=== PATIENT | female | born 2000 | race Caucasian/White ===

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

== ENCOUNTER 2021-01-09 16:33 | Emergency (ER) | payer MEDICAID, SELFPAY ==
[2021-01-09 16:34] VITALS: BP 115/67; PULSE 86; RESP 18; TEMP 37.1; O2SAT 98; BMI 26.2
[2021-01-09 17:09] LABS: Microscopic, Urine URINE MICROSCOPIC (MICROSCOPIC)
[2021-01-09 17:13] LABS: Appearance,Urine CLOUDY (Clear); Blood, Urine Negative (Negative); Color,Urine DK YELLOW (Yellow); Glucose,Urine (UA) Negative (Negative); Ketones,Urine 3+ (Negative); Leukocyte Esterase,Urine 1+ (Negative); Nitrate,Urine Negative (Negative); Protein,Urine TRACE (Negative); Specific Gravity, Urine >= 1.030 (1.005-1.030); Urobilinogen,Urine 0.2 EU/dl (0.2)
[2021-01-09 17:15] LABS: Bilirubin,Urine 1+ (Negative)
[2021-01-09 17:16] LABS: Chloride 106 mmol/L (98-107)
[2021-01-09 17:17] LABS: Sodium 138 mmol/L (136-145)
[2021-01-09 17:19] LABS: Alanine Aminotransferase 17 U/L (12-78); Alkaline Phosphatase 106 U/L (38-126); Aspartate Amino Transferase 27 U/L (14-36); Bilirubin,Total 0.6 mg/dl (0.2-1.3); Creatinine Clearance Estimated 232 mL/min (50-200); Estimated Glomerular Filt Rate 206 ml/min (>60); GFR (African American) 249 ML/MIN (>60)
[2021-01-09 17:20] LABS: Albumin Level 3.8 g/dl (3.5-5.0); Albumin/Globulin Ratio 1.2 (1.1-1.8); Calcium 8.5 mg/dl (8.4-10.2); Carbon Dioxide 18 mmol/L (22.0-30.0); Globulin 3.2 g/dL (1.3-3.2); Glucose 74 mg/dl (74-100); Lipase 168 U/L (23-300)
[2021-01-09 17:21] LABS: HCG Qualitative, Serum Positive (Negative)
[2021-01-09 17:26] LABS: Bacteria,Urine 1+ /lpf
[2021-01-09 17:28] LABS: Basophils # 0.1 K/mm3 (0-0.2); Basophils % 0.6 % (0.1-2.0); Eosinophils # 0.1 K/mm3 (0.0-0.4); Eosinophils % 0.7 % (0.1-12.0); Hematocrit 38.1 % (37.0-47.0); Hemoglobin 12.6 g/dL (12.2-16.2); Lymphocytes # 1.8 K/mm3 (0.7-4.5); Lymphocytes % 19.7 % (10-50); Mean Corpuscular HGB Conc 33.1 g/dL (31.8-35.4); Mean Corpuscular Volume 78.5 fl (81-99); Mean Platelet Volume 8.1 fl (7.4-10.4); Monocytes # 0.4 K/mm3 (0.1-1.0); Monocytes % 4.7 % (1.7-9.3); Neutrophils % 74.3 % (37.0-80.0); Platelet Count 296 K/mm3 (142-424); Red Blood Count 4.85 M/mm3 (4.20-5.40); Red Cell Distribution Width 17.7 % (11.5-17.5); White Blood Count 9.4 K/mm3 (4.5-13.0)
[2021-01-09 17:31] LABS: Blood Urea Nitrogen < 2 mg/dl (7-17)
--- NOTE | 2021-01-09 17:46 | HMH.EDNVD ---
ED Disposition Clinical Impression: Hyperemesis arising during Disposition: Home, Self-Care Condition on Discharge: Good Instructions: DI for Hyperemesis Gravidarum Referrals: Boyd Morrow [Primary Care Provider] - Jeremy Cespedes MD [Staff Physician] - - Critical Care Critical Care Time: No Attestation: On 01/09/21, the high probability of a clinically significant, sudden or life threatening deterioration of the following system(s) required my full and direct attention, intervention and personal management. The time I documented below is in addition to time spent performing reported procedures but includes the following listed in this critical care notation. Medical Decision Making - Medical Records Medical records reviewed: Yes: I reviewed the patient's medical records. - Hany Inquiry Pt receiving controlled substance: No Vital Signs: 01/09/21 16:34 Temperature 98.8 F Temperature Source Oral Pulse Rate [Left Radial] 86 Respiratory Rate 18 Blood Pressure [Right Arm] 115/67 Blood Pressure Mean [Right Arm] 83 Blood Pressure Source [Right Arm] Automatic Cuff Blood Pressure Position [Right Arm] Sitting 02 Sat by Pulse Oximetry 98 Oxygen Delivery Method Room Air - Lab Data Lab Results 01/09/21 16:56: WBC 9.4, RBC 4.85, Hgb 12.6, Hct 38.1, MCV 78.5 L, MCH 26.0 L, MCHC 33.1, RDW 17.7 H, Plt Count 296, MPV 8.1, Neut % (Auto) 74.3, Lymph % (Auto) 19.7, [place] % (Auto) 4.7, Eos % (Auto) 0.7, Baso % (Auto) 0.6, Neut # (Auto) 7.0, Lymph # (Auto) 1.8, [place] # (Auto) 0.4, Eos # (Auto) 0.1, Baso # (Auto) 0.1 01/09/21 16:56: Sodium 138, Potassium 3.0 L, Chloride 106, Carbon Dioxide 18 L, Anion Gap 17.0 H, BUN < 2 L, Creatinine 0.40 L, Estimated Creat Clear 232, Estimated GFR 206, Est GFR ( Amer) 249, Glucose 74, Calcium 8.5, Total Bilirubin 0.6, AST 27, ALT 17, Alkaline Phosphatase 106, Total Protein 7.0, Albumin 3.8, Globulin 3.2, Albumin/Globulin Ratio 1.2, Lipase 168 01/09/21 16:56: Serum HCG, Qual Positive 01/09/21 17:03: Urine Color Dk yellow, Urine Appearance Cloudy, Urine pH 6.0, Ur Specific [place] >= 1.030, Urine Protein Trace, Urine Glucose (UA) Negative, Urine Ketones 3+, Urine Blood Negative, Urine Nitrate Negative, Urine Bilirubin 1+ A, Urine Urobilinogen 0.2, Ur Leukocyte Esterase 1+ A, Urine RBC None, Urine WBC 3-5, Ur Squamous Epith Cells 5-10, Urine Bacteria 1+ Result diagrams: 01/09/21 16:56 01/09/21 16:56 Orders (Tests/Meds): ED MEDICATIONS Generic Name Dose Route Start Last Admin Trade Name Freq PRN Reason Stop Dose Admin Sodium Chloride 1,000 mls @ 999 mls/hr 01/09/21 17:00 01/09/21 17:10 Sod Chlor 0.9% 1000ml Bag IV 01/09/21 18:00 999 mls/hr .Q1H1M NAUN Administration Sodium Chloride 1,000 mls @ 999 mls/hr 01/09/21 18:30 Sod Chlor 0.9% 1000ml Bag IV 01/09/21 19:30 .Q1H1M NAUN Discontinued Medications Generic Name Dose Route Start Last Admin Trade Name Freq PRN Reason Stop Dose Admin Diphenhydramine HCl 25 mg 01/09/21 16:57 01/09/21 17:09 Diphenhydramine 50mg/Ml Vial IV 01/09/21 16:58 25 mg ONCE ONE Administration Ondansetron HCl 4 mg 01/09/21 16:57 01/09/21 17:10 Ondansetron 4mg/2ml Vial IV 01/09/21 16:58 4 mg ONCE ONE Administration ORDERS Category Date Time Status Urine Culture Stat Micro 01/09/21 17:03 Received - Reevaluation(s) Time: 19:02 Reevaluation #1: On reevaluation, the patient is feeling much better. Again she has no abdominal discomfort. States that her nausea is significantly improved. She is currently tolerating oral intake at this time without any difficulty. Repeat abdominal exam is benign. Patient does have evidence of some ketones in her urine as well as some mild prerenal dysfunction. Likely secondary to poor oral intake. I did discuss admission with the patient, however she is feeling better she would like to go home and try outpatient treatment. Patient does have some bacter
[2021-01-09 19:17] VITALS: BP 99/50; PULSE 65; RESP 15; TEMP 36.7; O2SAT 100
== END 2021-01-09 19:38 | disposition home or self-care (01) ==
PROVIDERS: Emergency Provider Emergency Medicine; PCP Urology Pediatric Urology
DX: O21.0 Mild hyperemesis gravidarum (principal); Z3A.16 16 weeks gestation of pregnancy
CPT/HCPCS: 80053; 81001; 83690; 84703; 85025; 87086; 96365; 96366; 96375; 99283; J2405

== ENCOUNTER 2021-01-12 09:22 | Inpatient (IN) | payer MEDICAID, SELFPAY ==
[2021-01-12 09:44] VITALS: BMI 25.9
[2021-01-12 10:19] LABS: Coronavirus 19, PCR Not Detected (NotDetected); Influenza A, PCR Not Detected (NotDetected); Influenza B, PCR Not Detected (NotDetected)
[2021-01-12 10:21] LABS: Microscopic, Urine URINE MICROSCOPIC (MICROSCOPIC)
[2021-01-12 10:22] LABS: Appearance,Urine CLEAR (Clear); Blood, Urine Negative (Negative); Color,Urine YELLOW (Yellow); Glucose,Urine (UA) Negative (Negative); Ketones,Urine 3+ (Negative); Leukocyte Esterase,Urine 1+ (Negative); Nitrate,Urine Negative (Negative); Protein,Urine 1+ (Negative); Specific Gravity, Urine >= 1.030 (1.005-1.030)
[2021-01-12 10:25] LABS: Basophils # 0.1 K/mm3 (0-0.2); Basophils % 0.5 % (0.1-2.0); Chloride 107 mmol/L (98-107); Eosinophils % 0.4 % (0.1-12.0); Hematocrit 42.3 % (37.0-47.0); Hemoglobin 13.4 g/dL (12.2-16.2); Lymphocytes # 1.5 K/mm3 (0.7-4.5); Lymphocytes % 15.5 % (10-50); Mean Corpuscular HGB Conc 31.7 g/dL (31.8-35.4); Mean Corpuscular Hemoglobin 25.5 pg (27.0-31.2); Mean Corpuscular Volume 80.4 fl (81-99); Mean Platelet Volume 7.1 fl (7.4-10.4); Monocytes # 0.5 K/mm3 (0.1-1.0); Monocytes % 4.9 % (1.7-9.3); Neutrophils # 7.8 K/mm3 (1.8-7.8); Neutrophils % 78.6 % (37.0-80.0); Platelet Count 341 K/mm3 (142-424); Red Blood Count 5.26 M/mm3 (4.20-5.40); Red Cell Distribution Width 17.6 % (11.5-17.5); White Blood Count 9.9 K/mm3 (4.5-13.0)
[2021-01-12 10:26] LABS: Potassium 3.2 mmoL/L (3.5-5.1); Sodium 138 mmol/L (136-145)
[2021-01-12 10:28] LABS: Creatinine Clearance Estimated 183 mL/min (50-200); Estimated Glomerular Filt Rate 159 ml/min (>60); GFR (African American) 192 ML/MIN (>60)
[2021-01-12 10:29] LABS: Anion Gap 21.2 mEq/L (5-15); Blood Urea Nitrogen < 2 mg/dl (7-17); Carbon Dioxide 13 mmol/L (22.0-30.0); Glucose 93 mg/dl (74-100)
[2021-01-12 10:35] LABS: Amphetamine/Metha Screen,Urine Negative ng/ml (<1000); Barbiturates Screen,Urine Negative ng/ml (<200)
[2021-01-12 10:36] LABS: Benzodiazepines Screen,Urine Negative ng/ml (<200); Bilirubin,Urine Negative (Negative)
[2021-01-12 10:37] LABS: Cannabinoid Screen,Urine Negative ng/ml (<50); Cocaine Screen,Urine Negative ng/ml (<300)
[2021-01-12 10:38] LABS: Methadone Screen,Urine Negative ng/ml (<300); Phencyclidine Screen,Urine Negative ng/ml (<25)
[2021-01-12 10:39] LABS: Opiate Screen,Urine Negative ng/ml (<300)
[2021-01-12 12:33] VITALS: BP 107/68; PULSE 105; RESP 16; TEMP 36.6; O2SAT 100; BMI 25.9
[2021-01-12 16:30] VITALS: BP 91/53; PULSE 85; RESP 18; TEMP 36.9; O2SAT 100
--- NOTE | 2021-01-12 16:50 | HMH.HP ---
*Admission Date: 01/12/21 *Chief complaint: nausea/vomiting *History of present illness: 20 yo G1 @ 16 5/7 sent from office for direct admission for hyperemesis gravidarum. Severe nausea/vomiting with 37 lb weight loss since started 6 pound weight loss since last appointment in [facility] office 12/30/20 3+ urine ketones Failed outpatient management with po zofran and po/pr phenergan unable to tolerate po reglan [facility] History I have reviewed the patient's past medical history: Yes *Have you ever received a pneumonia vaccine?: No *Have you received a flu vaccine this season?: Yes Laterality Cases: Bilateral: Tonsillectomy Other Surgeries: No: Amputation: No Fractures: No - *Social History Smoking Status: Never smoker Alcohol Intake: never Substance Use Type: denies use *Occupational Status:: unemployed *Travel in the last 8 weeks: None Family Hx:: Hypertension Para: 0 Review of Systems - Review of Systems Review of systems:: pertinent systems reviewed and negative unless documented below - Constitutional Denies fever(s) - *Respiratory Denies cough - *Gastrointestinal Reports nausea, Reports vomiting - *Genitourinary Denies abnormal vaginal bleeding Meds Home Medications Medication Instructions Recorded Confirmed Type Nju400/Iron/FA/O3/Dha/Epa/Fish 1 cap PO DAILY 01/12/21 01/12/21 History [ Multi-Dha Softgel] Allergies Allergy/AdvReac Type Severity Reaction Status Date / Time No Known Allergies Allergy Verified 01/12/21 08:33 Exam Vital signs and Labs for Last 24 Hours: Temp Pulse Resp BP Pulse Ox 97.8 F 105 H 16 107/68 L 100 01/12/21 12:33 01/12/21 12:33 01/12/21 12:33 01/12/21 12:33 01/12/21 12:33 Laboratory Results - last 24 hr 01/12/21 09:51: Urine Color Yellow, Urine Appearance Clear, Urine pH 6.0, Ur Specific [place] >= 1.030, Urine Protein 1+, Urine Glucose (UA) Negative, Urine Ketones 3+, Urine Blood Negative, Urine Nitrate Negative, Urine Bilirubin Negative, Urine Urobilinogen 1.0, Ur Leukocyte Esterase 1+ A, Urine RBC None, Urine WBC 3-5, Ur Squamous Epith Cells 5-10, Urine Bacteria None, Hyaline Casts 3-5 01/12/21 09:51: Urine Opiates Screen Negative, Urine Methadone Screen Negative, Ur Barbituates Screen Negative, Ur Phencyclidine Scrn Negative, Ur Amphetamines Screen Negative, U Benzodiazepines Scrn Negative, Urine Cocaine Screen Negative, U Marijuana (THC) Screen Negative 01/12/21 10:06: WBC 9.9, RBC 5.26, Hgb 13.4, Hct 42.3, MCV 80.4 L, MCH 25.5 L, MCHC 31.7 L, RDW 17.6 H, Plt Count 341, MPV 7.1 L, Neut % (Auto) 78.6, Lymph % (Auto) 15.5, [place] % (Auto) 4.9, Eos % (Auto) 0.4, Baso % (Auto) 0.5, Neut # (Auto) 7.8, Lymph # (Auto) 1.5, [place] # (Auto) 0.5, Eos # (Auto) 0.0, Baso # (Auto) 0.1 01/12/21 10:06: Sodium 138, Potassium 3.2 L, Chloride 107, Carbon Dioxide 13 L, Anion Gap 21.2 H, BUN < 2 L, Creatinine 0.50 L D, Estimated Creat Clear 183, Estimated GFR 159, Est GFR ( Amer) 192 D, Glucose 93, Calcium 9.0 01/12/21 10:10: SARS-CoV-2 (PCR) Not detected, Influenza A Untype (PCR) Not detected, Influenza Type B (PCR) Not detected I & O for Last 24 hours: Intake & Output 01/10/21 01/11/21 01/12/21 01/13/21 11:59 11:59 11:59 11:59 Weight 141 lb 8.588 oz 141 lb 8.588 oz - Constitutional no acute distress - *Routine HEENT Exam Head: Present: normocephalic Eye: Present: EOMI, PERRL ENT: Present: mucous membranes dry - *Routine Neck Exam Present: supple. Absent: lymphadenopathy - *Routine Respiratory Exam Present: CTA bilaterally - *Routine Cardiovascular Exam Present: RRR - *Routine Abdominal Exam Present: soft, normoactive bowel sounds. Absent: tenderness - *Routine Rectal Exam Rectal:: deferred - *Routine Genitalia Exam Genitalia:: deferred - *Routine Extremities Exam Absent: cyanosis, clubbing, edema - *Routine Skin Exam Present: warm. Absent: rash - *Routine Neurological Exam Present: alert, orien
[2021-01-12 20:39] VITALS: BP 104/50; PULSE 78; RESP 18; TEMP 36.8; O2SAT 100
[2021-01-13 04:03] VITALS: BP 94/53; PULSE 80; RESP 16; TEMP 36.8; O2SAT 99
--- NOTE | 2021-01-13 07:11 | HMH.PHAVTE ---
[facility] Pharmacy VTE Monitoring - Patient Demographics Admission date: 01/12/21 Report Date: 01/13/21 Time: 07:11 Allergies/Adverse Reactions: Patient Allergies No Known Allergies Allergy (Verified 01/12/21 08:33) Height: 1.57 m Weight: 64.2 kg Patient Problems: Current Active Problems 16 weeks gestation of (Acute) Hyperemesis gravidarum (Acute) Hypokalemia (Acute) - VTE Risk Labs: VTE Related Lab Results Hgb 13.4 g/dL (12.2-16.2) 01/12/21 10:06 Hct 42.3 % (37.0-47.0) 01/12/21 10:06 Plt Count 341 K/mm3 (142-424) 01/12/21 10:06 BUN < 2 mg/dl (7-17) L 01/12/21 10:06 Creatinine 0.50 mg/dl (0.52-1.04) L D 01/12/21 10:06 Estimated Creat Clear 183 mL/min (50-200) 01/12/21 10:06 - Prophylaxis VTE Prophylaxis Ordered?: Yes Types of VTE Prophylaxis: TEDS Knee High Location of Applied Device: Bilateral Lower Extremeties
--- NOTE | 2021-01-13 08:40 | PC.NURSE ---
EMESIS EPISODE AT THIS TIME. ZOFRAN GIVEN.
[2021-01-13 11:59] LABS: Microscopic, Urine URINE MICROSCOPIC (MICROSCOPIC)
[2021-01-13 12:01] LABS: Appearance,Urine CLEAR (Clear); Bilirubin,Urine Negative (Negative); Blood, Urine Negative (Negative); Color,Urine YELLOW (Yellow); Glucose,Urine (UA) Negative (Negative); Ketones,Urine Negative (Negative); Leukocyte Esterase,Urine 2+ (Negative); Nitrate,Urine Negative (Negative); Protein,Urine Negative (Negative); Specific Gravity, Urine 1.015 (1.005-1.030); Urobilinogen,Urine 0.2 EU/dl (0.2)
[2021-01-13 12:12] LABS: Mucus,Urine 1+ /lpf
--- NOTE | 2021-01-13 14:34 | PC.NURSE ---
Patient's father called requesting to speak with Dr. Napier. Explained that he was calling the OB department and not her office. He stated he though she was on the unit rounding. He voiced his concerns that we are not providing appropriate care by not putting in a PIC line. I assured him she was receiving appropriate care. I spoke with the patient to assess her concerns regarding her POC. Patient stated she could not continue to keep coming to the hospital every couple of days and endure multiple IV sticks and wants a PIC line. I will discuss this with her nurse so she can notify Dr. Napier, who is in surgery ate the moment, of the patient's request and the need for further discussion with the patient.
[2021-01-13 14:35] LABS: Chloride 107 mmol/L (98-107); Sodium 137 mmol/L (136-145)
[2021-01-13 14:38] LABS: Alanine Aminotransferase 17 U/L (12-78); Albumin Level 2.9 g/dl (3.5-5.0); Albumin/Globulin Ratio 1.1 (1.1-1.8); Alkaline Phosphatase 84 U/L (38-126); Anion Gap 7.7 mEq/L (5-15); Aspartate Amino Transferase 29 U/L (14-36); Bilirubin,Total 0.4 mg/dl (0.2-1.3); Calcium 8.3 mg/dl (8.4-10.2); Carbon Dioxide 25 mmol/L (22.0-30.0); Creatinine Clearance Estimated 229 mL/min (50-200); Estimated Glomerular Filt Rate 206 ml/min (>60); GFR (African American) 249 ML/MIN (>60); Globulin 2.7 g/dL (1.3-3.2); Glucose 109 mg/dl (74-100); Total Protein,Serum 5.6 g/dl (6.3-8.2)
[2021-01-13 14:42] LABS: Blood Urea Nitrogen < 2 mg/dl (7-17)
[2021-01-13 14:43] LABS: Potassium 2.7 mmoL/L (3.5-5.1)
[2021-01-13 15:30] VITALS: BP 103/56; PULSE 79; RESP 20; TEMP 36.7; O2SAT 100
--- NOTE | 2021-01-13 16:01 | P.PN_ITS ---
Internal Medicine - PN: Subj *Date: 01/13/21 *Time: 16:01 Interval history: 16 6/7 weeks with hyperemesis HD #2 Did well yesterday with no anti-emetics needed following admission throughout the day and the night She had some vomiting this morning and repeat labs showed decrease in potassium from 32. to 2.7 She has been unwilling to take any food or drink po since admission, even when she is not vomiting Exam Vital signs and Labs for Last 24 Hours: Temp Pulse Resp BP Pulse Ox 98.2 F 80 16 94/53 L 99 01/13/21 04:03 01/13/21 04:03 01/13/21 04:03 01/13/21 04:03 01/13/21 04:03 Laboratory Results - last 24 hr 01/13/21 11:50: Urine Color Yellow, Urine Appearance Clear, Urine pH 6.0, Ur Specific [place] 1.015, Urine Protein Negative, Urine Glucose (UA) Negative, Urine Ketones Negative, Urine Blood Negative, Urine Nitrate Negative, Urine Bilirubin Negative, Urine Urobilinogen 0.2, Ur Leukocyte Esterase 2+ A, Urine RBC 3-5, Urine WBC 5-10, Urine Mucus 1+ 01/13/21 14:17: Sodium 137, Potassium 2.7 L*, Chloride 107, Carbon Dioxide 25, Anion Gap 7.7, BUN < 2 L, Creatinine 0.40 L, Estimated Creat Clear 229, Estimated GFR 206, Est GFR ( Amer) 249 D, Glucose 109 H, Calcium 8.3 L, Total Bilirubin 0.4, AST 29, ALT 17, Alkaline Phosphatase 84, Total Protein 5.6 L, Albumin 2.9 L, Globulin 2.7, Albumin/Globulin Ratio 1.1 I & O for Last 24 hours: Intake & Output 01/11/21 01/12/21 01/13/21 01/14/21 11:59 11:59 11:59 11:59 Output Total 1250 / 1250 Balance -1250 / -1250 Weight 141 lb 8.588 oz 141 lb 8.588 oz Microbiology Reports for the Last 24 Hours: Microbiology 01/12/21 09:51 Urine,Clean Catch Urine Culture - Preliminary Narrative: CONSTITUTIONAL: no acute distress, resting comfortably HEENT: mucous membranes dry PULMONARY: breathing unlabored without audible wheezes CV: no visible JVD; normal LE peripheral pulses ABD: soft, NT/ND, no guarding SKIN: no visible rash or lesions EXT: no edema LEs NEURO: alert/oriented, no altered mental status Assessment and Plan (1) 16 weeks gestation of Status: Acute Category: Medical Code(s): Z3A.16 - 16 weeks gestation of (2) Hyperemesis gravidarum Status: Acute Category: Medical Code(s): O21.0 - Mild hyperemesis gravidarum (3) Hypokalemia Status: Acute Category: Medical Code(s): E87.6 - Hypokalemia - Assessment and plan all Dx Assessment and Plan for all problems:: Continue IVF 150cc/hr Encourage po intake IV potassium replacement Reasses in am
--- NOTE | 2021-01-13 18:15 | PC.NURSE ---
300ml emesis noted in bag upon entering room. patient eating lunchable drinking water when nurse walked in.
[2021-01-13 19:42] VITALS: BP 98/51; PULSE 80; RESP 17; TEMP 36.9; O2SAT 98
[2021-01-13 22:05] LABS: Calcium 8.1 mg/dl (8.4-10.2); Carbon Dioxide 25 mmol/L (22.0-30.0); Chloride 105 mmol/L (98-107); Creatinine Clearance Estimated 306 mL/min (50-200); Estimated Glomerular Filt Rate 287 ml/min (>60); GFR (African American) 347 ML/MIN (>60); Glucose 88 mg/dl (74-100); Sodium 136 mmol/L (136-145)
[2021-01-13 22:10] LABS: Blood Urea Nitrogen < 2 mg/dl (7-17)
--- NOTE | 2021-01-13 22:10 | PC.NURSE ---
LATE ENTRY. CRITICAL POTASSIUM RESULT (3.0) RECEIVED AT 22:10 BY CHASITY IN LAB.
[2021-01-14 00:03] VITALS: BP 100/52; PULSE 82; RESP 18; TEMP 36.6; O2SAT 98
[2021-01-14 04:59] VITALS: BP 94/52; PULSE 80; RESP 18; TEMP 36.6; O2SAT 98
[2021-01-14 09:57] VITALS: BMI 27.3
--- NOTE | 2021-01-14 10:03 | US_ITS ---
PROCEDURE: US OB >= 14 WEEKS FETUS CLINICAL INDICATION: Hyperemsis, increased weight loss, 16wks. COMPARISON: No exams were available for comparison FINDINGS: There is a single live fetus present which is in cephalic presentation. heart and body motion noted. Cervix is closed measuring 3 cm. The placenta is posterior and grade 1. The Measurements: Average ultrasound age 17 weeks 1 day. Gestational Age 17 weeks 0 days Estimated due date by ultrasound age 106/23/2021. Estimated weight 176 g BPD = 17 weeks 1 day OFD = 17 weeks 4 days HC = 17 weeks 0 days AC = 17 weeks 0 days FL = 17 weeks 1 day Growth Percentile= 41% Heart Rate = 146 Cerebellum = 17 weeks 6 days Humerus = HC/AC is 1.21 CI is 76 percent FL/BPD is 64 percent FL/AC is 21 percent No obvious anomalies demonstrated IMPRESSION: There is a single live intrauterine gestation in cephalic presentation with an average ultrasound age of 17 weeks 1 day. All parameters correlate. Please see above for detail. This exam does not constitute for a 20 week anatomy exam.. Recommend complete OB ultrasound/anatomy exam at 20 weeks. Dictated by: Jorge Oconnor MD 01/16/2021 05:23 Jorge Oconnor MD in OV 01/16/2021 05:23
--- NOTE | 2021-01-14 10:26 | HMH.ACPN2 ---
Internal Medicine - PN: Subj *Date: 01/14/21 *Time: 10:26 (This is hospital day #3 for this 20-year-old primigravid white female with hyperemesis gravidarum. She continues to have trouble with nausea and vomiting and is unable to keep any solid food down. She states that she has lost over 40 pounds since the beginning of the . She is currently on Zofran which works intermittently. Phenergan does not seem to help, nor does the Diclegis which she is on. Her potassium has been low but her most recent one was 3.0 (still low, but increasing). An ultrasound was attempted on admission, but she was unable to lie flat without experiencing nausea and vomiting, so was incomplete. The plan today is to repeat her potassium and check her thyroid, and to try to obtain a complete OB ultrasound.) Exam Vital signs and Labs for Last 24 Hours: Temp Pulse Resp BP Pulse Ox 97.8 F 80 18 94/52 L 98 01/14/21 04:59 01/14/21 04:59 01/14/21 04:59 01/14/21 04:59 01/14/21 04:59 Laboratory Results - last 24 hr 01/13/21 11:50: Urine Color Yellow, Urine Appearance Clear, Urine pH 6.0, Ur Specific [place] 1.015, Urine Protein Negative, Urine Glucose (UA) Negative, Urine Ketones Negative, Urine Blood Negative, Urine Nitrate Negative, Urine Bilirubin Negative, Urine Urobilinogen 0.2, Ur Leukocyte Esterase 2+ A, Urine RBC 3-5, Urine WBC 5-10, Urine Mucus 1+ 01/13/21 14:17: Sodium 137, Potassium 2.7 L*, Chloride 107, Carbon Dioxide 25, Anion Gap 7.7, BUN < 2 L, Creatinine 0.40 L, Estimated Creat Clear 229, Estimated GFR 206, Est GFR ( Amer) 249 D, Glucose 109 H, Calcium 8.3 L, Total Bilirubin 0.4, AST 29, ALT 17, Alkaline Phosphatase 84, Total Protein 5.6 L, Albumin 2.9 L, Globulin 2.7, Albumin/Globulin Ratio 1.1 01/13/21 21:43: Sodium 136, Potassium 3.0 L, Chloride 105, Carbon Dioxide 25, Anion Gap 9.0, BUN < 2 L, Creatinine 0.30 L D, Estimated Creat Clear 306 H, Estimated GFR 287, Est GFR ( Amer) 347 D, Glucose 88, Calcium 8.1 L I & O for Last 24 hours: Intake & Output 01/11/21 01/12/21 01/13/21 01/14/21 11:59 11:59 11:59 11:59 Output Total 1250 / 1250 1300 / 1300 Balance -1250 / -1250 -1300 / -1300 Weight 141 lb 8.588 oz 141 lb 8.588 oz 148 lb 8 oz Microbiology Reports for the Last 24 Hours: Microbiology 01/12/21 09:51 Urine,Clean Catch Urine Culture - Preliminary 01/13/21 11:50 Urine,Clean Catch Urine Culture - Preliminary Assessment and Plan (1) 16 weeks gestation of Status: Acute Category: Medical Code(s): Z3A.16 - 16 weeks gestation of (2) Hyperemesis gravidarum Status: Acute Category: Medical Code(s): O21.0 - Mild hyperemesis gravidarum (3) Hypokalemia Status: Acute Category: Medical Code(s): E87.6 - Hypokalemia
[2021-01-14 10:31] LABS: Potassium 3.1 mmoL/L (3.5-5.1)
[2021-01-14 11:06] LABS: Thyroid Stimulating Hormone 0.78 uIU/mL (0.465-4.68)
--- NOTE | 2021-01-15 10:22 | P.PN_ITS ---
Internal Medicine - PN: Subj *Date: 01/15/21 *Time: 10:22 (The ultrasound done yesterday revealed a normal 16-week . Her TSH was normal. Her potassium remains low at 3.1 and her calcium is low at 8.1. Going to repeat a BMP today and get an EKG. Through the night she has continued to have severe nausea and vomiting. I am ordering a rally pack of vitamins in the hopes that that will lessen her nausea/vomiting. Dr[facility] Exam Vital signs and Labs for Last 24 Hours: Temp Pulse Resp BP Pulse Ox 97.8 F 80 18 94/52 L 98 01/14/21 04:59 01/14/21 04:59 01/14/21 04:59 01/14/21 04:59 01/14/21 04:59 Laboratory Results - last 24 hr 01/14/21 10:07: Potassium 3.1 L, TSH 0.78 I & O for Last 24 hours: Intake & Output 01/12/21 01/13/21 01/14/21 01/15/21 11:59 11:59 11:59 11:59 Intake Total 3110 / 3110 Output Total 1250 / 1250 1400 / 1400 1210 / 1210 Balance -1250 / -1250 -1400 / -1400 1900 / 1900 Weight 141 lb 8.588 oz 141 lb 8.588 oz 148 lb 8 oz Microbiology Reports for the Last 24 Hours: Microbiology 01/12/21 09:51 Urine,Clean Catch Urine Culture - Preliminary 01/13/21 11:50 Urine,Clean Catch Urine Culture - Final Multiple organisms, suggests contamination. Assessment and Plan (1) 16 weeks gestation of Status: Acute Category: Medical Code(s): Z3A.16 - 16 weeks gestation of (2) Hyperemesis gravidarum Status: Acute Category: Medical Code(s): O21.0 - Mild hyperemesis gravidarum (3) Hypokalemia Status: Acute Category: Medical Code(s): E87.6 - Hypokalemia
--- NOTE | 2021-01-15 10:41 | ECG_ITS ---
APPROVED REPORT Exam: Resting ECG HR:82 bpm ECG Measurements Heart Rate 82 AXES QRSd 78 QRS 26 QT 358 T -18 QTc 418 Conclusion Accelerated Junctional rhythm ST & T wave abnormality, consider anterior ischemia Abnormal ECG Electronically signed by : Augustin Choudhury MD 01/16/2021 18:03:11
[2021-01-15 11:10] LABS: Basophils % 0.5 % (0.1-2.0); Eosinophils % 0.6 % (0.1-12.0); Hematocrit 31.6 % (37.0-47.0); Hemoglobin 10.7 g/dL (12.2-16.2); Lymphocytes # 1.3 K/mm3 (0.7-4.5); Lymphocytes % 20.1 % (10-50); Mean Corpuscular HGB Conc 33.9 g/dL (31.8-35.4); Mean Corpuscular Hemoglobin 27.3 pg (27.0-31.2); Mean Corpuscular Volume 80.6 fl (81-99); Mean Platelet Volume 7.8 fl (7.4-10.4); Monocytes # 0.3 K/mm3 (0.1-1.0); Neutrophils % 73.9 % (37.0-80.0); Platelet Count 267 K/mm3 (142-424); Red Blood Count 3.91 M/mm3 (4.20-5.40); Red Cell Distribution Width 17.8 % (11.5-17.5); White Blood Count 6.7 K/mm3 (4.5-13.0)
[2021-01-15 11:15] LABS: Alanine Aminotransferase 17 U/L (12-78); Albumin Level 2.6 g/dl (3.5-5.0); Alkaline Phosphatase 65 U/L (38-126); Aspartate Amino Transferase 23 U/L (14-36); Bilirubin,Total 0.3 mg/dl (0.2-1.3); Blood Urea Nitrogen 2 mg/dl (7-17); Calcium 8.1 mg/dl (8.4-10.2); Carbon Dioxide 33 mmol/L (22.0-30.0); Chloride 103 mmol/L (98-107); Creatinine Clearance Estimated 241 mL/min (50-200); Estimated Glomerular Filt Rate 206 ml/min (>60); GFR (African American) 249 ML/MIN (>60); Globulin 2.5 g/dL (1.3-3.2); Glucose 123 mg/dl (74-100); Sodium 137 mmol/L (136-145); Total Protein,Serum 5.1 g/dl (6.3-8.2)
--- NOTE | 2021-01-15 12:59 | HMH.CONS ---
*Admission Date: 01/12/21 *Reason for consult:: Family Medicine consult for hyperemesis gravidarum *History of present illness: Consultation has been requested for this 20-year-old white female 1 para 0 with hyperemesis gravidarum. Here is the OB narrative: 20 yo G1 @ 16 / sent from office for direct admission for hyperemesis gravidarum. Severe nausea/vomiting with 37 lb weight loss since started 6 pound weight loss since last appointment in [facility] office 12/30/20 3+ urine ketones Failed outpatient management with po zofran and po/pr phenergan unable to tolerate po reglan. The patient states she has been hospitalized for 4 days for IV fluids and persistent vomiting. She last vomited at 10 AM this morning. She is receiving D5 lactated Ringer's at 125 cc an hour. She is also presently receiving a rally pack. She has been treated outpatient with Phenergan and with Zofran. Apparently she had difficulty tolerating Reglan though I am not sure how long she received p.o. Reglan and I am not sure at what dose. Logic symptoms with the Reglan. She states that her vomiting started at 6 weeks gestation and has been persistent. She tells me she is lost from 196 pounds down to 140 pounds. She reports a past history of constipation and nausea has a child. Her mother suffered from gallbladder disease him from reflux but otherwise family history is nonrevealing. Patient does not smoke nor does she drink alcohol. [facility] History I have reviewed the patient's past medical history: Yes (She is very healthy.) *Have you ever received a pneumonia vaccine?: No *Have you received a flu vaccine this season?: Yes Laterality Cases: Left: Arthroscopy Knee (Torn meniscus), Bilateral: Tonsillectomy Other Surgeries: No: Amputation: No Fractures: No - *Social History Last grade of school completed: High school graduate Smoking Status: Never smoker Alcohol Intake: never Substance Use Type: denies use *Occupational Status:: unemployed *Travel in the last 8 weeks: None Family Hx:: Hypertension, Other (Disease and GERD in her mother) 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 ( 1 para 0) Para: 0 Review of Systems - Constitutional Denies body ache(s), Denies chills - Eyes Denies change in vision - ENT Denies bleeding gums, Denies hoarseness, Denies mouth lesions (Dry lips) - *Cardiovascular Denies chest pain - *Respiratory Denies chest congestion, Denies cough - *Gastrointestinal Reports nausea, Reports vomiting, Denies abdominal pain, Denies heartburn - *Genitourinary Reports absent period - *Musculoskeletal Denies back pain - Integumentary/Breasts Reports change in skin color (Pale), Reports dry skin - *Neurologic Denies seizure-like activity, Denies dizziness, Denies tremor(s) - Psychiatric Reports change in appetite Meds Home Medications Medication Instructions Recorded Confirmed Type [id number]/Iron/FA/O3/Dha/Epa/Fish 1 cap PO DAILY 01/12/21 01/12/21 History [ Multi-Dha Softgel] doxylamine 10 mg-pyridoxine (vit 1 tab PO BID #60 tab 01/13/21 Rx B6) 10 mg tablet,delayed release Allergies Allergy/AdvReac Type Severity Reaction Status Date / Time No Known Allergies Allergy Verified 01/12/21 08:33 Exam Vital signs and Labs for Last 24 Hours: Temp Pulse Resp BP Pulse Ox 97.8 F 80 18 94/52 L 98 01/14/21 04:59 01/14/21 04:59 01/14/21 04:59 01/14/21 04:59 01/14/21 04:59 Laboratory Results - last 24 hr 01/15/21 10:48: WBC 6.7, RBC 3.91 L, Hgb 10.7 L, Hct 31.6 L, MCV 80.6 L, MCH 27.3, MCHC 33.9, RDW 17.8 H, Plt Count 267, MPV 7.8, Neut % (Auto) 73.9, Lymph % (Auto) 20.1, [place] % (Auto) 5.0, Eos % (Auto) 0.6, Baso % (Auto) 0.5, Neut # (Auto) 5.0, Lymph # (Auto) 1.3, [place] # (Auto) 0.3, Eos # (Auto) 0.0, Baso # (Auto) 0.0 01/15/21 10:48: Sodium 137, Potassium 3.0 L, Chloride 103, Carbon Dioxide 33 H, Anion Gap 4.0 L, BUN 2 L, Creatinine 0.40 L D, Estimated Crea
[2021-01-15 16:04] VITALS: BP 113/69; PULSE 81; RESP 18; TEMP 36.7; O2SAT 100
[2021-01-15 20:00] VITALS: PULSE 80
[2021-01-15 20:07] VITALS: BP 121/70; PULSE 76; RESP 17; TEMP 36.7; O2SAT 100
[2021-01-16] VITALS (8 sets, daily range): BP systolic 92–108; BP diastolic 54–64; PULSE 74–100; RESP 17–20; TEMP 36.6–36.9; O2SAT 98–100
[2021-01-16 07:12] LABS: Basophils % 0.6 % (0.1-2.0); Eosinophils # 0.1 K/mm3 (0.0-0.4); Eosinophils % 2.1 % (0.1-12.0); Hemoglobin 9.9 g/dL (12.2-16.2); Lymphocytes # 2.9 K/mm3 (0.7-4.5); Lymphocytes % 42.6 % (10-50); Mean Corpuscular HGB Conc 32.9 g/dL (31.8-35.4); Mean Corpuscular Hemoglobin 26.9 pg (27.0-31.2); Mean Platelet Volume 8.1 fl (7.4-10.4); Monocytes # 0.3 K/mm3 (0.1-1.0); Neutrophils # 3.4 K/mm3 (1.8-7.8); Neutrophils % 49.7 % (37.0-80.0); Platelet Count 255 K/mm3 (142-424); Red Blood Count 3.66 M/mm3 (4.20-5.40); Red Cell Distribution Width 17.9 % (11.5-17.5); White Blood Count 6.8 K/mm3 (4.5-13.0)
[2021-01-16 07:16] LABS: Chloride 104 mmol/L (98-107); Sodium 138 mmol/L (136-145)
[2021-01-16 07:19] LABS: Alanine Aminotransferase 15 U/L (12-78); Albumin Level 2.2 g/dl (3.5-5.0); Alkaline Phosphatase 67 U/L (38-126); Anion Gap 3.7 mEq/L (5-15); Aspartate Amino Transferase 26 U/L (14-36); Bilirubin,Total 0.5 mg/dl (0.2-1.3); Calcium 7.2 mg/dl (8.4-10.2); Carbon Dioxide 33 mmol/L (22.0-30.0); Creatinine Clearance Estimated 321 mL/min (50-200); Estimated Glomerular Filt Rate 287 ml/min (>60); GFR (African American) 347 ML/MIN (>60); Globulin 2.3 g/dL (1.3-3.2); Glucose 95 mg/dl (74-100); Total Protein,Serum 4.5 g/dl (6.3-8.2)
--- NOTE | 2021-01-16 08:05 | PC.NURSE ---
Assessment completed at this time. Pt reports to nurse I feel great today. Patient refuses reglan- reports makes her sick. Patient educated on continuing medication and that it takes a few times to make patient feel better- patient refused again. Lungs cta and bowel sounds active x4. Full liquids tray at bedside. No needs voiced to nurse.
[2021-01-16 08:16] LABS: Blood Urea Nitrogen < 2 mg/dl (7-17); Potassium 2.7 mmoL/L (3.5-5.1)
--- NOTE | 2021-01-16 08:30 | PC.NURSE ---
bland diet given to patient- eggs and toast. patient reports she feels hungry and would like to tray food this am.
--- NOTE | 2021-01-16 09:15 | HMH.ACPN2 ---
Internal Medicine - PN: Subj *Date: 01/16/21 *Time: 09:15 Interval history: FAMILY MEDICINE CONSULT The patient took 1 dose of metoclopramide and then refused further dosing stating that it made her sick. She refused to take potassium because the pills were too large. Consequently her potassium was 2.7 today. Fortunately she has not been vomiting since I saw her. She is tolerating some p.o. Exam Vital signs and Labs for Last 24 Hours: Temp Pulse Resp BP Pulse Ox 98.1 F 81 20 106/64 L 100 01/16/21 08:00 01/16/21 08:00 01/16/21 08:00 01/16/21 08:00 01/16/21 08:00 Laboratory Results - last 24 hr 01/15/21 10:48: WBC 6.7, RBC 3.91 L, Hgb 10.7 L, Hct 31.6 L, MCV 80.6 L, MCH 27.3, MCHC 33.9, RDW 17.8 H, Plt Count 267, MPV 7.8, Neut % (Auto) 73.9, Lymph % (Auto) 20.1, [place] % (Auto) 5.0, Eos % (Auto) 0.6, Baso % (Auto) 0.5, Neut # (Auto) 5.0, Lymph # (Auto) 1.3, [place] # (Auto) 0.3, Eos # (Auto) 0.0, Baso # (Auto) 0.0 01/15/21 10:48: Sodium 137, Potassium 3.0 L, Chloride 103, Carbon Dioxide 33 H, Anion Gap 4.0 L, BUN 2 L, Creatinine 0.40 L D, Estimated Creat Clear 241, Estimated GFR 206, Est GFR ( Amer) 249 D, Glucose 123 H, Calcium 8.1 L, Total Bilirubin 0.3, AST 23, ALT 17, Alkaline Phosphatase 65, Total Protein 5.1 L, Albumin 2.6 L, Globulin 2.5, Albumin/Globulin Ratio 1.0 L 01/16/21 06:50: Sodium 138, Potassium 2.7 L*, Chloride 104, Carbon Dioxide 33 H, Anion Gap 3.7 L, BUN < 2 L, Creatinine 0.30 L D, Estimated Creat Clear 321 H, Estimated GFR 287, Est GFR ( Amer) 347 D, Glucose 95 D, Calcium 7.2 L, Total Bilirubin 0.5, AST 26, ALT 15, Alkaline Phosphatase 67, Total Protein 4.5 L, Albumin 2.2 L D, Globulin 2.3, Albumin/Globulin Ratio 1.0 L 01/16/21 06:50: WBC 6.8, RBC 3.66 L, Hgb 9.9 L, Hct 30.0 L, MCV 82.0, MCH 26.9 L, MCHC 32.9, RDW 17.9 H, Plt Count 255, MPV 8.1, Neut % (Auto) 49.7, Lymph % (Auto) 42.6, [place] % (Auto) 5.0, Eos % (Auto) 2.1, Baso % (Auto) 0.6, Neut # (Auto) 3.4, Lymph # (Auto) 2.9, [place] # (Auto) 0.3, Eos # (Auto) 0.1, Baso # (Auto) 0.0 I & O for Last 24 hours: Intake & Output 01/13/21 01/14/21 01/15/21 01/16/21 11:59 11:59 11:59 11:59 Intake Total 3110 / 3110 Output Total 1250 / 1250 1400 / 1400 1210 / 1210 Balance -1250 / -1250 -1400 / -1400 1900 / 1900 Weight 141 lb 8.588 oz 148 lb 8 oz Microbiology Reports for the Last 24 Hours: Microbiology 01/12/21 09:51 Urine,Clean Catch Urine Culture - Final Multiple organisms, suggests contamination. 01/13/21 11:50 Urine,Clean Catch Urine Culture - Final Multiple organisms, suggests contamination. - Constitutional no acute distress (He is well hydrated this point.) - *Routine HEENT Exam Head: Present: normocephalic Eye: Present: PERRL ENT: Present: mucous membranes moist - Routine Chest/Breast/Axilla Exam Chest wall: Absent: tenderness - *Routine Respiratory Exam Present: CTA bilaterally - *Routine Cardiovascular Exam Present: RRR - *Routine Abdominal Exam Present: soft. Absent: tenderness - *Routine Extremities Exam Absent: edema - *Routine Skin Exam Present: intact, warm, normal turgor. Absent: rash - *Routine Neurological Exam Present: alert, oriented X3 Assessment and Plan (1) 16 weeks gestation of Status: Acute Category: Medical Code(s): Z3A.16 - 16 weeks gestation of (2) Hyperemesis gravidarum Status: Acute Category: Medical Code(s): O21.0 - Mild hyperemesis gravidarum (3) Hypokalemia Status: Acute Category: Medical Code(s): E87.6 - Hypokalemia - Assessment and plan all Dx Assessment and Plan for all problems:: I will give her intravenous run of potassium. I have switched her p.o. potassium to liquid. We will repeat her potassium later on today and in the morning.
--- NOTE | 2021-01-16 10:08 | PC.NURSE ---
Tolerated bland diet this morning. Ate 100% and drank a full glass of water without sickness. Will continue to monitor. Potassium run currently infusing
--- NOTE | 2021-01-16 13:24 | PC.NURSE ---
tolerated fries well and is requesting a cheeseburger now.
--- NOTE | 2021-01-16 13:42 | P.PN_ITS ---
Internal Medicine - PN: Subj *Date: 01/16/21 *Time: 13:42 Interval history: HD #5 Hyperemesis 17 2/ minimal po intake since admission, with intermittent nausea/vomiting weight has increased from 141 lbs on 01/12 to 148 labs on 01/14, although this all appears to be secondary to fluid replacement Potassium level has been difficult to correct, and was back down to 2.7 today she is getting 40mEQ IV potassium Subjectively, she is feeling considerably better this morning, following the rally pack This morning she ate some eggs and toast she is asymptomatic with hypokalemia Exam Vital signs and Labs for Last 24 Hours: Temp Pulse Resp BP Pulse Ox 98.1 F 81 20 106/64 L 100 01/16/21 08:00 01/16/21 08:00 01/16/21 08:00 01/16/21 08:00 01/16/21 08:00 Laboratory Results - last 24 hr 01/16/21 06:50: Sodium 138, Potassium 2.7 L*, Chloride 104, Carbon Dioxide 33 H, Anion Gap 3.7 L, BUN < 2 L, Creatinine 0.30 L D, Estimated Creat Clear 321 H, Estimated GFR 287, Est GFR ( Amer) 347 D, Glucose 95 D, Calcium 7.2 L, Total Bilirubin 0.5, AST 26, ALT 15, Alkaline Phosphatase 67, Total Protein 4.5 L, Albumin 2.2 L D, Globulin 2.3, Albumin/Globulin Ratio 1.0 L 01/16/21 06:50: WBC 6.8, RBC 3.66 L, Hgb 9.9 L, Hct 30.0 L, MCV 82.0, MCH 26.9 L , MCHC 32.9, RDW 17.9 H, Plt Count 255, MPV 8.1, Neut % (Auto) 49.7, Lymph % (Auto) 42.6, [place]w % (Auto) 5.0, Eos % (Auto) 2.1, Baso % (Auto) 0.6, Neut # (Auto) 3.4, Lymph # (Auto) 2.9, [place]tholomew # (Auto) 0.3, Eos # (Auto) 0.1, Baso # (Auto) 0.0 I & O for Last 24 hours: Intake & Output 01/14/21 01/15/21 01/16/21 08/24/21 11:59 11:59 11:59 11:59 Intake Total 3110 / 3110 120 / 120 120 / 120 Output Total 1400 / 1400 1210 / 1210 Balance -1400 / -1400 1900 / 1900 120 / 120 120 / 120 Weight 148 lb 8 oz Microbiology Reports for the Last 24 Hours: Microbiology 01/12/21 09:51 Urine,Clean Catch Urine Culture - Final Multiple organisms, suggests contamination. - Constitutional no acute distress - *Routine HEENT Exam ENT: Present: mucous membranes dry - *Routine Neck Exam Present: supple. Absent: lymphadenopathy - *Routine Respiratory Exam Present: CTA bilaterally - *Routine Cardiovascular Exam Present: RRR - *Routine Abdominal Exam Present: soft. Absent: tenderness, distended - *Routine Extremities Exam Absent: cyanosis, clubbing, edema - *Routine Skin Exam Present: warm. Absent: rash - *Routine Neurological Exam Present: alert, oriented X3 Assessment and Plan (1) 16 weeks gestation of Status: Acute Category: Medical Code(s): Z3A.16 - 16 weeks gestation of (2) Hyperemesis gravidarum Status: Acute Category: Medical Code(s): O21.0 - Mild hyperemesis gravidarum (3) Hypokalemia Status: Acute Category: Medical Code(s): E87.6 - Hypokalemia (4) Anemia during Status: Acute Category: Medical Code(s): O99.019 - Anemia complicating , unspecified trimester - Assessment and plan all Dx Assessment and Plan for all problems:: Continue IV fluids @ 150/hr with additional 20 KCL per liter Continue rally pack Potassium replacement 40 mEq this am; f/u BMP later today Continue advance diet
[2021-01-16 15:03] LABS: Anion Gap 5.6 mEq/L (5-15); Calcium 7.8 mg/dl (8.4-10.2); Carbon Dioxide 31 mmol/L (22.0-30.0); Chloride 103 mmol/L (98-107); Creatinine Clearance Estimated 321 mL/min (50-200); Estimated Glomerular Filt Rate 287 ml/min (>60); GFR (African American) 347 ML/MIN (>60); Glucose 82 mg/dl (74-100); Potassium 3.6 mmoL/L (3.5-5.1); Sodium 136 mmol/L (136-145)
[2021-01-16 15:06] LABS: Blood Urea Nitrogen < 2 mg/dl (7-17)
--- NOTE | 2021-01-16 19:14 | PC.NURSE ---
NO VOMITING NOTED ON MY SHIFT.
[2021-01-17] VITALS: PULSE 80
[2021-01-17 01:02] VITALS: BP 87/43; PULSE 78; RESP 16; TEMP 36.9; O2SAT 97
--- NOTE | 2021-01-17 02:09 | PC.NURSE ---
PATIENT HAS SLEPT WELL THROUGHOUT THIS SHIFT. AT 20:00 ASSESSMENT ON 01/16, PATIENT HAD REPORTED FEELING VERY WELL THE ENTIRE DAY. SHE HAS BEEN TOLERATING HER REGULAR DIET AND EATING WELL. AT THIS PRESENT TIME, SHE HAS HAD NO VOMITING THIS SHIFT, NO NEED FOR PRN MEDICATIONS AND HAS BEEN COMFORTABLY ASLEEP. BP AT THE 0100 HOUR WAS LOW, 87/43, WHICH IS CONSISTENT WITH PREVIOUS OVERNIGHT BP READINGS. HEART MONITOR REMAINS IN PLACE. NO PAIN REPORTED.
[2021-01-17 04:00] VITALS: PULSE 80
--- NOTE | 2021-01-17 04:20 | PC.NURSE ---
PATIENT CONTINUES TO DO VERY WELL THIS SHIFT. SHE HAS RESTED COMFORTABLY AND HAS HAD NO NAUSEA OR VOMITING. SHE REPORTS 0/10 FOR PAIN. SHE REMAINS HYPOTENSIVE DURING SLEEP. SHE IS AFEBRILE. HER IV IS INFUSING WELL IN THE RIGHT AC. AFTER THE RALLY PACK WAS COMPLETE, I RESUMED HER 0.45% NS/D5 WITH 20MEQ K+ AT 150ML/HR PER ORDERS. SHE HAS HAD WATER TO DRINK OVERNIGHT, BUT WAS EATING AT THE START OF THE SHIFT. DIET WELL TOLERATED. SHE IS A&O AND STATES I FEEL SO MUCH BETTER . CALL LIGHT IN REACH, BED IN LOW POSITION. WILL CONTINUE TO MONITOR.
[2021-01-17 04:33] VITALS: BP 89/53; PULSE 84; RESP 17; TEMP 36.9; O2SAT 97
[2021-01-17 07:22] LABS: Chloride 107 mmol/L (98-107); Potassium 3.6 mmoL/L (3.5-5.1); Sodium 138 mmol/L (136-145)
[2021-01-17 07:25] LABS: Anion Gap 5.6 mEq/L (5-15); Calcium 7.3 mg/dl (8.4-10.2); Carbon Dioxide 29 mmol/L (22.0-30.0); Creatinine Clearance Estimated 241 mL/min (50-200); Estimated Glomerular Filt Rate 206 ml/min (>60); GFR (African American) 249 ML/MIN (>60); Glucose 97 mg/dl (74-100)
[2021-01-17 07:28] LABS: Blood Urea Nitrogen < 2 mg/dl (7-17)
[2021-01-17 08:00] VITALS: PULSE 85
--- NOTE | 2021-01-17 08:45 | PC.NURSE ---
Assessment completed. Pt. tolerated breakfast well, reports constipation and requests miralax, will speak with MD. Pt. denies nausea and vomiting. 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 Pt. denies needs, will continue to monitor.
--- NOTE | 2021-01-17 10:16 | HMH.ACPN2 ---
Internal Medicine - PN: Subj *Date: 01/17/21 *Time: 10:16 Interval history: FAMILY MEDICINE CONSULT The patient is much improved. She is not vomiting. She is tolerating p.o. Her electrolytes have corrected. Exam Vital signs and Labs for Last 24 Hours: Temp Pulse Resp BP Pulse Ox 98.4 F 84 17 89/53 L 97 01/17/21 04:33 01/17/21 04:33 01/17/21 04:33 01/17/21 04:33 01/17/21 04:33 Laboratory Results - last 24 hr 01/16/21 14:40: Sodium 136, Potassium 3.6 D, Chloride 103, Carbon Dioxide 31 H, Anion Gap 5.6, BUN < 2 L, Creatinine 0.30 L, Estimated Creat Clear 321 H, Estimated GFR 287, Est GFR ( Amer) 347, Glucose 82, Calcium 7.8 L 01/17/21 06:50: Sodium 138, Potassium 3.6, Chloride 107, Carbon Dioxide 29, Anion Gap 5.6, BUN < 2 L, Creatinine 0.40 L D, Estimated Creat Clear 241, Estimated GFR 206, Est GFR ( Amer) 249 D, Glucose 97, Calcium 7.3 L I & O for Last 24 hours: Intake & Output 01/14/21 01/15/21 01/16/21 01/17/21 11:59 11:59 11:59 11:59 Intake Total 3110 / 3110 120 / 120 260 / 260 Output Total 1400 / 1400 1210 / 1210 Balance -1400 / -1400 1900 / 1900 120 / 120 260 / 260 Weight 148 lb 8 oz Microbiology Reports for the Last 24 Hours: Microbiology 01/12/21 09:51 Urine,Clean Catch Urine Culture - Final Multiple organisms, suggests contamination. - Constitutional no acute distress - *Routine HEENT Exam Head: Present: normocephalic Eye: Present: PERRL ENT: Present: mucous membranes moist - *Routine Neck Exam Present: supple. Absent: JVD - *Routine Respiratory Exam Present: CTA bilaterally - *Routine Cardiovascular Exam Present: RRR - *Routine Abdominal Exam Present: soft. Absent: normoactive bowel sounds (Quiet bowel sounds), tenderness - *Routine Extremities Exam Absent: edema - *Routine Skin Exam Present: intact, warm. Absent: rash - *Routine Neurological Exam Present: alert, oriented X3 Assessment and Plan (1) 16 weeks gestation of Status: Acute Category: Medical Code(s): Z3A.16 - 16 weeks gestation of (2) Hyperemesis gravidarum Status: Acute Category: Medical Code(s): O21.0 - Mild hyperemesis gravidarum (3) Hypokalemia Status: Acute Category: Medical Code(s): E87.6 - Hypokalemia (4) Anemia during Status: Acute Category: Medical Code(s): O99.019 - Anemia complicating , unspecified trimester - Assessment and plan all Dx Assessment and Plan for all problems:: The patient is stable and ready for discharge. Discharge plans according to Dr. Napier and follow-up with Dr. Napier. Thank you for this consultation.
[2021-01-17 12:00] VITALS: PULSE 98
--- NOTE | 2021-01-17 13:48 | HMH.DCSUM ---
General - General Admission date:: 01/12/21 Discharge date: 01/17/21 HPI HPI: 20 yo G1 @ 16 5/7 sent from office for direct admission for hyperemesis gravidarum. Severe nausea/vomiting with 37 lb weight loss since started 6 pound weight loss since last appointment in [facility] office 12/30/20; 31 lb weight loss since start of reported by patient 3+ urine ketones Failed outpatient management with po zofran and po/pr phenergan unable to tolerate po reglan due to side effects Hospital Course Hospital Course: The patient required several IV fluid boluses She received IV fluids, electolye and vitamin replacement with IV potassium and rally packs She is discharged home on HD #6 in stable condition with normal vitals and normal labs Symptoms are greatly improved and she has gained 6lb Objective Vital signs: Temp Pulse Resp BP Pulse Ox 98.4 F 85 17 89/53 L 97 01/17/21 04:33 01/17/21 08:00 01/17/21 04:33 01/17/21 04:33 01/17/21 04:33 Narrative: CONSTITUTIONAL: no acute distress; visibly improved general appearance HEENT: mucous membranes moist PULMONARY: breathing unlabored without audible wheezes CV: no tachycardia or visible JVD; normal LE peripheral pulses ABD: soft, NT/ND, no guarding : fundus firm at/below umbilicus SKIN: no visible rash or lesions EXT: no edema LEs NEURO: alert/oriented, no altered mental status PSYCH: appropriate mood and demeanor Results Labs on day of discharge: Labs from last 24 hours 01/17/21 01/16/21 06:50 14:40 Sodium 138 136 Potassium 3.6 3.6 D Chloride 107 103 Carbon Dioxide 29 31 H Anion Gap 5.6 5.6 BUN < 2 L < 2 L Creatinine 0.40 L D 0.30 L Estimated Creat Clear 241 321 H Estimated GFR 206 287 Est GFR ( Amer) 249 D 347 Glucose 97 82 Calcium 7.3 L 7.8 L DS: Diagnosis - Discharge Diagnosis (1) 16 weeks gestation of Status: Acute (2) Hyperemesis gravidarum Status: Acute (3) Hypokalemia Status: Acute (4) Anemia during Status: Acute Discharge Plan - Patient Discharge Instructions ACTIVITY: Continue current activity DIET: regular diet Patient Instructions: DI for Hyperemesis Gravidarum, Preventing the Spread of Coronavirus Discharge Instructions, Antepartum Care - Follow up Plan Follow up with: Sylvie Napier MD [Staff Physician] - Disposition: Home, Self-Care Condition at discharge:: Stable Home Medications: Home Medications Medication Instructions Recorded Confirmed Type [id number]/Iron/FA/O3/Dha/Epa/Fish 1 cap PO DAILY 01/12/21 01/12/21 History [ Multi-Dha Softgel] doxylamine 10 mg-pyridoxine (vit 1 tab PO BID #60 tab 01/13/21 Rx B6) 10 mg tablet,delayed release Prescriptions/Medication Reconciliation: New Ondansetron HCl/Pf [Zofran 4mg/2mL vial] 4 mg IV Q4HP PRN vial PRN Reason: Nausea And Vomiting Promethazine HCl [Phenergan 25mg/mL 1mL vial] 12.5 mg IV Q6HP PRN vial PRN Reason: Nausea And Vomiting Continued doxylamine 10 mg-pyridoxine (vit B6) 10 mg tablet,delayed release 1 tab PO BID #60 tab [id number]/Iron/FA/O3/Dha/Epa/Fish [ Multi-Dha Softgel] 1 cap PO DAILY - Problem Reconciliation Problems Reviewed?: Yes
== END 2021-01-17 16:05 | disposition home or self-care (01) | DRG 833 ==
PROVIDERS: Family Medicine; Obstetrics & Gynecology; Admitting Provider Obstetrics & Gynecology; Visit Provider Obstetrics & Gynecology
DX: O21.1 Hyperemesis gravidarum with metabolic disturbance (principal); E87.6 Hypokalemia; Z3A.16 16 weeks gestation of pregnancy; O99.281 Endocrine, nutritional and metabolic diseases complicating pregnancy, first trimester; Z20.822 Contact with and (suspected) exposure to COVID-19
CPT/HCPCS: 36415; 76805; 80048; 80053; 80305; 81001; 83690; 84132; 84443; 84703; 85025; 87086; 93005; 96365; 96366; 96375; 99283; J2405; U0003

== ENCOUNTER → 2021-02-14 13:32 | Outpatient (CLI) | payer MEDICAID, SELFPAY ==
--- NOTE | 2021-02-14 13:33 | US_ITS ---
PROCEDURE: US OB >= 14 WEEKS FETUS CLINICAL INDICATION: OB complete COMPARISON: US US OB >= 14 WEEKS FETUS from 01/14/2021 FINDINGS: There is a single live fetus in cephalic presentation. The cervix is closed measuring 3 cm. The placenta is posterior and grade 1. Complete survey performed and was unremarkable on the submitted images as in PACS. No discrete anomalies identified on survey imaging by technologist. Active fetus. Three-vessel cord with satisfactory umbilical cord insertion. 4- chamber heart noted. Survey of brain & ventricles Unremarkable. Face and neck survey unremarkable. Diaphragm and chest views unremarkable. Abdomen: Both kidneys noted and unremarkable. Stomach noted and satisfactory. Spine: Survey of the spine satisfactory with no anomalies identified nor imaged. Both arms and legs noted. Amniotic Fluid: Adequate. Maternal adnexa: No significant findings. Measurements: Average ultrasound age 21weeks 1day. Gestational Age 21weeks 1day Estimated due date by ultrasound age 0106/26/2021. Estimated weight 395g BPD = 21weeks 1day OFD = 21weeks 4days HC = 20weeks 5days AC = 21weeks 2days FL = 21weeks 1day Growth Percentile= 26% Heart Rate = 156bpm Cerebellum = 22weeks Humerus = 21weeks 3days HC/AC is 1.14 CI is 0.77 FL/BPD is 0.7 FL/AC is 0.22 IMPRESSION: Live IUP in cephalic presentation with an average ultrasound age of 21 weeks 1 day. No obvious anomalies. Please see above for detail Dictated by: Jorge Oconnor MD 02/14/2021 17:45 Jorge Oconnor MD in [facility] 02/14/2021 17:45
== END ==
PROVIDERS: Visit Provider Obstetrics & Gynecology
DX: Z34.90 Encounter for supervision of normal pregnancy, unspecified, unspecified trimester (principal)
CPT/HCPCS: 76805

== ENCOUNTER → 2021-03-31 16:45 | Outpatient (CLI) | payer MEDICAID, SELFPAY | PROVIDERS: Visit Provider Nurse Practitioner | DX: Z20.822 Contact with and (suspected) exposure to COVID-19 (principal) | CPT/HCPCS: C9803; U0003; U0005 ==

== ENCOUNTER 2021-04-01 14:53 | Outpatient (CLI) | payer MEDICAID, SELFPAY ==
[2021-04-01 15:02] VITALS: BMI 29.4
[2021-04-01 15:27] LABS: Microscopic, Urine URINE MICROSCOPIC (MICROSCOPIC)
[2021-04-01 15:36] LABS: Appearance,Urine SL CLOUDY (Clear); Bilirubin,Urine Negative (Negative); Blood, Urine Negative (Negative); Color,Urine YELLOW (Yellow); Glucose,Urine (UA) Negative (Negative); Ketones,Urine TRACE (Negative); Leukocyte Esterase,Urine Negative (Negative); Nitrate,Urine Negative (Negative); PH,Urine 7.5 (5.0-8.5); Protein,Urine Negative (Negative); Urobilinogen,Urine 0.2 EU/dl (0.2)
[2021-04-01 15:46] LABS: Amphetamine/Metha Screen,Urine Negative ng/ml (<1000); Benzodiazepines Screen,Urine Negative ng/ml (<200)
[2021-04-01 15:47] LABS: Bacteria,Urine 2+ /lpf; Barbiturates Screen,Urine Negative ng/ml (<200); Cannabinoid Screen,Urine Negative ng/ml (<50); Mucus,Urine 1+ /lpf
[2021-04-01 15:48] LABS: Cocaine Screen,Urine Negative ng/ml (<300)
[2021-04-01 15:49] LABS: Methadone Screen,Urine Negative ng/ml (<300); Opiate Screen,Urine Negative ng/ml (<300)
[2021-04-01 15:50] LABS: Phencyclidine Screen,Urine Negative ng/ml (<25)
[2021-04-01 16:43] LABS: Basophils # 0.1 K/mm3 (0-0.2); Basophils % 0.5 % (0.1-2.0); Eosinophils # 0.1 K/mm3 (0.0-0.4); Hematocrit 31.2 % (37.0-47.0); Hemoglobin 9.9 g/dL (12.2-16.2); Lymphocytes # 2.4 K/mm3 (0.7-4.5); Lymphocytes % 18.5 % (10-50); Mean Corpuscular HGB Conc 31.8 g/dL (31.8-35.4); Mean Corpuscular Hemoglobin 26.6 pg (27.0-31.2); Mean Corpuscular Volume 83.9 fl (81-99); Mean Platelet Volume 8.3 fl (7.4-10.4); Monocytes # 0.6 K/mm3 (0.1-1.0); Neutrophils # 9.6 K/mm3 (1.8-7.8); Neutrophils % 75.1 % (37.0-80.0); Platelet Count 392 K/mm3 (142-424); Red Blood Count 3.72 M/mm3 (4.20-5.40); Red Cell Distribution Width 14.2 % (11.5-17.5); White Blood Count 12.8 K/mm3 (4.5-13.0)
[2021-04-01 17:04] VITALS: BP 113/79; PULSE 104; RESP 18; TEMP 36.8; O2SAT 96; BMI 31.6
[2021-04-03 08:10] LABS: Rubella Antibodies, IgG 1.37 index (Immune >0.99)
[2021-04-03 11:11] LABS: HIV Screen 4th Generation wRfx Non Reactive (Non Reactive)
[2021-04-04 06:11] LABS: Hepatitis B Surface Antigen Negative (Negative)
[2021-04-04 12:11] LABS: Rapid Plasma Reagin Ab Titer Non Reactive (NonRea<1:1)
== END 2021-04-01 16:33 | disposition home or self-care (01) ==
LOC: OBOUT 14:54 → OB 14:54
PROVIDERS: Obstetrics & Gynecology; Visit Provider Obstetrics & Gynecology
DX: O26.893 Other specified pregnancy related conditions, third trimester (principal); Z3A.28 28 weeks gestation of pregnancy; V89.2XXA Person injured in unspecified motor-vehicle accident, traffic, initial encounter
CPT/HCPCS: 36415; 59025; 80305; 81001; 85025; 86592; 86762; 86850; 87086; 87340; G0463

== ENCOUNTER 2021-05-04 12:26 | Outpatient (CLI) | payer MEDICAID, SELFPAY ==
[2021-05-04 12:54] VITALS: BMI 32.1
[2021-05-04 13:04] LABS: Fetal Membrane Rupture (Rapid) Negative (Negative)
[2021-05-04 13:11] VITALS: BP 125/84; PULSE 125; RESP 20; TEMP 36.8; O2SAT 98; BMI 32.1
[2021-05-04 13:25] LABS: Microscopic, Urine URINE MICROSCOPIC (MICROSCOPIC)
[2021-05-04 13:27] LABS: Appearance,Urine CLEAR (Clear); Blood, Urine Negative (Negative); Color,Urine YELLOW (Yellow); Glucose,Urine (UA) Negative (Negative); Ketones,Urine 1+ (Negative); Leukocyte Esterase,Urine Negative (Negative); Nitrate,Urine Negative (Negative); PH,Urine 6.5 (5.0-8.5); Protein,Urine Negative (Negative); Specific Gravity, Urine 1.025 (1.005-1.030)
[2021-05-04 13:38] LABS: Bilirubin,Urine 1+ (Negative)
[2021-05-04 13:41] LABS: Bacteria,Urine Trace /lpf; Squamous Epithelial Cell,Urine Occasional #/hpf (0-5)
[2021-05-04 13:45] LABS: Amphetamine/Metha Screen,Urine Negative ng/ml (<1000); Barbiturates Screen,Urine Negative ng/ml (<200); Benzodiazepines Screen,Urine Negative ng/ml (<200); Cannabinoid Screen,Urine Negative ng/ml (<50); Cocaine Screen,Urine Negative ng/ml (<300); Methadone Screen,Urine Negative ng/ml (<300); Opiate Screen,Urine Negative ng/ml (<300); Phencyclidine Screen,Urine Negative ng/ml (<25)
== END 2021-05-04 13:44 | disposition home or self-care (01) ==
LOC: OBOUT 12:28 → OB 12:30
PROVIDERS: Visit Provider Obstetrics & Gynecology
DX: O26.893 Other specified pregnancy related conditions, third trimester (principal); Z3A.32 32 weeks gestation of pregnancy
CPT/HCPCS: 59025; 80305; 81001; 84112; G0463

== ENCOUNTER → 2021-05-09 13:41 | Outpatient (CLI) | payer MEDICAID, SELFPAY ==
--- NOTE | 2021-05-09 13:42 | US_ITS ---
PROCEDURE: US OB FOLLOW UP CLINICAL INDICATION: growth and PENELOPE FINDINGS: The following parameters are obtained: Single live fetus is present in cephalic presentation. Cervix is closed measuring approximately 3 cm. The placenta is fundal and posterior in implantation and grade 1-2 Average ultrasound age is Average 33weeks 2days Estimated due date by ultrasound is 06/25/2021. Estimated weight is 2,028g. This is 21st percentile. BPD: 34weeks 1day OFD: 34 weeks 4 days HC: 34weeks AC: 32weeks 4days FL: 32weeks 2days heart rate: 147bpm bpm. HC/AC: 1.07 Cephalic index: 0.78 FL/BPD: 0.74 FL/AC: 0.22 Amniotic fluid index: 8.99cm The femur length is 32weeks 2days IMPRESSION: Live IUP in cephalic presentation with an average ultrasound age of 33 weeks 2 days and an estimated weight of 2028 g which is 21st percentile. PENELOPE normal at 9 cm. Dictated by: Jorge Oconnor MD 05/09/2021 17:28 Jorge Oconnor MD in [facility] 05/09/2021 17:28
== END ==
PROVIDERS: Visit Provider Obstetrics & Gynecology
DX: O36.5990 Maternal care for other known or suspected poor fetal growth, unspecified trimester, not applicable or unspecified (principal)
CPT/HCPCS: 76816

== ENCOUNTER → 2021-05-25 16:27 | Outpatient (CLI) | payer MEDICAID, SELFPAY | PROVIDERS: Visit Provider Obstetrics & Gynecology | DX: Z34.90 Encounter for supervision of normal pregnancy, unspecified, unspecified trimester (principal) | CPT/HCPCS: 86403 ==

== ENCOUNTER → 2021-06-09 11:35 | Outpatient (CLI) | payer MEDICAID, SELFPAY ==
[2021-06-09 11:53] LABS: Hematocrit 32.1 % (37.0-47.0)
== END ==
PROVIDERS: Visit Provider Obstetrics & Gynecology
DX: Z34.90 Encounter for supervision of normal pregnancy, unspecified, unspecified trimester (principal)
CPT/HCPCS: 36415; 85014; 85018

== ENCOUNTER 2021-06-17 16:51 | Outpatient (CLI) | payer MEDICAID, SELFPAY ==
[2021-06-17 17:05] VITALS: BMI 34.1
[2021-06-17 17:15] LABS: Microscopic, Urine URINE MICROSCOPIC (MICROSCOPIC)
[2021-06-17 17:28] VITALS: BP 131/97; PULSE 101; RESP 20; TEMP 36.9; O2SAT 99; BMI 34.1
[2021-06-17 17:32] LABS: Appearance,Urine CLEAR (Clear); Bilirubin,Urine Negative (Negative); Blood, Urine Negative (Negative); Color,Urine YELLOW (Yellow); Glucose,Urine (UA) Negative (Negative); Ketones,Urine Negative (Negative); Leukocyte Esterase,Urine 2+ (Negative); Nitrate,Urine Negative (Negative); Protein,Urine Negative (Negative); Specific Gravity, Urine >= 1.030 (1.005-1.030)
[2021-06-17 17:38] LABS: Fetal Membrane Rupture (Rapid) Negative (Negative)
[2021-06-17 17:42] LABS: Amphetamine/Metha Screen,Urine Negative ng/ml (<1000)
[2021-06-17 17:43] LABS: Barbiturates Screen,Urine Negative ng/ml (<200)
[2021-06-17 17:44] LABS: Benzodiazepines Screen,Urine Negative ng/ml (<200); Cannabinoid Screen,Urine Negative ng/ml (<50)
[2021-06-17 17:45] LABS: Cocaine Screen,Urine Negative ng/ml (<300); Methadone Screen,Urine Negative ng/ml (<300)
[2021-06-17 17:47] LABS: Opiate Screen,Urine Negative ng/ml (<300); Phencyclidine Screen,Urine Negative ng/ml (<25)
[2021-06-17 18:03] LABS: Bacteria,Urine 2+ /lpf
== END 2021-06-17 18:04 | disposition home or self-care (01) ==
LOC: OBOUT 16:54 → OB 16:55
PROVIDERS: PCP Obstetrics & Gynecology; Visit Provider Obstetrics & Gynecology
DX: O60.03 Preterm labor without delivery, third trimester (principal); Z3A.39 39 weeks gestation of pregnancy
CPT/HCPCS: 59025; 80305; 81001; 84112; 87086; G0463

== ENCOUNTER 2021-06-21 09:39 | Outpatient (CLI) | payer MEDICAID, SELFPAY ==
[2021-06-21 09:52] VITALS: BMI 35.6
[2021-06-21 10:00] VITALS: BP 120/74; PULSE 103; RESP 20; TEMP 37.2; O2SAT 98; BMI 35.6
[2021-06-21 10:17] LABS: Microscopic, Urine URINE MICROSCOPIC (MICROSCOPIC)
[2021-06-21 10:22] LABS: Appearance,Urine CLOUDY (Clear); Bilirubin,Urine Negative (Negative); Blood, Urine TRACE-L (Negative); Color,Urine YELLOW (Yellow); Glucose,Urine (UA) Negative (Negative); Ketones,Urine Negative (Negative); Leukocyte Esterase,Urine 1+ (Negative); Nitrate,Urine Negative (Negative); Protein,Urine TRACE (Negative); Specific Gravity, Urine >= 1.030 (1.005-1.030); Urobilinogen,Urine 0.2 EU/dl (0.2)
[2021-06-21 10:32] LABS: Bacteria,Urine 2+ /lpf; RBC,Urine Occasional #/hpf (0-3)
[2021-06-21 10:35] LABS: Amphetamine/Metha Screen,Urine Negative ng/ml (<1000); Benzodiazepines Screen,Urine Negative ng/ml (<200)
[2021-06-21 10:36] LABS: Barbiturates Screen,Urine Negative ng/ml (<200); Cannabinoid Screen,Urine Negative ng/ml (<50)
[2021-06-21 10:37] LABS: Cocaine Screen,Urine Negative ng/ml (<300)
[2021-06-21 10:38] LABS: Methadone Screen,Urine Negative ng/ml (<300)
[2021-06-21 10:39] LABS: Opiate Screen,Urine Negative ng/ml (<300); Phencyclidine Screen,Urine Negative ng/ml (<25)
== END 2021-06-21 13:30 | disposition home or self-care (01) ==
LOC: OBOUT 09:40 → OB 09:41
PROVIDERS: Visit Provider Nurse Practitioner Obstetrics & Gynecology
DX: Z34.90 Encounter for supervision of normal pregnancy, unspecified, unspecified trimester (principal)
CPT/HCPCS: 59025; 80305; 81001; 87086; 96365; 96366; 96367; G0463; J0595

== ENCOUNTER 2021-06-21 21:25 | Inpatient (IN) | payer MEDICAID, SELFPAY ==
[2021-06-21 20:37] VITALS: BMI 34.9
[2021-06-21 20:56] LABS: Coronavirus 19, PCR Not Detected (NotDetected); Influenza A, PCR Not Detected (NotDetected); Influenza B, PCR Not Detected (NotDetected)
[2021-06-21 21:00] LABS: Basophils # 0.1 K/mm3 (0-0.2); Basophils % 0.6 % (0.1-2.0); Eosinophils # 0.1 K/mm3 (0.0-0.4); Eosinophils % 0.4 % (0.1-12.0); Hematocrit 29.5 % (37.0-47.0); Hemoglobin 9.3 g/dL (12.2-16.2); Lymphocytes # 2.6 K/mm3 (0.7-4.5); Lymphocytes % 19.8 % (10-50); Mean Corpuscular HGB Conc 31.4 g/dL (31.8-35.4); Mean Corpuscular Hemoglobin 22.6 pg (27.0-31.2); Mean Platelet Volume 9.4 fl (7.4-10.4); Monocytes # 0.7 K/mm3 (0.1-1.0); Monocytes % 5.5 % (1.7-9.3); Neutrophils # 9.7 K/mm3 (1.8-7.8); Neutrophils % 73.6 % (37.0-80.0); Platelet Count 320 K/mm3 (142-424); Red Cell Distribution Width 18.8 % (11.5-17.5); White Blood Count 13.2 K/mm3 (4.5-13.0)
[2021-06-21 22:11] VITALS: BP 137/78; PULSE 94; RESP 18; TEMP 36.8; O2SAT 96; BMI 34.9
--- NOTE | 2021-06-22 00:13 | P.PN_ITS ---
[facility] Anesthesia Checklist - Patient Identification Patient Identification: Arm Band - Structural Data Admitted From: Inpatient Planned Operative Procedure/s: labor epidural Consent for Planned Operative Procedure(s) Verified: Yes Verified Documents: Surgical Consent, History and Physical - NPO Status Verified Time NPO: 00:00 - Additional verifications Anesthesia Reactions: No - Airway Assessment C-Spine Mobility Assessed: Yes TMJ Mobility Assessed: Yes Dentition: Good Dentition - Neurological Assessment Level of Consciousness: Awake, Alert - Anesthesia Plan Anesthesia Risk discussed: Yes Anesthesia Plan: Verified ASA Class: II Anesthesia Type: Epidural [facility] History I have reviewed the patient's past medical history: Yes *Have you ever received a pneumonia vaccine?: No *Have you received a flu vaccine this season?: No Anesthesia experience/problems:: nac Laterality Cases: Left: Arthroscopy Knee, Bilateral: Tonsillectomy Other Surgeries: No: Amputation: No Fractures: No - *Social History Smoking Status: Never smoker Alcohol Intake: never Substance Use Type: denies use *Occupational Status:: unemployed *Travel in the last 8 weeks: None Family Hx:: Hypertension, Other PHARMACY BUYER history: 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
[2021-06-22 04:48] VITALS: BP 123/73; PULSE 65; RESP 18; TEMP 36.7; O2SAT 99
[2021-06-22 08:00] VITALS: BP 138/87; PULSE 86; RESP 18; TEMP 36.8; O2SAT 99
--- NOTE | 2021-06-22 12:52 | HMH.HP ---
*Admission Date: 06/22/21 *Chief complaint: contractions *History of present illness: 21 yo G1 @ 39 5/7 Admitted with regular contractions and diagnosis of active labor at term + contractions but no leakage of fluid or vaginal bleeding; normal movement care at [facility], Dr. Napier complicated by severe hyperemesis in the first half of , with excessive weight loss and numerous hospital admissions [facility] History I have reviewed the patient's past medical history: Yes *Have you ever received a pneumonia vaccine?: No *Have you received a flu vaccine this season?: No Anesthesia experience/problems:: nac Laterality Cases: Left: Arthroscopy Knee, Bilateral: Tonsillectomy Other Surgeries: No: Amputation: No Fractures: No - *Social History Smoking Status: Never smoker Alcohol Intake: never Substance Use Type: denies use *Occupational Status:: unemployed *Travel in the last 8 weeks: None Family Hx:: Hypertension, 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 Para: 0 Review of Systems - Review of Systems Review of systems:: pertinent systems reviewed and negative unless documented below - *Genitourinary Reports other (+ contractions), Denies abnormal vaginal bleeding Meds Home Medications Medication Instructions Recorded Confirmed Type [id number]/Iron/FA/O3/Dha/Epa/Fish 1 cap PO DAILY 01/12/21 06/21/21 History [ Multi-Dha Softgel] Ferrous Sulfate [Slow Fe] 142 mg PO DAILY 06/21/21 06/21/21 History Allergies Allergy/AdvReac Type Severity Reaction Status Date / Time No Known Allergies Allergy Verified 06/16/21 08:52 Exam Vital signs and Labs for Last 24 Hours: Temp Pulse Resp BP Pulse Ox 98.2 F 86 18 138/87 99 06/22/21 08:00 06/22/21 08:00 06/22/21 08:00 06/22/21 08:00 06/22/21 08:00 Laboratory Results - last 24 hr 06/21/21 20:40: SARS-CoV-2 (PCR) Not detected, Influenza A Untype (PCR) Not detected, Influenza Type B (PCR) Not detected 06/21/21 20:45: WBC 13.2 H, RBC 4.10 L, Hgb 9.3 L, Hct 29.5 L, MCV 72.0 L, MCH 22.6 L, MCHC 31.4 L, RDW 18.8 H, Plt Count 320, MPV 9.4, Neut % (Auto) 73.6, Lymph % (Auto) 19.8, [place] % (Auto) 5.5, Eos % (Auto) 0.4, Baso % (Auto) 0.6, Neut # (Auto) 9.7 H, Lymph # (Auto) 2.6, [place] # (Auto) 0.7, Eos # (Auto) 0.1, Baso # (Auto) 0.1 06/21/21 20:45: Blood Type A Positive, Antibody Screen Negative I & O for Last 24 hours: Intake & Output 06/20/21 06/21/21 06/22/21 06/23/21 11:59 11:59 11:59 11:59 Output Total 500 / 500 Balance -500 / -500 Weight 185 lb - Constitutional no acute distress - *Routine HEENT Exam Head: Present: normocephalic Eye: Present: EOMI ENT: Present: mucous membranes moist - *Routine Neck Exam Present: supple. Absent: lymphadenopathy - *Routine Respiratory Exam Present: CTA bilaterally - *Routine Cardiovascular Exam Present: RRR - *Routine Abdominal Exam Present: soft, normoactive bowel sounds. Absent: tenderness - *Routine Rectal Exam Rectal:: deferred - *Routine Genitalia Exam Genitalia:: normal female Comment:: cervix 8/100/0 AROM with clear fluid - *Routine Extremities Exam Absent: cyanosis, clubbing, edema - *Routine Skin Exam Present: warm. Absent: rash - *Routine Neurological Exam Present: alert, oriented X3 Assessment and Plan (1) 39 weeks gestation of Status: Acute Category: Medical Code(s): Z3A.39 - 39 weeks gestation of (2) Active labor at term Status: Acute Category: Medical - Assessment and plan all Dx Assessment and Plan for all problems:: Admitted in active labor at 39 weeks Pitocin augmentation begun patient comfortable with epidural tracing reassuring Anticipate
--- NOTE | 2021-06-22 13:17 | HMH.DN ---
- Delivery Note Delivery Date:: 06/22/21 Delivery Time:: 11:24 Anesthesia Type: Epidural Was labor medically induced?: No Infant delivered prior to 39 weeks?: No Infant Gender: Female at 1 minute: 8 at 5 minutes: 9 LAC or MLE?: LAC Delivery Procedure:: Spontaneous vaginal delivery of liveborn female over intact perineum. Delivery uncomplicated No nuchal cord No shoulder dystocia with delivery placed in LEONIDES immediately after delivery, with standard nursing assessment performed Apgars: 8 & 9 Placenta spontaneously expressed and examined; noted to be complete/intact. Vulva, vagina, and cervix inspected; partial 4th degree laceration present Vaginal repair in layers, with 4-0 monocryl used for rectal mucosa, 2-0 vicryl used for the muscle and 2-0 vicryl used for the vaginal mucosa Rectal integrity confirmed with digital rectal exam following completion of repair EBL: 400 cc All sponge/needle/instrument counts correct at conclusion of procedure Laceration:: vaginal Placental Delivery Description: Spontaneous
[2021-06-22 20:10] VITALS: BP 115/69; PULSE 74; RESP 18; TEMP 36.7; O2SAT 99
[2021-06-23 04:03] VITALS: BP 119/76; PULSE 71; RESP 18; TEMP 36.6; O2SAT 97
[2021-06-23 06:34] LABS: Hematocrit 25.6 % (37.0-47.0); Hemoglobin 7.8 g/dL (12.2-16.2)
--- NOTE | 2021-06-23 11:50 | HMH.ACPN2 ---
Internal Medicine - PN: Subj *Date: 06/23/21 *Time: 11:50 Interval history: PPD #1 Delivery complicated by 4th degree laceration involving only the distal end of rectal mucosa Genital edema has decreased considerably since the delivery and pain control has been sufficient She is ambulating and voiding without difficulty Tolerating regular diet Lochia appropriate Exam Vital signs and Labs for Last 24 Hours: Temp Pulse Resp BP Pulse Ox 97.9 F 71 18 119/76 97 06/23/21 04:03 06/23/21 04:03 06/23/21 04:03 06/23/21 04:03 06/23/21 04:03 Laboratory Results - last 24 hr 06/23/21 06:00: Hgb 7.8 L, Hct 25.6 L I & O for Last 24 hours: Intake & Output 06/21/21 06/22/21 06/23/21 06/24/21 11:59 11:59 11:59 11:59 Output Total 500 / 500 Balance -500 / -500 Weight 185 lb Narrative: CONSTITUTIONAL: no acute distress HEENT: mucous membranes moist PULMONARY: breathing unlabored without audible wheezes CV: no tachycardia or visible JVD; normal LE peripheral pulses ABD: soft, NT/ND, no guarding : fundus firm below umbilicus SKIN: no visible rash or lesions EXT: 1+ edema LEs NEURO: alert/oriented, no altered mental status PSYCH: appropriate mood and demeanor Assessment and Plan (1) 39 weeks gestation of Status: Acute Category: Medical Code(s): Z3A.39 - 39 weeks gestation of (2) Active labor at term Status: Acute Category: Medical (3) Vaginal delivery Status: Acute Category: Medical Code(s): O80 - Encounter for full-term uncomplicated delivery (4) Fourth degree perineal laceration Status: Acute Category: Medical Code(s): O70.3 - Fourth degree perineal laceration during delivery - Assessment and plan all Dx Assessment and Plan for all problems:: Routine care Anticipate discharge home tomorrow Will need to continue stool softener after discharge
--- NOTE | 2021-06-24 10:08 | HMH.OBDCSM ---
General - General Admission date:: 06/21/21 Discharge date: 06/24/21 HPI - History of Present Illness History of present illness: She is a 21-year-old 1 now para 0 at 39 and 5 weeks gestational age. She came in in active labor. Hospital Course Hospital Course: She progressed under labor epidural to full dilation and delivered spontaneously a liveborn female child at 11:24 AM on the morning of June 22, 2021. The baby weighed 7 pounds 3 ounces and was occiput posterior. She had a small fourth degree perineal laceration. It was repaired in the usual fashion. She delivered a liveborn female child weighing 7 pounds 3 ounces and she was 20 inches long. She has done well and has remained afebrile throughout her hospitalization. She is eating and drinking and ambulating. She is breast-feeding. She has a positive blood, she is rubella immune and was group B streptococcus negative. Her grinding room inspector is Dr. Sal. She is discharged home to follow-up with Dr. Napier in approximately 2 weeks time. She will continue with her vitamins. I have encouraged her to take iron twice daily since her hemoglobin is low at 7.9. She was 9.3 on admission. She has iron deficiency anemia with a low MCV. She was given a prescription for Percocet 5/325 as well as a stool softener. She was given the usual instructions with respect to limiting her activity, driving and sexual activity. She was given instructions with respect to keeping the perineum clean. Her condition on discharge is stable and improved. Rhogam Administration: Not Indicated Objective Vital signs: Temp Pulse Resp BP Pulse Ox 97.9 F 71 18 119/76 97 06/23/21 04:03 06/23/21 04:03 06/23/21 04:03 06/23/21 04:03 06/23/21 04:03 no acute distress Comments: She looks pale. - *Routine HEENT Exam Head: Present: normocephalic Eye: Present: EOMI, PERRL ENT: Present: mucous membranes moist - *Routine Neck Exam Present: supple DS: Diagnosis - Discharge Diagnosis (1) 39 weeks gestation of Status: Acute (2) Active labor at term Status: Acute (3) Vaginal delivery Status: Acute (4) Fourth degree perineal laceration Status: Acute Discharge Plan - Patient Discharge Instructions ACTIVITY: No heavy lifting DIET: continue same diet Additional Instructions: DRINK PLENTY OF FLUIDS NO HEAVY LIFTING NO TUB BATHS NOTHING IN THE VAGINA FOR 6 WEEKS Patient Instructions: Depression, Hemorrhage, DI for Labor and Delivery, Vaginal , DI for Pre-eclampsia, [facility] Post Discharge Instructions, Preventing the Spread of Coronavirus Discharge Instructions - Follow up Plan Follow up with: Sylvie Napier MD [Staff Physician] - Disposition: Home, Self-Care Condition at discharge:: Stable Home Medications: Home Medications Medication Instructions Recorded Confirmed Type [id number]/Iron/FA/O3/Dha/Epa/Fish 1 cap PO DAILY 01/12/21 06/21/21 History [ Multi-Dha Softgel] Ferrous Sulfate [Slow Fe] 142 mg PO DAILY 06/21/21 06/21/21 History Oxycodone HCl/Acetaminophen 1 each PO Q6 PRN #24 tab 06/23/21 Rx [Oxycodone-Acetaminophen 5-325] oxycodone 5 mg tablet 5 mg PO Q6H PRN #24 tab 06/23/21 Rx Prescriptions/Medication Reconciliation: New Oxycodone HCl/Acetaminophen [Oxycodone-Acetaminophen 5-325] 1 each PO Q6 PRN #24 tab PRN Reason: Moderate To Severe Pain Continued oxycodone 5 mg tablet 5 mg PO Q6H PRN #24 tab PRN Reason: pain [id number]/Iron/FA/O3/Dha/Epa/Fish [ Multi-Dha Softgel] 1 cap PO DAILY Ferrous Sulfate [Slow Fe] 142 mg PO DAILY - Problem Reconciliation Problems Reviewed?: Yes
== END 2021-06-24 10:30 | disposition home or self-care (01) | DRG 768 ==
LOC: OBOUT 21:26 → OB 21:26
PROVIDERS: Obstetrics & Gynecology; Admitting Provider Nurse Practitioner Obstetrics & Gynecology; Visit Provider Nurse Practitioner Obstetrics & Gynecology
DX: O70.3 Fourth degree perineal laceration during delivery (principal); Z37.0 Single live birth; Z3A.39 39 weeks gestation of pregnancy
CPT/HCPCS: 59409; 36415; 59025; 80305; 81001; 85014; 85018; 85025; 86850; 87086; 94761; 96365; 96366; 96367; C9803; G0283; G0463; J0595; J2405; U0003; U0005

== ENCOUNTER → 2022-03-02 13:51 | Outpatient (CLI) | payer MEDICAID, SELFPAY ==
[2022-03-02 15:32] LABS: HCG,Quantitative 91 mIU/ml (0-5.42)
== END ==
PROVIDERS: Visit Provider Obstetrics & Gynecology
DX: Z34.90 Encounter for supervision of normal pregnancy, unspecified, unspecified trimester (principal)
CPT/HCPCS: 36415; 84702

== ENCOUNTER → 2022-03-06 14:56 | Outpatient (CLI) | payer MEDICAID, SELFPAY ==
[2022-03-06 16:00] LABS: HCG,Quantitative 458 mIU/ml (0-5.42)
== END ==
PROVIDERS: Visit Provider Obstetrics & Gynecology
DX: N92.6 Irregular menstruation, unspecified (principal)
CPT/HCPCS: 36415; 84702

== ENCOUNTER → 2022-03-09 15:59 | Outpatient (CLI) | payer MEDICAID, SELFPAY ==
[2022-03-09 17:07] LABS: HCG,Quantitative 1142 mIU/ml (0-5.42)
== END ==
PROVIDERS: Visit Provider Obstetrics & Gynecology
DX: Z34.90 Encounter for supervision of normal pregnancy, unspecified, unspecified trimester (principal)
CPT/HCPCS: 36415; 84702

== ENCOUNTER 2022-03-26 15:50 | Emergency (ER) | payer MEDICAID, SELFPAY ==
[2022-03-26 15:51] VITALS: BP 134/77; PULSE 120; RESP 18; TEMP 36.7; O2SAT 98; BMI 36.6
--- NOTE | 2022-03-26 16:07 | US_ITS ---
PROCEDURE INFORMATION: Exam: US , Transvaginal Exam date and time: 03/26/2022 4:20 PM Age: 22 years old Clinical indication: Lmp or gestational age (in weeks): Lmp 01/31/22; Antepartum complications; Bleeding; ; Additional info: Vaginal bleeding TECHNIQUE: Imaging protocol: Real-time transvaginal obstetrical ultrasound of the maternal pelvis with image documentation. Transvaginal imaging was used for better evaluation of the fetus, adnexa, and/or cervix. COMPARISON: US OB FOLLOW UP 05/09/2021 2:16 PM FINDINGS: Gestation: Single Intrauterine gestation 5 weeks 6 days +/-1 week. Active bleeding during the time of the examination, can not confirm viability at this time. BIOMETRY: Gestational age (AUA): Follow-up exam in 10 days to 2 weeks recommended. IMPRESSION: 1. Intrauterine gestational sac 5 weeks 6 days +/-1 week with yolk sac and pole. 2. Active bleeding in the endometrium at the time of the examination. 3. cardiac activity could not be confirmed at this time. Follow-up exam in 10 days to 2 weeks suggested.
--- NOTE | 2022-03-26 16:10 | PC.NURSE ---
RADIOLOGY NOTIFIED OF TRANSVAGINAL US
--- NOTE | 2022-03-26 16:15 | PC.NURSE ---
PT TO US AT THIS TIME
--- NOTE | 2022-03-26 16:38 | HMH.EDUROGF ---
Discharge Plan Disposition Patient Disposition: Home, Self-Care Condition: Good Referrals Follow up/Referrals: Provider,Referral, MD [Primary Care Provider] - See instructions Activity Restrictions/Add. Instructions Additional Instructions/Restrictions: Recommend contacting your CARDIAC SPECIALIST in follow-up before Saturday if bleeding continues. Return to the ER for any new or worsening symptoms. If you have severe pain you should return to the ER or your CARDIAC SPECIALIST as soon as possible. Clinical Impressions Clinical Impression: Threatened Instructions Patient Instructions: DI for Vaginal Bleeding Discharge ED Provider: Luciano Palmer Female Urogenital HPI General Chief complaint: Vaginal Bleeding Stated complaint: about 8 weeks , bleeding Time Seen by Provider: 03/26/22 16:20 Mode of Arrival: Ambulatory Limitations: No Limitations Description of Symptoms (Recalled from ER Triage Doc. by RN): PT REPORTS VAGINAL BLEEDING WITH CLOTS THAT BEGAN ABOUT [phone] TODAY. ESTIMATES ABOUT 8 WEEKS , HAS NOT HAD OB VIST. SCHEDULED FOR THIS SATURDAY. History of Present Illness HPI Narrative: 22-year-old female who thinks she is approximately 7 to 8 weeks states that she started bleeding today with clots passing intermittently. She is feeling less than 1 pad per hour with no bright red bleeding. She has not had a formal OB visit to this point but has had quantitative hCGs that have been trending appropriately. She denies fevers chills or body aches denies dysuria denies significant abdominal pain at this time. Mild cramping just before having clot passage. No leakage of fluid. Related Data Allergies Allergy/AdvReac Type Severity Reaction Status Date / Time No Known Allergies Allergy Verified 08/15/21 14:16 PFSH PFS Social History Smoking Status: Never smoker alcohol intake: never substance use type: denies use current occupational status: unemployed Travel in the last 8 weeks: None ROS Obtained: Yes Systems reviewed as appropriate & no additional complaints except as documented Physical Exam General General appearance: alert and in no apparent distress Head Head exam: atraumatic and normocephalic ENT ENT exam: Present mucous membranes moist Neck Neck exam: Present trachea midline Chest Chest inspection: Present symmetric chest wall rise Respiratory Respiratory exam: Present normal lung sounds bilaterally; Absent respiratory distress Cardiovascular Cardiovascular exam: Present regular rate Abdominal Exam Abdominal exam: Present soft; Absent distention, tenderness, guarding or rigidity Neurological Exam Neurological exam: Present alert and oriented X3 Skin Skin exam: Present warm, dry and intact Medical Decision Making Medical Records Medical records reviewed: Yes I reviewed the patient's medical records. Hany Inquiry Pt receiving controlled substance: No Vital Signs: 03/26/22 15:51 03/26/22 18:52 Temperature 98.0 F 98 F Temperature Source Oral Oral Pulse Rate 110 H Pulse Rate [Radial] 120 H Respiratory Rate 18 18 Blood Pressure 130/66 Blood Pressure [Right Arm] 134/77 Blood Pressure Mean [Right Arm] 96 Blood Pressure Source Automatic Cuff Blood Pressure Source [Right Arm] Automatic Cuff Blood Pressure Position Sitting Blood Pressure Position [Right Arm] Sitting 02 Sat by Pulse Oximetry 98 Oxygen Delivery Method Room Air Room Air Lab Data Lab Results 03/26/22 17:48: HCG, Quant 2454 H 03/26/22 17:48: WBC 12.6 H, RBC 5.20, Hgb 10.5 L, Hct 34.6 L, MCV 66.6 L, MCH 20.3 L, MCHC 30.5 L, RDW 16.9, Plt Count 449 H, MPV 7.0 L, Neut % (Auto) 73.6, Lymph % (Auto) 16.6, [place] % (Auto) 4.9, Eos % (Auto) 4.1, Baso % (Auto) 0.7, Neut # (Auto) 9.2 H, Lymph # (Auto) 2.1, [place] # (Auto) 0.6, Eos # (Auto) 0.5 H, Baso # (Auto) 0.1 Result diagrams: 03/26/22 17:48 Orders (Tests/Meds): ED MEDICATIONS Discontinued Medications Generic Name Dose Ro
--- NOTE | 2022-03-26 16:40 | PC.NURSE ---
PT RETURNED FROM US
--- NOTE | 2022-03-26 16:55 | PC.NURSE ---
ED MD AT BEDSIDE TO REEVALUATE PT
[2022-03-26 18:01] LABS: Basophils # 0.1 K/mm3 (0-0.2); Basophils % 0.7 % (0.1-2.0); Eosinophils # 0.5 K/mm3 (0.0-0.4); Eosinophils % 4.1 % (0.1-12.0); Hematocrit 34.6 % (37.0-47.0); Hemoglobin 10.5 g/dL (12.2-16.2); Lymphocytes # 2.1 K/mm3 (0.7-4.5); Lymphocytes % 16.6 % (10-50); Mean Corpuscular HGB Conc 30.5 g/dL (31.8-35.4); Mean Corpuscular Hemoglobin 20.3 pg (27.0-31.2); Mean Corpuscular Volume 66.6 fl (81-99); Monocytes # 0.6 K/mm3 (0.1-1.0); Monocytes % 4.9 % (1.7-9.3); Neutrophils # 9.2 K/mm3 (1.8-7.8); Neutrophils % 73.6 % (37.0-80.0); Platelet Count 449 K/mm3 (142-424); Red Cell Distribution Width 16.9 % (11.5-17.5); White Blood Count 12.6 K/mm3 (4.8-10.8)
[2022-03-26 18:31] LABS: HCG,Quantitative 2454 mIU/ml (0-5.42)
[2022-03-26 18:52] VITALS: BP 130/66; PULSE 110; RESP 18; TEMP 36.6; O2SAT 99
--- NOTE | 2022-03-26 18:52 | PC.NURSE ---
ED MD AT BEDSIDE TO DISCUSS POC AND DISCHARGE WITH PT
== END 2022-03-26 18:55 | disposition home or self-care (01) ==
PROVIDERS: Emergency Provider Student in an Organized Health Care Education/Training Program
DX: O20.0 Threatened abortion (principal); Z3A.01 Less than 8 weeks gestation of pregnancy; Z79.3 Long term (current) use of hormonal contraceptives
CPT/HCPCS: 76817; 84702; 85025; 99284

== ENCOUNTER → 2022-03-30 11:13 | Outpatient (CLI) | payer MEDICAID, SELFPAY ==
[2022-03-30 12:16] LABS: HCG,Quantitative 77 mIU/ml (0-5.42)
== END ==
PROVIDERS: Visit Provider Obstetrics & Gynecology
DX: O20.0 Threatened abortion (principal)
CPT/HCPCS: 84702

== ENCOUNTER 2022-09-13 15:52 | Emergency (ER) | payer MEDICAID, SELFPAY ==
[2022-09-13 16:00] VITALS: BP 132/84; PULSE 126; RESP 22; TEMP 37.3; O2SAT 97; BMI 34.5
--- NOTE | 2022-09-13 16:14 | EXP.UTC ---
Discharge Plan Disposition Patient Disposition: Home, Self-Care Condition: Good Prescriptions Prescriptions: New methylprednisolone [Medrol (Rhys)] 4 mg tablets,dose pack See Rx Instructions .Route .COMPLEX 6 Days Qty: 21 0RF Rx Instructions: taper pack; ondansetron 4 mg tablet,disintegrating 4 mg PO Q8H PRN (Reason: nausea and vomiting) Qty: 10 0RF cefdinir 300 mg capsule 300 mg PO BID Qty: 20 0RF benzonatate 100 mg capsule 100 mg PO TID PRN (Reason: cough) Qty: 30 0RF No Action norgestimate-ethinyl estradiol [Sprintec (28)] 0.25-35 mg-mcg tablet 1 tab PO ONCE 30 Days Qty: 30 4RF Referrals Follow up/Referrals: Provider,Referral, MD [Primary Care Provider] - See instructions Activity Restrictions/Add. Instructions Additional Instructions/Restrictions: *Monitor Temp, Over the counter Motrin or Tylenol as directed/as needed Tylenol every 4 hours and Motrin every 6 hours (as long as your family doctor has told you that you can take it) for fever or pain. and straight to ER if unable to lower temp less than 101.0 after medication given *Warm salt water gargles may help to soothe the throat *Throat Lozenges? *Warm fluids like tea with honey may help to soothe the throat? *Sleep elevated? *Humidifier/Vaporizer *Take medication as prescribed Follow up IMMEDIATELY for new or worsening symptoms or no Noticeable improvement over the next 48-72 hours. 911 for difficulty breathing or swallowing Clinical Impressions Clinical Impression: URI (upper respiratory infection) Instructions Patient Instructions: Cough, Acute Bronchitis, DI for Sinusitis Discharge ED Provider: Lauren Davila [facility] [place] HPI General Stated complaint: fever,cough,congestion Mode of Arrival: Ambulatory Source of Information: Patient Limitations: No Limitations Time Seen by Provider: 09/13/22 16:14 Description of Symptoms (Recalled from Triage Doc. by RN): PATIENT C/O FEVER, NAUSEA AND COUGH X 4-5 DAYS HEENT Symptoms (Recalled from RN notes): No Resp Symptoms (Recalled from RN notes): Yes Skin Symptoms (Recalled from RN notes): No MS Symptoms (Recalled from RN notes): No Functional Status (Recalled from RN notes): WNL History of Present Illness Provider Complaint: Patient states that she has been having cough, nasal congestion and nausea for about 3-4 days States today she has had fever and feeling achy States that she thought it was her allergies but she has had fever today so she came in to get checked Related Data Previous Rx's Medication Instructions Recorded norgestimate 0.25 mg-ethinyl 1 tab PO ONCE 30 days #30 tabs 03/30/22 estradiol 35 mcg tablet (Sprintec (28)) benzonatate 100 mg capsule 100 mg PO TID PRN cough #30 caps 09/13/22 cefdinir 300 mg capsule 300 mg PO BID #20 caps 09/13/22 methylprednisolone 4 mg tablets in See Rx Instructions .Route 09/13/22 a dose pack (Medrol (Rhys)) .COMPLEX 6 days #21 tabs ondansetron 4 mg disintegrating 4 mg PO Q8H PRN nausea and 09/13/22 tablet vomiting #10 tabs Allergies Allergy/AdvReac Type Severity Reaction Status Date / Time No Known Allergies Allergy Verified 03/30/22 10:31 Worker's Comp Is this a Worker's Comp case?: No [facility] Disclaimer: The information contained in this section may have been updated after the patient was seen, as this information can be updated by other users. Social History Smoking Status: Never smoker alcohol intake: never substance use type: denies use current occupational status: unemployed Travel in the last 8 weeks: None ROS Obtained: Yes All systems reviewed & no additional complaints except as documented and Yes Systems reviewed as appropriate & no additional complaints except as documented Constitutional Constitutional: Reports system reviewed and no additional complaints, except as documented, Reports
[2022-09-13 16:16] VITALS: BP 132/84; PULSE 126; RESP 22; TEMP 37.3; O2SAT 97
[2022-09-13 16:25] LABS: UTC Influenza A Antigen Negative (Negative); UTC Influenza B Antigen Negative (Negative)
== END 2022-09-13 16:45 | disposition home or self-care (01) ==
PROVIDERS: Emergency Provider Nurse Practitioner
DX: J06.9 Acute upper respiratory infection, unspecified (principal); R50.9 Fever, unspecified
CPT/HCPCS: 87804; 99212; 99214; G0463

== ENCOUNTER 2024-01-21 20:24 | Emergency (ER) | payer MEDICAID, SELFPAY ==
[2024-01-21 20:41] VITALS: BP 140/98; PULSE 106; RESP 16; TEMP 36.8; O2SAT 99; BMI 35.7
[2024-01-21 20:57] LABS: Microscopic, Urine URINE MICROSCOPIC (MICROSCOPIC)
[2024-01-21 20:59] LABS: Basophils # 0.1 K/mm3 (0-0.2); Basophils % 1.2 % (0.1-2.0); Eosinophils # 0.5 K/mm3 (0.0-0.4); Eosinophils % 4.8 % (0.1-12.0); Hematocrit 40.5 % (37.0-47.0); Hemoglobin 12.7 g/dL (12.2-16.2); Lymphocytes % 19.8 % (10-50); Mean Corpuscular HGB Conc 31.3 g/dL (31.8-35.4); Mean Corpuscular Hemoglobin 23.2 pg (27.0-31.2); Mean Corpuscular Volume 74.3 fl (81-99); Mean Platelet Volume 7.3 fl (7.4-10.4); Monocytes # 0.8 K/mm3 (0.1-1.0); Monocytes % 7.8 % (1.7-9.3); Neutrophils # 6.8 K/mm3 (1.8-7.8); Neutrophils % 66.3 % (37.0-80.0); Platelet Count 365 K/mm3 (142-424); Red Blood Count 5.45 M/mm3 (4.20-5.40); Red Cell Distribution Width 17.3 % (11.5-17.5); White Blood Count 10.3 K/mm3 (4.8-10.8)
[2024-01-21 21:01] VITALS: BP 143/90; PULSE 84; O2SAT 99
[2024-01-21 21:02] LABS: Appearance,Urine CLEAR (Clear); Blood, Urine Negative (Negative); Color,Urine YELLOW (Yellow); Glucose,Urine (UA) Negative (Negative); Ketones,Urine 1+ (Negative); Leukocyte Esterase,Urine 1+ (Negative); Nitrate,Urine Negative (Negative); PH,Urine 5.5 (5.0-8.5); Protein,Urine Negative (Negative); Specific Gravity, Urine >= 1.030 (1.005-1.030); Urobilinogen,Urine 0.2 EU/dl (0.2)
[2024-01-21 21:09] LABS: Urine Pregnancy, HCG Qual. Negative (Negative)
--- NOTE | 2024-01-21 21:12 | HMH.EDGENADL ---
Discharge Plan Disposition Patient Disposition: Home, Self-Care Prescriptions Prescriptions: New cefdinir 300 mg capsule 300 mg PO BID 7 Days Qty: 14 0RF No Action escitalopram oxalate [Lexapro] 10 mg tablet 10 mg PO DAILY Referrals Follow up/Referrals: Provider,Referral, MD [Primary Care Provider] - See instructions Activity Restrictions/Add. Instructions Additional Instructions/Restrictions: Call your family doctor to establish care for this visit to the emergency department and schedule follow-up within 48 hours to ensure improvement. If you have any worsening of your condition or any other concerning signs or symptoms, return to the emergency department or your primary care doctor for further evaluation. Clinical Impressions Clinical Impression: Vomiting, UTI (urinary tract infection) Instructions Patient Instructions: DI for Diarrhea and Traveler's Diarrhea -- Adult, DI for Diarrhea and Traveler's Diarrhea -- Child, DI for Nausea -- Adult, DI for Nausea -- Child Print Language Print Language: Chinese Discharge ED Provider: Yung Singer General Adult HPI General Chief complaint: Nausea/Vomiting/Diarrhea Stated complaint: back pain, diarrhea Time Seen by Provider: 01/21/24 20:41 Mode of Arrival: Family Vehicle Source of Information: Patient Limitations: No Limitations Description of Symptoms (Recalled from ER Triage Doc. by RN): 23 yo female presents with cc of abd discomfort,nausea, vomiting x 2 episodes, diarrhea since saturday. daughter apparently had the same thing last week, and currently History of Present Illness HPI narrative: Please note that above description of symptoms, in this electronic medical record under categorization of recalled from ER triage doctor by RN are reflective of an initial nursing assessment, however, is not reflective of my full history and physical exam that was personally taken and clarified. Consequentially, this preceding description of symptoms, which may include the patient's categorized chief complaint in the EMR, do not reflect my personal clinical impression, and the ultimate description of history of present illness and patient stated complaints should be deferred to this section of the note. Unless stated otherwise or congruent with this section of the note, additional signs, symptoms, or incongruence should be interpreted as inaccurate with my clinical impression. Related Data Home Medications ?Medication ?Instructions ?Recorded ?Confirmed escitalopram oxalate 10 mg tablet 10 mg PO DAILY 11/06/23 11/06/23 (Lexapro) Previous Rx's ?Medication ?Instructions ?Recorded cefdinir 300 mg capsule 300 mg PO BID 7 days #14 caps 01/21/24 Allergies Allergy/AdvReac Type Severity Reaction Status Date / Time No Known Allergies Allergy Verified 11/06/23 13:05 [facility] Disclaimer: The information contained in this section may have been updated after the patient was seen, as this information can be updated by other users. Medical History (Updated 01/21/24 @ 22:48 by Yung Singer MD) Unspecified skin changes Vaginal odor Anxiety Spontaneous Surgical History (Updated 11/06/23 @ 13:09 by ANA Trevino) No significant past surgical history Family History Other No significant family history Social History Smoking Status: Unknown if ever smoked alcohol intake: never substance use type: denies use current occupational status: unemployed Travel in the last 8 weeks: None ROS Obtained: Yes All systems reviewed & no additional complaints except as documented Physical Exam General General appearance: alert Head Head exam: atraumatic and normocephalic Eye Eye exam: Present normal appearance, PERRL and EOMI Neck Neck exam: Present normal inspection, full ROM and trachea midline Respiratory Respirato
[2024-01-21 21:14] LABS: Bilirubin,Urine 1+ (Negative)
[2024-01-21 21:30] VITALS: BP 129/76; PULSE 78; O2SAT 99
[2024-01-21 21:43] LABS: Bacteria,Urine 4+ /lpf; Squamous Epithelial Cell,Urine 50-100 #/hpf (0-5); WBC,Urine 20-50 #/hpf (0-3)
[2024-01-21 22:00] VITALS: BP 143/89; PULSE 86; O2SAT 99
[2024-01-21 22:01] LABS: Chloride 106 mmol/L (98-107); Potassium 3.7 mmoL/L (3.5-5.1); Sodium 138 mmol/L (136-145)
[2024-01-21 22:02] LABS: Alanine Aminotransferase 19 U/L (12-78); Albumin Level 4.3 g/dl (3.5-5.0); Albumin/Globulin Ratio 1.3 (1.1-1.8); Alkaline Phosphatase 99 U/L (38-126); Anion Gap 11.7 mEq/L (5-15); Aspartate Amino Transferase 31 U/L (14-36); Bilirubin,Total 0.5 mg/dl (0.2-1.3); Blood Urea Nitrogen 11 mg/dl (7-17); Calcium 8.5 mg/dl (8.4-10.2); Carbon Dioxide 24 mmol/L (22.0-30.0); Creatinine Clearance Estimated 182 mL/min (50-200); Estimated Glomerular Filt Rate 105 ml/min (>60); GFR (African American) 127 ML/MIN (>60); Globulin 3.4 g/dL (1.3-3.2); Glucose 102 mg/dl (74-100); Total Protein,Serum 7.7 g/dl (6.3-8.2)
[2024-01-21 22:03] LABS: Lipase 47 U/L (23-300)
[2024-01-21 22:53] VITALS: BP 133/84; PULSE 87; RESP 18; TEMP 36.5; O2SAT 100
== END 2024-01-21 22:58 | disposition home or self-care (01) ==
PROVIDERS: Emergency Provider Emergency Medicine
DX: N39.0 Urinary tract infection, site not specified (principal); B96.89 Other specified bacterial agents as the cause of diseases classified elsewhere; R11.2 Nausea with vomiting, unspecified; M54.59 Other low back pain
CPT/HCPCS: 80053; 81001; 81025; 83690; 85025; 87086; 96361; 96374; 99284; J2405; J7120

== ENCOUNTER 2024-01-23 20:30 | Emergency (ER) | payer MEDICAID, SELFPAY ==
[2024-01-23 20:40] VITALS: BP 132/96; PULSE 92; RESP 20; TEMP 36.8; O2SAT 99; BMI 35.4
--- NOTE | 2024-01-23 20:41 | ED_ITS ---
Discharge Plan Disposition Patient Disposition: Home, Self-Care Condition: Good Prescriptions Prescriptions: New ondansetron 4 mg tablet,disintegrating 4 mg PO Q6H PRN (Reason: nausea and vomiting) Qty: 10 0RF No Action escitalopram oxalate [Lexapro] 10 mg tablet 10 mg PO DAILY cefdinir 300 mg capsule 300 mg PO BID 7 Days Qty: 14 0RF Referrals Follow up/Referrals: Provider,Referral, MD [Primary Care Provider] - See instructions Activity Restrictions/Add. Instructions Additional Instructions/Restrictions: Continue with good p.o. intake with solids and liquids as tolerated, take all medications as prescribed, follow-up with your family doctor. Clinical Impressions Clinical Impression: Gastroenteritis Instructions Patient Instructions: DI for Acute Abdominal Pain Print Language Print Language: [place] Discharge ED Provider: Yung Singer General Adult HPI <JIM Buitrago - Last Filed: 01/23/24 22:32> General Chief complaint: Abdominal Pain Stated complaint: body aches, SOA, nausea Time Seen by Provider: 01/23/24 20:35 Mode of Arrival: Ambulatory Source of Information: Patient and Medical Record Limitations: No Limitations History of Present Illness HPI narrative: 23-year-old female presents the emergency department with chief complaint of nausea vomiting abdominal pain, diarrhea, for 6 days, patient states that her tested positive for E. coli and Campylobacter, after eating a [place] restaurant 6 days ago. She was actually seen and treated in the emergency department on 01/21/2020 for for vomiting, diarrhea general malaise, she was hemodynamically stable, there is nonactionable CBC or chemistry, with normal kidney function, she is able to tolerate p.o. intake. Diagnosis with viral gastroenteritis as well as UTI started on p.o. antibiotics for this. Patient states that she developed some shortness of air as well as some intermittent chest pain today, and she felt faint , thus prompted her visit back to the emergency room. She has no real relevant past medical history, with the exception of anxiety/depression. Patient admits to tobacco use (vapes), denies alcohol or drug use. Distress vitals grossly unremarkable. Onset (ago): day(s) Consistency: intermittent Related Data Home Medications ?Medication ?Instructions ?Recorded ?Confirmed escitalopram oxalate 10 mg tablet 10 mg PO DAILY 11/06/23 11/06/23 (Lexapro) Previous Rx's ?Medication ?Instructions ?Recorded cefdinir 300 mg capsule 300 mg PO BID 7 days #14 caps 01/21/24 ondansetron 4 mg disintegrating 4 mg PO Q6H PRN nausea and 01/23/24 tablet vomiting #10 tabs Allergies Allergy/AdvReac Type Severity Reaction Status Date / Time No Known Allergies Allergy Verified 11/06/23 13:05 PFSH <JIM Buitrago - Last Filed: 01/23/24 22:32> [facility] Disclaimer: The information contained in this section may have been updated after the patient was seen, as this information can be updated by other users. Medical History (Updated 01/23/24 @ 21:40 by JIM Buitrago) Unspecified skin changes Vaginal odor Anxiety Spontaneous Surgical History (Updated 11/06/23 @ 13:09 by ANA Trevino) No significant past surgical history Family History Other No significant family history Social History Smoking Status: Current every day smoker alcohol intake: never substance use type: denies use current occupational status: unemployed Travel in the last 8 weeks: None <JIM Buitrago - Last Filed: 01/23/24 22:32> ROS Obtained: Yes All systems reviewed & no additional complaints except as documented Physical Exam <JIM Buitrago - Last Filed: 01/23/24 22:32> General General appearance: alert and in no apparent distress Comment: Nontoxic-appearing female Head Head exam: atraumatic and normocephalic Eye Eye exam: Present PERRL and EOMI ENT ENT exam: Present mucous membranes moist Neck Neck exam: Present normal inspection Chest Chest inspection: Present normal inspection and symmetric chest wall rise Respiratory Respiratory exam: Present normal lung sounds bilaterally; Absent respiratory distress Cardiovascular Cardiovascular exam: Present regular rate and normal rhythm Abdominal Exam Abdominal exam: Present soft; Absent tenderness, guarding, rebound or rigidity Extremities Exam Extremities exam: Present normal inspection Neurological Exam Neurological exam: Present alert and oriented X3 Psychiatric Psychiatric exam: Present normal affect Skin Skin exam: Present warm and dry Medical Decision Making <JIM Buitrago - Last Filed: 01/23/24 22:32> Hany Inquiry Pt receiving controlled substance: No Hany was queried for this patient: No Vital Signs: 01/23/24 20:40 01/23/24 20:46 01/23/24 22:36 Temperature 98.3 F 98.3 F 98.2 F Temperature Source Oral Oral Pulse Rate 92 H 72 Pulse Rate [Right] 92 H Respiratory Rate 20 18 18 Blood Pressure 132/96 H 122/74 Blood Pressure [Right Arm] 132/96 H Blood Pressure Mean [Right Arm] 108 02 Sat by Pulse Oximetry 99 99 Oxygen Delivery Method Room Air Room Air Lab Data Lab Results 01/23/24 20:49: WBC 9.4, RBC 5.03, Hgb 11.8 L, Hct 37.6, MCV 74.8 L, MCH 23.5 L, MCHC 31.5 L, RDW 17.2, Plt Count 367, MPV 7.6, Neut % (Auto) 54.7, Lymph % (Auto) 29.1, [place] % (Auto) 10.4 H, Eos % (Auto) 4.8, Baso % (Auto) 0.9, Neut # (Auto) 5.2, Lymph # (Auto) 2.8, [place] # (Auto) 1.0, Eos # (Auto) 0.5 H, Baso # (Auto) 0.1, Sodium 139, Potassium 4.3, Chloride 108 H, Carbon Dioxide 27, Anion Gap 8.3, BUN 8 D, Creatinine 0.70, Estimated Creat Clear 181, Estimated GFR 105, Est GFR ( Amer) 127, Glucose 91, Lactate 1.0, Calcium 8.5, Magnesium 2.0, Total Bilirubin 0.4, AST 29, ALT 18, Alkaline Phosphatase 83, Total Protein 7.3, Albumin 4.1, Globulin 3.2, Albumin/Globulin Ratio 1.3, Lipase 63, Urine Color Yellow, Urine Appearance Clear, Urine pH 6.0, Ur Specific [place] >= 1.030, Urine Protein Negative, Urine Glucose (UA) Negative, Urine Ketones Trace, Urine Blood Negative, Urine Nitrate Negative, Urine Bilirubin Negative, Urine Urobilinogen 0.2, Ur Leukocyte Esterase Negative, Urine RBC Occasional, Urine WBC Occasional, Ur Squamous Epith Cells 10-20, Urine Bacteria 1+, Urine Mucus Trace 01/23/24 20:49 01/23/24 20:49 Orders (Tests/Meds): ED MEDICATIONS Discontinued Medications Generic Name Dose Route Start Last Admin Trade Name Ita PRN Reason Stop Dose Admin Lactated Ringer's 1,000 mls @ 999 mls/hr 01/23/24 20:44 01/23/24 20:49 Lactated Ringer's 1000 Ml Bag IV 01/23/24 21:44 999 mls/hr .Q1H1M ONE Administration Ondansetron HCl 4 mg 01/23/24 20:44 01/23/24 20:49 Ondansetron 4mg/2ml Vial IV 01/23/24 20:45 4 mg ONCE ONE Administration ORDERS Category Date Time Status Complete Blood Count Auto Diff Stat Lab 01/23/24 20:49 Completed Comprehensive Metabolic Panel Stat Lab 01/23/24 20:49 Completed Lactic Acid Stat Lab 01/23/24 20:49 Completed Lipase Stat Lab 01/23/24 20:49 Completed Magnesium Stat Lab 01/23/24 20:49 Completed Urinalysis and Microscopic Stat Lab 01/23/24 20:49 Completed Stool Culture Stat Micro 01/23/24 22:26 Received Medical Decision Narrative: 23-year-old female presents emergency department with nausea and vomiting, abdominal pain, sick contacts, differential diagnosis include but not limited to, gastroenteritis, acute UTI, cardiac arrhythmia, electrolyte disturbance, gastritis. I discussed patient case with Dr. Singer the attending physician Obtain CBC CMP, lactic acid, lipase, EKG, urinalysis, stool sample, will give 1 L LR IV, give 4 mg IV Zofran for nausea CBC is notable for decreased MCV at 74.8 otherwise unremarkable Urinalysis is grossly unremarkable. I reviewed the patient's EKG, 68 bpm, NSR, NV interval and QT interval within normal limits there is no STEMI CMP grossly unremarkable, Reexamination of the patient at 10:30 PM, patient states she is feeling somewhat better after Zofran and fluid administration, stool sample was obtained, will send off for results, recommend supportive care with good p.o. intake of fluids, will prescribe 4 mg p.o. Zofran for nausea. Patient can continue with self- limiting care with gastroenteritis. Strict ED return precaution given. Follow- up PCP as directed. Patient voiced understand agree with current treatment plan/discharge plan. <Yung Singer MD - Last Filed: 01/24/24 23:51> Vital Signs: 01/23/24 20:40 01/23/24 20:46 01/23/24 22:36 Temperature 98.3 F 98.3 F 98.2 F Temperature Source Oral Oral Pulse Rate 92 H 72 Pulse Rate [Right] 92 H Respiratory Rate 20 18 18 Blood Pressure 132/96 H 122/74 Blood Pressure [Right Arm] 132/96 H Blood Pressure Mean [Right Arm] 108 02 Sat by Pulse Oximetry 99 99 Oxygen Delivery Method Room Air Room Air Lab Data Lab Results 01/23/24 20:49: WBC 9.4, RBC 5.03, Hgb 11.8 L, Hct 37.6, MCV 74.8 L, MCH 23.5 L, MCHC 31.5 L, RDW 17.2, Plt Count 367, MPV 7.6, Neut % (Auto) 54.7, Lymph % (Auto) 29.1, [place] % (Auto) 10.4 H, Eos % (Auto) 4.8, Baso % (Auto) 0.9, Neut # (Auto) 5.2, Lymph # (Auto) 2.8, [place] # (Auto) 1.0, Eos # (Auto) 0.5 H, Baso # (Auto) 0.1, Sodium 139, Potassium 4.3, Chloride 108 H, Carbon Dioxide 27, Anion Gap 8.3, BUN 8 D, Creatinine 0.70, Estimated Creat Clear 181, Estimated GFR 105, Est GFR ( Amer) 127, Glucose 91, Lactate 1.0, Calcium 8.5, Magnesium 2.0, Total Bilirubin 0.4, AST 29, ALT 18, Alkaline Phosphatase 83, Total Protein 7.3, Albumin 4.1, Globulin 3.2, Albumin/Globulin Ratio 1.3, Lipase 63, Urine Color Yellow, Urine Appearance Clear, Urine pH 6.0, Ur Specific [place] >= 1.030, Urine Protein Negative, Urine Glucose (UA) Negative, Urine Ketones Trace, Urine Blood Negative, Urine Nitrate Negative, Urine Bilirubin Negative, Urine Urobilinogen 0.2, Ur Leukocyte Esterase Negative, Urine RBC Occasional, Urine WBC Occasional, Ur Squamous Epith Cells 10-20, Urine Bacteria 1+, Urine Mucus Trace Orders (Tests/Meds): ED MEDICATIONS Discontinued Medications Generic Name Dose Route Start Last Admin Trade Name Freq PRN Reason Stop Dose Admin Lactated Ringer's 1,000 mls @ 999 mls/hr 01/23/24 20:44 01/23/24 20:49 Lactated Ringer's 1000 Ml Bag IV 01/23/24 21:44 999 mls/hr .Q1H1M ONE Administration Ondansetron HCl 4 mg 01/23/24 20:44 01/23/24 20:49 Ondansetron 4mg/2ml Vial IV 01/23/24 20:45 4 mg ONCE ONE Administration ORDERS Category Date Time Status Complete Blood Count Auto Diff Stat Lab 01/23/24 20:49 Completed Comprehensive Metabolic Panel Stat Lab 01/23/24 20:49 Completed Lactic Acid Stat Lab 01/23/24 20:49 Completed Lipase Stat Lab 01/23/24 20:49 Completed Magnesium Stat Lab 01/23/24 20:49 Completed Urinalysis and Microscopic Stat Lab 01/23/24 20:49 Completed Stool Culture Stat Micro 01/23/24 22:26 Received Medical Decision Narrative: 23-year-old female presents emergency department with nausea and vomiting, abdominal pain, sick contacts, differential diagnosis include but not limited to, gastroenteritis, acute UTI, cardiac arrhythmia, electrolyte disturbance, gastritis. I discussed patient case with Dr. Singer the attending physician Obtain CBC CMP, lactic acid, lipase, EKG, urinalysis, stool sample, will give 1 L LR IV, give 4 mg IV Zofran for nausea CBC is notable for decreased MCV at 74.8 otherwise unremarkable Urinalysis is grossly unremarkable. I reviewed the patient's EKG, 68 bpm, NSR, NV interval and QT interval within normal limits there is no STEMI CMP grossly unremarkable, Reexamination of the patient at 10:30 PM, patient states she is feeling somewhat better after Zofran and fluid administration, stool sample was obtained, will send off for results, recommend supportive care with good p.o. intake of fluids, will prescribe 4 mg p.o. Zofran for nausea. Patient can continue with self- limiting care with gastroenteritis. Strict ED return precaution given. Follow- up PCP as directed. Patient voiced understand agree with current treatment plan/discharge plan. I was consulted by the WILLEM, and we discussed the complexity of the problems being addressed. I approved the treatment and management plan for this patient's care in the Emergency Department, thus performing a substantive portion of the medical decision making. Yung Singer MD Critical Care <JIM Buitrago - Last Filed: 01/23/24 22:32> Critical Care Time Critical Care Time: No
[2024-01-23 20:46] VITALS: BP 132/96; PULSE 92; RESP 18; TEMP 36.8; O2SAT 99
[2024-01-23] MEDS: ONDANSETRON 4MG/2ML VIAL 4 MG IV (20:49)
[2024-01-23] MEDS: LACTATED RINGERS 1000ML 1,000 ML 999 ML IV (20:49)
--- NOTE | 2024-01-23 21:00 | ECG_ITS ---
APPROVED REPORT Exam: Resting ECG HR:68 bpm ECG Measurements Heart Rate 68 AXES [place] 149 P 5 QRSd 88 QRS 20 QT 355 T 3 QTc 373 Conclusion Sinus rhythm Electronically signed by : LAKISHA BALDWIN, 01/24/2024 16:02:40
[2024-01-23 21:01] LABS: Microscopic, Urine URINE MICROSCOPIC (MICROSCOPIC)
[2024-01-23 21:04] LABS: Appearance,Urine CLEAR (Clear); Basophils # 0.1 K/mm3 (0-0.2); Basophils % 0.9 % (0.1-2.0); Bilirubin,Urine Negative (Negative); Blood, Urine Negative (Negative); Color,Urine YELLOW (Yellow); Eosinophils # 0.5 K/mm3 (0.0-0.4); Eosinophils % 4.8 % (0.1-12.0); Glucose,Urine (UA) Negative (Negative); Hematocrit 37.6 % (37.0-47.0); Hemoglobin 11.8 g/dL (12.2-16.2); Ketones,Urine TRACE (Negative); Leukocyte Esterase,Urine Negative (Negative); Lymphocytes # 2.8 K/mm3 (0.7-4.5); Lymphocytes % 29.1 % (10-50); Mean Corpuscular HGB Conc 31.5 g/dL (31.8-35.4); Mean Corpuscular Hemoglobin 23.5 pg (27.0-31.2); Mean Corpuscular Volume 74.8 fl (81-99); Mean Platelet Volume 7.6 fl (7.4-10.4); Monocytes % 10.4 % (1.7-9.3); Neutrophils # 5.2 K/mm3 (1.8-7.8); Neutrophils % 54.7 % (37.0-80.0); Nitrate,Urine Negative (Negative); Platelet Count 367 K/mm3 (142-424); Protein,Urine Negative (Negative); Red Blood Count 5.03 M/mm3 (4.20-5.40); Red Cell Distribution Width 17.2 % (11.5-17.5); Specific Gravity, Urine >= 1.030 (1.005-1.030); Urobilinogen,Urine 0.2 EU/dl (0.2); White Blood Count 9.4 K/mm3 (4.8-10.8)
[2024-01-23 21:14] LABS: Bacteria,Urine 1+ /lpf; Mucus,Urine Trace /lpf; RBC,Urine Occasional #/hpf (0-3); WBC,Urine Occasional #/hpf (0-3)
[2024-01-23 21:27] LABS: Albumin Level 4.1 g/dl (3.5-5.0); Chloride 108 mmol/L (98-107); Potassium 4.3 mmoL/L (3.5-5.1); Sodium 139 mmol/L (136-145)
[2024-01-23 21:30] LABS: Alanine Aminotransferase 18 U/L (12-78); Albumin/Globulin Ratio 1.3 (1.1-1.8); Alkaline Phosphatase 83 U/L (38-126); Anion Gap 8.3 mEq/L (5-15); Aspartate Amino Transferase 29 U/L (14-36); Bilirubin,Total 0.4 mg/dl (0.2-1.3); Blood Urea Nitrogen 8 mg/dl (7-17); Calcium 8.5 mg/dl (8.4-10.2); Carbon Dioxide 27 mmol/L (22.0-30.0); Creatinine Clearance Estimated 181 mL/min (50-200); Estimated Glomerular Filt Rate 105 ml/min (>60); GFR (African American) 127 ML/MIN (>60); Globulin 3.2 g/dL (1.3-3.2); Glucose 91 mg/dl (74-100); Lipase 63 U/L (23-300); Total Protein,Serum 7.3 g/dl (6.3-8.2)
--- NOTE | 2024-01-23 22:02 | PC.NURSE ---
obtained stool sample and sent to lab at this time .
[2024-01-23 22:36] VITALS: BP 122/74; PULSE 72; RESP 18; TEMP 36.8; O2SAT 99
--- NOTE | 2024-01-30 11:32 | PC.NURSE ---
updated pt on stool sample per pt request
== END 2024-01-23 22:46 | disposition home or self-care (01) ==
PROVIDERS: Physician Assistant; Emergency Provider Emergency Medicine
DX: R10.9 Unspecified abdominal pain (principal); R11.2 Nausea with vomiting, unspecified; R06.02 Shortness of breath; R19.7 Diarrhea, unspecified; R53.81 Other malaise; F17.200 Nicotine dependence, unspecified, uncomplicated
CPT/HCPCS: 80053; 81001; 83605; 83690; 83735; 85025; 87045; 93005; 96361; 96374; 99285; J2405; J7120

== ENCOUNTER 2024-05-14 16:20 | Outpatient (CLI) | payer MEDICAID, SELFPAY ==
[2024-05-14 17:48] LABS: HCG,Quantitative 147 mIU/ml (0-5.42)
[2024-05-15 11:10] LABS: Progesterone 13.1 ng/mL (.)
== END 2024-05-14 23:59 | disposition home or self-care (01) ==
LOC: LAB 16:21
PROVIDERS: Visit Provider Obstetrics & Gynecology
DX: Z34.90 Encounter for supervision of normal pregnancy, unspecified, unspecified trimester (principal)
CPT/HCPCS: 36415; 84144; 84702

== ENCOUNTER 2024-05-16 14:31 | Emergency (ER) | payer MEDICAID, SELFPAY ==
--- NOTE | 2024-05-16 14:45 | US_ITS ---
PROCEDURE INFORMATION: Exam: US , Transvaginal Exam date and time: 05/16/2024 3:13 PM Age: 24 years old Clinical indication: Lmp or gestational age (in weeks): 4w2d; Other: Cramping; ; Additional info: Preg location, lmp 04/17 LABS AND CLINICAL REPORTS: Last menstrual period start date: 04/16/2024 Gestational age (Established): 4 w 2 d Estimated due date (Established): 01/21/2025 TECHNIQUE: Imaging protocol: Real-time transvaginal obstetrical ultrasound of the maternal pelvis with image documentation. Transvaginal imaging was used for better evaluation of the fetus, adnexa, and/or cervix. COMPARISON: US OB TRANSVAGINAL 03/26/2022 4:20 PM FINDINGS: Gestation: No intrauterine gestation. MATERNAL: Uterus: Retroverted uterus. Thickened endometrium measuring 2.7 cm. Sliver of fluid in the endometrium at the fundus. Right ovary/adnexa: Normal vascular flow. Right ovary measures 3.5 x 2.9 x 2.1 cm. Right ovarian volume is 11.5 mL. 1.6 x 1.3 cm cyst with hypoechoic material in the right ovary is probably a hemorrhagic cyst. Left ovary/adnexa: Normal. Normal vascular flow. Left ovary measures 3.6 x 3.1 x 2.0 cm. Left ovarian volume is 11.7 mL. Intraperitoneal space: Mild pelvic free fluid. IMPRESSION: 1. No intrauterine . No evidence of an ectopic . Findings are consistent with a of unknown location and could be due to very early or recent loss 2. Small amount of intracavitary fluid is present in the endometrium. 3. 1.6 x 1.3 cm complex cyst in the right ovary is probably a hemorrhagic cyst.
[2024-05-16 14:47] VITALS: BP 128/71; PULSE 86; RESP 14; TEMP 36.6; O2SAT 98; BMI 37.5
--- NOTE | 2024-05-16 14:47 | ED_ITS ---
Discharge Plan Disposition Patient Disposition: Home, Self-Care Prescriptions Prescriptions: No Action escitalopram oxalate [Lexapro] 10 mg tablet 10 mg PO DAILY cefdinir 300 mg capsule 300 mg PO BID 7 Days Qty: 14 0RF ondansetron 4 mg tablet,disintegrating 4 mg PO Q6H PRN (Reason: nausea and vomiting) Qty: 10 0RF Referrals Follow up/Referrals: Provider,Referral, MD [Primary Care Provider] - See instructions Activity Restrictions/Add. Instructions Additional Instructions/Restrictions: Your quantitative beta-hCG level has doubled and there is what appears to be a gestational sac measuring about 4 weeks within your uterus. However there is no definitive yolk sac or pole to say that this is definitively an intrauterine . I cannot rule out an ectopic . Please follow- up closely with your INSTRUCTIONAL FACILITATOR doctor and return with any significant bleeding or abdominal pain. Clinical Impressions Clinical Impression: Pelvic cramping, of unknown anatomic location Print Language Print Language: Maltese Discharge ED Provider: Leena Napier General Adult HPI <Clive Lepe MD - Last Filed: 05/16/24 14:51> General Chief complaint: OB/Uterine Contractions Stated complaint: cramping-newly Time Seen by Provider: 05/16/24 14:35 History of Present Illness HPI narrative: Patient is a 24-year-old female G3, P1 last menstrual period 11?22 who presents emergency department for evaluation of crampy lower abdominal pain. She had a positive chemical test and follows with Dr. Montague, has not had definitive imaging for location. Quant hCG on 05-14-2024 was 147. She has had crampy pelvic pain with radiating through to her back that is paroxysmal, mild to moderate. No right lower quadrant abdominal pain no vomiting no chest pain. Due to persistent symptoms and her concern for early miscarriage she presents here for continued evaluation. No vaginal bleeding or discharge Related Data Home Medications ?Medication ?Instructions ?Recorded ?Confirmed escitalopram oxalate 10 mg tablet 10 mg PO DAILY 11/06/23 11/06/23 (Lexapro) Previous Rx's ?Medication ?Instructions ?Recorded cefdinir 300 mg capsule 300 mg PO BID 7 days #14 caps 01/21/24 ondansetron 4 mg disintegrating 4 mg PO Q6H PRN nausea and 01/23/24 tablet vomiting #10 tabs Allergies Allergy/AdvReac Type Severity Reaction Status Date / Time No Known Allergies Allergy Verified 05/16/24 15:12 PFSH <Clive Lepe MD - Last Filed: 05/16/24 14:51> COUNTS INCLUDE 234 BEDS AT THE [facility] Disclaimer: The information contained in this section may have been updated after the patient was seen, as this information can be updated by other users. Medical History (Updated 05/16/24 @ 16:45 by Leena Napier MD) Unspecified skin changes Vaginal odor Anxiety Spontaneous Surgical History (Updated 11/06/23 @ 13:09 by ANA Trevino) No significant past surgical history Family History Other No significant family history Social History Smoking Status: Former smoker alcohol intake: never substance use type: denies use current occupational status: unemployed Travel in the last 8 weeks: None Have you lived/traveled outside US in past 30 days?: No Contact w/someone who lives/traveled outside US past 30 days?: No Exposure to someone with infectious disease in past 14 days?: No Do you have a fever (greater than 100.4 F or 38 C)?: No Have you tested positive for COVID-19: No Exposed to someone with COVID-19 in past 14 days?: No Do you have a sore throat?: No Do you have a cough?: No Do you have any weakness?: No Do you have any diarrhea?: No Are you experiencing any unusual bleeding?: No Do you have any muscle aches/pain?: No Do you have any abdominal pain?: No Are you experiencing loss of taste or smell?: No Other Medical History Have you received the Flu Vaccine for this season: No Have you received the Pneumonia Vaccine: No <Clive Lepe MD - Last Filed: 05/16/24 14:51> ROS Obtained: Yes Systems reviewed as appropriate & no additional complaints except as documented Physical Exam <Clive Lepe MD - Last Filed: 05/16/24 14:51> General General appearance: alert and in no apparent distress Head Head exam: atraumatic and normocephalic Eye Eye exam: Present PERRL ENT ENT exam: Present mucous membranes moist Neck Neck exam: Present normal inspection Chest Chest inspection: Present normal inspection and symmetric chest wall rise Respiratory Respiratory exam: Absent respiratory distress Cardiovascular Cardiovascular exam: Present regular rate and normal rhythm Abdominal Exam Abdominal exam: Present soft; Absent tenderness, guarding or rebound Extremities Exam Extremities exam: Present normal inspection Neurological Exam Neurological exam: Present alert Psychiatric Psychiatric exam: Present normal affect Skin Skin exam: Present warm and dry Medical Decision Making <Clive Lepe MD - Last Filed: 05/16/24 14:51> Medical Records Screening: Per USPSTF and CDC recommendations, given the prevalence of disease in our region, it is our hospital?s policy to screen for HIV and viral Hepatitis for all patients aged 18 and over and those with ongoing risk factors. Hany Inquiry Pt receiving controlled substance: No Vital Signs: 05/16/24 14:47 Temperature 98 F Temperature Source Oral Pulse Rate [Left] 86 Respiratory Rate 14 Blood Pressure [Right Arm] 128/71 Blood Pressure Mean [Right Arm] 90 Blood Pressure Source [Right Arm] Automatic Cuff Blood Pressure Position [Right Arm] Sitting 02 Sat by Pulse Oximetry 98 Oxygen Delivery Method Room Air Lab Data Lab Results 05/16/24 15:03: WBC 15.8 H, RBC 5.38, Hgb 12.7, Hct 41.1, MCV 76.4 L, MCH 23.6 L , MCHC 30.9 L, RDW 15.1, Plt Count 434 H, MPV 9.3, Neut % (Auto) 73.9, Lymph % (Auto) 18.7, [place] % (Auto) 5.1, Eos % (Auto) 1.5, Baso % (Auto) 0.5, Neut # (Auto) 11.6 H, Lymph # (Auto) 3.0, [place] # (Auto) 0.8, Eos # (Auto) 0.2, Baso # (Auto) 0.1, Sodium 134 L, Potassium 3.9, Chloride 107, Carbon Dioxide 24, BUN 14, Creatinine 0.60, Glucose 95, Calcium 8.7, Total Bilirubin 0.3, AST 29, ALT 17, Alkaline Phosphatase 98, Total Protein 7.5, Albumin 4.2, Lipase 73, HCG, Quant 323 H 05/16/24 15:03 05/16/24 15:03 Orders (Tests/Meds): ED MEDICATIONS Discontinued Medications Generic Name Dose Route Start Last Admin Trade Name Freq PRN Reason Stop Dose Admin Acetaminophen 1,000 mg 05/16/24 14:51 05/16/24 15:00 Acetaminophen 500mg Tab PO 05/16/24 14:52 1,000 mg ONCE ONE Administration ORDERS Category Date Time Status CBC w/Auto Diff [Complete Blood Count Auto Diff] Stat Lab 05/16/24 15:03 Results CMP [Comprehensive Metabolic Panel] Stat Lab 05/16/24 15:03 Results HCG,Quantitative Stat Lab 05/16/24 15:03 Results HIV Combo Stat Lab 05/16/24 15:03 Received Hep C Ab with Reflex to RNA Stat Lab 05/16/24 15:03 Received Lipase Stat Lab 05/16/24 15:03 Results UA [Urinalysis and Microscopic] Stat Lab 05/16/24 14:45 Ordered US OB transvaginal Stat Ultrasound 05/16/24 14:45 Taken Medical Decision Narrative: In summary patient is 24-year-old female past medical history described above who presents emergency department for evaluation of crampy lower abdominal pain in the setting of chemical . Patient is hemodynamically stable nontoxic-appearing upon arrival, afebrile, no current pain on my exam and is nontender. Differential diagnosis includes early miscarriage, uterine cramping, urinary tract infection, among others. Workup will be conducted with hematologic labs, urinalysis, quant hCG, transvaginal ultrasound. Initial inventions include Tylenol. Workup and repeat evaluation pending at time of transfer of care to the oncoming physician, Dr. Napier <Leena Napier MD - Last Filed: 05/16/24 16:48> Vital Signs: 05/16/24 14:47 Temperature 98 F Temperature Source Oral Pulse Rate [Left] 86 Respiratory Rate 14 Blood Pressure [Right Arm] 128/71 Blood Pressure Mean [Right Arm] 90 Blood Pressure Source [Right Arm] Automatic Cuff Blood Pressure Position [Right Arm] Sitting 02 Sat by Pulse Oximetry 98 Oxygen Delivery Method Room Air Lab Data Lab results reviewed: Yes I reviewed the patient's lab results. Lab Results 05/16/24 15:03: WBC 15.8 H, RBC 5.38, Hgb 12.7, Hct 41.1, MCV 76.4 L, MCH 23.6 L , MCHC 30.9 L, RDW 15.1, Plt Count 434 H, MPV 9.3, Neut % (Auto) 73.9, Lymph % (Auto) 18.7, [place] % (Auto) 5.1, Eos % (Auto) 1.5, Baso % (Auto) 0.5, Neut # (Auto) 11.6 H, Lymph # (Auto) 3.0, [place] # (Auto) 0.8, Eos # (Auto) 0.2, Baso # (Auto) 0.1, Sodium 134 L, Potassium 3.9, Chloride 107, Carbon Dioxide 24, BUN 14, Creatinine 0.60, Glucose 95, Calcium 8.7, Total Bilirubin 0.3, AST 29, ALT 17, Alkaline Phosphatase 98, Total Protein 7.5, Albumin 4.2, Lipase 73, HCG, Quant 323 H Orders (Tests/Meds): ED MEDICATIONS Discontinued Medications Generic Name Dose Route Start Last Admin Trade Name Freq PRN Reason Stop Dose Admin Acetaminophen 1,000 mg 05/16/24 14:51 05/16/24 15:00 Acetaminophen 500mg Tab PO 05/16/24 14:52 1,000 mg ONCE ONE Administration ORDERS Category Date Time Status CBC w/Auto Diff [Complete Blood Count Auto Diff] Stat Lab 05/16/24 15:03 Results CMP [Comprehensive Metabolic Panel] Stat Lab 05/16/24 15:03 Results HCG,Quantitative Stat Lab 05/16/24 15:03 Results HIV Combo Stat Lab 05/16/24 15:03 Received Hep C Ab with Reflex to RNA Stat Lab 05/16/24 15:03 Received Lipase Stat Lab 05/16/24 15:03 Results UA [Urinalysis and Microscopic] Stat Lab 05/16/24 14:45 Ordered US OB transvaginal Stat Ultrasound 05/16/24 14:45 Taken Medical Decision Narrative: In summary patient is 24-year-old female past medical history described above who presents emergency department for evaluation of crampy lower abdominal pain in the setting of chemical . Patient is hemodynamically stable nontoxic-appearing upon arrival, afebrile, no current pain on my exam and is nontender. Differential diagnosis includes early miscarriage, uterine cramping, urinary tract infection, among others. Workup will be conducted with hematologic labs, urinalysis, quant hCG, transvaginal ultrasound. Initial inventions include Tylenol. Workup and repeat evaluation pending at time of transfer of care to the oncoming physician, Dr. Napier Reassessment 446 I reevaluated patient clinically she has benign abdominal exam. I personally interpreted the ultrasound images as well as having a discussion with the sales and service technician that was communicated to the nurses. There is a gestational sac measuring about 4 weeks but no pole or yolk sac noted no free fluid endometrial lining is thickened. This is most likely an intrauterine that is too early but cannot definitively say that it is an IUP. Possibly could be a pseudo gestational sac and cannot rule out ectopic . Patient has been made aware of this she will follow-up closely with INSTRUCTIONAL FACILITATOR doctor she will return with any significant abdominal pain or bleeding. She was unable to provide a urine but she has no signs or symptoms of urinary tract infection at this point. She has follow-up with Dr. Osullivan and was discharged in stable condition. Critical Care <Clive Lepe MD - Last Filed: 05/16/24 14:51> Critical Care Time Critical Care Time: No
[2024-05-16] MEDS: ACETAMINOPHEN 500MG TAB 1000 MG PO (15:00)
[2024-05-16 15:51] LABS: Albumin Level 4.2 g/dl (3.5-5.0); Chloride 107 mmol/L (98-107); Potassium 3.9 mmoL/L (3.5-5.1); Sodium 134 mmol/L (136-145)
[2024-05-16 15:53] LABS: Hematocrit 41.1 % (37.0-47.0); Hemoglobin 12.7 g/dL (12.2-16.2); Mean Corpuscular Hemoglobin 23.6 pg (27.0-31.2); Mean Corpuscular Volume 76.4 fl (81-99); Red Blood Count 5.38 M/mm3 (4.20-5.40); White Blood Count 15.8 K/mm3 (4.8-10.8)
[2024-05-16 15:54] LABS: Alanine Aminotransferase 17 U/L (12-78); Albumin/Globulin Ratio 1.3 (1.1-1.8); Alkaline Phosphatase 98 U/L (38-126); Anion Gap 6.9 mEq/L (5-15); Aspartate Amino Transferase 29 U/L (14-36); Bilirubin,Total 0.3 mg/dl (0.2-1.3); Blood Urea Nitrogen 14 mg/dl (7-17); Calcium 8.7 mg/dl (8.4-10.2); Carbon Dioxide 24 mmol/L (22.0-30.0); Creatinine Clearance Estimated 214 mL/min (50-200); Estimated Glomerular Filt Rate 124 ml/min (>60); GFR (African American) 150 ML/MIN (>60); Globulin 3.3 g/dL (1.3-3.2); Glucose 95 mg/dl (74-100); Lipase 73 U/L (23-300); Mean Corpuscular HGB Conc 30.9 g/dL (31.8-35.4); Platelet Count 434 K/mm3 (142-424); Red Cell Distribution Width 15.1 % (11.5-17.5); Total Protein,Serum 7.5 g/dl (6.3-8.2)
[2024-05-16 15:55] LABS: Lymphocytes % 18.7 % (10-50); Mean Platelet Volume 9.3 fl (7.4-10.4); Monocytes % 5.1 % (1.7-9.3); Neutrophils % 73.9 % (37.0-80.0)
[2024-05-16 15:56] LABS: Basophils # 0.1 K/mm3 (0-0.2); Basophils % 0.5 % (0.1-2.0); Eosinophils # 0.2 K/mm3 (0.0-0.4); Eosinophils % 1.5 % (0.1-12.0); Monocytes # 0.8 K/mm3 (0.1-1.0); Neutrophils # 11.6 K/mm3 (1.8-7.8)
[2024-05-16 15:57] LABS: MANUAL DIFFERENTIAL MANUAL DIFFERENTIAL (MANUAL DIFF)
[2024-05-16 16:10] LABS: HCG,Quantitative 323 mIU/ml (0-5.42)
[2024-05-16 16:49] VITALS: BP 128/71; PULSE 81; RESP 18; TEMP 36.6; O2SAT 98
[2024-05-16 18:37] LABS: HIV Combo NEGATIVE (Negative)
[2024-05-16 18:43] LABS: Lymphocytes % 21 % (10-50); Monocytes % 4 % (2-9); Neutrophils % 75 % (42-76); Platelet Estimate Normal; Total Cells Counted 100
[2024-05-16 18:44] LABS: Anisocytosis 1+; Hypochromasia 1+; Poikilocytosis 1+; Stomatocytes 1+; Target Cells 1+
[2024-05-18 10:08] LABS: HCV Ab Non Reactive (Non Reactive)
== END 2024-05-16 16:50 | disposition home or self-care (01) ==
PROVIDERS: Emergency Medicine; Emergency Provider Student in an Organized Health Care Education/Training Program
DX: R10.2 Pelvic and perineal pain (principal); O36.80X0 Pregnancy with inconclusive fetal viability, not applicable or unspecified; R10.30 Lower abdominal pain, unspecified
CPT/HCPCS: 76817; 80053; 83690; 84702; 85007; 85025; 85027; 86803; 87389; 99283

== ENCOUNTER 2024-05-18 18:11 | Outpatient (CLI) | payer MEDICAID, SELFPAY ==
[2024-05-18 19:26] LABS: HCG,Quantitative 553 mIU/ml (0-5.42)
== END 2024-05-18 23:59 | disposition home or self-care (01) ==
PROVIDERS: Visit Provider Obstetrics & Gynecology
DX: O36.80X0 Pregnancy with inconclusive fetal viability, not applicable or unspecified (principal)
CPT/HCPCS: 36415; 84144; 84702

== ENCOUNTER 2024-06-03 17:50 | Emergency (ER) | payer MEDICAID, SELFPAY ==
--- NOTE | 2024-06-03 17:53 | ED_ITS ---
Discharge Plan Disposition Patient Disposition: Home, Self-Care Condition: Good Prescriptions Prescriptions: No Action escitalopram oxalate [Lexapro] 10 mg tablet 10 mg PO DAILY progesterone micronized [Prometrium] 200 mg capsule 200 mg vaginal QHS 30 Days Qty: 30 2RF promethazine 25 mg tablet 25 mg PO Q6H PRN (Reason: nausea and vomiting) Qty: 30 2RF pyridoxine (vitamin B6) 25 mg tablet 25 mg PO TID Qty: 90 0RF Unisom (doxylamine) 25 mg tablet 12.5 mg PO HS PRN (Reason: nausea and vomiting) Qty: 30 0RF ondansetron 4 mg tablet,disintegrating 4 mg PO Q6H PRN (Reason: nausea and vomiting) Qty: 10 0RF Referrals Follow up/Referrals: Provider,Referral, MD [Primary Care Provider] - See instructions Activity Restrictions/Add. Instructions Additional Instructions/Restrictions: Please follow-up with your LAT[employer] STUDIES PROFESSOR doctor. Please take the nausea medications as needed and return with any new or worsening symptoms. As we discussed, there is signs of bacteria in your urine, however, given that you are not experience any symptoms, the urine culture should be followed up and treated if you have a certain amount of bacteria in the urine culture. Clinical Impressions Clinical Impression: Nausea and vomiting during Instructions Patient Instructions: DI for Diarrhea and Traveler's Diarrhea -- Adult, DI for Diarrhea and Traveler's Diarrhea -- Child, DI for Nausea -- Adult, DI for Nausea -- Child Print Language Print Language: Estonian Discharge ED Provider: Zay Wilson Adult HPI General Chief complaint: Nausea/Vomiting/Diarrhea Stated complaint: antepartum 7 wks n/v dizziness Time Seen by Provider: 06/03/24 17:53 History of Present Illness HPI narrative: Patient presents for evaluation of nausea and vomiting. Symptoms were gradual in onset starting several days ago, constant, stable in course no known sick contacts recent travel fevers chills dysuria or frequency. Patient reports she is approximately 7 weeks and tells me she has had intrauterine confirmed on outpatient ultrasound. Denies any vaginal bleeding or abdominal pain at this time. No injury, no flank pain, no chest pain or shortness of breath. No decreased urine output. Please note that above description of symptoms, in this electronic medical record under categorization of recalled from ER triage doctor by RN are reflective of an initial nursing assessment, however, is not reflective of my full history and physical exam that was personally taken and clarified. Consequentially, this preceding description of symptoms, which may include the patient's categorized chief complaint in the EMR, do not reflect my personal clinical impression, and the ultimate description of history of present illness and patient stated complaints should be deferred to this section of the note. Unless stated otherwise or congruent with this section of the note, additional signs, symptoms, or incongruence should be interpreted as inaccurate with my clinical impression. Related Data Home Medications ?Medication ?Instructions ?Recorded ?Confirmed escitalopram oxalate 10 mg tablet 10 mg PO DAILY 11/06/23 11/06/23 (Lexapro) Previous Rx's ?Medication ?Instructions ?Recorded ondansetron 4 mg disintegrating 4 mg PO Q6H PRN nausea and 01/23/24 tablet vomiting #10 tabs progesterone micronized 200 mg 200 mg vaginal QHS 30 days #30 caps 05/22/24 capsule (Prometrium) doxylamine succinate 25 mg tablet 12.5 mg (1/2 x 25 mg) PO HS PRN 06/03/24 (Unisom (doxylamine)) nausea and vomiting #30 tabs promethazine 25 mg tablet 25 mg PO Q6H PRN nausea and 06/03/24 vomiting #30 tabs pyridoxine (vitamin B6) 25 mg 25 mg PO TID #90 tabs 06/03/24 tablet Allergies Allergy/AdvReac Type Severity Reaction Status Date / Time No Known Allergies Allergy Verified 05/16/24 15:12 [facility] Disclaimer: The information contained in this section may have been updated after the patient was seen, as this information can be updated by other users. Medical History (Updated 06/03/24 @ 20:39 by Zay Wilson MD) Unspecified skin changes Vaginal odor Anxiety Spontaneous Surgical History (Updated 11/06/23 @ 13:09 by ANA Trevino) No significant past surgical history Family History Other No significant family history Social History Smoking Status: Never smoker alcohol intake: never substance use type: denies use current occupational status: unemployed Travel in the last 8 weeks: None Have you lived/traveled outside US in past 30 days?: No Contact w/someone who lives/traveled outside US past 30 days?: No Exposure to someone with infectious disease in past 14 days?: No Do you have a fever (greater than 100.4 F or 38 C)?: No Have you tested positive for COVID-19: No Exposed to someone with COVID-19 in past 14 days?: No Do you have a sore throat?: No Do you have a cough?: No Do you have any weakness?: Yes Do you have any diarrhea?: No Are you experiencing any unusual bleeding?: No Do you have any muscle aches/pain?: No Do you have any abdominal pain?: No Are you experiencing loss of taste or smell?: No Other Medical History Have you received the Flu Vaccine for this season: No Have you received the Pneumonia Vaccine: No ROS Obtained: Yes other As per HPI Physical Exam General General appearance: alert and in no apparent distress Head Head exam: atraumatic and normocephalic Eye Eye exam: Present normal appearance Neck Neck exam: Present normal inspection Chest Chest inspection: Present normal inspection and symmetric chest wall rise Respiratory Respiratory exam: Present normal lung sounds bilaterally; Absent respiratory distress Cardiovascular Cardiovascular exam: Present regular rate and normal rhythm Abdominal Exam Abdominal exam: Present soft Neurological Exam Neurological exam: Present alert and oriented X3 Psychiatric Psychiatric exam: Present normal affect and normal mood Skin Skin exam: Present warm and dry Medical Decision Making Medical Records Medical records reviewed: Yes I reviewed the patient's medical records. Screening: Per USPSTF and CDC recommendations, given the prevalence of disease in our region, it is our hospital?s policy to screen for HIV and viral Hepatitis for all patients aged 18 and over and those with ongoing risk factors. Hany Inquiry Pt receiving controlled substance: No Vital Signs: 06/03/24 18:00 06/03/24 18:25 06/03/24 20:45 Temperature 98.2 F 97.9 F Temperature Source Oral Oral Pulse Rate 76 72 Pulse Rate [Right Brachial] 85 Respiratory Rate 16 16 Blood Pressure 115/88 124/74 Blood Pressure [Right Arm] 117/78 Blood Pressure Mean [Right Arm] 91 Blood Pressure Source Automatic Cuff Blood Pressure Source [Right Arm] Automatic Cuff Blood Pressure Position Supine Blood Pressure Position [Right Arm] Sitting 02 Sat by Pulse Oximetry 99 98 Oxygen Delivery Method Room Air Room Air Room Air Lab Data Lab Results 06/03/24 17:50: Urine Color Yellow, Urine Appearance Clear, Urine pH 6.0, Ur Specific [place] >= 1.030, Urine Protein Negative, Urine Glucose (UA) Negative, Urine Ketones 2+, Urine Blood Negative, Urine Nitrate Negative, Urine Bilirubin Negative, Urine Urobilinogen 0.2, Ur Leukocyte Esterase Trace, Urine RBC 5-10, Urine WBC 50-100, Ur Squamous Epith Cells 20-50, Urine Bacteria 4+ 06/03/24 17:58: WBC 13.7 H, RBC 5.35, Hgb 12.4, Hct 41.1, MCV 76.8 L, MCH 23.2 L , MCHC 30.2 L, RDW 15.9, Plt Count 385, MPV 9.1, Neut % (Auto) 74.2, Lymph % (Auto) 18.7, [place] % (Auto) 5.3, Eos % (Auto) 1.0, Baso % (Auto) 0.4, Neut # (Auto) 10.2 H, Lymph # (Auto) 2.6, [place] # (Auto) 0.7, Eos # (Auto) 0.1, Baso # (Auto) 0.1, Sodium 137, Potassium 3.8, Chloride 103, Carbon Dioxide 24, Anion Gap 13.8, BUN 12, Creatinine 0.60, Estimated Creat Clear 232, Estimated GFR 124, Est GFR ( Amer) 150, Glucose 92, Calcium 9.2, Total Bilirubin 0.5, AST 33, ALT 16, Alkaline Phosphatase 100, Total Protein 7.3, Albumin 4.1, Globulin 3.2, Albumin/Globulin Ratio 1.3, HCG, Quant [id number] H 06/03/24 17:58 06/03/24 17:58 Orders (Tests/Meds): ED MEDICATIONS Discontinued Medications Generic Name Dose Route Start Last Admin Trade Name Freq PRN Reason Stop Dose Admin Lactated Ringer's 1,000 mls @ 999 mls/hr 06/03/24 18:22 06/03/24 18:28 Lactated Ringer's 1000 Ml Bag IV 06/03/24 19:22 999 mls/hr .Q1H1M ONE Administration Ondansetron HCl 4 mg 06/03/24 18:22 06/03/24 18:28 Ondansetron 4mg/2ml Vial IV 06/03/24 18:23 4 mg ONCE ONE Administration ORDERS Category Date Time Status POCUS Point of Care (ER Only) Stat Exams 06/03/24 18:15 Completed Beta HCG, Quant [HCG,Quantitative] Stat Lab 06/03/24 17:58 Completed CBC w/Auto Diff [Complete Blood Count Auto Diff] Stat Lab 06/03/24 17:58 Completed CMP [Comprehensive Metabolic Panel] Stat Lab 06/03/24 17:58 Completed Urinalysis and Microscopic Stat Lab 06/03/24 17:50 Completed Urine Culture Stat Micro 06/03/24 17:50 Completed Medical Decision Narrative: Patient with history and exam per above presenting for evaluation of nausea and vomiting in the setting of Diagnoses considered include hyperemesis gravidarum, patient reports to me that she has had intrauterine confirmed, patient is overall nontoxic- appearing, afebrile, denies using any pelvic pain or lower abdominal symptoms or pelvic symptoms in the setting of her . Denies any urinary symptoms on serial questioning. Very low clinical index of suspicion for nausea and vomitings secondary to pyelonephritis or acute surgical pathology ED workup and treatment included: ED MEDICATIONS Discontinued Medications Generic Name Dose Route Start Last Admin Trade Name Freq PRN Reason Stop Dose Admin Lactated Ringer's 1,000 mls @ 999 mls/hr 06/03/24 18:22 06/03/24 18:28 Lactated Ringer's 1000 Ml Bag IV 06/03/24 19:22 999 mls/hr .Q1H1M ONE Administration Ondansetron HCl 4 mg 06/03/24 18:22 06/03/24 18:28 Ondansetron 4mg/2ml Vial IV 06/03/24 18:23 4 mg ONCE ONE Administration ORDERS Category Date Time Status POCUS Point of Care (ER Only) Stat Exams 06/03/24 18:15 Completed Beta HCG, Quant [HCG,Quantitative] Stat Lab 06/03/24 17:58 Completed CBC w/Auto Diff [Complete Blood Count Auto Diff] Stat Lab 06/03/24 17:58 Completed CMP [Comprehensive Metabolic Panel] Stat Lab 06/03/24 17:58 Completed Urinalysis and Microscopic Stat Lab 06/03/24 17:50 Completed Urine Culture Stat Micro 06/03/24 17:50 Completed Labs were independently interpreted by me, significant for leukocytosis, quantitative hCG 50,000, 2+ ketonuria, bacteriuria, 20-50 squamous cells per high-power field, in the absence of symptoms, and after shared decision making, will defer treating until urine culture results after discussion of risks and benefits of treating. My clinical impression at this time is most consistent with nausea and vomiting in . Patient able to tolerate p.o. intake and requesting to be discharged at this time. I discussed my clinical impression with patient and answered all questions. At this time, the evidence for any other entities in the differential is insufficient to warrant any further testing or ED observation. This was explained to the patient. The patient was advised that persistent or worsening symptoms require further evaluation. Critical Care Critical Care Time Critical Care Time: No
[2024-06-03 18:00] VITALS: BP 117/78; PULSE 85; RESP 16; TEMP 36.8; O2SAT 99; BMI 40.6
[2024-06-03 18:25] VITALS: BP 115/88; PULSE 76; O2SAT 98
[2024-06-03 18:28] LABS: Microscopic, Urine URINE MICROSCOPIC (MICROSCOPIC)
[2024-06-03] MEDS: ONDANSETRON 4MG/2ML VIAL 4 MG IV (18:28)
[2024-06-03] MEDS: LACTATED RINGERS 1000ML 1,000 ML 999 ML IV (18:28)
[2024-06-03 18:29] LABS: Basophils # 0.1 K/mm3 (0-0.2); Basophils % 0.4 % (0.1-2.0); Eosinophils # 0.1 K/mm3 (0.0-0.4); Hematocrit 41.1 % (37.0-47.0); Hemoglobin 12.4 g/dL (12.2-16.2); Lymphocytes # 2.6 K/mm3 (0.7-4.5); Lymphocytes % 18.7 % (10-50); Mean Corpuscular HGB Conc 30.2 g/dL (31.8-35.4); Mean Corpuscular Hemoglobin 23.2 pg (27.0-31.2); Mean Corpuscular Volume 76.8 fl (81-99); Mean Platelet Volume 9.1 fl (7.4-10.4); Monocytes # 0.7 K/mm3 (0.1-1.0); Monocytes % 5.3 % (1.7-9.3); Neutrophils # 10.2 K/mm3 (1.8-7.8); Neutrophils % 74.2 % (37.0-80.0); Platelet Count 385 K/mm3 (142-424); Red Blood Count 5.35 M/mm3 (4.20-5.40); Red Cell Distribution Width 15.9 % (11.5-17.5); White Blood Count 13.7 K/mm3 (4.8-10.8)
[2024-06-03 18:30] LABS: Appearance,Urine CLEAR (Clear); Blood, Urine Negative (Negative); Color,Urine YELLOW (Yellow); Glucose,Urine (UA) Negative (Negative); Ketones,Urine 2+ (Negative); Leukocyte Esterase,Urine TRACE (Negative); Nitrate,Urine Negative (Negative); Protein,Urine Negative (Negative); Specific Gravity, Urine >= 1.030 (1.005-1.030); Urobilinogen,Urine 0.2 EU/dl (0.2)
[2024-06-03 18:32] LABS: Bilirubin,Urine Negative (Negative)
[2024-06-03 18:37] LABS: Albumin Level 4.1 g/dl (3.5-5.0); Chloride 103 mmol/L (98-107); Sodium 137 mmol/L (136-145)
[2024-06-03 18:38] LABS: Potassium 3.8 mmoL/L (3.5-5.1)
[2024-06-03 18:40] LABS: Alanine Aminotransferase 16 U/L (12-78); Anion Gap 13.8 mEq/L (5-15); Aspartate Amino Transferase 33 U/L (14-36); Carbon Dioxide 24 mmol/L (22.0-30.0)
[2024-06-03 18:41] LABS: Albumin/Globulin Ratio 1.3 (1.1-1.8); Alkaline Phosphatase 100 U/L (38-126); Bilirubin,Total 0.5 mg/dl (0.2-1.3); Calcium 9.2 mg/dl (8.4-10.2); Globulin 3.2 g/dL (1.3-3.2); Glucose 92 mg/dl (74-100); Total Protein,Serum 7.3 g/dl (6.3-8.2)
[2024-06-03 18:58] LABS: Blood Urea Nitrogen 12 mg/dl (7-17); Creatinine Clearance Estimated 232 mL/min (50-200); Estimated Glomerular Filt Rate 124 ml/min (>60); GFR (African American) 150 ML/MIN (>60)
[2024-06-03 19:03] LABS: Bacteria,Urine 4+ /lpf; Squamous Epithelial Cell,Urine 20-50 #/hpf (0-5); WBC,Urine 50-100 #/hpf (0-3)
[2024-06-03 20:04] LABS: HCG,Quantitative 50103 mIU/ml (0-5.42)
[2024-06-03 20:45] VITALS: BP 124/74; PULSE 72; RESP 16; TEMP 36.6; O2SAT 98
--- NOTE | 2024-06-03 20:45 | PC.NURSE ---
IV removed. Catheter tip intact. Bleeding controlled.
== END 2024-06-03 20:46 | disposition home or self-care (01) ==
PROVIDERS: Emergency Provider Emergency Medicine
DX: O21.9 Vomiting of pregnancy, unspecified (principal); Z3A.01 Less than 8 weeks gestation of pregnancy
CPT/HCPCS: 80053; 81001; 84702; 85025; 87086; 96361; 96374; 99283; J2405; J7120

== ENCOUNTER 2024-06-11 15:00 | Outpatient (CLI) | payer MEDICAID, SELFPAY ==
[2024-06-13 06:11] LABS: Neisseria gonorrhoeae, NAA Negative (Negative)
== END 2024-06-11 23:59 | disposition home or self-care (01) ==
LOC: LAB.DROPOF 06-12 09:09
PROVIDERS: Visit Provider Obstetrics & Gynecology
DX: Z34.81 Encounter for supervision of other normal pregnancy, first trimester (principal)
CPT/HCPCS: 87086; 87491; 87591

== ENCOUNTER 2024-07-22 17:58 | Emergency (ER) | payer MEDICAID, SELFPAY ==
[2024-07-22] VITALS (12 sets, daily range): BP systolic 112–147; BP diastolic 62–98; PULSE 66–102; RESP 18–20; TEMP 36.7–36.8; O2SAT 97–100; BMI 37.5
--- NOTE | 2024-07-22 18:34 | ED_ITS ---
Discharge Plan Disposition Patient Disposition: Home, Self-Care Condition: Good Prescriptions Prescriptions: New nitrofurantoin monohyd/m-cryst [Macrobid] 100 mg capsule 100 mg PO BID 5 Days Qty: 10 0RF Rx Instructions: must administer with a meal/food No Action progesterone micronized [Prometrium] 200 mg capsule 200 mg vaginal QHS 30 Days Qty: 30 2RF Referrals Follow up/Referrals: Laurel Montague DO [Staff Physician] - See instructions Provider,Referral, [Primary Care Provider] - See instructions Activity Restrictions/Add. Instructions Additional Instructions/Restrictions: Return to the emergency department for any worsening signs or symptoms, follow- up with NURSE RN BSN, monitor your blood pressure at home. Monitor for any vaginal bleeding, vaginal discharge, nausea vomiting worsening headache or visual disturbance. Please take antibiotic as prescribed. Clinical Impressions Clinical Impression: Asymptomatic bacteriuria during , Orthostasis Instructions Patient Instructions: DI for Orthostatic Hypotension, Dizziness, Nonvertigo Print Language Print Language: Portuguese Discharge ED Provider: Clive Lepe General Adult HPI <JIM Buitrago - Last Filed: 07/22/24 21:45> General Chief complaint: Dizziness Stated complaint: dizzy,ZUNIGA 14 wks Time Seen by Provider: 07/22/24 18:23 Mode of Arrival: Ambulatory Source of Information: Patient Limitations: No Limitations Description of Symptoms (Recalled from ER Triage Doc. by RN): Patient reports being 14 weeks with complaints of getting dizzy when she moves. States she also has a headache. Reports this has been going on her whole , however it has gotten worse. History of Present Illness HPI narrative: 24-year-old female who is approximately 14 weeks gestation, G3, presents to the emergency department with a 3 to 4-day history of worsening dizziness, current headache, patient states she has been dealing with dizziness throughout her more so for the last 7 weeks, she has had recent follow-up with NURSE RN BSN provider has documented IUP and otherwise uncomplicated thus far, does admit to some nausea vomiting/morning sickness at times, denies any fever chills chest pain shortness of breath, denies any abdominal pain, any visual disturbance, no flashes no floaters, no blurry vision, no upper or lower extremity weakness, no vaginal discharge vaginal bleeding vaginal irritation, denies urinary type symptomatology, denies any constipation or diarrhea, denies any hematuria melena or hematemesis. Denies any history of substance use, takes prenatals and progesterone at home, otherwise no real relevant past medical history takes no other medications at home. Of note she had maternal obesity and hyperemesis gravidarum in her previous . Triage vitals unremarkable. Also of note, patient states that her dizziness is worse when going from a sitting to standing position. Onset (ago): month(s) Related Data Previous Rx's ?Medication ?Instructions ?Recorded progesterone micronized 200 mg 200 mg vaginal QHS 30 days #30 caps 05/22/24 capsule (Prometrium) nitrofurantoin 100 mg PO BID 5 days #10 caps 07/22/24 monohydrate/macrocrystals 100 mg capsule (Macrobid) Allergies Allergy/AdvReac Type Severity Reaction Status Date / Time No Known Allergies Allergy Verified 07/08/24 14:32 [facility] <JIM Buitrago - Last Filed: 07/22/24 21:45> [facility] Disclaimer: The information contained in this section may have been updated after the patient was seen, as this information can be updated by other users. Medical History Maternal obesity affecting , antepartum Unspecified skin changes Vaginal odor Anxiety Spontaneous Surgical History No significant past surgical history Family History Other No significant family history Social History Smoking Status: Never smoker alcohol intake: never substance use type: denies use current occupational status: unemployed Travel in the last 8 weeks: None Have you lived/traveled outside [place] in past 30 days?: No Contact w/someone who lives/traveled outside US past 30 days?: No Exposure to someone with infectious disease in past 14 days?: No Do you have a fever (greater than 100.4 F or 38 C)?: No Have you tested positive for COVID-19: No Exposed to someone with COVID-19 in past 14 days?: No Do you have a sore throat?: No Do you have a cough?: No Do you have any weakness?: No Do you have any diarrhea?: No Are you experiencing any unusual bleeding?: No Do you have any muscle aches/pain?: No Do you have any abdominal pain?: No Are you experiencing loss of taste or smell?: No Other Medical History Have you received the Flu Vaccine for this season: No Have you received the Pneumonia Vaccine: No <JIM Buitrago - Last Filed: 07/22/24 21:45> ROS Obtained: Yes All systems reviewed & no additional complaints except as documented Physical Exam <JIM Buitrago - Last Filed: 07/22/24 21:45> General General appearance: alert and in no apparent distress Head Head exam: atraumatic and normocephalic Eye Eye exam: Present PERRL and EOMI ENT ENT exam: Present mucous membranes moist Neck Neck exam: Present normal inspection Chest Chest inspection: Present normal inspection and symmetric chest wall rise Respiratory Respiratory exam: Present normal lung sounds bilaterally; Absent respiratory distress Cardiovascular Cardiovascular exam: Present regular rate and normal rhythm Abdominal Exam Abdominal exam: Present soft; Absent tenderness Extremities Exam Extremities exam: Present normal inspection Neurological Exam Neurological exam: Present alert and oriented X3 Psychiatric Psychiatric exam: Present normal affect Skin Skin exam: Present warm and dry Medical Decision Making <JIM Buitrago - Last Filed: 07/22/24 21:45> Medical Records Medical records reviewed: Yes I reviewed the patient's medical records. Screening: Per USPSTF and CDC recommendations, given the prevalence of disease in our region, it is our hospital?s policy to screen for HIV and viral Hepatitis for all patients aged 18 and over and those with ongoing risk factors. Hany Inquiry Pt receiving controlled substance: No Hany was queried for this patient: No Vital Signs: 07/22/24 17:59 07/22/24 18:14 07/22/24 18:30 Temperature 98.1 F Temperature Source Oral Pulse Rate 95 H 92 H Pulse Rate [Orthostatic Lying] Pulse Rate [Orthostatic Sitting] Pulse Rate [Orthostatic Standing] Pulse Rate [Radial] 90 Respiratory Rate 18 Blood Pressure 147/87 H 130/88 Blood Pressure [Orthostatic Lying Right Arm] Blood Pressure [Orthostatic Sitting] Blood Pressure [Orthostatic Standing] Blood Pressure [Right Arm] 147/87 H Blood Pressure Mean Blood Pressure Mean [Right Arm] 107 Blood Pressure Source [Right Arm] Automatic Cuff Blood Pressure Position [Right Arm] Sitting 02 Sat by Pulse Oximetry 100 99 99 Oxygen Delivery Method Room Air Room Air Room Air 07/22/24 19:00 07/22/24 19:30 07/22/24 20:00 Temperature Temperature Source Pulse Rate 90 84 89 Pulse Rate [Orthostatic Lying] Pulse Rate [Orthostatic Sitting] Pulse Rate [Orthostatic Standing] Pulse Rate [Radial] Respiratory Rate Blood Pressure 128/75 115/69 125/76 Blood Pressure [Orthostatic Lying Right Arm] Blood Pressure [Orthostatic Sitting] Blood Pressure [Orthostatic Standing] Blood Pressure [Right Arm] Blood Pressure Mean Blood Pressure Mean [Right Arm] Blood Pressure Source [Right Arm] Blood Pressure Position [Right Arm] 02 Sat by Pulse Oximetry 100 98 100 Oxygen Delivery Method Room Air Room Air Room Air 07/22/24 20:01 07/22/24 20:01 07/22/24 20:02 Temperature Temperature Source Pulse Rate 102 H Pulse Rate [Orthostatic Lying] 91 H Pulse Rate [Orthostatic Sitting] 82 Pulse Rate [Orthostatic Standing] 101 H Pulse Rate [Radial] Respiratory Rate Blood Pressure 117/76 122/74 Blood Pressure [Orthostatic Lying Right Arm] 125/78 Blood Pressure [Orthostatic Sitting] 122/74 Blood Pressure [Orthostatic Standing] 117/76 Blood Pressure [Right Arm] Blood Pressure Mean 86 Blood Pressure Mean [Right Arm] Blood Pressure Source [Right Arm] Blood Pressure Position [Right Arm] 02 Sat by Pulse Oximetry 99 Oxygen Delivery Method Room Air Room Air 07/22/24 20:30 07/22/24 21:00 07/22/24 21:31 Temperature Temperature Source Pulse Rate 92 H 85 66 Pulse Rate [Orthostatic Lying] Pulse Rate [Orthostatic Sitting] Pulse Rate [Orthostatic Standing] Pulse Rate [Radial] Respiratory Rate Blood Pressure 116/62 112/79 115/70 Blood Pressure [Orthostatic Lying Right Arm] Blood Pressure [Orthostatic Sitting] Blood Pressure [Orthostatic Standing] Blood Pressure [Right Arm] Blood Pressure Mean 80 Blood Pressure Mean [Right Arm] Blood Pressure Source [Right Arm] Blood Pressure Position [Right Arm] 02 Sat by Pulse Oximetry 98 99 99 Oxygen Delivery Method Room Air Room Air Room Air Lab Data Lab results reviewed: Yes I reviewed the patient's lab results. Lab Results 07/22/24 18:13: Urine Color Yellow, Urine Appearance Clear, Urine pH 6.5, Ur Specific [place] 1.025, Urine Protein Negative, Urine Glucose (UA) Negative, Urine Ketones 2+, Urine Blood Negative, Urine Nitrate Negative, Urine Bilirubin Negative, Urine Urobilinogen 4.0, Ur Leukocyte Esterase Negative, Urine RBC 5- 10, Urine WBC 20-50, Ur Squamous Epith Cells 20-50, Urine Bacteria 4+, Urine Mucus 1+ 07/22/24 19:37: Urine Color Yellow, Urine Appearance Clear, Urine pH 7.0, Ur Specific [place] 1.025, Urine Protein Negative, Urine Glucose (UA) Negative, Urine Ketones 1+, Urine Blood Negative, Urine Nitrate Negative, Urine Bilirubin Negative, Urine Urobilinogen 4.0, Ur Leukocyte Esterase Negative, Urine RBC 5- 10, Urine WBC 20-50, Ur Squamous Epith Cells 20-50, Urine Bacteria 4+, Urine Mucus 1+ 07/22/24 20:28: WBC 12.8 H, RBC 4.73, Hgb 11.4 L, Hct 36.1 L, MCV 76.3 L, MCH 24.1 L, MCHC 31.6 L, RDW 15.1, Plt Count 283, MPV 9.9, Neut % (Auto) 75.0, Lymph % (Auto) 18.0, [place] % (Auto) 5.5, Eos % (Auto) 1.0, Baso % (Auto) 0.3, Neut # (Auto) 9.6 H, Lymph # (Auto) 2.3, [place] # (Auto) 0.7, Eos # (Auto) 0.1, Baso # (Auto) 0.0, PT 10.1, INR 0.89 L, Sodium 136, Potassium 4.0, Chloride 102, Carbon Dioxide 27, Anion Gap 11.0, BUN 9, Creatinine 0.60, Estimated Creat Clear 214, Estimated GFR 124, Est GFR ( Amer) 150, Glucose 89, Uric Acid 4.7, Calcium 8.7, Magnesium 1.9, Total Bilirubin 0.3, AST 22, ALT 13, Alkaline Phosphatase 99, Troponin I < 0.01, NT-Pro-B Natriuret Pep 36.6, Total Protein 7.3, Albumin 4.0, Globulin 3.3 H, Albumin/Globulin Ratio 1.2, HCG, Quant [id number] H 07/22/24 20:28 07/22/24 20:28 Orders (Tests/Meds): ORDERS Category Date Time Status Complete Blood Count Auto Diff Stat Lab 07/22/24 20:28 Completed Comprehensive Metabolic Panel Stat Lab 07/22/24 20:28 Completed HCG,Quantitative Stat Lab 07/22/24 20:28 Completed Magnesium Stat Lab 07/22/24 20:28 Completed NT Pro Brain Natriuretic Pep. Stat Lab 07/22/24 20:28 Completed PT INR [Prothrombin Time INR] Stat Lab 07/22/24 20:28 Completed Troponin I Q3H Lab 07/22/24 22:00 Ordered Troponin I Q3H Lab 07/23/24 01:00 Ordered Troponin I Stat Lab 07/22/24 20:28 Completed UA [Urinalysis and Microscopic] Stat Lab 07/22/24 19:37 Completed Uric Acid Stat Lab 07/22/24 20:28 Completed Urinalysis and Microscopic Stat Lab 07/22/24 18:13 Completed Urine Culture Stat Micro 07/22/24 18:13 Received Medical Decision Narrative: 24-year-old female presents to the emergency department with headache dizziness, see HPI for detail past medical history, differential diagnose include not limited to Differential diagnosis to include but not limited to, preeclampsia, gestational hypertension, gestational diabetes, cardiac arrhythmia, electrolyte disturbance, cardiomyopathy of , orthostatic hypotension, hypovolemia, anemia. Discussed this case with attending physician Dr. Lepe Will obtain basic laboratory studies, hCG quant, magnesium level proBNP PT/INR troponin uric acid level urinalysis, EKG, obtain orthostasis. CMP is unremarkable, magnesium level within normal limits, uric acid level within normal limits, creatinine and BUN within the limits are no electrolyte derangement CBC is notable for mild leukocytosis 12.8, hemoglobin hematocrit within normal limits, according with the patient's baseline, at 11.4, and 36.1 MCV is decreased to 76.3 Coagulation studies within normal limits. Troponin and proBNP within normal limits. Orthostatic vital signs by definition are negative, however patient's heart rate does increase when going from a sitting to standing position. Urinalysis notable for negative leukocyte esterase, negative nitrites, 4+ bacteria, 20-50 WBCs, 20-50 epithelial cells, 1+ urine mucus, negative proteinuria. Reexamination of the patient at 9:30 PM, patient's blood pressure is improved to 115 systolic, she is otherwise remained hemodynamically stable without her time in the emergency department, dizziness and headache have improved, patient states her dizziness and lightheadedness are worsening when going from a sitting to standing position, this is positive for orthostasis. Patient's hCG quant has not yet resulted from the lab, we have called about this, offered patient to wait for the results of her quant, patient would like to be discharged home to self-care I think this is appropriate, shared decision-making was utilized. Will call the patient if her hCG quant is abnormal or not within normal limits according to her gestational age. Tricked ED return precautions were given to the patient. I think low risk for preeclampsia/CVTE, patient has no visual disturbance, headache is improved, lightheadedness/dizziness has been ongoing for the last 7 weeks, no focal neurological deficit or visual disturbance at this time. Will treat the patient's asymptomatic bacteriuria with Macrobid. Patient voiced understand agree with current treatment plan/discharge plan. Encouraged, good fluid intake, slow when going from a sitting to standing position. Patient voiced understanding of the current treatment plan/discharge plan. <Clive Lepe MD - Last Filed: 07/22/24 21:46> Vital Signs: 07/22/24 17:59 07/22/24 18:14 07/22/24 18:30 Temperature 98.1 F Temperature Source Oral Pulse Rate 95 H 92 H Pulse Rate [Orthostatic Lying] Pulse Rate [Orthostatic Sitting] Pulse Rate [Orthostatic Standing] Pulse Rate [Radial] 90 Respiratory Rate 18 Blood Pressure 147/87 H 130/88 Blood Pressure [Orthostatic Lying Right Arm] Blood Pressure [Orthostatic Sitting] Blood Pressure [Orthostatic Standing] Blood Pressure [Right Arm] 147/87 H Blood Pressure Mean Blood Pressure Mean [Right Arm] 107 Blood Pressure Source [Right Arm] Automatic Cuff Blood Pressure Position [Right Arm] Sitting 02 Sat by Pulse Oximetry 100 99 99 Oxygen Delivery Method Room Air Room Air Room Air 07/22/24 19:00 07/22/24 19:30 07/22/24 20:00 Temperature Temperature Source Pulse Rate 90 84 89 Pulse Rate [Orthostatic Lying] Pulse Rate [Orthostatic Sitting] Pulse Rate [Orthostatic Standing] Pulse Rate [Radial] Respiratory Rate Blood Pressure 128/75 115/69 125/76 Blood Pressure [Orthostatic Lying Right Arm] Blood Pressure [Orthostatic Sitting] Blood Pressure [Orthostatic Standing] Blood Pressure [Right Arm] Blood Pressure Mean Blood Pressure Mean [Right Arm] Blood Pressure Source [Right Arm] Blood Pressure Position [Right Arm] 02 Sat by Pulse Oximetry 100 98 100 Oxygen Delivery Method Room Air Room Air Room Air 07/22/24 20:01 07/22/24 20:01 07/22/24 20:02 Temperature Temperature Source Pulse Rate 102 H Pulse Rate [Orthostatic Lying] 91 H Pulse Rate [Orthostatic Sitting] 82 Pulse Rate [Orthostatic Standing] 101 H Pulse Rate [Radial] Respiratory Rate Blood Pressure 117/76 122/74 Blood Pressure [Orthostatic Lying Right Arm] 125/78 Blood Pressure [Orthostatic Sitting] 122/74 Blood Pressure [Orthostatic Standing] 117/76 Blood Pressure [Right Arm] Blood Pressure Mean 86 Blood Pressure Mean [Right Arm] Blood Pressure Source [Right Arm] Blood Pressure Position [Right Arm] 02 Sat by Pulse Oximetry 99 Oxygen Delivery Method Room Air Room Air 07/22/24 20:30 07/22/24 21:00 07/22/24 21:31 Temperature Temperature Source Pulse Rate 92 H 85 66 Pulse Rate [Orthostatic Lying] Pulse Rate [Orthostatic Sitting] Pulse Rate [Orthostatic Standing] Pulse Rate [Radial] Respiratory Rate Blood Pressure 116/62 112/79 115/70 Blood Pressure [Orthostatic Lying Right Arm] Blood Pressure [Orthostatic Sitting] Blood Pressure [Orthostatic Standing] Blood Pressure [Right Arm] Blood Pressure Mean 80 Blood Pressure Mean [Right Arm] Blood Pressure Source [Right Arm] Blood Pressure Position [Right Arm] 02 Sat by Pulse Oximetry 98 99 99 Oxygen Delivery Method Room Air Room Air Room Air Lab Data Lab Results 07/22/24 18:13: Urine Color Yellow, Urine Appearance Clear, Urine pH 6.5, Ur Specific [place] 1.025, Urine Protein Negative, Urine Glucose (UA) Negative, Urine Ketones 2+, Urine Blood Negative, Urine Nitrate Negative, Urine Bilirubin Negative, Urine Urobilinogen 4.0, Ur Leukocyte Esterase Negative, Urine RBC 5- 10, Urine WBC 20-50, Ur Squamous Epith Cells 20-50, Urine Bacteria 4+, Urine Mucus 1+ 07/22/24 19:37: Urine Color Yellow, Urine Appearance Clear, Urine pH 7.0, Ur Specific [place] 1.025, Urine Protein Negative, Urine Glucose (UA) Negative, Urine Ketones 1+, Urine Blood Negative, Urine Nitrate Negative, Urine Bilirubin Negative, Urine Urobilinogen 4.0, Ur Leukocyte Esterase Negative, Urine RBC 5- 10, Urine WBC 20-50, Ur Squamous Epith Cells 20-50, Urine Bacteria 4+, Urine Mucus 1+ 07/22/24 20:28: WBC 12.8 H, RBC 4.73, Hgb 11.4 L, Hct 36.1 L, MCV 76.3 L, MCH 24.1 L, MCHC 31.6 L, RDW 15.1, Plt Count 283, MPV 9.9, Neut % (Auto) 75.0, Lymph % (Auto) 18.0, [place] % (Auto) 5.5, Eos % (Auto) 1.0, Baso % (Auto) 0.3, Neut # (Auto) 9.6 H, Lymph # (Auto) 2.3, [place] # (Auto) 0.7, Eos # (Auto) 0.1, Baso # (Auto) 0.0, PT 10.1, INR 0.89 L, Sodium 136, Potassium 4.0, Chloride 102, Carbon Dioxide 27, Anion Gap 11.0, BUN 9, Creatinine 0.60, Estimated Creat Clear 214, Estimated GFR 124, Est GFR ( Amer) 150, Glucose 89, Uric Acid 4.7, Calcium 8.7, Magnesium 1.9, Total Bilirubin 0.3, AST 22, ALT 13, Alkaline Phosphatase 99, Troponin I < 0.01, NT-Pro-B Natriuret Pep 36.6, Total Protein 7.3, Albumin 4.0, Globulin 3.3 H, Albumin/Globulin Ratio 1.2, HCG, Quant [id number] H Orders (Tests/Meds): ORDERS Category Date Time Status Complete Blood Count Auto Diff Stat Lab 07/22/24 20:28 Completed Comprehensive Metabolic Panel Stat Lab 07/22/24 20:28 Completed HCG,Quantitative Stat Lab 07/22/24 20:28 Completed Magnesium Stat Lab 07/22/24 20:28 Completed NT Pro Brain Natriuretic Pep. Stat Lab 07/22/24 20:28 Completed PT INR [Prothrombin Time INR] Stat Lab 07/22/24 20:28 Completed Troponin I Q3H Lab 07/22/24 22:00 Ordered Troponin I Q3H Lab 07/23/24 01:00 Ordered Troponin I Stat Lab 02/26/25 20:28 Completed UA [Urinalysis and Microscopic] Stat Lab 07/22/24 19:37 Completed Uric Acid Stat Lab 07/22/24 20:28 Completed Urinalysis and Microscopic Stat Lab 07/22/24 18:13 Completed Urine Culture Stat Micro 07/22/24 18:13 Received ECG Data Tracing #1: Independently interpreted by me rate is 84, rhythm is regular, axis is normal, no ST elevation in anatomical contiguous leads, QTc 393. Medical Decision Narrative: 24-year-old female presents to the emergency department with headache dizziness, see HPI for detail past medical history, differential diagnose include not limited to Differential diagnosis to include but not limited to, preeclampsia, gestational hypertension, gestational diabetes, cardiac arrhythmia, electrolyte disturbance, cardiomyopathy of , orthostatic hypotension, hypovolemia, anemia. Discussed this case with attending physician Dr. Lepe Will obtain basic laboratory studies, hCG quant, magnesium level proBNP PT/INR troponin uric acid level urinalysis, EKG, obtain orthostasis. CMP is unremarkable, magnesium level within normal limits, uric acid level within normal limits, creatinine and BUN within the limits are no electrolyte derangement CBC is notable for mild leukocytosis 12.8, hemoglobin hematocrit within normal limits, according with the patient's baseline, at 11.4, and 36.1 MCV is decreased to 76.3 Coagulation studies within normal limits. Troponin and proBNP within normal limits. Orthostatic vital signs by definition are negative, however patient's heart rate does increase when going from a sitting to standing position. Urinalysis notable for negative leukocyte esterase, negative nitrites, 4+ bacteria, 20-50 WBCs, 20-50 epithelial cells, 1+ urine mucus, negative proteinuria. Reexamination of the patient at 9:30 PM, patient's blood pressure is improved to 115 systolic, she is otherwise remained hemodynamically stable without her time in the emergency department, dizziness and headache have improved, patient states her dizziness and lightheadedness are worsening when going from a sitting to standing position, this is positive for orthostasis. Patient's hCG quant has not yet resulted from the lab, we have called about this, offered patient to wait for the results of her quant, patient would like to be discharged home to self-care I think this is appropriate, shared decision-making was utilized. Will call the patient if her hCG quant is abnormal or not within normal limits according to her gestational age. Tricked ED return precautions were given to the patient. I think low risk for preeclampsia/CVTE, patient has no visual disturbance, headache is improved, lightheadedness/dizziness has been ongoing for the last 7 weeks, no focal neurological deficit or visual disturbance at this time. Will treat the patient's asymptomatic bacteriuria with Macrobid. Patient voiced understand agree with current treatment plan/discharge plan. Encouraged, good fluid intake, slow when going from a sitting to standing position. Patient voiced understanding of the current treatment plan/discharge plan. I was consulted by the WILLEM, and we discussed the complexity of the problems being addressed. I approved the treatment and management plan for this patient's care in the emergency department, thus performing a substantive portion of the medical decision making. Clive Lepe MD Critical Care <JIM Buitrago - Last Filed: 07/22/24 21:45> Critical Care Time Critical Care Time: No
--- NOTE | 2024-07-22 18:48 | PC.NURSE ---
rounded on the pt. the pt voices that she does not need anything at this time. call light is within reach of the pt.
[2024-07-22 18:54] LABS: Microscopic, Urine URINE MICROSCOPIC (MICROSCOPIC)
[2024-07-22 18:56] LABS: Appearance,Urine CLEAR (Clear); Bilirubin,Urine Negative (Negative); Blood, Urine Negative (Negative); Color,Urine YELLOW (Yellow); Glucose,Urine (UA) Negative (Negative); Ketones,Urine 2+ (Negative); Leukocyte Esterase,Urine Negative (Negative); Nitrate,Urine Negative (Negative); PH,Urine 6.5 (5.0-8.5); Protein,Urine Negative (Negative); Specific Gravity, Urine 1.025 (1.005-1.030)
[2024-07-22 19:15] LABS: Bacteria,Urine 4+ /lpf; Squamous Epithelial Cell,Urine 20-50 #/hpf (0-5); WBC,Urine 20-50 #/hpf (0-3)
--- NOTE | 2024-07-22 19:15 | ECG_ITS ---
APPROVED REPORT Exam: Resting ECG HR:84 bpm ECG Measurements Heart Rate 84 AXES ND 164 P 36 QRSd 86 QRS 21 QT 352 T 12 QTc 393 Conclusion SINUS RHYTHM NORMAL ECG Electronically signed by : JOHANNY DELGADILLO, 07/23/2024 07:08:57
[2024-07-22 19:16] LABS: Mucus,Urine 1+ /lpf
[2024-07-22 20:43] LABS: Chloride 102 mmol/L (98-107); Sodium 136 mmol/L (136-145)
[2024-07-22 20:45] LABS: Basophils % 0.3 % (0.1-2.0); Eosinophils # 0.1 K/mm3 (0.0-0.4); Hematocrit 36.1 % (37.0-47.0); Hemoglobin 11.4 g/dL (12.2-16.2); Lymphocytes # 2.3 K/mm3 (0.7-4.5); Mean Corpuscular HGB Conc 31.6 g/dL (31.8-35.4); Mean Corpuscular Hemoglobin 24.1 pg (27.0-31.2); Mean Corpuscular Volume 76.3 fl (81-99); Mean Platelet Volume 9.9 fl (7.4-10.4); Monocytes # 0.7 K/mm3 (0.1-1.0); Monocytes % 5.5 % (1.7-9.3); Neutrophils # 9.6 K/mm3 (1.8-7.8); Platelet Count 283 K/mm3 (142-424); Red Blood Count 4.73 M/mm3 (4.20-5.40); Red Cell Distribution Width 15.1 % (11.5-17.5); White Blood Count 12.8 K/mm3 (4.8-10.8)
[2024-07-22 20:46] LABS: Alanine Aminotransferase 13 U/L (12-78); Albumin/Globulin Ratio 1.2 (1.1-1.8); Alkaline Phosphatase 99 U/L (38-126); Aspartate Amino Transferase 22 U/L (14-36); Bilirubin,Total 0.3 mg/dl (0.2-1.3); Blood Urea Nitrogen 9 mg/dl (7-17); Carbon Dioxide 27 mmol/L (22.0-30.0); Creatinine Clearance Estimated 214 mL/min (50-200); Estimated Glomerular Filt Rate 124 ml/min (>60); GFR (African American) 150 ML/MIN (>60); Globulin 3.3 g/dL (1.3-3.2); Total Protein,Serum 7.3 g/dl (6.3-8.2)
[2024-07-22 20:47] LABS: Calcium 8.7 mg/dl (8.4-10.2); Glucose 89 mg/dl (74-100); Magnesium 1.9 mg/dl (1.6-2.3)
[2024-07-22 20:50] LABS: Uric Acid 4.7 mg/dl (2.5-6.2)
[2024-07-22 20:52] LABS: INR 0.89 (0.9-1.1); Prothrombin Time 10.1 seconds (10.1-12.5)
[2024-07-22 20:57] LABS: NT Pro Brain Natriuretic Pep. 36.6 pg/mL (0-125)
[2024-07-22 21:05] LABS: Appearance,Urine CLEAR (Clear); Bilirubin,Urine Negative (Negative); Blood, Urine Negative (Negative); Color,Urine YELLOW (Yellow); Glucose,Urine (UA) Negative (Negative); Ketones,Urine 1+ (Negative); Leukocyte Esterase,Urine Negative (Negative); Microscopic, Urine URINE MICROSCOPIC (MICROSCOPIC); Nitrate,Urine Negative (Negative); Protein,Urine Negative (Negative); Specific Gravity, Urine 1.025 (1.005-1.030)
[2024-07-22 21:07] LABS: Troponin I < 0.01 ng/ml (0.00-0.034)
[2024-07-22 21:39] LABS: WBC,Urine 20-50 #/hpf (0-3)
[2024-07-22 21:40] LABS: Bacteria,Urine 4+ /lpf; Mucus,Urine 1+ /lpf; Squamous Epithelial Cell,Urine 20-50 #/hpf (0-5)
[2024-07-22 21:43] LABS: HCG,Quantitative 63134 mIU/ml (0-5.42)
--- NOTE | 2024-07-22 21:47 | ED_ITS ---
Discharge Plan Disposition Patient Disposition: Home, Self-Care Condition: Good Prescriptions Prescriptions: New nitrofurantoin monohyd/m-cryst [Macrobid] 100 mg capsule 100 mg PO BID 5 Days Qty: 10 0RF Rx Instructions: must administer with a meal/food No Action progesterone micronized [Prometrium] 200 mg capsule 200 mg vaginal QHS 30 Days Qty: 30 2RF Referrals Follow up/Referrals: Laurel Montague DO [Staff Physician] - See instructions Provider,Referral, [Primary Care Provider] - See instructions Activity Restrictions/Add. Instructions Additional Instructions/Restrictions: Return to the emergency department for any worsening signs or symptoms, follow- up with [employer], monitor your blood pressure at home. Monitor for any vaginal bleeding, vaginal discharge, nausea vomiting worsening headache or visual disturbance. Please take antibiotic as prescribed. Clinical Impressions Clinical Impression: Asymptomatic bacteriuria during , Orthostasis Instructions Patient Instructions: DI for Orthostatic Hypotension, Dizziness, Nonvertigo Print Language Print Language: Luxembourgish Discharge ED Provider: Clive Lepe General Adult HPI <JIM Buitrago - Last Filed: 07/22/24 21:47> General Chief complaint: Dizziness Stated complaint: dizzy,ZUNIGA 14 wks Time Seen by Provider: 07/22/24 18:23 Mode of Arrival: Ambulatory Source of Information: Patient Limitations: No Limitations Description of Symptoms (Recalled from ER Triage Doc. by RN): Patient reports being 14 weeks with complaints of getting dizzy when she moves. States she also has a headache. Reports this has been going on her whole , however it has gotten worse. History of Present Illness Onset (ago): month(s) Related Data Previous Rx's ?Medication ?Instructions ?Recorded progesterone micronized 200 mg 200 mg vaginal QHS 30 days #30 caps 05/22/24 capsule (Prometrium) nitrofurantoin 100 mg PO BID 5 days #10 caps 07/22/24 monohydrate/macrocrystals 100 mg capsule (Macrobid) Allergies Allergy/AdvReac Type Severity Reaction Status Date / Time No Known Allergies Allergy Verified 07/08/24 14:32 PFSH <JIM Buitrago - Last Filed: 07/22/24 21:47> [facility], [facility] Disclaimer: The information contained in this section may have been updated after the patient was seen, as this information can be updated by other users. Medical History Maternal obesity affecting , antepartum Unspecified skin changes Vaginal odor Anxiety Spontaneous Surgical History No significant past surgical history Family History Other No significant family history Social History Smoking Status: Never smoker alcohol intake: never substance use type: denies use current occupational status: unemployed Travel in the last 8 weeks: None Have you lived/traveled outside [place] in past 30 days?: No Contact w/someone who lives/traveled outside US past 30 days?: No Exposure to someone with infectious disease in past 14 days?: No Do you have a fever (greater than 100.4 F or 38 C)?: No Have you tested positive for COVID-19: No Exposed to someone with COVID-19 in past 14 days?: No Do you have a sore throat?: No Do you have a cough?: No Do you have any weakness?: No Do you have any diarrhea?: No Are you experiencing any unusual bleeding?: No Do you have any muscle aches/pain?: No Do you have any abdominal pain?: No Are you experiencing loss of taste or smell?: No Other Medical History Have you received the Flu Vaccine for this season: No Have you received the Pneumonia Vaccine: No <JIM Buitrago - Last Filed: 07/22/24 21:47> ROS Obtained: Yes All systems reviewed & no additional complaints except as documented Physical Exam <JIM Buitrago - Last Filed: 07/22/24 21:47> General General appearance: alert and in no apparent distress Respiratory Respiratory exam: Present normal lung sounds bilaterally Cardiovascular Cardiovascular exam: Present regular rate Neurological Exam Neurological exam: Present alert Medical Decision Making <JIM Buitrago - Last Filed: 07/22/24 21:47> Medical Records Screening: Per USPSTF and CDC recommendations, given the prevalence of disease in our region, it is our hospital?s policy to screen for HIV and viral Hepatitis for all patients aged 18 and over and those with ongoing risk factors. Hany Inquiry Pt receiving controlled substance: No Vital Signs: 07/22/24 17:59 07/22/24 18:14 07/22/24 18:30 Temperature 98.1 F Temperature Source Oral Pulse Rate 95 H 92 H Pulse Rate [Orthostatic Lying] Pulse Rate [Orthostatic Sitting] Pulse Rate [Orthostatic Standing] Pulse Rate [Radial] 90 Respiratory Rate 18 Blood Pressure 147/87 H 130/88 Blood Pressure [Orthostatic Lying Right Arm] Blood Pressure [Orthostatic Sitting] Blood Pressure [Orthostatic Standing] Blood Pressure [Right Arm] 147/87 H Blood Pressure Mean Blood Pressure Mean [Right Arm] 107 Blood Pressure Source [Right Arm] Automatic Cuff Blood Pressure Position [Right Arm] Sitting 02 Sat by Pulse Oximetry 100 99 99 Oxygen Delivery Method Room Air Room Air Room Air 07/22/24 19:00 07/22/24 19:30 07/22/24 20:00 Temperature Temperature Source Pulse Rate 90 84 89 Pulse Rate [Orthostatic Lying] Pulse Rate [Orthostatic Sitting] Pulse Rate [Orthostatic Standing] Pulse Rate [Radial] Respiratory Rate Blood Pressure 128/75 115/69 125/76 Blood Pressure [Orthostatic Lying Right Arm] Blood Pressure [Orthostatic Sitting] Blood Pressure [Orthostatic Standing] Blood Pressure [Right Arm] Blood Pressure Mean Blood Pressure Mean [Right Arm] Blood Pressure Source [Right Arm] Blood Pressure Position [Right Arm] 02 Sat by Pulse Oximetry 100 98 100 Oxygen Delivery Method Room Air Room Air Room Air 07/22/24 20:01 07/22/24 20:01 07/22/24 20:02 Temperature Temperature Source Pulse Rate 102 H Pulse Rate [Orthostatic Lying] 91 H Pulse Rate [Orthostatic Sitting] 82 Pulse Rate [Orthostatic Standing] 101 H Pulse Rate [Radial] Respiratory Rate Blood Pressure 117/76 122/74 Blood Pressure [Orthostatic Lying Right Arm] 125/78 Blood Pressure [Orthostatic Sitting] 122/74 Blood Pressure [Orthostatic Standing] 117/76 Blood Pressure [Right Arm] Blood Pressure Mean 86 Blood Pressure Mean [Right Arm] Blood Pressure Source [Right Arm] Blood Pressure Position [Right Arm] 02 Sat by Pulse Oximetry 99 Oxygen Delivery Method Room Air Room Air 07/22/24 20:30 07/22/24 21:00 07/22/24 21:31 Temperature Temperature Source Pulse Rate 92 H 85 66 Pulse Rate [Orthostatic Lying] Pulse Rate [Orthostatic Sitting] Pulse Rate [Orthostatic Standing] Pulse Rate [Radial] Respiratory Rate Blood Pressure 116/62 112/79 115/70 Blood Pressure [Orthostatic Lying Right Arm] Blood Pressure [Orthostatic Sitting] Blood Pressure [Orthostatic Standing] Blood Pressure [Right Arm] Blood Pressure Mean 80 Blood Pressure Mean [Right Arm] Blood Pressure Source [Right Arm] Blood Pressure Position [Right Arm] 02 Sat by Pulse Oximetry 98 99 99 Oxygen Delivery Method Room Air Room Air Room Air 07/22/24 21:54 Temperature 98.2 F Temperature Source Pulse Rate 78 Pulse Rate [Orthostatic Lying] Pulse Rate [Orthostatic Sitting] Pulse Rate [Orthostatic Standing] Pulse Rate [Radial] Respiratory Rate 20 Blood Pressure 115/98 H Blood Pressure [Orthostatic Lying Right Arm] Blood Pressure [Orthostatic Sitting] Blood Pressure [Orthostatic Standing] Blood Pressure [Right Arm] Blood Pressure Mean Blood Pressure Mean [Right Arm] Blood Pressure Source [Right Arm] Blood Pressure Position [Right Arm] 02 Sat by Pulse Oximetry Oxygen Delivery Method Room Air Lab Data Lab Results 07/22/24 18:13: Urine Color Yellow, Urine Appearance Clear, Urine pH 6.5, Ur Specific [place] 1.025, Urine Protein Negative, Urine Glucose (UA) Negative, Urine Ketones 2+, Urine Blood Negative, Urine Nitrate Negative, Urine Bilirubin Negative, Urine Urobilinogen 4.0, Ur Leukocyte Esterase Negative, Urine RBC 5- 10, Urine WBC 20-50, Ur Squamous Epith Cells 20-50, Urine Bacteria 4+, Urine Mucus 1+ 07/22/24 19:37: Urine Color Yellow, Urine Appearance Clear, Urine pH 7.0, Ur Specific [place] 1.025, Urine Protein Negative, Urine Glucose (UA) Negative, Urine Ketones 1+, Urine Blood Negative, Urine Nitrate Negative, Urine Bilirubin Negative, Urine Urobilinogen 4.0, Ur Leukocyte Esterase Negative, Urine RBC 5- 10, Urine WBC 20-50, Ur Squamous Epith Cells 20-50, Urine Bacteria 4+, Urine Mucus 1+ 07/22/24 20:28: WBC 12.8 H, RBC 4.73, Hgb 11.4 L, Hct 36.1 L, MCV 76.3 L, MCH 24.1 L, MCHC 31.6 L, RDW 15.1, Plt Count 283, MPV 9.9, Neut % (Auto) 75.0, Lymph % (Auto) 18.0, Titus % (Auto) 5.5, Eos % (Auto) 1.0, Baso % (Auto) 0.3, Neut # (Auto) 9.6 H, Lymph # (Auto) 2.3, Titus # (Auto) 0.7, Eos # (Auto) 0.1, Baso # (Auto) 0.0, PT 10.1, INR 0.89 L, Sodium 136, Potassium 4.0, Chloride 102, Carbon Dioxide 27, Anion Gap 11.0, BUN 9, Creatinine 0.60, Estimated Creat Clear 214, Estimated GFR 124, Est GFR ( Amer) 150, Glucose 89, Uric Acid 4.7, Calcium 8.7, Magnesium 1.9, Total Bilirubin 0.3, AST 22, ALT 13, Alkaline Phosphatase 99, Troponin I < 0.01, NT-Pro-B Natriuret Pep 36.6, Total Protein 7.3, Albumin 4.0, Globulin 3.3 H, Albumin/Globulin Ratio 1.2, HCG, Quant [id number] H 07/22/24 20:28 07/22/24 20:28 Orders (Tests/Meds): ORDERS Category Date Time Status Complete Blood Count Auto Diff Stat Lab 07/22/24 20:28 Completed Comprehensive Metabolic Panel Stat Lab 07/22/24 20:28 Completed HCG,Quantitative Stat Lab 07/22/24 20:28 Completed Magnesium Stat Lab 07/22/24 20:28 Completed NT Pro Brain Natriuretic Pep. Stat Lab 07/22/24 20:28 Completed PT INR [Prothrombin Time INR] Stat Lab 07/22/24 20:28 Completed Troponin I Stat Lab 07/22/24 20:28 Completed UA [Urinalysis and Microscopic] Stat Lab 07/22/24 19:37 Completed Uric Acid Stat Lab 07/22/24 20:28 Completed Urinalysis and Microscopic Stat Lab 07/22/24 18:13 Completed Urine Culture Stat Micro 07/22/24 18:13 Received Medical Decision Narrative: Of note upon discharge patient's hCG resulted, patient has hCG of 63,000 within stational age. Discussed with the patient prior to discharge. Patient voiced understanding. <Clive Lepe MD - Last Filed: 07/22/24 23:07> Vital Signs: 07/22/24 17:59 07/22/24 18:14 07/22/24 18:30 Temperature 98.1 F Temperature Source Oral Pulse Rate 95 H 92 H Pulse Rate [Orthostatic Lying] Pulse Rate [Orthostatic Sitting] Pulse Rate [Orthostatic Standing] Pulse Rate [Radial] 90 Respiratory Rate 18 Blood Pressure 147/87 H 130/88 Blood Pressure [Orthostatic Lying Right Arm] Blood Pressure [Orthostatic Sitting] Blood Pressure [Orthostatic Standing] Blood Pressure [Right Arm] 147/87 H Blood Pressure Mean Blood Pressure Mean [Right Arm] 107 Blood Pressure Source [Right Arm] Automatic Cuff Blood Pressure Position [Right Arm] Sitting 02 Sat by Pulse Oximetry 100 99 99 Oxygen Delivery Method Room Air Room Air Room Air 07/22/24 19:00 07/22/24 19:30 07/22/24 20:00 Temperature Temperature Source Pulse Rate 90 84 89 Pulse Rate [Orthostatic Lying] Pulse Rate [Orthostatic Sitting] Pulse Rate [Orthostatic Standing] Pulse Rate [Radial] Respiratory Rate Blood Pressure 128/75 115/69 125/76 Blood Pressure [Orthostatic Lying Right Arm] Blood Pressure [Orthostatic Sitting] Blood Pressure [Orthostatic Standing] Blood Pressure [Right Arm] Blood Pressure Mean Blood Pressure Mean [Right Arm] Blood Pressure Source [Right Arm] Blood Pressure Position [Right Arm] 02 Sat by Pulse Oximetry 100 98 100 Oxygen Delivery Method Room Air Room Air Room Air 07/22/24 20:01 07/22/24 20:01 07/22/24 20:02 Temperature Temperature Source Pulse Rate 102 H Pulse Rate [Orthostatic Lying] 91 H Pulse Rate [Orthostatic Sitting] 82 Pulse Rate [Orthostatic Standing] 101 H Pulse Rate [Radial] Respiratory Rate Blood Pressure 117/76 122/74 Blood Pressure [Orthostatic Lying Right Arm] 125/78 Blood Pressure [Orthostatic Sitting] 122/74 Blood Pressure [Orthostatic Standing] 117/76 Blood Pressure [Right Arm] Blood Pressure Mean 86 Blood Pressure Mean [Right Arm] Blood Pressure Source [Right Arm] Blood Pressure Position [Right Arm] 02 Sat by Pulse Oximetry 99 Oxygen Delivery Method Room Air Room Air 07/22/24 20:30 07/22/24 21:00 07/22/24 21:31 Temperature Temperature Source Pulse Rate 92 H 85 66 Pulse Rate [Orthostatic Lying] Pulse Rate [Orthostatic Sitting] Pulse Rate [Orthostatic Standing] Pulse Rate [Radial] Respiratory Rate Blood Pressure 116/62 112/79 115/70 Blood Pressure [Orthostatic Lying Right Arm] Blood Pressure [Orthostatic Sitting] Blood Pressure [Orthostatic Standing] Blood Pressure [Right Arm] Blood Pressure Mean 80 Blood Pressure Mean [Right Arm] Blood Pressure Source [Right Arm] Blood Pressure Position [Right Arm] 02 Sat by Pulse Oximetry 98 99 99 Oxygen Delivery Method Room Air Room Air Room Air 07/22/24 21:54 Temperature 98.2 F Temperature Source Pulse Rate 78 Pulse Rate [Orthostatic Lying] Pulse Rate [Orthostatic Sitting] Pulse Rate [Orthostatic Standing] Pulse Rate [Radial] Respiratory Rate 20 Blood Pressure 115/98 H Blood Pressure [Orthostatic Lying Right Arm] Blood Pressure [Orthostatic Sitting] Blood Pressure [Orthostatic Standing] Blood Pressure [Right Arm] Blood Pressure Mean Blood Pressure Mean [Right Arm] Blood Pressure Source [Right Arm] Blood Pressure Position [Right Arm] 02 Sat by Pulse Oximetry Oxygen Delivery Method Room Air Lab Data Lab Results 07/22/24 18:13: Urine Color Yellow, Urine Appearance Clear, Urine pH 6.5, Ur Specific [place] 1.025, Urine Protein Negative, Urine Glucose (UA) Negative, Urine Ketones 2+, Urine Blood Negative, Urine Nitrate Negative, Urine Bilirubin Negative, Urine Urobilinogen 4.0, Ur Leukocyte Esterase Negative, Urine RBC 5- 10, Urine WBC 20-50, Ur Squamous Epith Cells 20-50, Urine Bacteria 4+, Urine Mucus 1+ 07/22/24 19:37: Urine Color Yellow, Urine Appearance Clear, Urine pH 7.0, Ur Specific [place] 1.025, Urine Protein Negative, Urine Glucose (UA) Negative, Urine Ketones 1+, Urine Blood Negative, Urine Nitrate Negative, Urine Bilirubin Negative, Urine Urobilinogen 4.0, Ur Leukocyte Esterase Negative, Urine RBC 5- 10, Urine WBC 20-50, Ur Squamous Epith Cells 20-50, Urine Bacteria 4+, Urine Mucus 1+ 07/22/24 20:28: WBC 12.8 H, RBC 4.73, Hgb 11.4 L, Hct 36.1 L, MCV 76.3 L, MCH 24.1 L, MCHC 31.6 L, RDW 15.1, Plt Count 283, MPV 9.9, Neut % (Auto) 75.0, Lymph % (Auto) 18.0, Titus % (Auto) 5.5, Eos % (Auto) 1.0, Baso % (Auto) 0.3, Neut # (Auto) 9.6 H, Lymph # (Auto) 2.3, Titus # (Auto) 0.7, Eos # (Auto) 0.1, Baso # (Auto) 0.0, PT 10.1, INR 0.89 L, Sodium 136, Potassium 4.0, Chloride 102, Carbon Dioxide 27, Anion Gap 11.0, BUN 9, Creatinine 0.60, Estimated Creat Clear 214, Estimated GFR 124, Est GFR ( Amer) 150, Glucose 89, Uric Acid 4.7, Calcium 8.7, Magnesium 1.9, Total Bilirubin 0.3, AST 22, ALT 13, Alkaline Phosphatase 99, Troponin I < 0.01, NT-Pro-B Natriuret Pep 36.6, Total Protein 7.3, Albumin 4.0, Globulin 3.3 H, Albumin/Globulin Ratio 1.2, HCG, Quant [id number] H Orders (Tests/Meds): ORDERS Category Date Time Status Complete Blood Count Auto Diff Stat Lab 07/22/24 20:28 Completed Comprehensive Metabolic Panel Stat Lab 07/22/24 20:28 Completed HCG,Quantitative Stat Lab 07/22/24 20:28 Completed Magnesium Stat Lab 07/22/24 20:28 Completed NT Pro Brain Natriuretic Pep. Stat Lab 07/22/24 20:28 Completed PT INR [Prothrombin Time INR] Stat Lab 07/22/24 20:28 Completed Troponin I Stat Lab 07/22/24 20:28 Completed UA [Urinalysis and Microscopic] Stat Lab 07/22/24 19:37 Completed Uric Acid Stat Lab 07/22/24 20:28 Completed Urinalysis and Microscopic Stat Lab 07/22/24 18:13 Completed Urine Culture Stat Micro 07/22/24 18:13 Received Medical Decision Narrative: Of note upon discharge patient's hCG resulted, patient has hCG of 63,000 within stational age. Discussed with the patient prior to discharge. Patient voiced understanding. This note should be attached as an addendum to the original ED note and does not reflect a separate ED visit. Critical Care <JIM Buitrago - Last Filed: 07/22/24 21:47> Critical Care Time Critical Care Time: No
== END 2024-07-22 21:54 | disposition home or self-care (01) ==
PROVIDERS: Physician Assistant; Emergency Provider Emergency Medicine
DX: O23.42 Unspecified infection of urinary tract in pregnancy, second trimester (principal); Z3A.14 14 weeks gestation of pregnancy
CPT/HCPCS: 80053; 81001; 83735; 83880; 84484; 84550; 84702; 85025; 85610; 87086; 93005; 99284

== ENCOUNTER 2024-08-14 13:56 | Outpatient (CLI) | payer MEDICAID, SELFPAY ==
[2024-08-14 14:18] LABS: Basophils % 0.3 % (0.1-2.0); Eosinophils # 0.2 K/mm3 (0.0-0.4); Eosinophils % 1.4 % (0.1-12.0); Hematocrit 35.8 % (37.0-47.0); Hemoglobin 11.3 g/dL (12.2-16.2); Lymphocytes # 2.7 K/mm3 (0.7-4.5); Lymphocytes % 20.7 % (10-50); Mean Corpuscular HGB Conc 31.6 g/dL (31.8-35.4); Mean Corpuscular Hemoglobin 24.7 pg (27.0-31.2); Mean Corpuscular Volume 78.3 fl (81-99); Mean Platelet Volume 9.2 fl (7.4-10.4); Monocytes # 0.6 K/mm3 (0.1-1.0); Monocytes % 4.7 % (1.7-9.3); Neutrophils # 9.3 K/mm3 (1.8-7.8); Neutrophils % 72.6 % (37.0-80.0); Platelet Count 316 K/mm3 (142-424); Red Blood Count 4.57 M/mm3 (4.20-5.40); Red Cell Distribution Width 15.5 % (11.5-17.5); White Blood Count 12.9 K/mm3 (4.8-10.8)
[2024-08-14 15:14] LABS: RPR W/RFX Titers Nonreactive (Nonreactive)
[2024-08-14 15:27] LABS: HIV Combo NEGATIVE (Negative)
[2024-08-14 15:35] LABS: Hepatitis C Ab Qual. W/ RFX NEGATIVE (Negative)
[2024-08-15 10:09] LABS: Hepatitis B Surface Antigen Negative (Negative)
[2024-08-15 10:10] LABS: Rubella Antibodies, IgG 1.05 index (Immune >0.99)
== END 2024-08-14 23:59 | disposition home or self-care (01) ==
LOC: LAB 13:57
PROVIDERS: Visit Provider Obstetrics & Gynecology
DX: Z34.82 Encounter for supervision of other normal pregnancy, second trimester (principal); Z3A.17 17 weeks gestation of pregnancy
CPT/HCPCS: 36415; 85025; 86592; 86762; 86803; 86850; 87340; 87389

== ENCOUNTER 2024-09-04 10:29 | Outpatient (CLI) | payer MEDICAID, SELFPAY ==
--- NOTE | 2024-09-04 10:30 | US_ITS ---
PROCEDURE: US OB >= 14 WEEKS FETUS CLINICAL INDICATION: schedule in 3 weeks; 20 wk anatomy COMPARISON: No exams were available for comparison FINDINGS: Transabdominal sonographic images of the pelvis were obtained. From her established due date she is 20 weeks 1 day. Single viable intrauterine gestation. Breech position. Placenta: Posteriorplacenta grade 1. There is an average amount of fluid. The cervix appears satisfactory. Closed and measuring 5.30 cm in length. Complete survey performed and was unremarkable on the submitted images as in PACS. No discrete anomalies identified on survey imaging by technologist. Active fetus. Three-vessel cord with satisfactory umbilical cord insertion. 4- chamber heart noted. [place], aortic arch, LVOT, RVOT, three-vessel view appear normal. Survey of brain & ventricles Unremarkable. Cerebellum, thalamus, choroid plexus, cisterna magna appear normal. Face and neck survey unremarkable. Profile, nasion, lips and nose appeared normal. Diaphragm and chest views unremarkable. Abdomen: Both kidneys noted and unremarkable. Stomach and bladder noted and satisfactory. Spine: Survey of the spine satisfactory with no anomalies identified nor imaged. Cervical, thoracic, lower spine appear normal. Both arms and legs noted. Amniotic Fluid: Adequate. MVP 3.72 cm Measurements: Average ultrasound age 20weeks 4days. Estimated due date by ultrasound age 0801/18/2025. Estimated weight 373g BPD = 20weeks 0 days HC = 20weeks 4days AC = 21weeks 2days FL = 20weeks 2days Growth Percentile= 78 Heart Rate = 155bpm Cerebellum = 19weeks Humerus = 20weeks 2days HC/AC is 1.12 FL/BPD is 0.71 FL/AC is 0.2 IMPRESSION: 1. Viable fetus in the breech presentation with a posterior placenta grade 1. 2. The fluid is within normal limits with an MVP 3.72 cm 3. Anatomical scan appears normal. 4. biometry is consistent with the dates. Dictated by: Jeremy Cespedes MD 09/05/2024 08:24 Jeremy Cespedes MD in [place] 09/05/2024 08:24
== END 2024-09-04 23:59 | disposition home or self-care (01) ==
LOC: RAD 10:29
PROVIDERS: Visit Provider Obstetrics & Gynecology
DX: O99.212 Obesity complicating pregnancy, second trimester (principal); Z3A.20 20 weeks gestation of pregnancy
CPT/HCPCS: 76805

== ENCOUNTER 2024-09-23 10:40 | Outpatient (CLI) | payer MEDICAID, SELFPAY | END 2024-09-23 23:59 | disposition home or self-care (01) | LOC: RT 10:41 | PROVIDERS: Visit Provider Physician Assistant | DX: R42 Dizziness and giddiness (principal); R00.0 Tachycardia, unspecified | CPT/HCPCS: 93270 ==

== ENCOUNTER 2024-10-12 09:53 | Outpatient (CLI) | payer MEDICAID, SELFPAY ==
[2024-10-12 11:45] LABS: Glucose 1 Hour 126 mg/dL (74-100)
[2024-10-12 11:48] LABS: Basophils % 0.3 % (0.1-2.0); Eosinophils # 0.1 Kmm3 (0.0-0.4); Eosinophils % 0.7 % (0.1-12.0); Hematocrit 31.6 % (37.0-47.0); Hemoglobin 9.7 g/dL (12.2-16.2); Immature Granulocytes # 0.09 10^3uL; Immature Granulocytes % 0.7 %; Lymphocytes # 2.1 K/mm3 (0.7-4.5); Lymphocytes % 16.1 % (10-50); Mean Corpuscular HGB Conc 30.7 g/dL (31.8-35.4); Mean Corpuscular Hemoglobin 24.3 pg (27.0-31.2); Mean Corpuscular Volume 79.2 fl (81-99); Mean Platelet Volume 9.5 fl (7.4-10.4); Monocytes # 0.7 K/mm3 (0.1-1.0); Monocytes % 5.6 % (1.7-9.3); Neutrophils # 9.8 K/mm3 (1.8-7.8); Neutrophils % 76.6 % (37.0-80.0); Nucleated Red Blood Cells # 0 10^3/uL; Nucleated Red Blood Cells % 0 %; Platelet Count 336 K/mm3 (142-424); Red Blood Count 3.99 M/mm3 (4.20-5.40); Red Cell Distribution Width 14.6 % (11.5-17.5); White Blood Count 12.8 K/mm3 (4.8-10.8)
[2024-10-12 16:35] LABS: RPR W/RFX Titers Nonreactive (Nonreactive)
== END 2024-10-12 23:59 | disposition home or self-care (01) ==
LOC: LAB 09:53
PROVIDERS: Visit Provider Obstetrics & Gynecology
DX: R00.0 Tachycardia, unspecified (principal); O99.212 Obesity complicating pregnancy, second trimester; Z3A.25 25 weeks gestation of pregnancy
CPT/HCPCS: 36415; 82947; 85025; 86592

== ENCOUNTER 2024-11-17 12:48 | Outpatient (CLI) | payer MEDICAID, SELFPAY ==
[2024-11-17 13:23] VITALS: BMI 39.3
[2024-11-17 13:28] LABS: Microscopic, Urine URINE MICROSCOPIC (MICROSCOPIC)
[2024-11-17 13:35] VITALS: BP 100/59; PULSE 84; RESP 18; TEMP 36.8; O2SAT 96; BMI 39.5
[2024-11-17 13:35] LABS: Appearance,Urine SL CLOUDY (Clear); Bilirubin,Urine Negative (Negative); Blood, Urine Negative (Negative); Color,Urine YELLOW (Yellow); Glucose,Urine (UA) Negative (Negative); Ketones,Urine Negative (Negative); Leukocyte Esterase,Urine 1+ (Negative); Nitrate,Urine Negative (Negative); Protein,Urine Negative (Negative)
[2024-11-17 13:49] LABS: Bacteria,Urine 1+ /lpf; Squamous Epithelial Cell,Urine 50-100 #/hpf (0-5)
[2024-11-17] MEDS: LACTATED RINGERS 1000ML 1,000 ML 999 ML IV (13:56)
[2024-11-17] MEDS: ACETAMINOPHEN 1,000 MG/100 ML ML 400 MG IV (13:56)
[2024-11-17] MEDS: SODIUM CHLORIDE 0.9% 10ML FLUSH SYRINGE 10 ML IV (13:57)
== END 2024-11-17 16:40 | disposition left against medical advice (07) ==
LOC: OBOUT 12:50 → OB 12:50
PROVIDERS: Visit Provider Obstetrics & Gynecology
DX: Z34.83 Encounter for supervision of other normal pregnancy, third trimester (principal); Z3A.29 29 weeks gestation of pregnancy
CPT/HCPCS: 59025; 81001; 87086; 96360; 96365; 96367; 99212; G0463; J0131; J7120

== ENCOUNTER 2024-12-08 10:53 | Outpatient (CLI) | payer MEDICAID, SELFPAY ==
[2024-12-08 11:37] LABS: Microscopic, Urine URINE MICROSCOPIC (MICROSCOPIC)
[2024-12-08 11:40] LABS: Bilirubin,Urine Negative (Negative); Color,Urine YELLOW (Yellow); Glucose,Urine (UA) Negative (Negative); Ketones,Urine Negative (Negative); Leukocyte Esterase,Urine TRACE (Negative); PH,Urine 8.0 (5.0-8.5); Protein,Urine Negative (Negative); Specific Gravity, Urine 1.015 (1.005-1.030); Urobilinogen,Urine 0.2 EU/dl (0.2)
[2024-12-08 11:53] LABS: Bacteria,Urine 2+ /lpf
[2024-12-08] MEDS: LACTATED RINGERS 1000ML 1,000 ML 999 ML IV (12:31)
[2024-12-08 14:00] VITALS: BP 113/77; PULSE 94; RESP 18; TEMP 36.8; O2SAT 96; BMI 39.6
== END 2024-12-08 14:15 | disposition home or self-care (01) ==
LOC: OBOUT 10:59 → OB 11:02
PROVIDERS: Nurse Practitioner Obstetrics & Gynecology; Visit Provider Obstetrics & Gynecology
DX: O26.893 Other specified pregnancy related conditions, third trimester (principal); R10.2 Pelvic and perineal pain; Z3A.32 32 weeks gestation of pregnancy
CPT/HCPCS: 59025; 81001; 87086; 96360; 99212; G0463; J7120

== ENCOUNTER 2024-12-10 16:15 | Outpatient (CLI) | payer MEDICAID, SELFPAY ==
--- OUTSIDE RECORDS SUMMARY | 2024-12-11 11:00 | XMS_ITS | Clinical Summary ---
Author Organization [facility] Address [address] [place] [address] Care Team Providers Care Character Artist Name Role Phone Provider, No Known Primary Care Provider Unavail able Allergies No known active allergies Medications MV-Min-Fe Fum-FA-DHA ( Multivitamin + DHA) 28-0.8 & 200 MG miscIndications:Unc onfirmed Take 1 tablet by mouth Daily. 30 each 12 1 Active ondansetron ODT (ZOFRAN-ODT) 4 MG disintegrating tablet Take by mouth Every 12 (Twelve) Hours. 1 Active Active Problems Problem Noted Date Diagnosed Date 12 weeks gestation of 12/13/2020 Family History Medical History Relation Name Comments Diabetes Paternal Grandfather Relation Name Status Comments Paternal Grandfather Social History Tobacco Use Types Packs/Day Years Used Date Smoking Tobacco: Never Smokeless Tobacco: Never Alcohol Use Standard Drinks/Week Comments Never 0 (1 standard drink = 0.6 oz pur e alcohol) Abuse Screen Answer Date Recorded Unsafe at Home or Work/School Not on file Feels Threatened by Someone? Not on file Does Anyone Keep You from Co ntacting Others or Doint Things Outside the Home? Not on file 03/08/2023 Physical Sign of Abuse Present Not on file 1 Housing Stability Answer Date Recorded Current Living Arrangements Not on file 02/24 Potentially Unsafe Housing Conditions Not on mattie e 03/08/2023 Family and Community Support Answer Bob e Recorded Help with Day-to-Day Activities Not on file 03/08/2023 Lonely or Isolated Not on file 03/08/2023 Employment Answer Date Recorded Do you want help finding or keeping work or a josiah b? Not on file 03/08/2023 Disabilities Answer Date Recorded Concentrating, Remembering, or Making Decisions Difficulty Not on file 03/08/2023 Doing Errands Independently Difficulty Not on fi le 03/08/2023 Education Answer Date Recorded Help with school or training? Not on file Preferred Language Not on file 03/08/2023 Comments No Sex and Gender Information Value Date Recorded Sex Assigned at Not on file Legal Sex Female 9:31 AM EDT Gender Identity Not on file Sexual Orientation Not on file Last Filed Vital Signs Vital Sign Reading Time Taken Comments Blood Pressure 112/70 12/13/2020 4:01 PM EDT Pulse - - Temperature 36.4 C (97.5 F) 10/25/2020 11:10 AM EDT Respiratory Rate - - Oxygen Saturation - - Inhaled Oxygen Concentration - - Weight 72.9 kg (160 lb 12.8 oz) 12/13/2020 4:01 PM EDT Height 162.6 cm (5' 4 ) 10/25/2020 11:1 0 AM EDT Body Mass Index 27.6 10/25/2020 11:10 AM EDT Plan of Treatment Health Maintenance Due Date Last Done Comments Annual Gynecologic Pelvic and Breast Exam 2001 HPV VACCINES (1 - 3-dose series) 2016 MENINGOCOCCAL B VACCINE (1 of 2 - Standard) 2017 ANNUAL PHYSICAL 10/25/2020 TDAP/TD VACCINES (2 - Td or Tdap) 12/04/2022 12/04/2012 COVID-19 Vaccine ( - season) 2024 INFLUENZA VACCINE 02/24/2025 04/02/2016, 2010 Pneumococcal Vaccine 0-49 Aged Out 2001, 2001, 2001, Additional history exists No longer eligible based on patient's age to complete this topic CHLAMYDIA SCREENING Discontinued 11/15/2020 HEPATITIS C SCREENING Completed 11/15/2020 Procedures Procedure Name Priority Date/Time Associated Diagnosis Comments CHLAMYDIA TRACHOMATIS, NEISSERIA GONORRHOEAE, PCR W/ CONFIRMATION Routine 11/15/2020 2:40 PM EDT 8 weeks gestation of OBSTETRIC PANEL Routine 11/15/2020 2:40 PM EDT 8 weeks gestation of from Last 3 Months or Most Recently Relevant to Health Maintenance Results * (ABNORMAL) Obstetric Panel (11/15/2020 2:40 PM EDT) Hepatitis B Surface Ag Negative Negative [facility] Hep C Virus Ab <0.1 0.0 - 0.9 s/co ratio [facility] Comment: Negative: < 0.8 Indeterminate: 0.8 - 0.9 Positive: > 0.9 The CDC recommends that a positive HCV antibody result be followed up with a HCV Nucleic Acid Amplification test (901419). RPR Non Reactive Non Reactive [facility] Rubella Antibodies, IgG 2.09 Immune >0.99 index [facility] Comment: Non-immune <0.90 Equivocal 0.90 - 0.99 Immune >0.99 ABO Type A [facility] Rh Factor Positive [facility] Comment: Please note: Prior records for this patient's ABO / Rh type are not available for additional verification. Antibody Screen Negative Negative [facility] WBC 13.8(H) 3.4 - 10.8 x10E3/uL [facility] RBC 5.73(H) 3.77 - 5.28 x10E6/uL [facility] Hemoglobin 13.5 11.1 - 15.9 g/dL [facility] Hematocrit 43.7 34.0 - 46.6 % [facility] MCV 76(L) 79 - 97 fL [facility] MCH 23.6(L) 26.6 - 33.0 pg [facility] MCHC 30.9(L) 31.5 - 35.7 g/dL [facility] RDW 14.9 11.7 - 15.4 % [facility] Platelets 446 150 - 450 x10E3/uL [facility] Neutrophil Rel % 79 Not Estab. % [facility] Lymphocyte Rel % 15 Not Estab. % [facility] Monocyte Rel % 6 Not Estab. % [facility] Eosinophil Rel % 0 Not Estab. % [facility] Basophil Rel % 0 Not Estab. % [facility] Neutrophils Absolute 10.8(H) 1.4 - 7.0 x10E3/uL [facility] Lymphocytes Absolute 2.0 0.7 - 3.1 x10E3/uL [facility] Monocytes Absolute 0.8 0.1 - 0.9 x10E3/uL [facility] Eosinophils Absolute 0.0 0.0 - 0.4 x10E3/uL [facility] Basophils Absolute 0.1 0.0 - 0.2 x10E3/uL [facility] Immature Granulocyte Rel % 0 Not Estab. % [facility] Immature Grans Absolute 0.0 0.0 - 0.1 x10E3/uL [facility] Blood 11/15/2020 2:40 PM EDT 11/15/2020 Narrative [facility] ([facility]) - 11/17/2020 1:08 PM EDT Performed at: - [address] [id number] Hog Cutter: Martin Kaur PhD, Phone: [phone] Patient Fasting: N us Stacy Farrell APRN LAB BLOOD ORDERABLES Final Result Performing Organization Address City/State/[facility] Co de Phone Number [facility] ([facility]) [address] [place] [address], [facility] [address] [place] [address], * Chlamydia trachomatis, Neisseria gonorrhoeae, PCR w/ confirmation - Urine, Urine, Clean Catch (11/15/2020 2:40 PM EDT) Chlamydia trachomatis, MERLINE Negative Negative [facility] Neisseria gonorrhoeae, MERLINE Negative Negative [facility] Urine Urine specimen collection, clean catch / Unknown 11/15/2020 2:40 PM EDT 11/15/2020 Comment: CD- [id number] Narrative [facility] ([facility]) - 11/17/2020 1:08 PM EDT Performed at: 03 - [address] [id number] Hog Cutter: Amanda Dooley MD, Phone: [phone] Patient Fasting: N us Stacy Farrell APRN MICROBIOLOGY - GENERAL ORD ERABLES Final Result [facility] ([facility]) [address] [place] [address], [place] [phone] [facility] [address] [place] [address], from Last 3 Months or Most Recently Relevant to Health Maintenance Insurance Care Teams Character Artist Relationship Specialty Start Date End Date Provider, No Known [facility] [place] [address] PCP - General 10/21/20
[2024-12-12 12:16] LABS: Neisseria gonorrhoeae, NAA Negative (Negative)
[2024-12-15 15:26] LABS: Bacterial Vaginosis Associated 0; Candida albicans, NAA 0; Candida glabrata, NAA 0
== END 2024-12-10 23:59 | disposition home or self-care (01) ==
LOC: LAB.DROPOF 12-11 10:58
PROVIDERS: PCP Obstetrics & Gynecology; Visit Provider Obstetrics & Gynecology
DX: O26.899 Other specified pregnancy related conditions, unspecified trimester (principal); N89.8 Other specified noninflammatory disorders of vagina
CPT/HCPCS: 87491; 87591; 87798; 87801

== ENCOUNTER 2024-12-18 17:05 | Inpatient (IN) | payer MEDICAID, SELFPAY ==
--- OUTSIDE RECORDS SUMMARY | 2024-12-17 06:00 | XMS_ITS | Continuity of Care Document ---
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 Name Role Phone Duyen Sung CNM Unavailable Unavailable Allergies, Adverse Reactions, Alerts Substance Reaction Status Criticality No Known Allergies Active No Inform ation Medications Medication Instructions Dosage Effective Dates (start - stop) Status Comments Colace 100 mg capsule take 1 capsule by oral route BID as needed - Active metronidazole 250 mg tablet take 1 tablet by oral route every 8 hours 250 MG - Active cephalexin 500 mg tablet take 1 tablet by oral route every 12 hours 500 MG - Active promethazine 25 mg tablet take 1 tablet by oral route every 4 - 6 hours as needed as needed 25 MG - Active ondansetron 4 mg disintegrating tablet take 1 tablet by oral route every [address] on top of the tongue where they will dissolve, then swallow as needed 4 MG - Active Lamictal 25 mg tablet take 3 tablets by oral route daily. - Active Lexapro 10 mg tablet take 1 tablet by oral route every day at bedtime - Active hydroxyzine HCl 10 mg tablet Take one tablet every 8 hours as needed for anxiety. - Active ondansetron 4 mg disintegrating tablet take 1 tablet by oral route every [address] on top of the tongue where they will dissolve, then swallow 4 MG - Active melatonin 3 mg capsule Take 1 capsule by oral route at bedtime - Active thiamine HCl (vitamin B1) 100 mg tablet Take 2 tablets by oral route 2 times a day - Active zinc sulfate 220 mg tablet Take 1 tablet by oral route daily - Active Vitamin D3 10 mcg (400 unit) capsule Take 2 tablets by oral routr daily - Active Vitamin C 500 mg tablet Take 1 tablet by oral route daily - Active promethazine-DM 6.25 mg-15 mg/5 mL oral syrup take 10 milliliter by oral route every 6 hours as needed for cough - Active ibuprofen 800 mg tablet take 1 tablet by oral route every 6 hours as needed for fever and aches - Active ondansetron HCl 4 mg tablet Take 1 tablet by oral route every 4 hours as needed for nausea - Active Medrol (Eddie) 4 mg tablets in a dose pack take 6 Tablets by Oral route every day for 1 day then decrease by 1 tab daily until gone 6 Tablets - Active DX: U07.1 aspirin 325 mg tablet,delayed release take 1 tablet by oral route every day 325 MG - Active Zithromax TRI-EDDIE 500 mg tablet take 1 tablet by oral route every day for 3 days 500 MG - Active ondansetron HCl 4 mg tablet take 1 tablet by oral route 2 times every day as needed for nausea and vomiting - Active cefdinir 300 mg capsule take 1 capsule by oral route every 12 hours 300 MG - Active Flonase Allergy Relief 50 mcg/actuation nasal spray,suspension inhale 2 spray by intranasal route every day in each nostril 100 MCG - Active Xyzal 5 mg tablet take 1 tablet by oral route every day in the evening 5 MG - Active Singulair 10 mg tablet take 1 tablet by oral route every day in the evening 10 MG - Active ofloxacin 0.3 % ear drops instill 10 drop by otic route 2 times every day into affected ear(s) - Active Tessalon Perles 100 mg capsule take 1 capsule by oral route 3 times every day as needed for cough as needed - Active Guillermo 1/20 (21) 1 mg-20 mcg tablet take 1 tablet by oral route every day 1.00 tablet - Active Pepcid 20 mg tablet take 1 tablet by oral route 2 times every day 20 MG - Active Procedures Procedure Date URINALYSIS NONAUTO W/O SCOPE Drug Screening, UDS/BUP OFFICE/OUTPATIENT VISIT, EST SYST BP LT 130 MM HG DIAST BP 80-89 MM HG WEIGHT RECORDED BODY MASS INDEX DOCD Results Test Name Date and Time Measure Units Reference Range Abnormal Flag Status Comments Panel Description: URINALYSIS (STATUS) Final APPEARANCE 10:26:00 Clear CLEAR Final COLOR 10:26:00 Yellow YELLOW/STRAW Final SPEC GRAVITY 10:26:00 1.020 1.000 - 1.030 Final PH 10:26:00 7.0 5.0-7.0 Final PROTEIN 10:26:00 Negative NEGATIVE Final GLUCOSE 10:26:00 Negative NEGATIVE Final KETONES 10:26:00 Negative NEGATIVE Final BILIRUBIN 10:26:00 Negative NEGATIVE Final BLOOD 10:26:00 Negative NEGATIVE Final NITRITE 10:26:00 Negative NEGATIVE Final LEUKOCYTES 10:26:00 *1+ NEGATIVE Final UROBILINOGEN 10:26:00 0.2 E.U./dL 0-1 Final Panel Description: UDS/Bup Final Amphetamine 10:59:00 NEGATIVE ng/ml Negative Final Methamphetamines 10:59:00 NEGATIVE ng/ml Negative Final Barbiturates 10:59:00 NEGATIVE ng/ml Negative Final Benzodiazepines 10:59:00 NEGATIVE ng/ml Negative Final Cocaine 10:59:00 NEGATIVE ng/ml Negative Final Methadone 10:59:00 NEGATIVE ng/ml Negative Final Opiates 10:59:00 NEGATIVE ng/ml Negative Final THC 10:59:00 NEGATIVE ng/ml Negative Final Temperature 10:59:00 92.0 Final Oxycodone 10:59:00 NEGATIVE NG/ML NEGATIVE Final Buprenorphine 10:59:00 NEGATIVE ng/ml Negative Final QC 10:59:00 INTERNAL QC PASSED Final Advance Directives Directive Yes / No Effective Date File Name No Information Encounters Encounter Description Practice Location Reason(s) For Visit Diagnoses Date Provider OFFICE/OUTPA TIENT VISIT, EST [facility], [address] [place] [address], [id number], tel:[phone] [address] [place] [address] routine (chief complaint) Body mass index (BMI) 40.0-44.9, adultDietary surveillance and counselingPrescr ibed Activity/Exercis e CounselingNormal in third trimester 5 Pineda Geller. [address] [place] [address], [id number], [place]. tel:[phone] [facility], [address] [place] [address], [address], [place] tel:[phone] [address] [place] [address] routine (chief complaint) Normal in third trimesterBody mass index (BMI) 39.0-39.9, adultDietary counseling and surveillancePres cribed Activity/Exercis e CounselingScreen ing for STD (sexually transmitted disease) 5 Pineda Geller. [address] [place] [address], [id number], [place]. tel:[phone] [facility], [address] [place] [address], [address], [place] tel:[phone] [address] [place] [address] routine (chief complaint) Body mass index (BMI) 39.0-39.9, adultDietary counseling and surveillancePres cribed Activity/Exercis e CounselingNormal in second trimesterBacteri al vaginosis 5 Maranda Malik. [address] [place] [address], [id number], [place]. tel:[phone] [place] [address], [address] [place] [address], [address], [place] tel:[phone] [facility] routine (chief complaint) Body mass index (BMI) 38.0-38.9, adultDietary counseling and surveillancePres cribed Activity/Exercis e CounselingNormal in second trimester 0 4- 5 Maranda Malik. [address] [place] [address], [id number], [place]. tel:[phone] [place] [address], [address] [place] [address], [address], [place] tel:[phone] [address] [place] [address] routine (chief complaint) Normal in second trimester 5 Pineda Geller. [address] [place] [address], [id number], [place]. tel:[phone] [place] [address], [address], [place] tel:[phone] [address] [place] [address] Normal in first trimester 0 - 5 [facility]. . [facility], [address] [place] [address], [address], [place] tel:[phone] [address] [place] [address] routine (chief complaint) Body mass index (BMI) 38.0-38.9, adultDietary counseling and surveillancePres cribed Activity/Exercis e CounselingNormal in second trimester 0 3-202 5 Pineda Geller. [address] [place] [address], [id number], [place]. tel:[phone] [place] [address], [address] [place] [address], [address], [place] tel:[phone] [address] [place] [address] routine (chief complaint) Body mass index (BMI) 39.0-39.9, adultDietary counseling and surveillancePres cribed Activity/Exercis e CounselingNormal in first trimester 5 Pineda Geller. [address] [place] [address], [id number], [place]. tel:[phone] [place] [address] [facility] [place] [facility], [place], [address], [place] tel:[phone] [facility] early IUP (chief complaint) Body mass index (BMI) 40.0-44.9, adultDietary counseling and surveillancePres cribed Activity/Exercis e CounselingAmenor candis 0 5 Pineda Geller. [address] [place] [address], [id number], [place]. tel:[phone] [place] [address], [address] [place] [address], [address], [place] tel:[phone] [facility] early confirmation (chief complaint) Body mass index (BMI) 40.0-44.9, adultDietary counseling and surveillancePres cribed Activity/Exercis e CounselingAmenor candis Apr- 4 Pineda Geller. [address] [place] [address], [id number], [place]. tel:[phone] [place] [address], [address] [place] [address], [address], [place] tel:[phone] [facility] ENEIDA (generalized anxiety disorder)Dietary counseling and surveillancePres cribed Activity/Exercis e CounselingObesit y, unspecified 4 Massimo [facility] Annita. [address] [place], [place], [id number], [place]. tel:[phone] [place] [address], [address] [place] [address], [address], [place] tel:[phone] [facility] ENEIDA (generalized anxiety disorder)Prescri bed Activity/Exercis e CounselingDietar y counseling and surveillanceObes ity, unspecified 4 Mass[facility] Annita. [address] [place], [place], [id number], [place]. tel:[phone] [place] [address], [address], [place] tel:[phone] [facility] ENEIDA (generalized anxiety disorder)Dietary counseling and surveillanceObes ity, unspecifiedPresc ribed Activity/Exercis e Counseling 4 Massimo PMHNP Annita. [address] [facility], [place], [place], [id number], [place]. tel:[phone] [facility], [address] [place] [address], [address], [place] tel:[phone] [facility] ENEIDA (generalized anxiety disorder)Prescri bed Activity/Exercis e CounselingDietar y counseling and surveillanceObes ity, unspecified 4 Massimo HNP Annita. [address] [facility], [place], [place], [id number], [place]. tel:[phone] [facility], [address] [place] [address], [address], [place] tel:[phone] [facility] bee sting (chief complaint) Bee sting reaction, undetermined intent, initial encounter 4 Susan Noemy. [address] [place], [place], [id number], [place]. tel:[phone] [facility], [address] [place] [address], [address], [place] tel:[phone] [facility] ENEIDA (generalized anxiety disorder)Obesity , unspecifiedDieta ry counseling and surveillancePres cribed Activity/Exercis e Counseling 4 Massimo HNP Annita. [address] [facility], [place], [place], [id number], [place]. tel:[phone] [place] [address], [address] [place] [address], [address], [place] tel:[phone] [facility] anxiety (chief complaint) Obesity, unspecifiedDieta ry counseling and surveillancePres cribed Activity/Exercis e CounselingGAD (generalized anxiety disorder) 3 Massimo HNP Annita. [address] [facility], [place], [place], [id number], [place]. tel:[phone] [place] [address], [address] [place] [address], [address], [place] tel:[phone] [facility] No Information 1 Pineda Geller. [address] [place] [address], [id number], [place]. tel:[phone] [facility], [address] [place] [address], [address], [place] tel:[phone] [facility] No Information 1 Sung Duyen. [address] [place] [address], [id number], [place]. tel:[phone] [facility], [address] [place] [address], [address], [place] tel:[phone] [facility] Vomitting (chief complaint) Normal first confirmed, currently in second trimesterHyperem esis affecting , antepartum 1 Maranda Malik. [address] [place] [address], [id number], [place]. tel:[phone] [place] [address], [address] [place] [address], [address], [place] tel:[phone] [facility] OB transfer (chief complaint)severe nausea (chief complaint) Body mass index (BMI) 29.0-29.9, adultDietary counseling and surveillancePres cribed Activity/Exercis e CounselingNormal in first trimesterNauseaD ehydrationUrinar y tract infection, site not specified 1 Maranda Venturaa. [address] [place] [address], [id number], [place]. tel:[phone] [place] [address], [address] [place] [address], [address], [place] tel:[phone] [facility] covid-19 (chief complaint) COVID-19 0 Breeding Van. [address] [place] [address], [id number], [place]. tel:[phone] [facility], [address] [place] [address], [address], [place] tel:[phone] [address] [place] [address] Positive COVID-19(lab Verified) 0 Breeding Van. [address] [place] [address], [id number], [place]. tel:[phone] [facility], [address] [place] [address], [address], [place] tel:[phone] [address] [place] [address] [facility] Incision check (chief complaint)lacera tion (chief complaint) Obesity, unspecifiedDieta ry counseling and surveillancePres cribed Activity/Exercis e CounselingLacera tion of skin of scalp, initial encounter 0 Breeding Jean Claude. [address] [place] [address], [id number], [place]. tel:[phone] [place] [address], [address] [place] [address], [facility], [place] tel:[phone] [address] [place] [address] COVID-19 EXPOSURE (chief complaint) COVID-19Close exposure to COVID-19 virus 0 Breeding Van. [address] [place] [address], [id number], [place]. tel:[phone] [place] [address], [address] [place] [address], [address], [place] tel:[phone] [address] [place] [address] exposure to covid-19 (chief complaint) Exposure to COVID-19 virus 0 Breeding Van. [address] [place] [address], [id number], [place]. tel:[phone] [place] [address], [address], [place] tel:[phone] [address] [place] [address] No Information 0 Breeding Van. [address] [place] [address], [id number], [place]. tel:[phone], [address], [place] tel:[phone] [facility] nausea (chief complaint)Allerg ies (chief complaint)cold symptoms (chief complaint) OverweightDietar y counseling and surveillancePres cribed Activity/Exercis e CounselingNausea Postnasal dripSeasonal allergic rhinitis due to pollenUpper respiratory tract infection, unspecified type 0 Patricia Don. [address] [place] [address], [id number], [place]. tel:[phone] [facility], [address] [place] [address], [address], [place] tel:[phone] [facility] swelling (chief complaint)Headac he (chief complaint) Chronic swimmer's ear of both sidesSeasonal allergic rhinitis, unspecified triggerAnkle edema, bilateral Jun- 0 Dao Neela. [address] [place] [address], [id number], [place]. tel:[phone] [facility], [address] [place] [address], [facility], [place] tel:[phone] [facility] Earache (chief complaint) Dysfunction of both eustachian tubes 0 Susan Noemy. [address] [place], [place], [id number], [place]. tel:[phone] [facility], [address] [place] [address], [address], [place] tel:[phone] [facility] Bronchitis Acute (chief complaint) Obesity, unspecifiedDieta ry counseling and surveillancePres cribed Activity/Exercis e CounselingAcute bronchitis, unspecifiedCough 0 Patricia Don. [address] [place] [address], [id number], [place]. tel:[phone] [place] [address], [address] [place] [address], [address], [place] tel:[phone] [facility] medication refills (chief complaint) Oral contraceptive prescribed 9 Susan Noemy. [address] [place], [place], [id number], [place]. tel:[phone] [facility], [address] [place] [address], [facility], tel:[phone] [facility] Cough (chief complaint) Obesity, unspecifiedDieta ry counseling and surveillancePres cribed Activity/Exercis e CounselingCoughR ecurrent acute serous otitis media of both ears 9 Susan Salguero. [address] [place], [place], [id number], . tel:[phone] [facility], [address] [place] [address], [facility], [place] tel:[phone] [facility] Earache (chief complaint)headac he (chief complaint) Obesity, unspecifiedDieta ry counseling and surveillancePres cribed Activity/Exercis e CounselingRecurr ent acute serous otitis media of both ears 9 Susan Salguero. [address] [place], [place], [address] [place] [address], . tel:[phone] [facility], [address] [place] [address], [facility], tel:[phone] [facility] Encounter for dental exam and cleaning w abnormal findingsDental caries, unspecified 9 Pineda Fisher. [address] [place] [address], [address] [place] [address], . tel:[phone], [facility], tel:[phone] [address] [place] [address] nausea (chief complaint)Abdomi nal pain (chief complaint)Headac he (chief complaint) Obesity, unspecifiedDieta ry counseling and surveillancePres cribed Activity/Exercis e CounselingGastro esophageal reflux disease with esophagitis 9 [place] Van. [address] [place] [address], [id number], [place]. tel:[phone] [facility], [address] [place] [address], [facility], [place] tel:[phone] [facility] Nausea 0 9 Breeding Van. [address] [place] [address], [id number], [place]. tel:[phone] [facility], [address] [place] [address], [address], [place] tel:[phone] [facility] nausea (chief complaint) NauseaFatigue, unspecified type 9 Susan Noemy. [address] [place], [place], [id number], [place]. tel:[phone], [facility], [place] tel:[phone] [facility] Abdominal pain in female 9 Breeding Van. [address] [place] [address], [id number], [place]. tel:[phone] [facility], [address] [place] [address], [facility], tel:[phone] [address] [place] [address] headache (chief complaint) Obesity, unspecifiedDieta ry counseling and surveillancePres cribed Activity/Exercis e CounselingMigrai ne without status migrainosus, not intractable, unspecified migraine typeNauseaFever, unspecified fever cause 9 Breeding Van. [address] [place] [address], [id number], [place]. tel:[phone] [facility], [address] [place] [address], [facility], [place] tel:[phone] [address] [place] [address] Headache (chief complaint)REFUSE D FLU SHOT (chief complaint)Allerg ies (chief complaint) Acute allergic rhinitisNonintra ctable headache, unspecified chronicity pattern, unspecified headache typeEnvironmenta l and seasonal allergies 9 Breeding Van. [address] [place] [address], [id number], [place]. tel:[phone] [facility], [address] [place] [address], [address], [place] tel:[phone] [facility] recent tattoo (chief complaint) Tattoo reaction 9 Susan Noemy. [address] [place], [place], [id number], . tel:[phone] [facility], [address] [place] [address], [facility], [place] tel:[phone] [facility] knee pain (chief complaint) Body mass index (BMI) 39.0-39.9, adultDietary counseling and surveillancePres cribed Activity/Exercis e CounselingBucket -handle tear of unspecified meniscus, current injury, right knee, initial encounter 9 Breeding Van. [address] [place] [address], [id number], [place]. tel:[phone] [facility], [address] [place] [address], [facility], [place] tel:[phone] [facility] ear pain (chief complaint)Headac he (chief complaint) Unspecified nonsuppurative otitis media, bilateral 9 Susan Salguero. [address] [place], [place], [id number], . tel:[phone] [facility], [address] [place] [address], [facility], [place] tel:[phone] [facility] Reversible pulpitis 9 Fady Boris. [address] [place], [place], [id number], . tel:[phone] [place] [address], [address] [place] [address], [address], [place] tel:[phone] [facility] knee pain (chief complaint) BMI pediatric, greater than or equal to 95% for ageDietary counseling and surveillancePres cribed Activity/Exercis e CounselingAcute meniscal tear of left knee, subsequent encounter 9 Garcia Nadege. [address] [place] [address], [id number], [place]. tel:[phone] [place] [address], [address] [place] [address], [address], [place] tel:[phone] [facility] Sore throat (chief complaint)Earach e (chief complaint) BMI pediatric, greater than or equal to 95% for ageDietary counseling and surveillancePres cribed Activity/Exercis e CounselingAcute pharyngitis, unspecified etiology 9 Pranav Jean Claude. [address] [place] [address], [id number], . tel:[phone] [facility], [address] [place] [address], [facility], [place] tel:[phone] [facility] knee pain (chief complaint) BMI pediatric, 85% to less than 95th percentile for ageDietary counseling and surveillancePres cribed Activity/Exercis e CounselingDerang ement of meniscus of left knee 9 Pranav Edward. [address] [place] [address], [id number], [place]. tel:[phone] [facility], [address] [place] [address], [facility], [place] tel:[phone] [address] [place] [address] Dysuria (chief complaint) BMI pediatric, greater than or equal to 95% for ageDietary counseling and surveillancePres cribed Activity/Exercis e CounselingDysuri aUrinary tract infection, site unspecified 9 Jose Light. [address] [place] [address], [id number], [place]. tel:[phone] [facility], [address] [place] [address], [address], [place] tel:[phone] [facility] Dental caries, unspecified 9 Fady Morenoe. [address] [place], [place], [id number], [place]. tel:[phone], [address], [place] tel:[phone] [facility] Encounter for dental exam and cleaning w abnormal findings 9 Liz Roman. [address] [place], [place], [id number], [place]. tel:[phone] [place], [place], [address], [place] tel:[phone] [facility] Burn (chief complaint) BMI pediatric, 85% to less than 95th percentile for ageDietary counseling and surveillancePres cribed Activity/Exercis e CounselingSuperf icial burn of left lower leg, initial encounter 9 [place] Lauren. [address] [place] [address], [id number], [place]. tel:[phone] [facility], [address] [place] [address], [address], [place] tel:[phone] [address] [place] [address] [facility] Musculoskeletal pain (chief complaint) Obesity, unspecifiedDieta ry counseling and surveillancePres cribed Activity/Exercis e CounselingPain in both knees, unspecified chronicityPain in left knee [facility]. [address] [place] [address], [id number], [place]. tel:[phone] [facility], [address] [place] [address], [id number], [place] tel:[phone] [facility] Sinus symptoms (acute) (chief complaint) Body mass index (BMI) 30.0-30.9, adultDietary counseling and surveillancePres cribed Activity/Exercis e CounselingAcute non-recurrent maxillary sinusitisEnviron mental and seasonal allergies 9 [facility]. [address] [place] [address], [id number], [place]. tel:[phone] [facility], [address] [place] [address], [address], [place] tel:[phone] [facility] Earache (chief complaint) BMI pediatric, greater than or equal to 95% for ageDietary counseling and surveillancePres cribed Activity/Exercis e CounselingAcute otitis media, unspecified otitis media typeAcute sinusitis, unspecified 9 Miguel Mina. [address] [place] [address], [id number], [place]. tel:[phone] [facility], [address] [place] [address], [address], [place] tel:[phone] [facility] Well child (chief complaint)allerg y med refills (chief complaint)consti pation (chief complaint) Encntr for routine child health exam w/o abnormal findingsBMI pediatric, 85% to less than 95th percentile for ageDietary counseling and surveillancePres cribed Activity/Exercis e CounselingAllerg ic rhinitis, unspecifiedConst ipation, unspecified constipation type 9 Petersburgmonique Samsa. [address] [place], [place], [facility]. tel:[phone] [facility], [address] [place] [address], [facility], tel:[phone] [address] [place] [address] ear pain (chief complaint) Acute non-recurrent maxillary sinusitisBMI pediatric, 85% to less than 95th percentile for ageDietary counseling and surveillancePres cribed Activity/Exercis e Counseling 9 Garcia Nadege. [address] [place] [address], [id number], . tel:[phone] [facility], [address] [place] [address], [facility], tel:[phone] [address] [place] [address] Well child (chief complaint)contra ception refill (chief complaint) Encntr for routine child health exam w/o abnormal findingsBMI pediatric, 85% to less than 95th percentile for ageDietary counseling and surveillancePres cribed Activity/Exercis e CounselingOral contraceptive prescribed 9 [facility]. [facility] [place], [place], [facility]. tel:[phone] [facility], [address] [place] [address], [facility], [place] tel:[phone] [address] [place] [address] URI (chief complaint) BMI pediatric, greater than or equal to 95% for ageDietary counseling and surveillancePres cribed Activity/Exercis e CounselingDietar y counseling and surveillancePres cribed Activity/Exercis e CounselingAcute non-recurrent maxillary sinusitisURI, acute 9 Yanique Day. [address] [place] [address], [address]. tel:[phone], [facility], tel:[phone] [address] [place] [address] Sore throat (chief complaint) BMI pediatric, greater than or equal to 95% for ageDietary counseling and surveillancePres cribed Activity/Exercis e CounselingAcute pharyngitis, unspecifiedFlu-l ela symptomsAcute non-recurrent maxillary sinusitis 9 [facility]. [address] [place], [address]. tel:[phone] [facility], [address] [place] [address], [facility], tel:[phone] [address] [place] [address] Headache (chief complaint) BMI pediatric, 85% to less than 95th percentile for ageDietary counseling and surveillancePres cribed Activity/Exercis e CounselingAcute recurrent frontal sinusitisAcute otitis media, unspecified otitis media typeDizziness 8 Waurika Van. [address] [place] [address], [id number], . tel:[phone] [facility], [address] [place] [address], [facility], tel:[phone] [address] [place] [address] GERD (chief complaint)sore throat (chief complaint)Earach e (chief complaint) OverweightDietar y counseling and surveillancePres cribed Activity/Exercis e CounselingGastro esophageal reflux disease without esophagitis 8 Waurika Van. [address] [place] [address], [id number], . tel:[phone] [facility], [address] [place] [address], [facility], tel:[phone] [address] [place] [address] [facility] Follow Up of Abdominal pain (chief complaint)flu shot (chief complaint) BMI pediatric, 85% to less than 95th percentile for ageDietary counseling and surveillancePres cribed Activity/Exercis e CounselingAcute gastritis without hemorrhage, unspecified gastritis typeGastroesopha geal reflux disease without esophagitis 8201 8 Waurika Van. [address] [place] [address], [id number], [place]. tel:[phone], [facility], [place] tel:[phone] [facility] Lower abdominal pain 8 [facility] [place]. [address] [place] [address], [id number], [place]. tel:[phone] [place] [address], [facility], [place] tel:[phone] [facility] Abdominal pain (chief complaint)loss of appetite (chief complaint)earach e (chief complaint)Allerg ies (chief complaint) OverweightDietar y counseling and surveillancePres cribed Activity/Exercis e CounselingAbdomi nal pain in femaleEnvironmen brittaney and seasonal allergiesAcute allergic rhinitisDehydrat ion [address], [id number], . tel:[phone] [place] [address], [facility], tel:[phone] [address] [place] [address] [facility] Aggressive periodontitis, localized, moderate Sep- 8 Fady Escalante. [address] [place], [place], [id number], . tel:[phone], [facility], tel:[phone] [address] [place] [address] earache (chief complaint)headac he (chief complaint)Sinus symptoms (acute) (chief complaint) OverweightDietar y counseling and surveillancePres cribed Activity/Exercis e CounselingAcute non-recurrent maxillary sinusitis Jan- 8 [facility]. [address] [place] [address], [id number], [place]. tel:[phone] [place] [address], [facility], [place] tel:[phone] [facility] contraception (chief complaint) BMI pediatric, 85% to less than 95th percentile for ageDietary counseling and surveillancePres cribed Activity/Exercis e CounselingDepres peggy, unspecified depression type 8 Maranda Malik. [address] [place] [address], [id number], . tel:[phone] [facility], [address] [place] [address], [address], [place] tel:[phone] [address] [place] [address] Earache (chief complaint) BMI pediatric, 85% to less than 95th percentile for ageDietary counseling and surveillancePres cribed Activity/Exercis e CounselingAcute serous otitis media, bilateralAllergi c rhinitis due to pollenAllergic rhinitis due to pollen 8 Garcia Nadege. [address] [place] [address], [id number], [place]. tel:[phone] [facility], [address] [place] [address], [facility], [place] tel:[phone] [facility] Cold symptoms (chief complaint) BMI pediatric, 85% to less than 95th percentile for ageDietary counseling and surveillancePres cribed Activity/Exercis e CounselingUnspec ified asthma, uncomplicated 8 Jose Nadege. [address] [place] [address], [id number], [place]. tel:[phone] [facility], [address] [place] [address], [address], [place] tel:[phone] [address] [place] [address] cough (chief complaint)Sinus symptoms (acute) (chief complaint) BMI pediatric, 85% to less than 95th percentile for ageDietary counseling and surveillancePres cribed Activity/Exercis e CounselingURI, acuteAcute bronchitis, unspecified 8 Yanique Day. [address] [place] [address], [facility]. tel:[phone] [facility], [address] [place] [address], [address], [place] tel:[phone] [address] [place] [address] Cold symptoms (chief complaint) Acute recurrent sinusitis, unspecifiedGastr oesophageal reflux disease without esophagitisOverw eightDietary counseling and surveillancePres cribed Activity/Exercis e Counseling 8 Jose Light. [address] [place] [address], [id number], [place]. tel:[phone] [facility], [address] [place] [address], [address], [place] tel:[phone] [address] [place] [address] Extended [employer] mood changes (chief complaint) BMI pediatric, 85% to less than 95th percentile for ageDietary counseling and surveillancePres cribed Activity/Exercis e CounselingMood swings 8 Kennedy Baker. [address] [place], [address]. tel:[phone] [facility], [address] [place] [address], [address], [place] tel:[phone] [address] [place] [address] Well child (chief complaint) OverweightDietar y counseling and surveillancePres cribed Activity/Exercis e CounselingEncoun ter for well child visit at 17 years of ageVaccine for viral hepatitis 8 Garcia Nadege. [address] [place] [address], [id number], [place]. tel:[phone] [place] [address], [address] [place] [address], [address], [place] tel:[phone] [address] [place] [address] Earache (chief complaint) OverweightDietar y counseling and surveillancePres cribed Activity/Exercis e CounselingAcute serous otitis media, right ear 8 Garcia Nadege. [address] [place] [address], [id number], [place]. tel:[phone] [facility], [address] [place] [address], [address], [place] tel:[phone] [address] [place] [address] Earache (chief complaint) BMI pediatric, less than 5th percentile for ageDietary counseling and surveillancePres cribed Activity/Exercis e CounselingAcute serous otitis media, right ear 8 Garcia Nadege. [address] [place] [address], [id number], [place]. tel:[phone] [facility], [address] [place] [address], [address], [place] tel:[phone] [facility] Ear ache, upset stomach (chief complaint)Last prev exam 05-28-18 (chief complaint) BMI pediatric, 85% to less than 95th percentile for ageDietary counseling and surveillancePres cribed Activity/Exercis e CounselingAcute sinusitis, unspecifiedExces sive cerumen in right ear canalOral contraceptive prescribed 8 Kennedy Baker. [address] [place], [place], [facility]. tel:[phone] [facility], [address] [place] [address], [facility], tel:[phone] [facility] Cold symptoms (chief complaint) OverweightDietar y counseling and surveillancePres cribed Activity/Exercis e CounselingAcute recurrent sinusitis, unspecified 8 Jose Light. [address] [place] [address], [address] [place] [address], . tel:[phone] [place] [address], [address] [place] [address], [facility], tel:[phone] [facility] Cold symptoms (chief complaint)Nasal congestion (chief complaint) BMI pediatric, 85% to less than 95th percentile for ageDietary counseling and surveillancePres cribed Activity/Exercis e CounselingAcute serous otitis media, right ear 8 Kennedymonique Baker. [address] [place], [place], [facility]. tel:[phone] [facility], [address] [place] [address], [facility], [place] tel:[phone] [address] [place] [address] follow up [place] (chief complaint) BMI pediatric, 85% to less than 95th percentile for ageDietary counseling and surveillancePres cribed Activity/Exercis e CounselingGastro esophageal reflux disease without esophagitisGallb ladder polyp 8 Jose Light. [address] [place] [address], [address] [place] [address], . tel:[phone] [place] [address], [address] [place] [address], [facility], [place] tel:[phone] [address] [place] [address] Abdominal pain in female 8 Garcia Nadege. [address] [place] [address], [id number], [place]. tel:[phone] [facility], [address] [place] [address], [address], [place] tel:[phone] [address] [place] [address] NAUSEA (chief complaint) BMI pediatric, 85% to less than 95th percentile for ageDietary counseling and surveillancePres cribed Activity/Exercis e CounselingAbdomi nal pain in femaleGastroesop hageal reflux disease without esophagitis 8 Garcia Nadege. [address] [place] [address], [id number], [place]. tel:[phone] [facility], [address] [place] [address], [facility], [place] tel:[phone] [address] [place] [address] Follow Up of Cough (chief complaint) BMI pediatric, 85% to less than 95th percentile for ageDietary counseling and surveillancePres cribed Activity/Exercis e CounselingAllerg ic rhinitis, unspecifiedMild intermittent asthma without complication 8 Garcia Nadege. [address] [place] [address], [id number], [place]. tel:[phone] [facility], [address] [place] [address], [address], [place] tel:[phone] [address] [place] [address] Headache (chief complaint)Earach e (chief complaint) BMI pediatric, 85% to less than 95th percentile for ageDietary counseling and surveillancePres cribed Activity/Exercis e CounselingUnspec ified nonsuppurative otitis media, left earAcute nonintractable headache, unspecified headache type 8 Garcia Nadege. [address] [place] [address], [id number], [place]. tel:[phone] [facility], [address] [place] [address], [address], [place] tel:[phone] [address] [place] [address] Flu-like symptoms (chief complaint) BMI pediatric, 85% to less than 95th percentile for ageDietary counseling and surveillancePres cribed Activity/Exercis e CounselingFever chillsAcute sinusitis, unspecified 8 Jose Light. [address] [place] [address], [id number], [place]. tel:[phone] [facility], [address] [place] [address], [address], [place] tel:[phone] [address] [place] [address] Musculoskeletal pain (chief complaint) BMI pediatric, 85% to less than 95th percentile for ageDietary counseling and surveillancePres cribed Activity/Exercis e CounselingAcute pain of right knee 8 Jose Light. [address] [place] [address], [id number], [place]. tel:[phone] [facility], [address] [place] [address], [address], [place] tel:[phone] [facility] Well child (chief complaint) BMI pediatric, 85% to less than 95th percentile for ageDietary counseling and surveillanceOthe r specified counselingEncoun ter for well child visit at 17 years of ageEncounter for immunization 8 Jose Light. [address] [place] [address], [id number], [place]. tel:[phone] [facility], [address] [place] [address], [address], [place] tel:[phone] [address] [place] [address] Earache (chief complaint) BMI pediatric, 85% to less than 95th percentile for ageDietary counseling and surveillanceOthe r specified counselingAllerg ic rhinitis, unspecifiedAcute serous otitis media, right earCough 7 [facility]. [address] [place], [address]. tel:[phone] [facility], [address] [place] [address], [address], [place] tel:[phone] [address] [place] [address] Headache (chief complaint) OverweightDietar y counseling and surveillanceOthe r specified counselingAcute sinusitis, unspecified 7 Jose Light. [address] [place] [address], [id number], [place]. tel:[phone] [place] [address], [address] [place] [address], [address], tel:[phone] [address] [place] [address] headache (chief complaint) BMI pediatric, 85% to less than 95th percentile for ageDietary counseling and surveillanceOthe r specified counselingAcute sinusitis, unspecifiedAller gic rhinitis, unspecifiedExces sive cerumen in right ear canal 7 [facility]. [address] [place], [place], [facility]. tel:[phone] [facility], [address] [place] [address], [facility], tel:[phone] [facility] Headaches (chief complaint)rash behind both ears. (chief complaint) Acute sinusitis, unspecifiedRingw orm of bodyNonintractab le headache, unspecified chronicity pattern, unspecified headache typeImpacted cerumen of right ear 7 [facility]. [address] [place], [place], [facility]. tel:[phone] [facility], [address] [place] [address], [facility], [place] tel:[phone] [address] [place] [address] Other abnormal glucose 0 7 Calin Aguilar. [address] [place] [address], [id number], [place]. tel:[phone], [address], [place] tel:[phone] [address] [place] [address] Well Child (chief complaint) OverweightDietar y counseling and surveillanceOthe r specified counselingEncoun ter for routine child health examination without abnormal findings 7 Jose Light. [address] [place] [address], [id number], [place]. tel:[phone], [address], [place] tel:[phone] [facility] Musculoskeletal pain (chief complaint) OverweightDietar y counseling and surveillanceOthe r specified counselingFever, unspecified fever causeRecurrent acute suppurative otitis media without spontaneous rupture of left tympanic membraneDorsalgi aElevated glucose 7 [facility]. [address] [place] [address], [id number], . tel:[phone] [facility], [address] [place] [address], [facility], tel:[phone] [facility] dysuria (chief complaint)Back pain (chief complaint) OverweightDietar y counseling and surveillanceOthe r specified counselingDysuri aUrinary tract infection, site unspecifiedLeft- sided low back pain with left-sided sciatica, unspecified chronicity 7 [facility]. [address] [place] [address], [id number], . tel:[phone] [facility], [address] [place] [address], [facility], tel:[phone] [facility] fever (chief complaint) BMI pediatric, less than 5th percentile for ageDietary counseling and surveillanceOthe r specified counselingFever, unspecified fever causeSeasonal allergic rhinitis due to pollen Garcia Nadege. [address] [place] [address], [id number], . tel:[phone] [facility], [address] [place] [address], [address], tel:[phone] [facility] Allergies (chief complaint) BMI pediatric, 85% to less than 95th percentile for ageDietary counseling and surveillanceOthe r specified counselingAllerg ic rhinitis, unspecified 6 [facility]. [address] [place] [address], [id number], . tel:[phone] [facility], [address] [place] [address], [address], tel:[phone] [facility] Cold symptoms (chief complaint) BMI pediatric, greater than or equal to 95% for ageDietary counseling and surveillanceOthe r specified counselingURI, acute 5 Garcia Nadege. [address] [place] [address], [id number], . tel:[phone] [facility], [address] [place] [address], [facility], tel:[phone] [facility] cough (chief complaint) BMI pediatric, greater than or equal to 95% for ageDietary counseling and surveillanceOthbrian FowlerNausea 5 Yesi Cool. [address] [place] [address], [id number], [place]. tel:[phone] [place] [address], [address] [place] [address], [facility], [place] tel:[phone] [facility] Palpitations (chief complaint) BMI,PEDIATRIC >= 95%Dietary surveillance and counselingExerci se counselingAnxiet y attackPalpitatio ns 5 Jose Light. [address] [place] [address], [id number], . tel:[phone] [place] [address], [address] [place] [address], [facility], tel:[phone] [facility] Dental examination 5 Kassie Henriquez. [address] [place] [address], [facility]. tel:[phone] [place] [address], [address] [place] [address], [facility], tel:[phone] [facility] sore throat (chief complaint)ear ache (chief complaint) Acute serous otitis mediaBMI,PEDIATR IC 85% - <95% Feb-2 5 Syl Garcia. [address] [place] [address], [id number], [place]. tel:[phone] [place] [address], [address] [place] [address], [facility], [place] tel:[phone] [facility] Flu-like symptoms (chief complaint) Flu-like symptomsPharyngi tisBMI,PEDIATRIC >= 95% Feb-0 5 Jose Light. [address] [place] [address], [id number], [place]. tel:[phone] [facility], [address] [place] [address], [facility], [place] tel:[phone] [facility] Earache (chief complaint) OME (otitis media with effusion)Acute sinusitis, unspecifiedAller gic rhinitis, cause unspecifiedAsthm aAcute meniscal tear of left knee 5 Garcia Nadege. [address] [place] [address], [id number], [place]. tel:[phone] [facility], [address] [place] [address], [facility], [place] tel:[phone] [facility] left knee pain (chief complaint) Knee painKnee sprain and strainBMI,PEDIAT MARANDA >= 95% 3 0-201 4 Garcia Nadege. [address] [place] [address], [id number], [place]. tel:[phone] [facility], [address] [place] [address], [facility], tel:[phone] [address] [place] [address] Flu-like symptoms (chief complaint) Acute sinusitis, unspecifiedNause a aloneBMI,PEDIATR IC >= 95% 0- 4 Delfin Genevieve. [address] [place] [address], [facility]. tel:[phone] [facility], [address] [place] [address], [facility], tel:[phone] [address] [place] [address] RT KNEE PAIN (chief complaint)Sore throat (chief complaint)Cough (chief complaint)Sinus symptoms (acute) (chief complaint) Acute sinusitis, unspecifiedAller gic rhinitis, cause unspecifiedBMI,P EDIATRIC >= 95% 8- 4 [facility] Van. [address] [place] [address], [id number], [place]. tel:[phone] [place] [address], [address] [place] [address], [address], [place] tel:[phone] [facility] Clinic RT FOOT PAIN (chief complaint)Follow Up of WARTS ON LEFT HAND AND LEFT FOOT (chief complaint)abdomi nal pain (chief complaint) WartConstipation , unspecifiedObesi ty Jan- 4 [facility]. [address] [place] [address], [address] [place] [address], . tel:[phone] [place] [address], [facility], tel:[phone] [facility] wart removal (chief complaint)Wart(s ) (chief complaint) WartOther specified viral wartsBMI,PEDIATR IC >= 95% 4 [facility]. [address] [place] [address], [id number], [place]. tel:[phone], [facility], tel:[phone] [facility] wart on finger (chief complaint)Lesion (s) (chief complaint) WartOther specified dermatosesBMI,PE DIATRIC 5% - <85% 4 [facility]. [address] [place] [address], [id number], [place]. tel:[phone] [place] [address], [address] [place] [address], [facility], [place] tel:[phone] [address] [place] [address] RASH ON LEFT LEG (chief complaint)rash (chief complaint) Viral Infection, UnspecifiedRash and other nonspecific skin eruption 4 [facility]. [address] [place] [address], [id number], [place]. tel:[phone] [place] [address], [address] [place] [address], [address], [place] tel:[phone] [facility] NORMA ON SHOULDER (chief complaint)rash (chief complaint) Ringworm 4 Delfin Vallejo. [address] [place] [address], [facility]. tel:[phone], [address], [place] tel:[phone] [facility] constipation (chief complaint)abdomi nal pain (chief complaint) Abdominal pain, right lower quadrant 4 [facility]. [address] [place] [address], [id number], [place]. tel:[phone], [address], [place] tel:[phone] [facility] STOMACH PAIN (chief complaint)LEFT EAR PAIN (chief complaint) Constipation, unspecifiedAcute suppurative otitis media without spontaneous rupture of eardrum 4 Genaro Frederick [address] [place] [address], [id number], [place]. tel:[phone], [facility], [place] tel:[phone] [address] [place] [address] RT SHOULDER PAIN (chief complaint)F/U CONSTIPATION (chief complaint)MED REFILLS (chief complaint)RASH ON CHEST AND BACK (chief complaint)muscul oskeletal pain (chief complaint) Abdominal pain, right lower quadrantAcneShou lder strain 4 [facility]. [address] [place] [address], [id number], [place]. tel:[phone] [place] [address], [address], [place] tel:[phone] [address] [place] [address] stomach pain (chief complaint)abdomi nal pain (chief complaint) Abdominal pain, right lower quadrantConstipa tion, unspecifiedPain in the abdomen 3 [facility]. [address] [place] [address], [id number], [place]. tel:[phone] [place] [address], [address] [place] [address], [address], [place] tel:[phone] [facility] head congestion (chief complaint)chest congestion (chief complaint)cough (chief complaint) Upper Respiratory Infection, Acute 3 Genaro Frederick [address] [place] [address], [id number], [place]. tel:[phone] [facility], [address] [place] [address], [address], [place] tel:[phone] [facility] chills (chief complaint)aching all over (chief complaint)cough (chief complaint) Sinusitis, Acute 3 [facility]. [address] [place] [address], [id number], [place]. tel:[phone] [place] [address], [address] [place] [address], [address], [place] tel:[phone] [facility] ingrown nail on great toe left foot (chief complaint) IGTN (ingrowing toe nail) 3 Yolanda Macoupin. [address] [place] [address], [id number], [place]. tel:[phone] [place] [address], [address], [place] tel:[phone] [facility] cough (chief complaint)nasal drainage (chief complaint) Sinusitis, Acute 3 [facility]. [address] [place] [address], [id number], [place]. tel:[phone] [place] [address], [address], [place] tel:[phone] [facility] f/u hosp admitt (chief complaint)abdomi nal pain (chief complaint) Leukocytosis (leucocytosis) 3 [facility]. [address] [place] [address], [id number], [place]. tel:[phone] [place] [address], [address], [place] tel:[phone] [facility] No Information 3 [place] Van. [address] [place] [address], [id number], [place]. tel:[phone] [facility], [address] [place] [address], [address], [place] tel:[phone] [facility] abdominal pain (chief complaint)NAUSEA (chief complaint) Abdominal pain, right lower quadrant Jan- 3 [facility]. [address] [place] [address], [id number], [place]. tel:[phone] [facility], [address] [place] [address], [address], [place] tel:[phone] [address] [place] [address] [facility]patient No Information 3 [facility]. [address] [place], [place], [id number], [place]. tel:[phone] [facility], [address] [place] [address], [address], [place] tel:[phone] [facility] Well child - 11 Years (chief complaint)sports physical (chief complaint) Routine infant or child health checkAllergic rhinitis, cause unspecifiedChron ic constipationRout ine or child health check 3 Caitlin Neely. [address] [place] [address], [id number]. tel:[phone] [place] [address], [address] [place] [address], [address], [place] tel:[phone] [address] [place] [address] Well child - 11 Years (chief complaint)sports physical (chief complaint) Routine or child health check 3 [facility] [employer]. [address] [place] [address], [address]. tel:[phone] [facility], [address] [place] [address], [address], [place] tel:[phone] [facility] cough (chief complaint)SINUS DRAINAGE (chief complaint)fatigu e (chief complaint) Acute serous otitis mediaUpper Respiratory Infection, Acute Jun- 3 Delfin Vallejo. [address] [place] [address], [address]. tel:[phone] [facility], [address] [place] [address], [address], [place] tel:[phone] [address] [place] [address] cough (chief complaint)left ear pain (chief complaint)cold symptoms (chief complaint) Bronchitis, Acute May-0 3 [facility]. [address] [place] [address], [address] [place] [address], [place]. tel:[phone] [place] [address], [facility], tel:[phone] [facility] No Information Feb-2 2 2 [facility]. [address] [place] [address], [address] [place] [address], [place]. tel:[phone] [place] [address], [facility], [place] tel:[phone] [facility] blister inside mouth,bottom lip (chief complaint)cough (chief complaint)headac he (chief complaint)fever (chief complaint) Bronchitis, AcuteAllergic rhinitis, cause unspecified Feb-0 2 [facility]. [address] [place] [address], [address] [place] [address], [place]. tel:[phone] [place] [address], [facility], [place] tel:[phone] [address] [place] [address] LEFT GREAT TOE SWELLING (chief complaint) Contusion of toe Sep-2 2 Genaro Frederick [address] [place] [address], [address] [place] [address], [place]. tel:[phone] [place] [address], [facility], [place] tel:[phone] [address] [place] [address] abnormal pap (chief complaint)vomiti ng (chief complaint) Noninfectious Gastroenteritis Sep-1 2 Genaro Frederick [address] [place] [address], [id number], [place]. tel:[phone] [place] [address], [facility], [place] tel:[phone] [address] [place] [address] sore throat (chief complaint) Allergic rhinitis, cause unspecified Sep-0 2 Genaro Frederick [address] [place] [address], [id number], [place]. tel:[phone] [facility], [address] [place] [address], [address], [place] tel:[phone] [facility] cold symptoms (chief complaint) Unspecified otitis mediaBronchitis, Acute 2 Janes Marie. [address] [place] [address], [address]. tel:[phone] [facility], [address] [place] [address], [address], [place] tel:[phone] [facility] CHEERLEADING PHYS (chief complaint)LT FOOT PAIN (chief complaint) Other general medical examination for administrative purposesUnspecif ied site of ankle sprain 2 Genaro Blackwell. [address] [place] [address], [id number], [place]. tel:[phone] [facility], [address] [place] [address], [address], [place] tel:[phone] [facility] No Information 2 [facility]. [address] [place] [address], [id number], [place]. tel:[phone] [place] [address], [address] [place] [address], [address], [place] tel:[phone] [facility] No Information 2 [facility]. [address] [place] [address], [id number], [place]. tel:[phone] [place] [address], [address] [place] [address], [address], [place] tel:[phone] [facility] diarrhea (chief complaint)fever (chief complaint)abdomi nal pain (chief complaint) Viral Infection, UnspecifiedFever 2 [facility]. [address] [place] [address], [id number], [place]. tel:[phone], [address], [place] tel:[phone] [facility] Inpatient No Information 2 [facility]. [address] [place] [address], [id number], [place]. tel:[phone] [facility], [address] [place] [address], [facility], [place] tel:[phone] [facility] fever (chief complaint) Upper Respiratory Infection, Acute 2 Genaro Frederick [address] [place] [address], [id number], [place]. tel:[phone] [facility], [address] [place] [address], [facility], [place] tel:[phone] [facility] F/U MED PROBLEMS (chief complaint)allerg ies (chief complaint) Allergic rhinitis, cause unspecifiedAcute conjunctivitis, unspecifiedAsthm a 2 [facility]. [address] [place] [address], [id number], [place]. tel:[phone] [place] [address], [address] [place] [address], [facility], [place] tel:[phone] [facility] SINUS DRAINAGE (chief complaint)cold symptoms (chief complaint) Acute conjunctivitis, unspecifiedSinus itis, AcuteAllergic rhinitis, cause unspecifiedAsthm a 2 [facility]. [address] [place] [address], [id number], [place]. tel:[phone] [facility], [address] [place] [address], [facility], [place] tel:[phone] [facility] cough (chief complaint)sinus drainage (chief complaint) Sinusitis, Acute 2 Delfin Vallejo. [address] [place] [address], [facility]. tel:[phone] [place] [address], [address], [place] tel:[phone] [facility] LEFT EYE REDNESS (chief complaint) Acute conjunctivitis, unspecified 1 Genaro Frederick [address] [place] [address], [id number], [place]. tel:[phone] [facility], [address] [place] [address], [address], [place] tel:[phone] [address] [place] [address] No Information 1 Raymon Mullins. [address] [place] [address], [id number], [place]. tel:[phone] [facility], [address] [place] [address], [address], [place] tel:[phone] [address] [place] [address] No Information 1 Pranav Van. [address] [place] [address], [id number], [place]. tel:[phone] [facility], [address] [place] [address], [address], [place] tel:[phone] [address] [place] [address] No Information 1 Genaro Blackwell. [address] [place] [address], [id number], [place]. tel:[phone] [facility], [address] [place] [address], [address], [place] tel:[phone] [address] [place] [address] No Information 1 Pineda Trimble. [address] [place] [address], [place], [address]. tel:[phone] [facility], [address] [place] [address], [address], [place] tel:[phone] [address] [place] [address] No Information 1 Genaro Blackwell. [address] [place] [address], [id number], [place]. tel:[phone] [facility], [address] [place] [address], [address], [place] tel:[phone] [address] [place] [address] No Information 1 [facility]. [address] [place] [address], [id number], [place]. tel:[phone] Family History Family Member Type Diagnosis Age At Onset Mother Problem (finding) Alive and well Brother Problem (finding) Sister Problem (finding) Father Problem (finding) Alive and well Immunizations Vaccine Date Status Comments Influenza, injectable, quadrivalent, preservative free, split virus, 3 years and older, Fluzone Quad Y administered Source: N ew Immunization Record Hep A (ped/adol, 2 dose) administered Shonna rce: New Immunization Record Influenza, injectable, quadrivalent, preservative free, split virus 3 years or older, Fluarix Quad [id number] administered Note: To w ait 15 minutes. Rochelle Spence reaction noted. Radha Duncan LPN ; Source: New Immunization Record Hep A (ped/adol, 2 dose) administered Not e: To wait 15 minutes. Rochelle Spence reaction noted. Radha Duncan LPN ; Source: New Immunization Record MCV4 administered Note: To wait 1 5 minutes. Rochelle Spence reaction noted. Radha Duncan LPN ; Source: New Immunization Record Flu (split) (3 yrs or older) administered Note: no reaction ; Source: New Immunization Record Tdap administered Note: no reacti on noted ; Source: Source Unspecified MCV4 (11-55 yrs) administered Note: no re action noted ; Source: Source Unspecified Varicella administered Note: no reacti on noted ; Source: Source Unspecified MMR administered Source: Other P rovider polio, inactivated (IPV) administered Shonna rce: Other Provider DTaP administered Source: Other P rovider polio, inactivated (IPV) administered Shonna rce: Other Provider DTaP administered Source: Other P rovider MMR administered Source: Other P rovider HIB - unspecified administered Source: Ot her Provider varicella administered Source: Other P rovider pneumo (under 5) (PCV7) administered Sour ce: Other Provider hep B (ped/adol, 3 dose) administered Shonna rce: Other Provider DTaP administered Source: Other P rovider HIB - unspecified administered Source: Ot her Provider pneumo (under 5) (PCV7) administered Sour ce: Other Provider polio, inactivated (IPV) administered Shonna rce: Other Provider pneumo (under 5) (PCV7) administered Sour ce: Other Provider HIB - unspecified administered Source: Ot her Provider DTaP administered Source: Other P rovider polio, inactivated (IPV) administered Shonna rce: Other Provider pneumo (under 5) (PCV7) administered Sour ce: Other Provider HIB - unspecified administered Source: Ot her Provider DTaP administered Source: Other P rovider hep B (ped/adol, 3 dose) administered Shonna rce: Other Provider hep B (ped/adol, 3 dose) administered Shonna rce: Other Provider Payers Payer name Insurance type Covered alliance party ID Authortanvira parviz(s) [facility] [id number] Medicaid Wrap Payer [id number] [facility] [id number] [facility] [id number] Social History Type Description Quantity Date Captured Comments Alcohol Use Details Unknown Caffeine Use Details Unknown Tobacco Use Status No Information Smoking Status No Information Sex Female Yes - Patient is cur rently Sexual Orientation Straight or heterosexual Gender Identity Female Vital Signs Date / Time: Height Weight BMI Pulse Rate Blood Pressure Temperature Respiratory Rate Body Surface Area Head Circumference Head Circ. Percentile Wt./Juan A. Percentile BMI percentile Pulse Ox Inhaled Ox 9:43 AM 62.00 in 100.471 kg (221.50 lbs) 40.5 1 kg/m eter (2) 132 /min 121/82 mm[Hg] 98.10 F 18 /min 2.10 meter(2) Chief Complaint And Reason For Visit From encounter dated '12/17/2024 10:00'. routine (chief complaint) Plan Of Treatment Date Type Action Status Goal HIV screen. Due on due Goal PAP. Due on due Goal Preventive Visit . Due on due Goal Tobacco screenin g. Due on due Goal Depression scree fermin. Due on due Goal Dietary manageme nt education, guidance, and counseling completed Goal Preventive Visit . Due on due Goal Depression scree fermin. Due on due Goal Tobacco screenin g. Due on due Goal PAP. Due on due Goal HIV screen. Due on due Goal Dietary manageme nt education, guidance, and counseling completed Goal HIV screen. Due on due Goal Tobacco screenin g. Due on due Goal Preventive Visit . Due on due Goal Depression scree fermin. Due on due Goal PAP. Due on due Goal Dietary manageme nt education, guidance, and counseling completed Goal HIV screen. Due on due Goal Preventive Visit . Due on due Goal Tobacco screenin g. Due on due Goal Depression scree fermin. Due on due Goal PAP. Due on due Goal Dietary manageme nt education, guidance, and counseling completed Goal HIV screen. Due on due Goal Preventive Visit . Due on due Goal Depression scree fermin. Due on due Goal PAP. Due on due Goal Tobacco screenin g. Due on due Goal Tobacco cessation counseling completed Goal HIV screen. Due on due Goal Preventive Visit . Due on due Goal Tobacco screenin g. Due on due Goal Depression scree fermin. Due on due Goal PAP. Due on due Goal Depression scree fermin. Due on due Goal Tobacco screenin g. Due on due Goal Preventive Visit . Due on due Goal HIV screen. Due on due Goal PAP. Due on due Goal Dietary manageme nt education, guidance, and counseling completed Goal Depression scree fermin. Due on due Goal Preventive Visit . Due on due Goal PAP. Due on due Goal HIV screen. Due on due Goal Tobacco screenin g. Due on due Goal Dietary manageme nt education, guidance, and counseling completed Goal HIV screen. Due on due Goal PAP. Due on due Goal Preventive Visit . Due on due Goal Depression scree fermin. Due on due Goal Tobacco screenin g. Due on due Goal Dietary manageme nt education, guidance, and counseling completed Goal PAP. Due on due Goal Tobacco screenin g. Due on due Goal Depression scree fermin. Due on due Goal HIV screen. Due on due Goal Preventive Visit . Due on due Goal Dietary manageme nt education, guidance, and counseling completed Goal Preventive Visit . Due on due Goal Depression scree fermin. Due on due Goal Tobacco screenin g. Due on due Goal HIV screen. Due on due Goal PAP. Due on due Goal HIV screen. Due on due Goal Depression scree fermin. Due on due Goal Preventive Visit . Due on due Goal PAP. Due on due Goal Preventive Visit . Due on due Goal Depression scree fermin. Due on due Goal PAP. Due on due Goal HIV screen. Due on due Goal Tobacco cessation counseling completed Goal Preventive Visit . Due on due Goal Depression scree fermin. Due on due Goal HIV screen. Due on due Goal PAP. Due on due Goal Preventive Visit . Due on due Goal Depression scree fermin. Due on due Goal PAP. Due on due Goal HIV screen. Due on due Goal Tobacco cessation counseling completed Goal HIV screen. Due on due Goal Preventive Visit . Due on due Goal PAP. Due on due Goal Depression scree fermin. Due on due Goal HIV screen. Due on due Goal Preventive Visit . Due on due Goal PAP. Due on due Goal Depression scree fermin. Due on due Goal Tobacco cessation counseling completed Goal Dietary manageme nt education, guidance, and counseling completed Goal Pneumococcal vaccine due Goal Preventive Visit . Due on due Goal HIV screen. Due on due Goal Influenza vaccin e. Due on due Goal Depression scree fermin. Due on due Goal Pneumococcal vaccine due Goal HIV screen. Due on due Goal Depression scree fermin. Due on due Goal Preventive Visit . Due on due Goal Influenza vaccin e. Due on due Goal Tobacco cessation counseling completed Goal Dietary manageme nt education, guidance, and counseling completed Goal Preventive Visit . Due on due Goal Pneumococcal vaccine due Goal Influenza vaccin e. Due on due Goal Depression scree fermin. Due on due Goal Pneumococcal vaccine due Goal Influenza vaccin e. Due on due Goal Depression scree fermin. Due on due Goal Preventive Visit . Due on due Goal Influenza vaccin e. Due on due Goal Pneumococcal vaccine due Goal Preventive Visit . Due on due Goal Depression scree fermin. Due on due Goal Dietary manageme nt education, guidance, and counseling completed Goal Influenza vaccin e. Due on due Goal Depression scree fermin. Due on due Goal Pneumococcal vaccine due Goal Preventive Visit . Due on due Goal Tobacco cessation counseling completed Goal Depression scree fermin. Due on due Goal Influenza vaccin e. Due on due Goal Preventive Visit . Due on due Goal Pneumococcal vaccine due Goal Preventive Visit . Due on due Goal Influenza vaccin e. Due on due Goal Pneumococcal vaccine due Goal Depression scree fermin. Due on due Goal Tobacco cessation counseling completed Goal Dietary manageme nt education, guidance, and counseling completed Goal Preventive Visit . Due on due Goal Pneumococcal vaccine due Goal Depression scree fermin. Due on due Goal Influenza vaccin e. Due on due Goal Tobacco cessation counseling completed Goal Pneumococcal vaccine due Goal Influenza vaccin e. Due on due Goal Depression scree fermin. Due on due Goal Preventive Visit . Due on due Goal Influenza vaccin e. Due on due Goal Preventive Visit . Due on due Goal Pneumococcal vaccine due Goal Depression scree fermin. Due on due Goal Dietary manageme nt education, guidance, and counseling completed Goal Preventive Visit . Due on due Goal Pneumococcal vaccine due Goal Depression scree fermin. Due on due Goal Influenza vaccin e. Due on due Goal Influenza vaccin e. Due on due Goal Pneumococcal vaccine due Goal Preventive Visit . Due on due Goal Depression scree fermin. Due on due Goal Dietary manageme nt education, guidance, and counseling completed Goal Pneumococcal vaccine due Goal Depression scree fermin. Due on due Goal Preventive Visit . Due on due Goal Influenza vaccin e. Due on due Goal Dietary manageme nt education, guidance, and counseling completed Goal Preventive Visit . Due on due Goal Pneumococcal vaccine due Goal Depression scree fermin. Due on due Goal Influenza vaccin e. Due on due Goal Dietary manageme nt education, guidance, and counseling completed Goal Tobacco cessation counseling completed Goal Influenza vaccin e. Due on due Goal Pneumococcal vaccine due Goal Depression scree fermin. Due on due Goal Preventive Visit . Due on due Goal Influenza vaccin e. Due on due Goal Depression scree fermin. Due on due Goal Pneumococcal vaccine due Goal Preventive Visit . Due on due Goal Preventive Visit . Due on due Goal Depression scree fermin. Due on due Goal Influenza vaccin e. Due on due Goal Pneumococcal vaccine due Goal Preventive Visit . Due on due Goal Depression scree fermin. Due on due Goal Pneumococcal vaccine due Goal Influenza vaccin e. Due on due Goal Dietary manageme nt education, guidance, and counseling completed Goal Depression scree fermin. Due on due Goal Pneumococcal vaccine due Goal Influenza vaccin e. Due on due Goal Preventive Visit . Due on due Goal Influenza vaccin e. Due on due Goal Pneumococcal vaccine due Goal Depression scree fermin. Due on due Goal Preventive Visit . Due on due Goal Pneumococcal vaccine due Goal Depression scree fermin. Due on due Goal Influenza vaccin e. Due on due Goal Dietary manageme nt education, guidance, and counseling completed Goal Depression scree fermin. Due on due Goal Influenza vaccin e. Due on due Goal Pneumococcal vaccine due Goal Depression scree fermin. Due on due Goal Influenza vaccin e. Due on due Goal Pneumococcal vaccine due Goal Dietary manageme nt education, guidance, and counseling completed Goal Pneumococcal vaccine due Goal Influenza vaccin e. Due on due Goal Depression scree fermin. Due on due Goal Dietary manageme nt education, guidance, and counseling completed Goal Depression scree fermin. Due on due Goal Pneumococcal vaccine due Goal Influenza vaccin e. Due on due Goal Dietary manageme nt education, guidance, and counseling completed Goal Depression scree fermin. Due on due Goal Pneumococcal vaccine due Goal Influenza vaccin e. Due on due Goal Dietary manageme nt education, guidance, and counseling completed Goal Depression scree fermin. Due on due Goal Influenza vaccin e. Due on due Goal Pneumococcal vaccine due Goal Dietary manageme nt education, guidance, and counseling completed Goal Pneumococcal vaccine due Goal Influenza vaccin e. Due on due Goal Depression scree fermin. Due on due Goal Dietary manageme nt education, guidance, and counseling completed Goal Influenza vaccin e. Due on due Goal Depression scree fermin. Due on due Goal Pneumococcal vaccine due Goal Dietary manageme nt education, guidance, and counseling completed Goal Influenza vaccin e. Due on due Goal Pneumococcal vaccine due Goal Depression scree fermin. Due on due Goal Influenza vaccin e. Due on due Goal Depression scree fermin. Due on due Goal Pneumococcal vaccine due Goal Dietary manageme nt education, guidance, and counseling completed Goal Influenza vaccin e. Due on due Goal Depression scree fermin. Due on due Goal Pneumococcal vaccine due Goal Dietary manageme nt education, guidance, and counseling completed Goal Dietary manageme nt education, guidance, and counseling completed Goal Dietary manageme nt education, guidance, and counseling completed Goal Dietary manageme nt education, guidance, and counseling completed Goal Dietary manageme nt education, guidance, and counseling completed Goal Tobacco cessation counseling completed Goal Dietary manageme nt education, guidance, and counseling completed Goal Dietary manageme nt education, guidance, and counseling completed Goal Dietary manageme nt education, guidance, and counseling completed Goal Dietary manageme nt education, guidance, and counseling completed Goal Dietary manageme nt education, guidance, and counseling completed Goal Dietary manageme nt education, guidance, and counseling completed Goal Dietary manageme nt education, guidance, and counseling completed Goal Dietary manageme nt education, guidance, and counseling completed Goal Dietary manageme nt education, guidance, and counseling completed Goal Dietary manageme nt education, guidance, and counseling completed Goal Dietary manageme nt education, guidance, and counseling completed Goal Tobacco cessation counseling completed Goal Dietary manageme nt education, guidance, and counseling completed Goal Tobacco cessation counseling completed Goal Dietary manageme nt education, guidance, and counseling completed Goal Tobacco cessation counseling completed Goal Dietary manageme nt education, guidance, and counseling completed Goal Dietary manageme nt education, guidance, and counseling completed Goal Dietary manageme nt education, guidance, and counseling completed Goal Dietary manageme nt education, guidance, and counseling completed Goal Dietary manageme nt education, guidance, and counseling completed Goal Dietary manageme nt education, guidance, and counseling completed Goal Dietary manageme nt education, guidance, and counseling completed Goal Dietary manageme nt education, guidance, and counseling completed Goal Dietary manageme nt education, guidance, and counseling completed Goal Dietary manageme nt education, guidance, and counseling completed Goal Dietary manageme nt education, guidance, and counseling completed Goal Dietary manageme nt education, guidance, and counseling completed Goal Dietary manageme nt education, guidance, and counseling completed Goal Dietary manageme nt education, guidance, and counseling completed Goal Tobacco cessation counseling completed Goal Dietary manageme nt education, guidance, and counseling completed Goal Dietary manageme nt education, guidance, and counseling completed Goal Dietary manageme nt education, guidance, and counseling completed Goal Dietary manageme nt education, guidance, and counseling completed Goal Dietary manageme nt education, guidance, and counseling completed Goal Dietary manageme nt education, guidance, and counseling completed Goal Dietary manageme nt education, guidance, and counseling completed Goal Dietary manageme nt education, guidance, and counseling completed Goal Dietary manageme nt education, guidance, and counseling completed Goal Dietary manageme nt education, guidance, and counseling completed Goal Dietary manageme nt education, guidance, and counseling completed Goal Dietary manageme nt education, guidance, and counseling completed Goal Dietary manageme nt education, guidance, and counseling completed Goal Dietary manageme nt education, guidance, and counseling completed Goal Dietary manageme nt education, guidance, and counseling completed Goal Dietary manageme nt education, guidance, and counseling completed Goal Dietary manageme nt education, guidance, and counseling completed Referral Ordered: OB OB LIMITED, FETUS(S) FHT ordered Referral Ordered: OB TRANSVAGINAL US, OBSTETRIC ordered Referral Referred To: Santiago Chandandiamante [address] [place], [address] [phone] Ordered: Referrals: ENT. Santiago Gallardo. Evaluate and treat Appointment date/timeframe: 05/12/2019 ordered Referral Referred To: Shiraz Trinidad [address] [place] [address], [address] [phone] Ordered: Referrals: Surgery. Shiraz Trinidad. Evaluate and treat Appointment date/timeframe: 05/07/2019 ordered Referral Ordered: US ABDOM, COMPLETE ordered Referral Referred To: XRay Department [address], [address] [phone] Ordered: Referrals: Diagnostic Radiology. XRay Department [facility] Appointment date/timeframe: 04/15/2019 ordered Referral Referred To: Radiology Department [facility] [address] [place], [address] [phone] Ordered: Referrals: Diagnostic Radiology. Radiology Department [facility]. Evaluate and treat Appointment date/timeframe: 01/30/2019 ordered Referral Referred To: Bull Hoskins [address] [facility] [place], [place], [id number] [phone] Ordered: Referrals: Allopathic & Osteopathic Physicians : Family Medicine. Bull Hoskins. Evaluate and treat Appointment date/timeframe: 02/02/2019 ordered Referral Referred To: [facility] Ordered: Referrals: Physical Therapist/Independent. [facility]. Location: [place]. Consult Appointment date/timeframe: 11/25/2018 ordered Referral Ordered: CR KNEE, COMPLETE 4 VIEWS Bilateral ordered Referral Ordered: US SINGLE ORGAN Gallbladder ordered Referral Referred To: Ted Frausto [address] [place], [address] [phone] Ordered: Referrals: ENT. Ted Frausto. Consult Appointment date/timeframe: 03/10/2018 ordered Referral Ordered: CR SINUSES 3 OR MORE VIEWS ordered Referral Referred To: Santiago Gallardo [address] [place], [address] [phone] Ordered: Referrals: ENT. Santiago Gallardo. Consult Appointment date/timeframe: 08/28/2017 ordered Referral Referred To: XR Department [address], [address] [phone] Ordered: [facility] Appointment date/timeframe: 09/06/2017 ordered Referral Ordered: US SINGLE ORGAN ordered Referral Referred To: Shiraz Trinidad [address] [place] [address] [phone] Ordered: Referrals: Surgery. Shiraz Trinidad. Consult Appointment date/timeframe: 08/27/2017 ordered Referral Ordered: CR KNEE 3 VIEWS Right ordered Referral Ordered: CR L-SPINE OBLIQUE 4 VIEWS ordered Referral Referred To: Nelson Shelley [address], [place], [id number] [phone] Ordered: Referrals: Cardiology. Nelson Shelley. Evaluate and treat ordered Referral Referred To: Hua Joyce [address] [place], [address] [phone] Ordered: Referrals: Orthopedic Surgery. Hua Joyce. Consult Appointment date/timeframe: 06/23/2014 ordered Referral Ordered: CR KNEE 3 VIEWS Left ordered Referral Referred To: XRay Department [address], [address] [phone] Ordered: [facility] Diagnostic testing Appointment date/timeframe: 05/31/2014 ordered Referral Ordered: CR SHOULDER 2 VIEW Right ordered Referral Ordered: CR FLAT AND UPRIGHT/PA CHEST ordered Referral Ordered: Referral: Allergy/Immun. Appointment date/timeframe: 07/05/2011 ordered Future Order: Radiology Order OB ABD ([id number]), Ordered on: Ordered Future Order: Lab Order Vaginal Group B Strep ([id number]), Scheduled for: , Collected on: , Scheduled for: Sent Future Order: Radiology Order OB OB LIMITED, FETUS(S) ([id number]), Ordered on: Ordered Future Order: Radiology Order OB OB LIMITED, FETUS(S) ([id number]), Ordered on: Ordered History Of Present Illness Encounter Date Complaint History Of Prese nt Illness routine routine routine routine routine routine routine early IUP LMP 04/16patient is on prometrium BID d/t hx of SABpatient c/o nausea. will send RX for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 ears, itchy eyes, itchy throat, post nasal drainage, reddened eyes, sneezing and watery eyes that began recently. Symptoms are constant, severe and worsening. The symptoms are felt to be related to exposure to dust, exposure to mold and season change. The patient has a history of asthma. The allergic symptoms are worsened by dry air, dust, heat, pets / animals, season change and tobacco smoke. Symptoms are improved with allergy meds and weather change. The patient is also experiencing coryza, cough, ear pain, hoarseness, nasal congestion, nasal drainage, pharyngitis, post nasal drainage, reddened eyes and sneezing. Cold symptoms Onset: 1 Month a go. The symptoms are persistent. Symptoms are associated with exposure to strep, history of allergies, sick contacts at school and sick family member. Denies aggravating factors. Denies relieving factors. Associated symptoms include cough, decreased appetite, difficulty sleeping, facial pain, fatigue, headache, nasal congestion, postnasal drainage (clear), rhinitis and sputum (yellow). Pertinent negatives include fever. Additional information: was given abx 1 month ago never took them all 3 days ago started coughing/congestion. cough The patient desc ribes the cough as hacking and productive (of clear sputum). The problem has not changed. Context: allergies and sick family member. Symptoms are aggravated by lying down. There are no relieving factors. Associated symptoms include cough, post-nasal drainage and sore throat. Pertinent negatives include chills, dyspnea, dyspnea on exertion, epistaxis, fatigue, fever, heartburn, hemoptysis, hoarseness, nasal congestion, night sweats, pleuritic pain, rhinitis, rhinorrhea, sinus pressure, weight loss and wheezing. Additional information: Pt also with nausea from thick post nasal drainage. Palpitations Onset: on 2014. Severity: mild. There is no radiation. The patient describes it as pressure. It occurs occasionally. The problem is resolved. Context: rest. Denies aggravating factors. Denies relieving factors. Additional information: awoke on night with palpations and pressure and again on Sat went to ER had normal EKG also having stressful situation with friend ear ache sore throat Onset: 2 Days ag o. The severity of the problem is mild and has worsened. Pain scale: 4/10. The symptoms are persistent. Symptoms are associated with history of allergies and recent cold. Symptoms are not associated with exposure to strep, history of asthma, recent travel, sick contacts at daycare, sick contacts at school or sick family member. Aggravating factors include cold air. Symptoms are not aggravated by allergens, exertion, lying down or smoke. Denies relieving factors. Associated symptoms include difficulty sleeping, facial pain, fatigue, headache, nasal congestion and postnasal drainage. Pertinent negatives include chills/rigors, cough, decreased appetite, decreased fluid intake, decreased urine output, dyspnea, fever, hemoptysis, myalgia, otalgia, pharyngitis, rash, rhinitis, sinus pressure, sputum, tooth pain and wheezing. Flu-like symptoms The symptoms b sven suddenly. The symptoms have worsened. The patient presents with chills, cough, earache, fatigue, fever, generalized weakness, headache, nausea, pharyngitis and lightheaded today at school. The patient does not present with vomiting. Risk factors include medication(s) (Amoxicillin since 06/24) and sick contacts (home). The self denies any aggravating factors. Interventions that have been tried have not provided any relief. The illness is associated with change in appetite, change in sleep cycle, dizziness and lightheadedness. Additional information: Was seen by [facility] on 06/24 and had Strep throat and was given Amoxicillin and has been taking since, today feels worse and fatique w/dizziness and fever was sent home from school d/t to symptoms/complinats. Earache Onset: 3 Days. T he pain is located in the right ear. The severity of the problem is moderate. Pain scale: 5/10. The problem has worsened. The symptoms are random. Symptoms are associated with recent URI/cold. Aggravating factors include lying down and sneezing. Symptoms are not aggravated by coughing. Associated symptoms include dizziness, ear popping, ear pressure and nasal congestion. Pertinent negatives include bleeding from ear(s), cough, ear drainage, external ear redness/swelling, fever, hearing loss, nausea, tooth pain or vomiting. left knee pain Onset: 3 days ag o. Severity level is 10. It occurs constantly and is worsening. Location: left knee. The pain is aching, burning and sharp. Context: there is an injury and sports injury (trampoline at home). The pain is aggravated by bending, climbing (and descending) stairs, movement and walking. There are no relieving factors. Flu-like symptoms The symptoms b sven 3 days ago and began suddenly. The symptoms have worsened. The symptoms occur constantly. The patient presents with arthralgia, chills, cough, earache, fatigue, fever, headache, myalgia, nausea and pharyngitis. The patient does not present with abdominal pain, back pain or vomiting. Risk factors include sick contacts (school). The self denies any aggravating factors. Interventions that have been tried have not provided any relief. The self denies any associated symptoms. Additional information: Was seen in clinic 2 days ago, had labs and xrays done and given abx, no better, declines further iv therapy today. Sinus symptoms (acute) RT KNEE PAIN Cough Onset: sudden. S everity: moderate. The patient's grandmother describes the cough as hacking, persistent and productive (of yellow sputum). It occurs persistently. The problem has become gradually worse. Context: COPD and exercise. Symptoms are aggravated by exertion and stress. Relieving factors include bronchodilators and decongestants. Associated symptoms include dyspnea on exertion. Pertinent negatives include chills, cough, dyspnea, epistaxis, fatigue, fever, heartburn, hemoptysis, hoarseness, nasal congestion, night sweats, pleuritic pain, post-nasal drainage, rhinitis, sinus pressure, sore throat, weight loss and wheezing. Sore throat RT FOOT PAIN WARTS ON LEFT HAND AND LEFT FOOT Follow Up of WARTS O N LEFT HAND AND LEFT FOOT RT FOOT PAIN abdominal pain The problem has worsened. The symptoms are constant. The location is diffuse. The patient's mother reports radiation to the back. The quality of the pain is colicky. These symptoms occur after meals. These symptoms do not occur after bowel movement, with menses and on urination. Symptoms are not aggravated by alcohol, anxiety, bowel movement or constipation. Symptoms are not relieved by analgesics, antacids, bowel movement, change in position, eructation or flatus. Associated symptoms include back pain and nausea. Pertinent negatives include bloating, blood in stool, change in appetite and constipation. wart removal Wart(s) The patient pres ents with Wart(s). The problem is severe and improving. Area(s) affected include: left hand and right foot. The symptoms are associated with history of prior warts. The symptoms are not associated with close contact with warts. Risk factors include young age. Risk factors exclude immunosuppression. Aggravating factors include activity, clothing and trauma. The problem has not been managed with imiquimod or OTC products. Pertinent negatives include activity limitations or bleeding lesions. wart on finger Lesion(s) The problem is m oderate and has not changed. The lesion(s) have been previously treated with cryosurgery. The patient reports no prior history of skin cancer. Risk factors do not include greater than 5 sunburns. Aggravating factors do not include clothing or cosmetics. The patient's grandmother reports no change in size and shape of the mole(s). Instructions Date Instruction Additional Infor mation Prescribed activity/exercise edu cation Related to Body mass index (BMI) 40.0-44.9, adult Dietary management e ducation, guidance, and counseling Related to Body mass index (BMI) 40.0-44.9, adult Prescribed activity/exercise edu cation Related to Prescribed Activity/Exercise Counseling Dietary management e ducation, guidance, and counseling Related to Dietary Surveillance and Counseling Prescribed activity/exercise edu cation Related to Prescribed Activity/Exercise Counseling Dietary management e ducation, guidance, and counseling Related to Dietary Surveillance and Counseling Prescribed activity/exercise edu cation Related to Prescribed Activity/Exercise Counseling Dietary management e ducation, guidance, and counseling Related to Dietary Surveillance and Counseling Prescribed activity/exercise edu cation Related to Prescribed Activity/Exercise Counseling Dietary management e ducation, guidance, and counseling Related to Dietary Surveillance and Counseling Prescribed activity/exercise edu cation Related to Prescribed Activity/Exercise Counseling Dietary management e ducation, guidance, and counseling Related to Dietary Surveillance and Counseling Prescribed activity/exercise edu cation Related to Prescribed Activity/Exercise Counseling Dietary management e ducation, guidance, and counseling Related to Dietary Surveillance and Counseling TVUS shows a GS but no yolk sac. pt wants to start prometrium due to progesterone dropping. repeated progesterone today. rtc in 1 week for US. Related to Amenorrhea Prescribed activity/exercise edu cation Related to Prescribed Activity/Exercise Counseling Dietary management e ducation, guidance, and counseling Related to Dietary Surveillance and Counseling pt was stung by wasp on right hand, causing last 2 fingers to swell and be itchy Related to Bee sting reaction, undetermined intent, initial encounter Prescribed activity/exercise edu cation Related to Prescribed Activity/Exercise Counseling Dietary management e ducation, guidance, and counseling Related to Dietary Surveillance and Counseling Prescribed activity/exercise edu cation Related to Prescribed Activity/Exercise Counseling Dietary management e ducation, guidance, and counseling Related to Dietary Surveillance and Counseling Patient evaluated by telehealth, patient instructed to RTC clinic or visit ER if symptoms progress, persist, or worsen.Take medications as instructed. Scheduled follow up as instructed. Patient is evaluated by phone only due to lack of internet access. Patient has consented for telehealth. Related to COVID-19 jeremi removed, follow up prn R elated to Laceration of skin of scalp, initial encounter Prescribed activity/exercise edu cation Related to Prescribed Activity/Exercise Counseling Dietary management e ducation, guidance, and counseling Related to Dietary Surveillance and Counseling Patient evaluated by telehealth, patient instructed to RTC clinic or visit ER if symptoms progress, persist, or worsen.Take medications as instructed. Scheduled follow up as instructed. Patient has consented for telehealth. Related to COVID-19 Due to concerns/fear s of SARS-COV2 and patient's inability to do video conferencing (pt does not have internet or a device to download the [employer]), a phone conference was conducted for this encounter.Pt to be treated with the Covid-19 special Related to Exposure to COVID-19 virus Discussed medication . Inst to complete entire course of antibiotics. Enc to do salt water gargles. Tylenol OTC prn for fever and pain. Diet as daniel Enc oral fluids. Return to clinic if no improvement. Cefdinir 300 mg po bid x 10 days. advised on Flonase and use of allergy medication. 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 ANBX sent to pharmacy Related to Dysfunction of both eustachian tubes Discussed medication . Inst to complete entire course of antibiotics. Enc to do salt water gargles. Tylenol OTC prn for fever and pain. Diet as daniel Enc oral fluids. Return to clinic if no improvement. Cefdinir 300 mg po bid x 10 daysTessalon Perles 100 mg po tid prnAdvised to RTC if symptoms persist or worsen Related to Acute bronchitis, unspecified Dietary management e ducation, guidance, and counseling Related to Dietary Surveillance and Counseling Prescribed activity/exercise edu cation Related to Prescribed Activity/Exercise Counseling advised to take medi cation daily at same time, if skipped dose may take 2 one day, but if skipped more than 2 days, need to use other protection and restart after period. Related to Oral contraceptive prescribed FLU negative Related to Cough Prescribed activity/exercise edu cation Related to Prescribed Activity/Exercise Counseling Dietary management e ducation, guidance, and counseling Related to Dietary Surveillance and Counseling RX sent to pharmacy, Related to Recurrent acute serous otitis media of both ears Prescribed activity/exercise edu cation Related to Prescribed Activity/Exercise Counseling Dietary management e ducation, guidance, and counseling Related to Dietary Surveillance and Counseling Prescribed activity/exercise edu cation Related to Prescribed Activity/Exercise Counseling Dietary management e ducation, guidance, and counseling Related to Dietary Surveillance and Counseling preg test negative, patient is scheduled for upper GI tomorrow, but says she dont know if she will have it done. Advised she needs to have it. Meds sent to pharmacy Related to Nausea Prescribed activity/exercise edu cation Related to Prescribed Activity/Exercise Counseling Dietary management e ducation, guidance, and counseling Related to Dietary Surveillance and Counseling anbx injection given in clinic, advised to not pick at it. RTC if no better in 3 days Related to Tattoo reaction Patient given lien rose advice on benefits of physical activity Related to Prescribed Activity/Exercise Counseling Dietary management e ducation, guidance, and counseling Related to Dietary Surveillance and Counseling anbx, and mucinex sent to [facility] Related to Unspecified nonsuppurative otitis media, bilateral crutches rx provided today as well as excuse for school to use elevator NSAID and rest/elevation and continue to wear brace Related to Acute meniscal tear of left knee, subsequent encounter Patient given lien rose advice on benefits of physical activity Related to Prescribed Activity/Exercise Counseling Dietary management e ducation, guidance, and counseling Related to Dietary Surveillance and Counseling Prescribed activity/exercise edu cation Related to Prescribed Activity/Exercise Counseling Dietary management e ducation, guidance, and counseling Related to Dietary Surveillance and Counseling Patient given lien rose advice on benefits of physical activity Related to Prescribed Activity/Exercise Counseling Dietary management e ducation, guidance, and counseling Related to Dietary Surveillance and Counseling Keflex 500 mg po BID x 7 daysPyridum 100 mg po TId/PRN for pain increase water intake no soda/caffiene drinksMay use OTC Tylenol and Motrin as directed for fever and pain controlReturn to clinic if within 24-48 hours symptoms have not improved or worsen Related to Urinary tract infection, site unspecified Prescribed activity/exercise edu cation Related to Prescribed Activity/Exercise Counseling Dietary management e ducation, guidance, and counseling Related to Dietary Surveillance and Counseling Rx cream to affected area, keep C & D, if sx do not improve RTC Related to Superficial burn of left lower leg, initial encounter Prescribed activity/exercise edu cation Related to Prescribed Activity/Exercise Counseling Dietary management e ducation, guidance, and counseling Related to Dietary Surveillance and Counseling Exercises education, guidance, and counseling Related to Prescribed Activity/Exercise Counseling Dietary management e ducation, guidance, and counseling Related to Dietary Surveillance and Counseling Dietary management e ducation, guidance, and counseling Related to Dietary Surveillance and Counseling Patient given lien rose advice on benefits of physical activity Related to Prescribed Activity/Exercise Counseling po cefdinir, im roce phin and depomedrol. continue allergy meds Related to Acute otitis media, unspecified otitis media type Prescribed activity/exercise edu cation Related to Prescribed Activity/Exercise Counseling Dietary management e ducation, guidance, and counseling Related to Dietary Surveillance and Counseling Patient given lien rose advice on benefits of physical activity Related to Prescribed Activity/Exercise Counseling Dietary management e ducation, guidance, and counseling Related to Dietary Surveillance and Counseling Omnicef 300 mg po BI D x 6 daysxyzal and singular daily Saline nasal spray/flush as directed for congestion May use OTC Tylenol and Motrin as directed for fever and pain controlReturn to clinic if within 24-48 hours symptoms have not improved or worsen Related to Acute non-recurrent maxillary sinusitis Prescribed activity/exercise edu cation Related to Prescribed Activity/Exercise Counseling Dietary management e ducation, guidance, and counseling Related to Dietary Surveillance and Counseling pt UTD on vaccinatio ns. She voices no complaints. Related to Encntr for routine child health exam w/o abnormal findings Patient given lien rose advice on benefits of physical activity Related to Prescribed Activity/Exercise Counseling Dietary management e ducation, guidance, and counseling Related to Dietary Surveillance and Counseling change abx to cefdin irsymptom and fever controlencourage rest and hydrationRTC if not better or worse Related to Acute non-recurrent maxillary sinusitis Exercises education, guidance, and counseling Related to Prescribed Activity/Exercise Counseling Dietary management e ducation, guidance, and counseling Related to Dietary Surveillance and Counseling Exercises education, guidance, and counseling Related to Prescribed Activity/Exercise Counseling Dietary management e ducation, guidance, and counseling Related to Dietary Surveillance and Counseling flu A/B negative, Co nt tylenol as needed. In crease water intake fu as needed. Related to Flu-like symptoms Added Augmentin. ref illed xyzal. fu 1week Related to Acute non-recurrent maxillary sinusitis strep negative. Related to Acute pharyngitis, unspecified Prescribed activity/exercise edu cation Related to Prescribed Activity/Exercise Counseling Dietary management e ducation, guidance, and counseling Related to Dietary Surveillance and Counseling Dietary management e ducation, guidance, and counseling Related to Dietary Surveillance and Counseling Exercises education, guidance, and counseling Related to Prescribed Activity/Exercise Counseling Prescribed activity/exercise edu cation Related to Prescribed Activity/Exercise Counseling Dietary management e ducation, guidance, and counseling Related to Dietary Surveillance and Counseling Prescribed activity/exercise edu cation Related to Prescribed Activity/Exercise Counseling Dietary management e ducation, guidance, and counseling Related to Dietary Surveillance and Counseling Exercises education, guidance, and counseling Related to Prescribed Activity/Exercise Counseling Dietary management e ducation, guidance, and counseling Related to Dietary Surveillance and Counseling Patient given lien rose advice on benefits of physical activity Related to Prescribed Activity/Exercise Counseling Dietary management e ducation, guidance, and counseling Related to Dietary Surveillance and Counseling Exercises education, guidance, and counseling Related to Prescribed Activity/Exercise Counseling Dietary management e ducation, guidance, and counseling Related to Dietary Surveillance and Counseling Doxycyline 100 mg po BID x 7 dayscontinue Xyzal and Singular daily Saline nasal spray/flush as directed for congestion May use OTC Tylenol and Motrin as directed for fever and pain controlReturn to clinic if within 24-48 hours symptoms have not improved or worsen Related to Acute serous otitis media, bilateral Patient given lien rose advice on benefits of physical activity Related to Prescribed Activity/Exercise Counseling Dietary management e ducation, guidance, and counseling Related to Dietary Surveillance and Counseling resume Medrol dose p k as directedAlbuterol Neb QID PRN for cough/wheezingcomplete abx as previously prescribed if symptoms dont improve or worsen rtc Related to Unspecified asthma, uncomplicated Prescribed activity/exercise edu cation Related to Prescribed Activity/Exercise Counseling Dietary management e ducation, guidance, and counseling Related to Dietary Surveillance and Counseling conitnue abx until g oneadd tessalon perlesalbuterol nebs PRNcontinue allergy medsmedrol eddie as directedif not better in 3-5 days RTC, if difficulty breathing go to ER. Related to URI, acute Dietary management e ducation, guidance, and counseling Related to Dietary Surveillance and Counseling Prescribed activity/exercise edu cation Related to Prescribed Activity/Exercise Counseling Keflex 500 mg po BID x 7 daysMay use OTC Tylenol and Motrin as directed for fever and pain controlReturn to clinic if within 24-48 hours symptoms have not improved or worsen Related to Acute recurrent sinusitis, unspecified Exercises education, guidance, and counseling Related to Prescribed Activity/Exercise Counseling Dietary management e ducation, guidance, and counseling Related to Dietary Surveillance and Counseling see intake note. FU 1 month for further evaluation Related to Mood swings Dietary management e ducation, guidance, and counseling Related to Dietary Surveillance and Counseling Prescribed activity/exercise edu cation Related to Prescribed Activity/Exercise Counseling Exercises education, guidance, and counseling Related to Prescribed Activity/Exercise Counseling Dietary management e ducation, guidance, and counseling Related to Dietary Surveillance and Counseling Keflex 500 mg po BID x 7 daysSaline nasal spray/flush as directed for congestion May use OTC Tylenol and Motrin as directed for fever and pain controlReturn to clinic if within 24-48 hours symptoms have not improved or worsen Related to Acute serous otitis media, right ear Prescribed activity/exercise edu cation Related to Prescribed Activity/Exercise Counseling Dietary management e ducation, guidance, and counseling Related to Dietary Surveillance and Counseling Prescribed activity/exercise edu cation Related to Prescribed Activity/Exercise Counseling Dietary management e ducation, guidance, and counseling Related to Dietary Surveillance and Counseling Added Debrox x 5 days fu 1 week Related to Excessive cerumen in right ear canal added Keflex x 7 day s. Cont Xyzal and claritin as prescribed by ENT. Cont Motrin as needed. FU 1 week Related to Acute sinusitis, unspecified Dietary management e ducation, guidance, and counseling Related to Dietary Surveillance and Counseling Patient given lein rose advice on benefits of physical activity Related to Prescribed Activity/Exercise Counseling Omnicef 300 mg po BI D finish as directed add Medrol dose pk as directedTylenol and Motrin as directed for fever and pain controlReturn to clinic if symptoms worsen or don't improve Related to Acute recurrent sinusitis, unspecified Prescribed activity/exercise edu cation Related to Prescribed Activity/Exercise Counseling Dietary management e ducation, guidance, and counseling Related to Dietary Surveillance and Counseling added cefdinir bid x 7 days. Cont xyzal and singulair daily. fu 1 week Related to Acute serous otitis media, right ear Patient given lien rose advice on benefits of physical activity Related to Prescribed Activity/Exercise Counseling Dietary management e ducation, guidance, and counseling Related to Dietary Surveillance and Counseling Patient given lien rose advice on benefits of physical activity Related to Prescribed Activity/Exercise Counseling Dietary management e ducation, guidance, and counseling Related to Dietary Surveillance and Counseling Protonix 20 mgpo onc e in am Zantac 150 mg po once in pm RTC Wed for gB ultrasound and ov bland/dry food no fast food/fried foods if symptoms dont improve will refer for EGD/UGI Related to Gastroesophageal reflux disease without esophagitis Prescribed activity/exercise edu cation Related to Prescribed Activity/Exercise Counseling Dietary management e ducation, guidance, and counseling Related to Dietary Surveillance and Counseling continue Xyzal 5 mg po once nightly add Nasonex daily Related to Allergic rhinitis, unspecified Singular 10 mg po on ce nightly continue Xyzal 5 mg poo once nightly Albuterol neb QID PRN for coughif symptoms dont improve RTC we discussed Dr Mita bonilla for further work up Related to Mild intermittent asthma without complication Prescribed activity/exercise edu cation Related to Prescribed Activity/Exercise Counseling Dietary management e ducation, guidance, and counseling Related to Dietary Surveillance and Counseling Zithromax 250 mg po as directed first dose in am w/foodear drops to left ear x 7 days Mucinex 600 mg po BID dosing x 5 days if symptoms dont improve RTC Related to Unspecified nonsuppurative otitis media, left ear Prescribed activity/exercise edu cation Related to Prescribed Activity/Exercise Counseling Dietary management e ducation, guidance, and counseling Related to Dietary Surveillance and Counseling Omnicef 300 mg po BI D x 10 daysXyzal 5 mg po daily with refillsFlonase nasal spray daily Saline nasal spray/flush as directed for congestion May use OTC Tylenol and Motrin as directed for fever and pain controlReturn to clinic if within 24-48 hours symptoms have not improved or worsen Related to Acute sinusitis, unspecified Dietary management e ducation, guidance, and counseling Related to Dietary Surveillance and Counseling Patient given lien rose advice on benefits of physical activity Related to Prescribed Activity/Exercise Counseling Ibuprofen 600 mg po TID/PRN for pain/swellingelevation/rest/ice w/swelling pain Knee immoblizer w/ambulation/activity Related to Acute pain of right knee Prescribed activity/exercise edu cation Related to Prescribed Activity/Exercise Counseling Dietary management e ducation, guidance, and counseling Related to Dietary Surveillance and Counseling Prescribed activity/exercise edu cation Related to Prescribed activity/exercise education Dietary management e ducation, guidance, and counseling Related to Dietary Surveillance and Counseling Added Francisco leung as n eeded . Related to Cough Co t Cefdinir x 4 more days. FU 1 week Related to Acute serous otitis media, right ear Stop xyzal Added Zyr baylee daily x 1 month then re evaluate. Related to Allergic rhinitis, unspecified Prescribed activity/exercise edu cation Related to Prescribed activity/exercise education Dietary management e ducation, guidance, and counseling Related to Dietary Surveillance and Counseling continue Keflex 500 mg po BID as previously prescribedXyzal 10 mg po daily with refillssuggestion of using Mucinex if congestion/coughExcedrin Sinus for headacheSaline nasal spray/flush as directed for congestion May use OTC Tylenol and Motrin as directed for fever and pain controlReturn to clinic if within 24-48 hours symptoms have not improved or worsen Related to Acute sinusitis, unspecified Patient given lien rose advice on benefits of physical activity Related to Prescribed activity/exercise education Dietary management e ducation, guidance, and counseling Related to Dietary Surveillance and Counseling Added Augmentin. Refilled xyzal Related to Acute sinusitis, unspecified Added Debrox drops fu next week Related to Excessive cerumen in right ear canal Prescribed activity/exercise edu cation Related to Prescribed activity/exercise education Dietary management e ducation, guidance, and counseling Related to Dietary Surveillance and Counseling Added Ibuprofen 600mg as needed. Related to Nonintractable headache, unspecified chronicity pattern, unspecified headache type Added Lamisil cream daily x 7 days. Advised pt not to braid hair and go to bed with it wet. FU 1 week Related to Ringworm of body Added Augmentin x 7 days. Added Ibuprofen as needed, Cont Flonase and Xyzal daily. FU 1 week Related to Acute sinusitis, unspecified discussed fasting gl ucose result today WNL 90suggestion of once daily MDV age specific well balance diet/no soda/sugar energy drinks RTC PRN Related to Encounter for routine child health examination without abnormal findings Dietary management e ducation, guidance, and counseling Related to Dietary Surveillance and Counseling Oral Health Discussed (15-21 yea rs) Related to Encntr for routine child health exam w/o abnormal findings Age appropriate anti cipatory guidance discussed (15-21 years) Related to Encntr for routine child health exam w/o abnormal findings Age appropriate diet discussed (15-21 years) Related to Encntr for routine child health exam w/o abnormal findings Prescribed activity/exercise edu cation Related to Prescribed activity/exercise education Dietary management e ducation, guidance, and counseling Related to Dietary Surveillance and Counseling Patient given lien rose advice on benefits of physical activity Related to Prescribed activity/exercise education RX given , MacrobidH ydrate with at least 1-2 L water dailyF/u with PCP next week for recheck,Needs C & S n/a here today. Related to Urinary tract infection, site unspecified Injections todayFlex eril, NSAIDs forpain/spasmWarm, moist heating padF/u next week for recheck with PCP Related to Left-sided low back pain with left-sided sciatica, unspecified chronicity Exercises education, guidance, and counseling Related to Prescribed activity/exercise education Dietary management e ducation, guidance, and counseling Related to Dietary Surveillance and Counseling Continue Xyzal 5 mg po once nightly may use OTC Dimetap Allergy for congestion x 5 daysif symptoms wosen RTC Related to Seasonal allergic rhinitis due to pollen Prescribed activity/exercise edu cation Related to Prescribed activity/exercise education Dietary management e ducation, guidance, and counseling Related to Dietary Surveillance and Counseling Prescribed activity/exercise edu cation Related to Prescribed activity/exercise education Dietary management e ducation, guidance, and counseling Related to Dietary Surveillance and Counseling Omnicef 250/5 mL 6mL po BID x 10 daysMucinex DM as directedcontinue Xyzal 5 mg po daily with refillsTylenol and Motrin as directed for fever and pain controlReturn to clinic if symptoms worsen or don't improve Related to URI, acute Prescribed activity/exercise edu cation Related to Prescribed activity/exercise education Dietary management e ducation, guidance, and counseling Related to Dietary Surveillance and Counseling Nov-11-2015 medication as prescr ibed. RTC for new or worsening symptoms Related to URI, acute Prescribed activity/exercise edu cation Related to Prescribed activity/exercise education Dietary management e ducation, guidance, and counseling Related to Dietary Surveillance and Counseling Referral to [facility] no[facility] for eval mom has appt with Moncho today is going to ask if he sees kids..if so referral to his office for appt for eval and holter monitor EKG from ER Related to Palpitations Vistaril 25 mg po BI D if makes her sleepy use once daily may take PRN for anxiety return to clinic if symptoms worsen or dont improve Related to Anxiety attack Dietary management e ducation, guidance, and counseling Related to Dietary Surveillance and Counseling Prescribed activity/exercise edu cation Related to Prescribed activity/exercise education Dietary management e ducation, guidance, and counseling Related to Body Mass Index, pediatric, 85th percentile to less than 95th percentile for age Change Abx to Augmen tin Q 8 hrs x 10 daysAdd Tamiflu start in am if fever persist todayIncrease water intake gave Pedialyte Rehydration packets Motrin/Tylenol as needed for fever/pain controlGave school excuse for today and tomorrow and encourged to increase water intake and rtc if symptoms worsen or dont improve Related to Pharyngitis Dietary management e ducation, guidance, and counseling Related to Body Mass Index, pediatric, greater than or equal to 95th percentile for age Prescribed activity/exercise edu cation Related to Body Mass Index, pediatric, greater than or equal to 95th percentile for age Had MRI 06/01/14 Menis chase tear of Left kneeAppt w/Dr Gillis for brace provided Related to Acute meniscal tear of left knee Amoxicillin 500 mg p o Q 8 hrs x 10 daysRTC if symptoms worsen or dont improve Related to OME (otitis media with effusion) Xyzal and Singular daily Related to Allergic rhinitis, cause unspecified Xyzal 5 mg po daily as previously prescribedSingular 5 mg po daily added today Related to Asthma Ibuprofen 600 mg po TID provided todayEncourged to rest/ice/elevate and we will call with MRI appt f/u 2 days after appt to discuss results and further plan of careRTC if symptoms worsen or dont improve Related to Knee sprain and strain Prescribed activity/exercise edu cation Related to Body Mass Index, pediatric, greater than or equal to 95th percentile for age Dietary management e ducation, guidance, and counseling Related to Body Mass Index, pediatric, greater than or equal to 95th percentile for age increase fluids and rest, bland diet, advance as tolerated Related to Nausea alone continue abx as prev iously prescribed, motrin prn for body aches or fever, rtc if no better Related to Acute sinusitis, unspecified Dietary management e ducation, guidance, and counseling Related to Body Mass Index, pediatric, greater than or equal to 95th percentile for age Prescribed activity/exercise edu cation Related to Body Mass Index, pediatric, greater than or equal to 95th percentile for age Patient given lien rose advice on benefits of physical activity Related to Body Mass Index, pediatric, greater than or equal to 95th percentile for age Dietary management e ducation, guidance, and counseling Related to Body Mass Index, pediatric, greater than or equal to 95th percentile for age Dietary management e ducation, guidance, and counseling Related to Obesity, unspecified Prescribed activity/exercise edu cation Related to Obesity, unspecified Prescribed activity/exercise edu cation Related to Body Mass Index, pediatric, greater than or equal to 95th percentile for age Dietary management e ducation, guidance, and counseling Related to Body Mass Index, pediatric, greater than or equal to 95th percentile for age Dietary management e ducation, guidance, and counseling Related to Body Mass Index, pediatric, 5th percentile to less than 85th percentile for age Prescribed activity/exercise edu cation Related to Body Mass Index, pediatric, 5th percentile to less than 85th percentile for age Assessments Type Assessment Date assessment Body mass index (BMI) 40.0-44.9, adult assessment Dietary surveillance and correctional counselor ing assessment Prescribed Activity/Exercise Cou nseling assessment Normal in third trimes ter Mental Status Date Cognitive Assessment Orientation - Mystic ed to time, place, person, situation.
--- OUTSIDE RECORDS SUMMARY | 2024-12-18 14:11 | XMS_ITS | Clinical Summary ---
[facility] [address] [place] [address] Care Team Providers Care Diesel Power Shovel Operator Name Role Phone Provider, No Known Primary [...] with a HCV Nucleic Acid Amplification test ([id number]). RPR Non Reactive Non Reactive [facility] [...] 11/15/2020 2:40 PM EDT 11/15/2020 Narrative [facility] (AMBULATORY) - 11/17/2020 1:08 PM EDT Performed at: - [address] [id number] Streetsweeper Operator: Martin Kaur PhD, Phone: [phone] Patient Fasting: N us Stacy Farrell APRN LAB BLOOD ORDERABLES Final Result Performing Organization Address City/State/[facility] Co de Phone Number [facility] (AMBULATORY) [address] [place] [address], [facility] [address] [place] [address], * Chlamydia trachomatis, Neisseria gonorrhoeae, PCR w/ confirmation - Urine, Urine, Clean Catch (11/15/2020 2:40 PM EDT) Chlamydia trachomatis, MERLINE Negative Negative [facility] Neisseria gonorrhoeae, MERLINE Negative Negative [facility] Urine Urine specimen collection, clean catch / Unknown 11/15/2020 2:40 PM EDT 11/15/2020 Comment: CD- [id number] Narrative [facility] ([facility]) - 11/17/2020 1:08 PM EDT Performed at: 03 - [address] [id number] Streetsweeper Operator: Amanda Dooley MD, Phone: [phone] Patient Fasting: N us Stacy Farrell APRN MICROBIOLOGY - GENERAL ORD ERABLES Final Result [facility] ([facility]) [address] [place] [address], [place] [phone] [facility] [address] [place] [address], from Last 3 Months or Most Recently Relevant to Health Maintenance Insurance Care Teams Diesel Power Shovel Operator Relationship Specialty Start Date End Date Provider, No Known [facility] [place] [address] PCP - General 10/21/20
[2024-12-18 14:45] VITALS: BP 120/77; PULSE 95; RESP 19; TEMP 36.9; O2SAT 99; BMI 40.2
[2024-12-18 15:00] LABS: Microscopic, Urine URINE MICROSCOPIC (MICROSCOPIC)
[2024-12-18 15:03] LABS: Bilirubin,Urine Negative (Negative); Color,Urine YELLOW (Yellow); Glucose,Urine (UA) Negative (Negative); Ketones,Urine Negative (Negative); Leukocyte Esterase,Urine Negative (Negative); PH,Urine 6.0 (5.0-8.5); Protein,Urine Negative (Negative); Specific Gravity, Urine 1.025 (1.005-1.030); Urobilinogen,Urine 1.0 EU/dl (0.2)
[2024-12-18 15:22] LABS: Bacteria,Urine 2+ /lpf
[2024-12-18] MEDS: LACTATED RINGERS 1000ML 1,000 ML 999 ML IV (15:24)
[2024-12-18] MEDS: TERBUTALINE SULFATE 1MG/ML VIAL 0.25 MG SUBCUT (16:02)
[2024-12-18] MEDS: BETAMETHASONE ACET/PHOS 6MG/ML 5ML MDV 12 MG IM (16:11)
--- NOTE | 2024-12-18 16:16 | P.HP_ITS ---
History of Present Illness *Admission Date: 12/18/24 *Reason for visit:: contractions *History of present illness: Annita Mahan is a 24-year-old G2, P1 at 35 weeks and 1 day gestation who presented to labor and delivery with regular painful contractions. Her has been uncomplicated. She endorses good movement, denies any vaginal bleeding or leakage of fluid. Patient reports she had a full-term normal spontaneous vaginal delivery with her last . Denies any history of contractions with this or the previous . She does state that she has been receiving care from us as well as another hospital in [facility]. Reports that she had a visit with them yesterday and they did a growth ultrasound as well as her GBS, these records were requested. States she has not been sexually active in several months. R eports that the contractions have been going on for about an hour. A+, antibody negative, rubella immune, hepatitis B negative, hepatitis C negative, RPR negative, HIV negative 1 hour GTT: 136 GBS pending [facility] Disclaimer: The information contained in this section may have been updated after the patient was seen, as this information can be updated by other users. Medical History Muscle spasm Vaginal discharge during Pelvic cramping in antepartum period Tachycardia Dizziness Shortness of breath Headache Maternal obesity affecting , antepartum Unspecified skin changes Vaginal odor Anxiety Spontaneous Surgical History No significant past surgical history Family History Other No significant family history Social History Smoking Status: Never smoker alcohol intake: never substance use type: denies use current occupational status: unemployed Travel in the last 8 weeks?: None Have you lived/traveled outside US in past 30 days?: No Contact w/someone who lives/traveled outside US past 30 days?: No Exposure to someone with infectious disease in past 14 days?: No Do you have a fever (greater than 100.4 F or 38 C)?: No Have you tested positive for COVID-19?: No Exposed to someone with COVID-19 in past 14 days?: No Do you have a sore throat?: No Do you have a cough?: No Do you have any weakness?: No Do you have any diarrhea?: No Are you experiencing any unusual bleeding?: No Do you have any muscle aches/pain?: No Do you have any abdominal pain?: No Are you experiencing loss of taste or smell?: No Other Medical History Have you received the Flu Vaccine for this season: No Have you received the Pneumonia Vaccine: No Review of Systems Review of Systems Review of systems (narrative): Review of Systems Constitutional: Denies fever, chills, and sweats Eyes: Denies vision change/ pain Respiratory: Denies cough and shortness of breath Cardiovascular: Denies chest pain and lightheadedness Gastrointestinal: Admits abdominal pain with contractions. Denies nausea, vomiting. Genitourinary: Denies dysuria and incontinence Musculoskeletal: Denies shoulder pain and back pain Neurological: Denies change in speech or headaches Meds Home Medications and Allergies Home Medications ?Medication ?Instructions ?Recorded ?Confirmed ?Type vits no.126-ferrous fum tab PO DAILY 08/14/24 12/10/24 History 28 mg iron-folic acid 800 mcg tablet (Classic ) ferrous sulfate 325 mg (65 mg 325 mg PO DAILY #30 tabs 10/12/24 12/10/24 Rx iron) tablet cyclobenzaprine 5 mg tablet 5 mg PO BID PRN muscle spa sm #20 11/26/24 12/10/24 Rx tabs New Prescriptions to Start Prescriptions: Allergies Allergy/AdvReac Type Severity Reaction Status Date / Time No Known Allergies Allergy Verified 12/10/24 15:45 Exam Data for Last 24 hours Vital signs and Labs for Last 24 Hours: Laboratory Results - last 24 hr 12/18/24 14:20: Urine Color Yellow, Urine Appearance Clear, Urine pH 6.0, Ur Specific [place] 1.025, Urine Protein Negative, Urine Glucose (UA) Negative, Urine Ketones Negative, Urine Blood Negative, Urine Nitrate Negative, Urine Bilirubin Negative, Urine Urobilinogen 1.0, Ur Leukocyte Esterase Negative, Urine WBC 10-20, Ur Squamous Epith Cells 5-10, Urine Bacteria 2+ Narrative: General: patient is alert oriented in no acute distress and responds familia ropriately to questions. HEENT: NCAT, EOMI, moist mucous membranes, neck supple with full ROM Cardiovascular: RRR +S1/S2, no murmurs or rubs Pulmonary: Clear to auscultation bilaterally, nonlabored breathing, symmetric chest rise Abdominal: Gravid abdomen appropriate for gestation. No guarding, rebound, or tenderness noted. Extremities: trace edema, no tenderness or cyanosis noted Skin: Normal turgor, intact, warm. Negative for erythema, pallor, petechia, or lesions Neurologic: Negative for sensory or motor deficit Psychiatric: Normal affect, normal thought process, good judgment and insight, no depression or anxious mood appreciated. *Routine HEENT Exam Head: Present normocephalic and atraumatic Eye: Present EOMI, PERRL and normal accommodation; Absent conjunctival icterus, scleral injection, nystagmus or exophthalmos ENT: Present mucous membranes moist *Routine Respiratory Exam Respiratory: Present CTA bilaterally, normal respiratory effort, able to speak in complete sentences and symmetric chest movement; Absent accessory muscle use, decreased breath sounds, rales, respiratory distress, wheezes, distant breath sounds or diminished air movement *Routine Cardiovascular Exam Cardiovascular: Present RRR, Normal S1 and Normal S2; Absent murmur or gallop *Routine Abdominal Exam Abdominal: Present soft and normoactive bowel sounds; Absent tenderness, distended, rebound or guarding *Routine Rectal Exam Rectal:: deferred *Routine Genitalia Exam Genitalia:: normal female Assessment and Plan *Assessment and plan (1) contractions: Status: Acute Category: Medical Code(s): O47.00 - False labor before 37 completed weeks of gestation, unspecified trimester Plan #35 weeks and 1 day gestation # contractions - Monitor vitals - Admit to L&D for induction of labor labor monitoring - External FHR and TOCO monitor - Exam on admission: /-3 - GBS pending/ Blood type: A+ - Given that the patient is we will start and continue GBS prophylaxis with penicillin G [id number] - Hemoglobin and plt: Pending - S/p terbutaline for tocolysis - Status post 1 L bolus for tocolysis - Screening with UA for UTI that may be causing uterine irritability
[2024-12-18 16:37] LABS: Hematocrit 35.9 % (37.0-47.0); Hemoglobin 10.9 g/dL (12.2-16.2); Immature Granulocytes % 1.0 %; Mean Corpuscular HGB Conc 30.4 g/dL (31.8-35.4); Mean Corpuscular Hemoglobin 24.1 pg (27.0-31.2); Mean Corpuscular Volume 79.4 fl (81-99); Nucleated Red Blood Cells % 0 %; Platelet Count 302 K/mm3 (142-424); Red Blood Count 4.52 M/mm3 (4.20-5.40); Red Cell Distribution Width-SD 46.3 fL; White Blood Count 14.5 K/mm3 (4.8-10.8)
[2024-12-18] MEDS: AMPICILLIN SODIUM 2 GM in 0.9 % SODIUM CHLORIDE 100 ML IV (16:38)
[2024-12-18] MEDS: MORPHINE 5 MG/ML IM (19:33)
[2024-12-18] MEDS: PROMETHAZINE HCL 25MG/ML 1ML VIAL 25 MG IV (19:37)
[2024-12-18] MEDS: SODIUM CHLORIDE 0.9% 25ML BAG 25 ML IV (19:38)
[2024-12-18] MEDS: LACTATED RINGERS 1000ML 1,000 ML 125 ML IV (20:00)
[2024-12-18 21:13] LABS: Albumin Level 3.2 g/dl (3.5-5.0); Chloride 105 mmol/L (98-107); Potassium 3.8 mmoL/L (3.5-5.1); Sodium 132 mmol/L (136-145)
[2024-12-18 21:16] LABS: Alanine Aminotransferase 8 U/L (12-78); Albumin/Globulin Ratio 1.0 (1.1-1.8); Alkaline Phosphatase 135 U/L (38-126); Amylase 54 U/L (30-110); Anion Gap 7.8 mEq/L (5-15); Aspartate Amino Transferase 17 U/L (14-36); Bilirubin,Total 0.2 mg/dl (0.2-1.3); Blood Urea Nitrogen 3 mg/dl (7-17); Calcium 8.4 mg/dl (8.4-10.2); Carbon Dioxide 23 mmol/L (22.0-30.0); Creatinine Clearance Estimated 345 mL/min (50-200); Creatinine,Serum 0.40 mg/dl (0.52-1.04); Estimated Glomerular Filt Rate 198 ml/min (>60); GFR (African American) 239 ML/MIN (>60); Globulin 3.1 g/dL (1.3-3.2); Glucose 118 mg/dl (74-100); Lipase 35 U/L (23-300); Total Protein,Serum 6.3 g/dl (6.3-8.2)
[2024-12-18] MEDS: AMPICILLIN SODIUM 1 GM in 0.9 % SODIUM CHLORIDE 50 ML IV (21:20)
[2024-12-18] MEDS: BUTORPHANOL TARTRATE 1 MG/ML VIAL IV (21:50)
[2024-12-19] MEDS: AMPICILLIN SODIUM 1 GM in 0.9 % SODIUM CHLORIDE 50 ML IV ×2 (00:58→04:55)
[2024-12-19] MEDS: LACTATED RINGERS 1000ML 1,000 ML 125 ML IV ×2 (06:05→16:50)
--- NOTE | 2024-12-19 08:46 | EXP.PN ---
Subjective *Date: 12/19/24 *Time: 09:07 Interval history: Annita is a pleasant 24-year-old G2, P1 at 35 weeks and 2 day gestation, hospital day #2. She is doing well this morning. States she does have some back pain which may be secondary to laying in the hospital bed and would like to try and sit in the chair. She endorses good movement but does state that she is still having some pelvic pressure/contractions. Denies any vaginal bleeding or leakage of fluid Exam Data for Last 24 hours Vital signs and Labs for Last 24 Hours: Temp Pulse Resp BP Pulse Ox O2 Del Method 98.4 F 95 H 19 120/77 99 Room Air 12/18/24 14:45 12/18/24 14:45 12/18/24 14:45 12/18/24 14:45 12/18/24 14:45 12/18/24 14:45 Laboratory Results - last 24 hr 12/18/24 14:20: Urine Color Yellow, Urine Appearance Clear, Urine pH 6.0, Ur Specific [place] 1.025, Urine Protein Negative, Urine Glucose (UA) Negative, Urine Ketones Negative, Urine Blood Negative, Urine Nitrate Negative, Urine Bilirubin Negative, Urine Urobilinogen 1.0, Ur Leukocyte Esterase Negative, Urine WBC 10-20, Ur Squamous Epith Cells 5-10, Urine Bacteria 2+ 12/18/24 16:15: WBC 14.5 H, RBC 4.52, Hgb 10.9 L, Hct 35.9 L, MCV 79.4 L, MCH 24.1 L, MCHC 30.4 L, RDW 16.1, Plt Count 302, MPV 9.5, Neut % (Auto) 72.8, Lymph % (Auto) 18.4, [place] % (Auto) 6.4, Eos % (Auto) 1.1, Baso % (Auto) 0.3, Neut # (Auto) 10.5 H, Lymph # (Auto) 2.7, [place] # (Auto) 0.9, Eos # (Auto) 0.2, Baso # (Auto) 0.1, Blood Type A Positive, Antibody Screen Negative 12/18/24 21:00: Sodium 132 L, Potassium 3.8, Chloride 105, Carbon Dioxide 23, Anion Gap 7.8, BUN 3 L, Creatinine 0.40 L, Estimated Creat Clear 345 H, Estimated GFR 198, Est GFR ( Amer) 239, Glucose 118 H, Calcium 8.4, Total Bilirubin 0.2, AST 17, ALT 8 L, Alkaline Phosphatase 135 H, Total Protein 6.3, Albumin 3.2 L, Globulin 3.1, Albumin/Globulin Ratio 1.0 L, Amylase 54, Lipase 35 I & O for Last 24 hours: Intake & Output 12/16/24 12/17/24 12/18/24 12/19/24 23:59 23:59 23:59 23:59 Weight 220 lb Constitutional Constitutional: no acute distress *Routine HEENT Exam Head: Present normocephalic Eye: Present EOMI and PERRL ENT: Present mucous membranes moist *Routine Neck Exam Neck: Present supple; Absent lymphadenopathy *Routine Respiratory Exam Respiratory: Present CTA bilaterally *Routine Cardiovascular Exam Cardiovascular: Present RRR *Routine Abdominal Exam Abdominal: Present soft and normoactive bowel sounds; Absent tenderness *Routine Extremities Exam Extremities: Absent cyanosis, clubbing or edema *Routine Skin Exam Skin: Present warm; Absent rash *Routine Neurological Exam Neurological: Present alert and oriented X3 Assessment and Plan *Assessment and plan (1) contractions: Status: Acute Category: Medical Code(s): O47.00 - False labor before 37 completed weeks of gestation, unspecified trimester Plan #35 weeks and 1 day gestation # contractions - Monitor vitals - External FHR and TOCO monitor - Exam on admission: /3. remained unchanged over several cervical exams - GBS pending/ Blood type: A+ - Hemoglobin: 10.9, platelets: 302 - S/p terbutaline for tocolysis - Status post several Ls of fluids - Screening with UA for UTI that may be causing uterine irritability Patient will remain admitted for observation at this time The office is closed she is due for her second dose of steroids today around 1600 She will remain on the monitor to monitor her heart rate and contraction pattern With shared decision making we elected to discontinue the ampicillin at this time and we will restart it if increased signs or suspicion for active labor The patient does live in [place] up 30 minutes away and states it would be difficult to get back to the hospital in an emergency Requesting growth US from 35wks, pt reports infant weighed 6+ lbs
[2024-12-19 10:02] LABS: Mean Corpuscular HGB Conc 30.7 g/dL (31.8-35.4); Nucleated Red Blood Cells % 0 %
[2024-12-19 10:05] LABS: Hematocrit 31.3 % (37.0-47.0); Immature Granulocytes % 1.1 %; Mean Corpuscular Hemoglobin 24.1 pg (27.0-31.2); Mean Corpuscular Volume 78.6 fl (81-99); Platelet Count 314 K/mm3 (142-424); Red Blood Count 3.98 M/mm3 (4.20-5.40); Red Cell Distribution Width-SD 45.8 fL; White Blood Count 17.0 K/mm3 (4.8-10.8)
[2024-12-19 10:06] LABS: Hemoglobin 9.6 g/dL (12.2-16.2)
--- NOTE | 2024-12-19 10:14 | HMH.PHAINT1 ---
Pharmacy Intervention Comments: MEDICATION RECONCILIATION COMPLETED ON PATIENT USING EXTERNAL FILL HISTORY FROM PHARMACY. -TIGIST DAMON, ODELLD
[2024-12-19 11:03] LABS: RPR W/RFX Titers Nonreactive (Nonreactive)
--- NOTE | 2024-12-19 11:16 | US_ITS ---
PROCEDURE INFORMATION: Exam: US Retroperitoneal, Complete, Kidneys, Aorta, IVC. Exam date and time: 12/19/2024 12:39 PM Age: 24 years old Clinical indication: Abdominal pain; Flank; Left upper quadrant (luq); ; 35 wks pain not assosciated with contrctions; Additional info: Severe back pain TECHNIQUE: Imaging protocol: Real-time ultrasound of the retroperitoneum with image documentation. Complete exam focused on the bilateral kidneys, aorta, and inferior vena cava. COMPARISON: US OB >= 14 WEEKS FETUS 09/04/2024 10:58 AM FINDINGS: Right kidney: Right kidney measures 10.7 x 5.4 x 7.6 cm. Moderate pyelocaliectasis noted. No sonographically evident nephrolithiasis Left kidney: Left kidney measures 10.3 x 4.8 x 6.1 cm. No sonographically evident nephrolithiasis or hydroureteronephrosis. Aorta: Normal. No aneurysm. Common iliac arteries: Normal. Inferior vena cava: Normal. IMPRESSION: Moderate right pyelocaliectasis attributable to extrinsic compression from gravid uterus.
[2024-12-19] MEDS: BETAMETHASONE ACET/PHOS 6MG/ML 5ML MDV 12 MG IM (11:29)
[2024-12-19] MEDS: CEFTRIAXONE 1 GM 1 GM in 0.9 % SODIUM CHLORIDE 50 ML IV (16:50)
[2024-12-19] MEDS: ACETAMINOPHEN 500MG TAB 1000 MG PO (19:35)
[2024-12-20 07:23] LABS: Hematocrit 28.2 % (37.0-47.0); Immature Granulocytes % 1.6 %; Mean Corpuscular HGB Conc 29.8 g/dL (31.8-35.4); Mean Corpuscular Hemoglobin 23.8 pg (27.0-31.2); Mean Corpuscular Volume 79.9 fl (81-99); Nucleated Red Blood Cells % 0 %; Platelet Count 265 K/mm3 (142-424); Red Blood Count 3.53 M/mm3 (4.20-5.40); Red Cell Distribution Width-SD 46.5 fL; White Blood Count 16.0 K/mm3 (4.8-10.8)
[2024-12-20 08:10] LABS: Hemoglobin 8.4 g/dL (12.2-16.2)
[2024-12-20] MEDS: FERROUS SULFATE 325MG TABLET 325 MG PO (08:55)
--- NOTE | 2024-12-20 11:53 | P.DS_ITS ---
General Admission date:: 12/18/24 Discharge date: 12/20/24 HPI HPI HPI: Annita Mahan is a 24-year-old G2, P1 at 35 weeks and 1 day gestation who presented to labor and delivery with regular painful contractions. Her has been uncomplicated. She endorses good movement, denies any vaginal bleeding or leakage of fluid. Patient reports she had a full-term normal spontaneous vaginal delivery with her last . Denies any history of contractions with this or the previous . She does state that she has been [facility]. Reports that she had a visit with them yesterday and they did a growth ultrasound as well as her GBS, these records were requested. States she has not been sexually active in several months. Reports that the contractions have been going on for about an hour. A+, antibody negative, rubella immune, hepatitis B negative, hepatitis C negative, RPR negative, HIV negative 1 hour GTT: 136 GBS pending Hospital Course Hospital Course Hospital Course: Annita Mahan is a 24-year-old who was admitted to the hospital on Saturday at 12/18/2024 for contractions. With her admission she was started on GBS prophylaxis because was charted that her cervix had went from 1-1 and half centimeters and felt thinner and softer. Her contractions seem to improve overnight. She did receive a course of betamethasone while she was admitted for lung maturity after a thorough risk-benefit discussion. She received 1 dose of terbutaline on the . On the she complained of some flank pain and was treated for suspected pyelonephritis. She has remained afebrile for the entirety of her hospital stay. The patient received several cervical exams during her hospital stay all of which were unchanged. She has had some care in [facility] and states that they did a growth scan and GBS on her she will request these records for Dr. Montague. She plans to deliver here at [facility] and will see Dr. Montague in 1 week's time Exam Data for Last 24 hours Vital signs and Labs for Last 24 Hours: Temp Pulse Resp BP Pulse Ox O2 Del Method 98.4 F 95 H 19 120/77 99 Room Air 12/18/24 14:45 12/18/24 14:45 12/18/24 14:45 12/18/24 14:45 12/18/24 14:45 12/18/24 14:45 Laboratory Results - last 24 hr 12/20/24 06:50: WBC 16.0 H, RBC 3.53 L, Hgb 8.4 L D, Hct 28.2 L, MCV 79.9 L, MCH 23.8 L, MCHC 29.8 L, RDW 16.1, Plt Count 265, MPV 9.7, Neut % (Auto) 79.3, Lymph % (Auto) 12.8, [place] % (Auto) 6.2, Eos % (Auto) 0.0 L, Baso % (Auto) 0.1, Neut # (Auto) 12.7 H, Lymph # (Auto) 2.1, [place] # (Auto) 1.0, Eos # (Auto) 0.0, Baso # (Auto) 0.0 I & O for Last 24 hours: Intake & Output 12/17/24 12/18/24 12/19/24 12/20/24 23:59 23:59 23:59 23:59 Output Total 1100 / 1100 1300 / 1300 Balance -1100 / -1100 -1300 / -1300 Weight 220 lb Microbiology Reports for the Last 24 Hours: Microbiology 12/18/24 14:20 Urine,Clean Catch Urine Culture - Final Multiple organisms, suggests contamination. Constitutional Constitutional: no acute distress *Routine HEENT Exam Head: Present normocephalic Eye: Present EOMI and PERRL ENT: Present mucous membranes moist *Routine Neck Exam Neck: Present supple; Absent lymphadenopathy *Routine Respiratory Exam Respiratory: Present CTA bilaterally *Routine Cardiovascular Exam Cardiovascular: Present RRR *Routine Abdominal Exam Abdominal: Present soft and normoactive bowel sounds; Absent tenderness *Routine Extremities Exam Extremities: Absent cyanosis, clubbing or edema Routine Back/Spine/Pelvis Exam Back/Spine: Present full ROM; Absent CVA tenderness (CVAT completely resolved ), paraspinal tenderness, vertebral tenderness or muscle spasm *Routine Skin Exam Skin: Present warm; Absent rash *Routine Neurological Exam Neurological: Present alert and oriented X3 Results Data Completed and Pending Labs on day of discharge: Labs from last 24 hours 12/20/24 06:50 WBC 16.0 H RBC 3.53 L Hgb 8.4 L D Hct 28.2 L MCV 79.9 L MCH 23.8 L MCHC 29.8 L RDW 16.1 Plt Count 265 MPV 9.7 Neut % (Auto) 79.3 Lymph % (Auto) 12.8 [place] % (Auto) 6.2 Eos % (Auto) 0.0 L Baso % (Auto) 0.1 Neut # (Auto) 12.7 H Lymph # (Auto) 2.1 [place] # (Auto) 1.0 Eos # (Auto) 0.0 Baso # (Auto) 0.0 DS: Diagnosis Discharge Diagnosis (1) contractions: Status: Acute Code(s): O47.00 - False labor before 37 completed weeks of gestation, unspecified trimester Meds Home Medications and Allergies Home Medications ?Medication ?Instructions ?Recorded ?Confirmed ?Type vits no.126-ferrous fum 1 tab PO DAILY 12/19/24 History 28 mg iron-folic acid 800 mcg tablet (Classic ) ferrous sulfate 325 mg (65 mg 325 mg PO DAILY #30 tabs 10/12/24 12/19/24 Rx iron) tablet New Prescriptions to Start Prescriptions: Allergies Allergy/AdvReac Type Severity Reaction Status Date / Time No Known Allergies Allergy Verified 12/10/24 15:45 Discharge Plan Disposition Patient Disposition: Home, Self-Care Condition: Good Discharge Order Discharge Orders: Discharge Order (Routine); Ordered 12/20/24 Ordered By: Isela Bragg Follow up Plan Follow up with: Isela Bragg DO [Staff Physician, ENERGY CONSULTANT] - Enter time for follow up Prescriptions/Medication Reconciliation: Continued Classic 28 mg iron- 800 mcg tablet 1 tab PO DAILY ferrous sulfate 325 mg (65 mg iron) tablet 325 mg PO DAILY Qty: 30 0RF Discontinued cyclobenzaprine 5 mg tablet 5 mg PO BIDP PRN (Reason: muscle spasm) Problem Reconciliation Problems Reviewed?: Yes Patient Discharge Instructions ACTIVITY: Continue current activity DIET: regular diet Additional Instructions: Please return to labor and delivery for contractions, increased abdominal pain, decreased movement, leakage of fluid, or vaginal bleeding Print Language: Omani Providers Primary Care Provider: Provider,Referral Admit Provider: Isela Bragg Attending Provider: Isela Bragg
== END 2024-12-20 14:05 | disposition home or self-care (01) | DRG 832 ==
LOC: OBOUT 17:06 → OB 17:06
PROVIDERS: Admitting Provider Obstetrics & Gynecology; Visit Provider Obstetrics & Gynecology
DX: O47.03 False labor before 37 completed weeks of gestation, third trimester (principal); O23.03 Infections of kidney in pregnancy, third trimester; Z3A.35 35 weeks gestation of pregnancy
CPT/HCPCS: 36415; 59025; 76770; 80053; 81001; 82150; 83690; 85025; 86592; 86850; 87086; 96360; 96372; G0463; J0290; J0595; J0696; J0702; J2270; J2550; J3105; J7120

== ENCOUNTER 2025-01-02 23:10 | Observation (INO) | payer MEDICAID, SELFPAY ==
--- OUTSIDE RECORDS SUMMARY | 2025-01-02 21:00 | XMS_ITS | Clinical Summary ---
[facility] Address [address] [place] [address] Care Team Providers Care Hedis Abstractor Name Role Phone Provider, No Known Primary [...] with a HCV Nucleic Acid Amplification test ([id number]). RPR Non Reactive Non Reactive [facility] [...] 11/15/2020 2:40 PM EDT 11/15/2020 Narrative [facility] (AMBULATORY) - 11/17/2020 1:08 PM EDT Performed at: - [address] [id number] Nailing Machine Feeder: Martin Kaur PhD, Phone: [phone] Patient Fasting: N us Stacy Farrell APRN LAB BLOOD ORDERABLES Final Result Performing Organization Address City/State/[facility] Co de Phone Number [facility] (AMBULATORY) [address] [place] [address], [facility] [address] [place] [address], * Chlamydia trachomatis, Neisseria gonorrhoeae, PCR w/ confirmation - Urine, Urine, Clean Catch (11/15/2020 2:40 PM EDT) Chlamydia trachomatis, MERLINE Negative Negative [facility] Neisseria gonorrhoeae, MERLINE Negative Negative [facility] Urine Urine specimen collection, clean catch / Unknown 11/15/2020 2:40 PM EDT 11/15/2020 Comment: CD- [id number] Narrative [facility] ([facility]) - 11/17/2020 1:08 PM EDT Performed at: [address] - [address] [id number] Nailing Machine Feeder: Amanda Dooley MD, Phone: [phone] Patient Fasting: N us Stacy Farrell APRN MICROBIOLOGY - GENERAL ORD ERABLES Final Result [facility] ([facility]BULAT[facility]) [address] [place] [address], [place] [phone] [facility] [address] [place] [address], from Last 3 Months or Most Recently Relevant to Health Maintenance Insurance Care Teams Hedis Abstractor Relationship Specialty Start Date End Date Provider, No Known [facility] [address] PCP - General 10/21/20
[2025-01-02 21:11] VITALS: BMI 40.6
[2025-01-02 21:21] VITALS: BMI 40.6
[2025-01-02] MEDS: LACTATED RINGERS 1000ML 1,000 ML 999 ML IV ×2 (21:45→22:27)
[2025-01-02 21:47] LABS: Microscopic, Urine URINE MICROSCOPIC (MICROSCOPIC)
[2025-01-02 21:48] LABS: Fetal Membrane Rupture (Rapid) Negative (Negative)
[2025-01-02] MEDS: ACETAMINOPHEN 500MG TAB 1000 MG PO (22:00)
[2025-01-02 23:09] LABS: Bilirubin,Urine Negative (Negative); Color,Urine YELLOW (Yellow); Glucose,Urine (UA) Negative (Negative); Ketones,Urine TRACE (Negative); Leukocyte Esterase,Urine Negative (Negative); PH,Urine 6.0 (5.0-8.5); Protein,Urine Negative (Negative); Specific Gravity, Urine >= 1.030 (1.005-1.030); Urobilinogen,Urine 1.0 EU/dl (0.2)
[2025-01-02 23:13] LABS: RBC,Urine Occasional #/hpf (0-3); WBC,Urine Occasional #/hpf (0-3)
[2025-01-02 23:14] LABS: Bacteria,Urine 2+ /lpf; Calcium Oxalate Crystals,Urine 1+ /lpf; Squamous Epithelial Cell,Urine 20-50 #/hpf (0-5)
[2025-01-02] MEDS: BUTORPHANOL TARTRATE 1 MG/ML VIAL IV (23:37)
[2025-01-03] MEDS: LACTATED RINGERS 1000ML 1,000 ML 125 ML IV (00:30)
--- NOTE | 2025-01-03 08:52 | HMH.PHAINT1 ---
Pharmacy Intervention Comments: MEDICATION RECONCILIATION COMPLETED ON PATIENT USING EXTERNAL FILL HISTORY FROM PHARMACY. -TIGIST DAMON, ODELLD
--- NOTE | 2025-01-03 10:45 | EXP.HPDC ---
General Admission date:: 01/02/25 Discharge date: 01/03/25 *Admission Date: 01/03/25 *Chief complaint: Contractions, pelvic pressure *History of present illness: Mrs Annita Mahan is a 24 yo at 37w3d who presented to [facility] L&D for painful contractions and pelvic pressure. She also admits to feeling more wet. She admits she was walking around [facility] yesterday. Baby is active. No vaginal bleeding. Cervical exam was /-2. Urine showed dehydration. Amnisure was negative. She was melani frequently. She has had good care. [facility] Disclaimer: The information contained in this section may have been updated after the patient was seen, as this information can be updated by other users. Medical History Muscle spasm Vaginal discharge during Pelvic cramping in antepartum period Tachycardia Dizziness Shortness of breath Headache Maternal obesity affecting , antepartum Unspecified skin changes Vaginal odor Anxiety Spontaneous Surgical History No significant past surgical history Family History Other No significant family history Social History (Updated 01/03/25 @ 08:18 by Nataliia Castle RN) Smoking Status: Never smoker alcohol intake: never substance use type: denies use current occupational status: employed Travel in the last 8 weeks?: None do you feel safe at home: Yes victim of physical abuse: No victim of emotional abuse: No victim of sexual abuse: No Have you lived/traveled outside US in past 30 days?: No Contact w/someone who lives/traveled outside US past 30 days?: No Exposure to someone with infectious disease in past 14 days?: No Do you have a fever (greater than 100.4 F or 38 C)?: No Have you tested positive for COVID-19?: No Exposed to someone with COVID-19 in past 14 days?: No Do you have a sore throat?: No Do you have a cough?: No Do you have any weakness?: No Are you experiencing any nausea/vomitting?: No Do you have any diarrhea?: No Are you experiencing any unusual bleeding?: No Do you have any muscle aches/pain?: No Do you have any abdominal pain?: No Are you experiencing loss of taste or smell?: No Other Medical History Have you received the Flu Vaccine for this season: No Have you received the Pneumonia Vaccine: No Review of Systems Review of Systems Review of systems:: pertinent systems reviewed and negative unless documented below *Genitourinary Comments: + contractions and pelvic pressure Exam Data for Last 24 hours Vital signs and Labs for Last 24 Hours: Laboratory Results - last 24 hr 01/02/25 21:20: Membrane Rupture Negative 01/02/25 21:30: Urine Color Yellow, Urine Appearance Clear, Urine pH 6.0, Ur Specific [place] >= 1.030, Urine Protein Negative, Urine Glucose (UA) Negative, Urine Ketones Trace, Urine Blood Negative, Urine Nitrate Negative, Urine Bilirubin Negative, Urine Urobilinogen 1.0, Ur Leukocyte Esterase Negative, Urine RBC Occasional, Urine WBC Occasional, Ur Squamous Epith Cells 20-50, Calcium Oxalate Crystal 1+, Urine Bacteria 2+ I & O for Last 24 hours: Intake & Output 12/31/24 01/01/25 01/02/25 01/03/25 23:59 23:59 23:59 23:59 Weight 222 lb Constitutional Constitutional: no acute distress, obese and cooperative *Routine HEENT Exam Head: Present normocephalic and atraumatic Eye: Absent conjunctivae pink ENT: Present mucous membranes moist *Routine Neck Exam Neck: Present full ROM *Routine Respiratory Exam Respiratory: Present CTA bilaterally and normal respiratory effort *Routine Cardiovascular Exam Cardiovascular: Present RRR *Routine Abdominal Exam Abdominal: Present soft (Gravid); Absent tenderness *Routine Rectal Exam Rectal:: deferred *Routine Genitalia Exam Genitalia:: normal female *Routine Extremities Exam Extremities: Present full ROM; Absent edema or calf tenderness *Routine Neurological Exam Neurological: Present alert, moving all extremities and normal speech Routine Psychiatric Exam Psychiatric: Present normal affect and cooperative Meds Home Medications and Allergies Home Medications ?Medication ?Instructions ?Recorded ?Confirmed ?Type vits no.126-ferrous fum 1 tab PO DAILY 08/14/24 01/03/25 History 28 mg iron-folic acid 800 mcg tablet (Classic ) ferrous sulfate 325 mg (65 mg 325 mg PO DAILY #30 tabs 08/01/25 08/10/25 Rx iron) tablet cyclobenzaprine 5 mg tablet 5 mg PO TID PRN muscle spasm #30 01/03/25 Rx tabs New Prescriptions to Start Prescriptions: cyclobenzaprine Laurel Montague Allergies Allergy/AdvReac Type Severity Reaction Status Date / Time No Known Allergies Allergy Verified 01/01/25 13:53 Hospital Course Hospital Course Hospital Course: Mrs Annita Mahan is a 24 yo at 37w3d who presented to [facility] L&D for painful contractions and pelvic pressure. She also admits to feeling more wet. She admits she was walking around [facility] yesterday. Baby is active. No vaginal bleeding. Cervical exam was /-2. Urine showed dehydration. Amnisure was negative. She was melani frequently. She has had good care. She received IV fluids, Tylenol and Stadol x 1 dose. She was monitored overnight. Cervical exam unchanged this morning. Contractions have decreased to irregular, occasional with some irritability. NST category 1. She continued to complain of pelvic pressure and back pain. Flexeril 5 mg PO given and script sent to her pharmacy. She was discharged home with instructions to follow-up in the office this week. Results Data Completed and Pending Labs on day of discharge: Labs from last 24 hours 01/02/25 01/02/25 21:30 21:20 Urine Color Yellow Urine Appearance Clear Urine pH 6.0 Ur Specific [place] >= 1.030 Urine Protein Negative Urine Glucose (UA) Negative Urine Ketones Trace Urine Blood Negative Urine Nitrate Negative Urine Bilirubin Negative Urine Urobilinogen 1.0 Ur Leukocyte Esterase Negative Urine RBC Occasional Urine WBC Occasional Ur Squamous Epith Cells 20-50 Calcium Oxalate Crystal 1+ Urine Bacteria 2+ Membrane Rupture Negative DS: Diagnosis Discharge Diagnosis (1) contractions: Status: Acute Code(s): O47.00 - False labor before 37 completed weeks of gestation, unspecified trimester (2) Maternal obesity affecting , antepartum: Status: Acute Code(s): O99.210 - Obesity complicating , unspecified trimester Qualifiers: Obesity type affecting : unspecified obesity Qualified Code(s): O99.210 - Obesity complicating , unspecified trimester (3) History of fourth degree perineal laceration: Status: Acute Code(s): Z87.59 - Personal history of other complications of , childbirth and the puerperium Discharge Plan Disposition Patient Disposition: Home, Self-Care Condition: Good Follow up Plan Follow up with: Laurel Montague DO [Staff Physician, FINANCE MANAGER] - 1 week Prescriptions/Medication Reconciliation: New cyclobenzaprine 5 mg tablet 5 mg PO TID PRN (Reason: muscle spasm) Qty: 30 0RF Continued Classic 28 mg iron- 800 mcg tablet 1 tab PO DAILY ferrous sulfate 325 mg (65 mg iron) tablet 325 mg PO DAILY Qty: 30 5RF Problem Reconciliation Problems Reviewed?: Yes Patient Discharge Instructions ACTIVITY: Continue current activity DIET: continue same diet and regular diet Print Language: Italian Providers Primary Care Provider: Provider,Referral Admit Provider: Laurel Montague Attending Provider: Laurel Montague
[2025-01-03] MEDS: CYCLOBENZAPRINE 10MG TABLET 5 MG PO (11:11)
== END 2025-01-03 11:17 | disposition home or self-care (01) ==
LOC: OBOUT 23:10 → OB 23:13
PROVIDERS: Admitting Provider Obstetrics & Gynecology; Visit Provider Obstetrics & Gynecology
DX: O47.00 False labor before 37 completed weeks of gestation, unspecified trimester (principal); O99.213 Obesity complicating pregnancy, third trimester; Z87.59 Personal history of other complications of pregnancy, childbirth and the puerperium; Z3A.37 37 weeks gestation of pregnancy
CPT/HCPCS: 59025; 81001; 84112; 87086; 94761; 96360; 96361; 96374; 99212; G0378; G0463; J0595; J7120

== ENCOUNTER 2025-01-14 13:15 | Inpatient (IN) | payer MEDICAID, SELFPAY ==
--- OUTSIDE RECORDS SUMMARY | 2025-01-14 13:39 | XMS_ITS | Clinical Summary ---
[facility] [address] [place] [address] Care Team Providers Care Dean Of Men Name Role Phone Provider, No Known Primary [...] with a HCV Nucleic Acid Amplification test ([id number]). RPR Non Reactive Non Reactive [facility] [...] 11/15/2020 2:40 PM EDT 11/15/2020 Narrative [facility] (AMBULATORY) - 11/17/2020 1:08 PM EDT Performed at: - [address] [id number] Cut Out And Marking Machine Operator: Martin Kaur PhD, Phone: [phone] Patient Fasting: N us Stacy Farrell APRN LAB BLOOD ORDERABLES Final Result Performing Organization Address City/State/[facility] Co de Phone Number [facility] (AMBULATORY) [address] [place] [address], [facility] [address] [place] [address], * Chlamydia trachomatis, Neisseria gonorrhoeae, PCR w/ confirmation - Urine, Urine, Clean Catch (11/15/2020 2:40 PM EDT) Chlamydia trachomatis, MERLINE Negative Negative [facility] Neisseria gonorrhoeae, MERLINE Negative Negative [facility] Urine Urine specimen collection, clean catch / Unknown 11/15/2020 2:40 PM EDT 11/15/2020 Comment: CD- [id number] Narrative [facility] ([facility]) - 11/17/2020 1:08 PM EDT Performed at: 03 - [address] [id number] Cut Out And Marking Machine Operator: Amanda Dooley MD, Phone: [phone] Patient Fasting: N us Stacy Farrell APRN MICROBIOLOGY - GENERAL ORD ERABLES Final Result [facility] ([facility]BULATORY) [address] [place] [address], [place] [phone] [facility] [address] [place] [address], from Last 3 Months or Most Recently Relevant to Health Maintenance Insurance Care Teams Dean Of Men Relationship Specialty Start Date End Date Provider, No Known [facility] [place] [address] PCP - General 10/21/20
[2025-01-14 13:43] VITALS: BP 112/63; PULSE 100; RESP 18; TEMP 37; O2SAT 97; BMI 40.6
--- NOTE | 2025-01-14 13:53 | HMH.PHAINT1 ---
Pharmacy Intervention Comments: MEDICATION RECONCILIATION COMPLETED ON PATIENT USING EXTERNAL FILL HISTORY FROM PHARMACY. -TIGIST DAMON, ODELLD
[2025-01-14 15:00] LABS: Hematocrit 32.0 % (37.0-47.0); Hemoglobin 9.8 g/dL (12.2-16.2); Immature Granulocytes % 0.7 %; Mean Corpuscular HGB Conc 30.6 g/dL (31.8-35.4); Mean Corpuscular Hemoglobin 23.1 pg (27.0-31.2); Mean Corpuscular Volume 75.5 fl (81-99); Nucleated Red Blood Cells % 0 %; Platelet Count 328 K/mm3 (142-424); Red Blood Count 4.24 M/mm3 (4.20-5.40); Red Cell Distribution Width-SD 44.2 fL; White Blood Count 14.2 K/mm3 (4.8-10.8)
[2025-01-14] MEDS: LACTATED RINGERS 1000ML 1,000 ML 999 ML IV ×2 (18:44→23:50)
[2025-01-14 19:18] VITALS: BP 141/87; PULSE 84; RESP 16; TEMP 36.7; O2SAT 98
[2025-01-14] MEDS: PROMETHAZINE HCL 25MG/ML 1ML VIAL 12.5 MG IV (20:20)
[2025-01-14] MEDS: BUTORPHANOL TARTRATE 1 MG/ML VIAL IV (20:20)
[2025-01-15] VITALS (13 sets, daily range): BP systolic 105–144; BP diastolic 57–86; PULSE 59–137; RESP 16–18; TEMP 36.4–37.1; O2SAT 97–100
[2025-01-15] MEDS: AMPICILLIN SODIUM 2 GM in 0.9 % SODIUM CHLORIDE 100 ML IV (00:30)
--- NOTE | 2025-01-15 01:18 | P.PNANES_ITS ---
[facility] Disclaimer: The information contained in this section may have been updated after the patient was seen, as this information can be updated by other users. Medical History Muscle spasm Vaginal discharge during Pelvic cramping in antepartum period Tachycardia Dizziness Shortness of breath Headache Maternal obesity affecting , antepartum Unspecified skin changes Vaginal odor Anxiety Spontaneous Surgical History No significant past surgical history Family History Other No significant family history Social History Smoking Status: Never smoker alcohol intake: never substance use type: denies use current occupational status: unemployed Travel in the last 8 weeks?: None do you feel safe at home: Yes victim of physical abuse: No victim of emotional abuse: No victim of sexual abuse: No Have you lived/traveled outside US in past 30 days?: No Contact w/someone who lives/traveled outside US past 30 days?: No Exposure to someone with infectious disease in past 14 days?: No Do you have a fever (greater than 100.4 F or 38 C)?: No Have you tested positive for COVID-19?: No Exposed to someone with COVID-19 in past 14 days?: No Do you have a sore throat?: No Do you have a cough?: No Do you have any weakness?: No Do you have any diarrhea?: No Are you experiencing any unusual bleeding?: No Do you have any muscle aches/pain?: No Do you have any abdominal pain?: No Are you experiencing loss of taste or smell?: No [facility] Anesthesia Checklist Patient Identification Patient Identification: Verbal (Name & ) Structural Data Admitted From: Inpatient Planned Operative Procedure/s: labor epidural Additional verifications Anesthesia Reactions: No Airway Assessment Mallampati Score:: Class II C-Spine Mobility Assessed: Yes TMJ Mobility Assessed: Yes Dentition: Good Dentition Neurological Assessment Level of Consciousness: Awake, Alert and Appropriate Anesthesia Plan Anesthesia Risk discussed: Yes Anesthesia Plan: Verified ASA Class: II Anesthesia Type: Epidural
[2025-01-15] MEDS: DEXTROSE 5%-LACTATED RINGERS 1,000 ML 125 ML IV ×2 (02:20→10:38)
[2025-01-15] MEDS: ONDANSETRON 4MG/2ML VIAL 4 MG IV (02:25)
[2025-01-15] MEDS: AMPICILLIN SODIUM 1 GM in 0.9 % SODIUM CHLORIDE 50 ML IV (06:06)
--- NOTE | 2025-01-15 08:11 | EXP.OB.APHP ---
OB - H&P: HPI Antepartum History of Present Illness Chief complaint: Scheduled induction of labor History of present illness: Mrs Annita Mahan is a 24 yo at 39w1d who presents to [facility] L&D for scheduled elective induction of labor. She has had good care. History of fourth degree perineal laceration with last delivery. She admits to irregular contractions. Baby is active. GBS positive History of Present Criteria for establishing EDC:: LMP confirmed by 1st trimester US care: good care Ultrasounds: normal mid trimester US Obstetrical complications: other (history of 4th degree perineal laceration) Medical complications: none Labs Blood type: A (+) positive Rubella: immune RPR/VDRL: nonreactive GBS status: positive HBsAG: negative PFSH PFSH Disclaimer: The information contained in this section may have been updated after the patient was seen, as this information can be updated by other users. Medical History (Updated 01/15/25 @ 08:19 by Laurel Montague DO) Positive GBS test Muscle spasm Vaginal discharge during Pelvic cramping in antepartum period Tachycardia Dizziness Shortness of breath Headache Maternal obesity affecting , antepartum Unspecified skin changes Vaginal odor Anxiety Spontaneous Surgical History No significant past surgical history Family History Other No significant family history Social History Smoking Status: Never smoker alcohol intake: never substance use type: denies use current occupational status: unemployed Travel in the last 8 weeks?: None do you feel safe at home: Yes victim of physical abuse: No victim of emotional abuse: No victim of sexual abuse: No Have you lived/traveled outside US in past 30 days?: No Contact w/someone who lives/traveled outside US past 30 days?: No Exposure to someone with infectious disease in past 14 days?: No Do you have a fever (greater than 100.4 F or 38 C)?: No Have you tested positive for COVID-19?: No Exposed to someone with COVID-19 in past 14 days?: No Do you have a sore throat?: No Do you have a cough?: No Do you have any weakness?: No Do you have any diarrhea?: No Are you experiencing any unusual bleeding?: No Do you have any muscle aches/pain?: No Do you have any abdominal pain?: No Are you experiencing loss of taste or smell?: No Other Medical History Have you received the Flu Vaccine for this season: No Have you received the Pneumonia Vaccine: No Review of Systems Review of Systems Review of systems:: pertinent systems reviewed and negative unless documented below Meds Home Medications and Allergies Home Medications ?Medication ?Instructions ?Recorded ?Confirmed ?Type vits no.126-ferrous fum 1 tab PO DAILY 08/14/24 01/14/25 History 28 mg iron-folic acid 800 mcg tablet (Classic ) ferrous sulfate 325 mg (65 mg 325 mg PO DAILY #30 tabs 12/25/24 01/14/25 Rx iron) tablet New Prescriptions to Start Prescriptions: Allergies Allergy/AdvReac Type Severity Reaction Status Date / Time No Known Allergies Allergy Verified 01/07/25 09:04 OB - H&P: Exam Physical Exam Vital signs: Temp Pulse Resp BP Pulse Ox O2 Del Method 98.4 F 59 L 16 114/62 97 Room Air 01/15/25 06:00 01/15/25 04:18 01/15/25 04:18 01/15/25 04:18 01/15/25 04:18 01/15/25 04:18 Constitutional no acute distress and cooperative Routine HEENT Exam Head: Present normocephalic and atraumatic Eye: Absent conjunctivae pink ENT: Present mucous membranes moist, dentition normal and nares patent Routine Neck Exam Present full ROM Routine Respiratory Exam Present CTA bilaterally and normal respiratory effort Routine Cardiovascular Exam Present RRR Routine Abdominal Exam Present soft (Gravid); Absent tenderness Routine Rectal Exam Patient deferred: visual exam Routine Exam External: Present normal urethra appearance; Absent erythema, swelling, tenderness, lesions or lacerations Routine Extremities Exam Present full ROM; Absent edema or calf tenderness Routine Neurological Exam Present alert, moving all extremities and normal speech Routine Psychiatric Exam Present normal affect and cooperative OB - Results Labs Labs: Short CBC 01/14/25 Range/Units 14:45 WBC 14.2 H (4.8-10.8) K/mm3 Hgb 9.8 L (12.2-16.2) g/dL Hct 32.0 L (37.0-47.0) % Plt Count 328 (142-424) K/mm3 OB - A/P Antepartum (1) Maternal obesity affecting , antepartum: Status: Acute (2) History of fourth degree perineal laceration: Status: Acute (3) Positive GBS test: Status: Acute Additional Plan Additional Information:: Admitted to L&D for scheduled induction of labor. Ampicillin for GBS prophylaxis Close montioring Anticipate . Discussed performing mediolateral episiotomy to try spare short perineum from repeat 4th degree laceration. She agrees and verbal consent obtained
--- NOTE | 2025-01-15 08:46 | EXP.LABOR.NO ---
Labor Note Subjective: Date: 01/15/25 Time: 08:46 Comment:: Uncomfortable with epidural Objective: NST:: Non-reactive Contractions:: every 2-3 minutes Cervical Dilation:: 9-10 Effacement:: 90% Station: -1 Membranes: spontaneously ruptured Fetus: monitoring type:: Combination Assessment: Labor progressing?: No Comment:: Failure to progress Nonreassuring heart tones with tachycardia Problems: (1) Encounter for induction of labor: Category: Medical Code(s): Z34.90 - Encounter for supervision of normal , unspecified, unspecified trimester (2) Failure to progress in labor: Category: Medical Code(s): O62.2 - Other uterine inertia (3) Non-reassuring heart tones complicating , antepartum: Category: Medical Code(s): O36.8390 - Maternal care for abnormalities of the heart rate or rhythm, unspecified trimester, not applicable or unspecified (4) Maternal obesity affecting , antepartum: Qualifiers: Obesity type affecting : unspecified obesity Qualified Code(s): O99.210 - Obesity complicating , unspecified trimester Category: Medical Code(s): O99.210 - Obesity complicating , unspecified trimester (5) History of fourth degree perineal laceration: Category: Medical Code(s): Z87.59 - Personal history of other complications of , childbirth and the puerperium (6) Positive GBS test: Category: Medical Code(s): B95.1 - Streptococcus, group B, as the cause of diseases classified elsewhere Plan: Plan for ?: Yes Comment:: Patient has been 9.5 cm dilated with swollen cervix anteriorly and to the right for about 2 hours. No cervix on left and posterior. She is extremely uncomfortable and pushing with reducing the cervix was attempted without success. Multiple position changes tried to thin the cervix without success. Baby's heart rate is elevated, 170-180 baseline with minimal and moderate variability. No accelerations, no decelerations. Decision was made to proceed with primary . Discussed risks, benefits, alternatives, expectations and possible complications of surgery. All questions addressed and answered. She voiced understanding of risks and possible complications. Consent form signed.
[2025-01-15] MEDS: AZITHROMYCIN 500 MG in 0.9 % SODIUM CHLORIDE 250 ML 250 MG IV (09:10)
[2025-01-15] MEDS: OXYTOCIN/RINGERS LACTATE 30 UNITS/500 ML BAG 999 UNITS IV (10:39)
--- NOTE | 2025-01-15 10:49 | P.PNANES_ITS ---
[facility] Anesthesia Record Part I Anesthesia Record I Intake, IV Amount: 1,035 Hydration: Adequate Estimated blood loss (mL): 700 Urine output (mL): 100 Blood Products used (#): none Blood Pressure: 105/58 SaO2: 100 Pulse Rate: 100 Airway Patency: Patent Respiratory Rate: 16 Temperature: 97.6 F Patient is:: Awake and Stable Stable to PACU at:: 10:35
[2025-01-15] MEDS: OXYTOCIN/RINGERS LACTATE 30 UNITS/500 ML BAG 40 UNITS IV (11:03)
--- NOTE | 2025-01-15 11:06 | P.OP_ITS ---
Date of procedure: 01/15/25 Pre-op Diagnosis:: 1. IUP at 39w1d 2. Elective induction of labor 3. Failure to progress/descend 4. Nonreassuring heart tones 5. History of 4th degree laceration with prior vaginal delivery Post-op Diagnosis:: 1. IUP at 39w1d 2. Elective induction of labor 3. Failure to progress/descend 4. Nonreassuring heart tones 5. History of 4th degree laceration with prior vaginal delivery 6. Cephalopelvic disproportion with occiput Posterior presentation 7. Nuchal cord x 2 Procedure performed:: Primary Low Transverse Section Surgeon:: Laurel Montague DO Sales Agent Business Services(s):: Isela Bragg DO [employer]:: Yusef Singh Anesthesia: spinal Estimated blood loss (mL): 700 Clinical Note:: Mrs Annita Mahan is a 24 yo at 39w1d who presents to [facility] L&D for scheduled elective induction of labor. She has had good care. History of fourth degree perineal laceration with last delivery. She admits to irregular contractions. Baby is active. GBS positive. She received Cytotec 50 mcg x 1 dose and progressed spontaneously. She has SROM after midnight with clear fluid. She progressed to 9.5 cm. Cervix was 9.5 cm dilated with swollen cervix anteriorly and to the right for about 2 hours. No cervix on left and posterior. She was extremely uncomfortable and pushing with reducing the cervix was attempted without success. Multiple position changes tried to thin the cervix without success. Baby's heart rate is elevated up to 200 bpm then back down to 170-180 baseline with minimal and moderate variability. No accelerations, no decelerations. Decision was made to proceed with primary . Discussed risks, benefits, alternatives, expectations and possible complications of surgery. All questions addressed and answered. She voiced understanding of risks and possible complications. Consent form signed. Operative findings:: 1. Live male baby, Freddie, weighing 7 lb 15 oz, AGPARs 8 (1 min), 9 (5 min) 2. Nuchal cord x 2, mild compression 3. Occiput posterior presentation 4. Grossly normal appearing uterus, bilateral fallopian tubes and ovaries Operative note:: The risks, benefits and alternatives of the procedure were reviewed with the patient. Informed consent was obtained. Patient was taken to the operating room where epidural was removed and spinal anesthesia was placed. The patient received 2 grams of Ancef and Azithromycin 500 mg IV preoperatively. Patient was placed in dorsal supine position with a leftward tilt. SCDs in place. Villarreal catheter was inserted and draining clear urine prior to the start of the procedure. heart tones were obtained. Vagina was prepped with Betadine swabs x 3. Patient was then prepped and draped in normal sterile fashion. Allis clamp test was performed to ensure adequate anesthesia. A Pfannenstiel skin incision was made 2 cm above pubic symphysis. This was carried through to underlying layer of fascia. Fascia was incised in midline, extended laterally with Dawkins scissors. Superior aspect of fascial incision was grasped with two Alfredo clamps, elevated up, and rectus muscle dissected off bluntly and sharply with Dawkins scissors. The retcus muscle was then in the midline and the peritoneum was entered bluntly with a digit. Peritoneal incision was then extended superiorly and inferiorly with good visualization of the bladder. Figueroa retractor was inserted. The lower uterine segment was incised in a transverse fashion. Clear amniotic fluid was noted. Occiput posterior presentation. Head was delivered without difficulty. Nuchal x 2 with mild compression. Cord was unwrapped from baby's neck. Remainder of body was delivered without difficulty. Mouth and nares were bulb suctioned. Spontaneous cry was noted. Delayed cord clamping was performed for 60 seconds. The umbilical cord was clamped and cut. The was handed to awaiting pediatric staff in stable condition. Dr. Ivey was present. Apgars were 8(1 min), 9(5 min). Section of cord was collected for gases. Cord blood was obtained. Gentle traction on the umbilical cord and uterine fundal massage delivered the placenta. Placenta was intact. Uterus was cleared of all clots and debris with a moist laparotomy sponge. Corners of the uterine incision were grasped with Allis clamps. The uterine incision was reapproximated with # 1 Vicryl suture in a running, locked stitch. Second layer of the same stitch was used to imbricate the incision. Vesicouterine peritoneum was reapproximated in a running locked stitch with 2-0 Vicryl suture. Hemostasis was noted. Posterior cul-de-sac was cleaned with moist laparotomy sponge. Gutters cleared of all clots and debris with a moist laparotomy sponge. Reinspection of the lower uterine segment demonstrated small amount of oozing. Surgicel powder was applied over uterine incision. Hemostasis was noted. At this point all instruments and sponges were removed from the pelvis.? The peritoneum was grasped with Patricia clamps x 3. The peritoneum was reapproximated with 0 Vicryl suture in a running stitch. The corners of the fascia were grasped with Alfredo clamps, and the fascia was reapproximated with two # 1 Vicryl suture overlapped to the right of midline. Subcutaneous tissue was irrigated with clear return of fluids. The subcutaneous tissue was reapproximated with 3-0 Vicryl. The skin was reapproximated with Insorb jeremi. Steri strips and Telfa was placed over closed Pfannenstiel skin incision. At the end of the procedure, the uterus was firm with minimal vaginal bleeding. Patient tolerated the procedure well. Instrument, sponges and needle counts were correct x 2. Mom and baby were transported to recovery room in stable condition. Condition: stable Disposition: floor Specimens:: 1. Cord blood Complications:: None
[2025-01-15] MEDS: ACETAMINOPHEN 500MG TAB 1000 MG PO ×2 (14:35→20:35)
[2025-01-15] MEDS: KETOROLAC 30MG/ML VIAL 30 MG IV (15:45)
[2025-01-15 16:36] LABS: RPR W/RFX Titers Nonreactive (Nonreactive)
--- NOTE | 2025-01-15 16:37 | P.PNANES_ITS ---
[facility] Anesthesia Record Part II Anesthesia Record Part II Discharge Time: 11:05 Destination: Obstetric PACU nurse assessment reviewed?: Yes Patient Condition:: Good Anesthesia Complications:: None Swallowing reflex intact?: Yes Airway Patency: Patent Cyanosis?: No Blood Pressure: 143/62 SaO2: 100 Respiratory Rate: 18 Pulse Rate: 76 Temperature: 97.6 F Mental Status: Alert & Oriented Pain level:: 0 Nausea and/or vomitting:: None Intake, IV Amount: 0 Hydration: Adequate
[2025-01-15] MEDS: SIMETHICONE 80MG CHEWABLE TABLET 160 MG PO (20:46)
[2025-01-15] MEDS: IBUPROFEN 400 MG TABLET 800 MG PO (22:11)
[2025-01-16] MEDS: ACETAMINOPHEN 500MG TAB 1000 MG PO ×4 (02:03→22:10)
[2025-01-16 04:30] VITALS: BP 118/58; PULSE 92; RESP 16; TEMP 36.5; O2SAT 99
[2025-01-16 05:59] LABS: Hematocrit 26.4 % (37.0-47.0); Hemoglobin 7.9 g/dL (12.2-16.2); Immature Granulocytes % 0.8 %; Mean Corpuscular HGB Conc 29.9 g/dL (31.8-35.4); Mean Corpuscular Hemoglobin 22.8 pg (27.0-31.2); Mean Corpuscular Volume 76.3 fl (81-99); Nucleated Red Blood Cells % 0 %; Platelet Count 257 K/mm3 (142-424); Red Blood Count 3.46 M/mm3 (4.20-5.40); Red Cell Distribution Width-SD 45.1 fL; White Blood Count 15.9 K/mm3 (4.8-10.8)
[2025-01-16] MEDS: IBUPROFEN 400 MG TABLET 800 MG PO ×3 (07:10→22:10)
[2025-01-16] MEDS: OXYCODONE 5MG IMMEDIATE RELEASE TABLET 5 MG PO ×2 (07:49→18:38)
[2025-01-16 08:35] VITALS: BP 112/58; PULSE 80; RESP 16; TEMP 36.7; O2SAT 98
--- NOTE | 2025-01-16 11:09 | P.PN_ITS ---
Subjective *Date: 01/16/25 *Time: 11:09 Interval history: POD # 1 s/p PLTCS Feeling well. Pain controlled. Breast feeding. Lochia is appropriate. Voiding without difficulty and passing flatus. Tolerating regular diet. Denies fever/chills, chest pain and shortness of breath. No headaches, vision changes, lightheadedness/dizziness. Admits to lower extremity swelling. No calf pain. Ambulating well ad azam. Medical Exam Vital signs and Labs for Last 24 Hours: Vital Signs Temp Pulse Resp BP Pulse Ox O2 Del Method 01/16/25 08:35 98.0 F 80 16 112/58 L 98 Room Air 01/16/25 04:30 97.7 F 92 H 16 118/58 L 99 Room Air 01/15/25 20:30 97.9 F 69 16 126/69 98 Room Air 01/15/25 16:38 18 01/15/25 12:16 73 110/61 98 Room Air Intake and Output 01/15/25 01/16/25 01/16/25 23:59 07:59 15:59 Intake Total 1107.667 / 5271.834 Balance 1107.667 / 5271.834 Intake: Intake, Total IV Amount 1107.667 / 5271.834 Cefazolin Sodium 2 gm In 0.9 % 36 / 36 Sodium Chloride 100 ml @ 200 mls/hr IV Q8H [facility] Rx#:[id number] Dextrose 5%-Lactated Ringers 1, 825 / 1804.167 000 ml @ 125 mls/hr IV .Q8H [facility] Rx#:[id number] Oxytocin/Ringers Lactate 30 246.667 / 496.667 units In 500 ml @ 40 mls/hr IV .[id number] Rx#:[id number] Laboratory Results - last 24 hr 01/14/25 14:45: RPR w/Rflx to Titer Nonreactive 01/16/25 05:27: WBC 15.9 H, RBC 3.46 L, Hgb 7.9 L, Hct 26.4 L, MCV 76.3 L, MCH 22.8 L, MCHC 29.9 L, RDW 16.3, Plt Count 257, MPV 10.2, Neut % (Auto) 72.5, Lymph % (Auto) 18.4, Marin % (Auto) 7.3, Eos % (Auto) 0.7, Baso % (Auto) 0.3, Neut # (Auto) 11.5 H, Lymph # (Auto) 2.9, Marin # (Auto) 1.2 H, Eos # (Auto) 0.1, Baso # (Auto) 0.1 I & O for Labs for Last 24 Hours: Intake & Output 01/13/25 01/14/25 01/15/25 01/16/25 23:59 23:59 23:59 23:59 Intake Total 500 / 500 5271.834 / 5271.834 Balance 500 / 500 5271.834 / 5271.834 Weight 222 lb Head: Present atraumatic and normocephalic ENT: Present normal exam Neck: Present normal inspection and full ROM Respiratory: Present CTA bilaterally and normal respiratory effort Cardiac: Present Reg Rate and Rhythm GI: Present soft, tenderness (mild appropriate tenderness to palpation) and normal bowel sounds; Absent distention Comments:: Uterine fundus firm and below umbilicus Rectal (female): Present deferred (female): Present deferred Extremities: Present full ROM and edema (+2 bilateral lower extremity edema); Absent calf tenderness Neuro: Present alert, awake and moves all extremities Assessment and Plan *Assessment and plan (1) S/P section: Status: Acute Category: Surgical Code(s): Z98.891 - History of uterine scar from previous surgery (2) Failure to progress in labor: Status: Acute Category: Medical Code(s): O62.2 - Other uterine inertia (3) Non-reassuring heart tones complicating , antepartum: Status: Acute Category: Medical Code(s): O36.8390 - Maternal care for abnormalities of the heart rate or rhythm, unspecified trimester, not applicable or unspecified (4) Maternal obesity affecting , antepartum: Status: Acute Qualifiers: Obesity type affecting : unspecified obesity Qualified Code(s): O99.210 - Obesity complicating , unspecified trimester Category: Medical Code(s): O99.210 - Obesity complicating , unspecified trimester (5) Positive GBS test: Status: Acute Category: Medical Code(s): B95.1 - Streptococcus, group B, as the cause of diseases classified elsewhere (6) Anemia associated with acute blood loss: Status: Acute Category: Medical Code(s): D62 - Acute posthemorrhagic anemia Plan Continue routine care Encouraged increased ambulation AM Hgb 7.9. Her IV infiltrated last night and was removed. Instructed her to continue PO ferrous sulfate. She is asymptomatic Plan d/c home tomorrow, POD # 2
[2025-01-16 16:32] VITALS: BP 111/59; PULSE 84; RESP 18; TEMP 36.6; O2SAT 99
[2025-01-16 20:46] VITALS: BP 124/73; PULSE 84; RESP 18; TEMP 36.5; O2SAT 99
[2025-01-17] MEDS: ACETAMINOPHEN 500MG TAB 1000 MG PO ×2 (04:36→10:39)
[2025-01-17 04:37] VITALS: BP 128/70; PULSE 73; RESP 16; TEMP 36.7; O2SAT 99
[2025-01-17] MEDS: IBUPROFEN 400 MG TABLET 800 MG PO (06:11)
[2025-01-17] MEDS: LANOLIN CREAM 40GM TP (06:12)
[2025-01-17 08:00] VITALS: BP 112/68; PULSE 80; RESP 16; TEMP 36.8; O2SAT 98
--- NOTE | 2025-01-17 11:32 | EXP.DC.SUM ---
General Admission date:: 01/14/25 Discharge date: 01/17/25 HPI HPI HPI: POD # 2 s/p PLTCS Feeling well. Pain controlled. Breast feeding. Lochia is light. Voiding without difficulty and passing flatus. Tolerating regular diet. Denies fever/chills, chest pain and shortness of breath. No headaches, vision changes, lightheadedness/dizziness. Admits to lower extremity swelling. No calf pain. Ambulating well ad azam. Hospital Course Hospital Course Hospital Course: Mrs Annita Mahan is a 24 yo at 39w1d who presents to [facility] L&D for scheduled elective induction of labor. She has had good care. History of fourth degree perineal laceration with last delivery. She admits to irregular contractions. Baby is active. GBS positive. She received Cytotec 50 mcg x 1 dose and progressed spontaneously. She has SROM after midnight with clear fluid. She progressed to 9.5 cm. Cervix was 9.5 cm dilated with swollen cervix anteriorly and to the right for about 2 hours. No cervix on left and posterior. She was extremely uncomfortable and pushing with reducing the cervix was attempted without success. Multiple position changes tried to thin the cervix without success. Baby's heart rate is elevated up to 200 bpm then back down to 170-180 baseline with minimal and moderate variability. No accelerations, no decelerations. Decision was made to proceed with primary . She underwent primary on 01/15/25. She delivered a live baby boy, Freddie, weighing 7 lb 15 oz, AGPARs 8 (1 min), 9 (5 min). EBL 700 mL. She did well /postoperatively. Pain controlled. Breast feeding. Light lochia. Voiding without difficulty and passing flatus. Tolerating regular diet. Denies fever/chills, chest pain and shortness of breath. No headaches, dizziness/lightheadedness or vision changes. Vital signs stable, afebrile. Heart regular rate and rhythm. Lungs clear to auscultation. Abdomen soft, nontender. She had +2 bilateral lower extremity edema. No calf tenderness to palpation. Ambulating well ad azam. Normal hospital course. She was discharged to home on POD # 2 with instructions to follow-up in the office in 2 weeks or sooner if needed. Exam Data for Last 24 hours Vital signs and Labs for Last 24 Hours: Temp Pulse Resp BP Pulse Ox O2 Del Method 98.2 F 80 16 112/68 98 Room Air 01/17/25 08:00 01/17/25 08:00 01/17/25 08:00 01/17/25 08:00 01/17/25 08:00 01/17/25 08:00 I & O for Last 24 hours: Intake & Output 01/14/25 01/15/25 01/16/25 01/17/25 23:59 23:59 23:59 23:59 Intake Total 500 / 500 5271.834 / 5271.834 Balance 500 / 500 5271.834 / 5271.834 Weight 222 lb Constitutional Constitutional: no acute distress and cooperative *Routine HEENT Exam Head: Present normocephalic and atraumatic Eye: Absent conjunctivae pink ENT: Present mucous membranes moist *Routine Neck Exam Neck: Present full ROM *Routine Respiratory Exam Respiratory: Present CTA bilaterally and normal respiratory effort *Routine Cardiovascular Exam Cardiovascular: Present RRR *Routine Abdominal Exam Abdominal: Present soft; Absent tenderness or distended *Routine Rectal Exam Patient deferred: visual exam *Routine Exam Patient deferred: external exam *Routine Extremities Exam Extremities: Present edema (+2 bilateral lower extremity edema) and full ROM; Absent calf tenderness *Routine Neurological Exam Neurological: Present alert, moving all extremities and normal speech Routine Psychiatric Exam Psychiatric: Present normal affect and cooperative DS: Diagnosis Discharge Diagnosis (1) S/P section: Status: Acute Code(s): Z98.891 - History of uterine scar from previous surgery (2) Failure to progress in labor: Status: Acute Code(s): O62.2 - Other uterine inertia (3) Non-reassuring heart tones complicating , antepartum: Status: Acute Code(s): O36.8390 - Maternal care for abnormalities of the heart rate or rhythm, unspecified trimester, not applicable or unspecified (4) Maternal obesity affecting , antepartum: Status: Acute Code(s): O99.210 - Obesity complicating , unspecified trimester Qualifiers: Obesity type affecting : unspecified obesity Qualified Code(s): O99.210 - Obesity complicating , unspecified trimester (5) Positive GBS test: Status: Acute Code(s): B95.1 - Streptococcus, group B, as the cause of diseases classified elsewhere (6) Anemia associated with acute blood loss: Status: Acute Code(s): D62 - Acute posthemorrhagic anemia Meds Home Medications and Allergies Home Medications ?Medication ?Instructions ?Recorded ?Confirmed ?Type vits no.126-ferrous fum 1 tab PO DAILY 08/14/24 01/14/25 History 28 mg iron-folic acid 800 mcg tablet (Classic ) ferrous sulfate 325 mg (65 mg 325 mg PO DAILY #30 tabs 12/25/24 01/14/25 Rx iron) tablet ibuprofen 800 mg tablet 800 mg PO Q8H PRN pain #20 tabs 01/16/25 Rx oxycodone 5 mg tablet 5 mg PO Q4HP PRN Moderate Pain 01/16/25 Rx (4-6) #20 tabs buspirone 5 mg tablet 5 mg PO BID #60 tabs 01/17/25 Rx New Prescriptions to Start Prescriptions: Laurel Skinner ibuprofen Laurel Montague oxycodone Laurel Montague Allergies Allergy/AdvReac Type Severity Reaction Status Date / Time No Known Allergies Allergy Verified 01/07/25 09:04 Discharge Plan Disposition Patient Disposition: Home, Self-Care Condition: Good Discharge Order Discharge Orders: Discharge Order (Routine); Ordered 01/17/25 Ordered By: Laurel Montague Follow up Plan Follow up with: Laurel Montague DO [Staff Physician, THERMOSTATIC CONTROLS SUPERVISOR] - 01/29/25 Referral Note: Call the office on Saturday to be seen on January 29 Prescriptions/Medication Reconciliation: New oxycodone 5 mg Tablet 5 mg PO Q4HP PRN (Reason: Moderate Pain (4-6)) Qty: 20 0RF ibuprofen 800 mg tablet 800 mg PO Q8H PRN (Reason: pain) Qty: 20 0RF buspirone 5 mg tablet 5 mg PO BID Qty: 60 2RF Continued Classic 28 mg iron- 800 mcg tablet 1 tab PO DAILY ferrous sulfate 325 mg (65 mg iron) tablet 325 mg PO DAILY Qty: 30 5RF Problem Reconciliation Problems Reviewed?: Yes Patient Discharge Instructions ACTIVITY: Limited activity DIET: continue same diet and regular diet Additional Instructions: Congratulations!! Discharge: 1. Take 800 mg Ibuprofen every 8 hours as needed for pain. You can also take 500-1000 mg of Tylenol in between doses, every 6-8 hours. If pain persists you can take Oxycodone 5 mg, 1 tablet every 4-6 hours or longer as needed. 2. Nothing in the vagina for 6 weeks - no intercourse, douching or tampons. No tub baths/hot tubs or swimming pools - Drink plenty of fluids. - No strenuous activity or driving until released by your doctor. - Don't lift anything heavier than your in the pumpkin seat 3. Reasons to return to L&D or call On-Call doctor - fever (greater than 100.4) - heavy vaginal bleeding (soaking through 1 pad in less than 2 hours) - vaginal discharge (malodorous and/or purulent) - severe headaches not resolved by medication or rest and increased leg swelling/tenderness 4. depression/blues - Normal to feel anxious/overwhelmed for first 2 weeks - Talk to your doctor if: severe anxiety, trouble bonding with baby, withdrawing from other family members, thoughts of harming yourself or others Laurle Montague DO [facility] [phone] Patient Instructions: Depression, Hemorrhage, DI for , DI for Pre-eclampsia, [facility] Post Discharge Instructions Print Language: Upper Sorbian Providers Primary Care Provider: Provider,Referral Admit Provider: Isela Bragg Attending Provider: Isela Bragg
== END 2025-01-17 13:45 | disposition home or self-care (01) | DRG 787 ==
PROVIDERS: Obstetrics & Gynecology; Admitting Provider Obstetrics & Gynecology; Visit Provider Obstetrics & Gynecology
PROC: 10D00Z1 Extraction of Products of Conception, Low, Open Approach (ICD-10-PCS; CPT 59514; principal; 2025-01-15 09:00)
DX: O99.824 Streptococcus B carrier state complicating childbirth (principal); D62 Acute posthemorrhagic anemia; Z3A.39 39 weeks gestation of pregnancy; Z37.0 Single live birth; O99.214 Obesity complicating childbirth; O61.0 Failed medical induction of labor; O76 Abnormality in fetal heart rate and rhythm complicating labor and delivery; O62.2 Other uterine inertia; O90.81 Anemia of the puerperium; O33.8 Maternal care for disproportion of other origin; O32.8XX0 Maternal care for other malpresentation of fetus, not applicable or unspecified; O69.1XX0 Labor and delivery complicated by cord around neck, with compression, not applicable or unspecified; Z23 Encounter for immunization; Z87.59 Personal history of other complications of pregnancy, childbirth and the puerperium
CPT/HCPCS: 36415; 51702; 59025; 82800; 85025; 86592; 86850; 94761; J0290; J0456; J0595; J0665; J0666; J1885; J2003; J2371; J2405; J2550; J2704; J2795; J3010; J7050; J7120; J7121

== ENCOUNTER 2025-05-10 08:23 | Outpatient (CLI) | payer MEDICAID, SELFPAY ==
[2025-05-10 20:13] LABS: Coronavirus 19, PCR Not Detected (NotDetected); Influenza A, PCR Not Detected (NotDetected); Influenza B, PCR Not Detected (NotDetected)
--- OUTSIDE RECORDS SUMMARY | 2025-05-12 08:26 | XMS_ITS | Clinical Summary ---
[facility] Organization [facility] Address [address] [place] [address] Care Team Providers Care Marketing Producer Name Role Phone Provider, No Known Primary [...] HPV VACCINES (1 - 3-dose series) 2016 ANNUAL PHYSICAL 10/25/2020 TDAP/TD VACCINES (2 - Td or Tdap) 12/04/2022 12/04/2012 INFLUENZA VACCINE 12/25/2024 04/02/2016, 2010 Pneumococcal Vaccine 0-49 Aged Out 2001, 2001, 2001, Additional history exists No longer eligible based on patient's age to complete this topic CHLAMYDIA SCREENING Discontinued 11/15/2020 HEPATITIS C SCREENING Completed 11/15/2020 MENINGOCOCCAL B VACCINE Aged Out No l onger eligible based on patient's age to complete this topic Procedures Procedure Name Priority Date/Time Associated Diagnosis [...] with a HCV Nucleic Acid Amplification test ([id number]). RPR Non Reactive Non Reactive [facility] [...] 11/15/2020 2:40 PM EDT 11/15/2020 Narrative [facility]) - 11/17/2020 1:08 PM EDT Performed at: - [address] [id number] Railroad Conductor: Martin Kaur PhD, Phone: [phone] Patient Fasting: N us Stacy Farrell APRN LAB BLOOD ORDERABLES Final Result Performing Organization Address City/[facility]/ZIP Co de Phone Number [facility] [address] [place] [address], [facility] [address] [place] [address], * Chlamydia trachomatis, Neisseria gonorrhoeae, PCR w/ confirmation - Urine, Urine, Clean Catch (11/15/2020 2:40 PM EDT) Pathologist [facility] Chlamydia trachomatis, MERLINE Negative Negative [facility] Neisseria gonorrhoeae, MERLINE Negative Negative [facility] Urine Urine specimen collection, clean catch / Unknown 11/15/2020 2:40 PM EDT 11/15/2020 Comment: CD- [id number] Narrative [facility]) - 11/17/2020 1:08 PM EDT Performed at: [address] [place] [id number] Railroad Conductor: Amanda Dooley MD, Phone: [phone] Patient Fasting: N us Stacy Farrell APRN MICROBIOLOGY - GENERAL ORD ERABLES Final Result [facility]) [address] [place] [address], [place] [phone] [facility] [address] [place] [address], from Last 3 Months or Most Recently Relevant to Health Maintenance Insurance [employer] Care Teams Marketing Producer Relationship Specialty Start Date End Date Provider, No Known [facility] [place] [address] PCP - General 10/21/20
== END 2025-05-10 23:59 | disposition home or self-care (01) ==
LOC: LAB.DROPOF 05-12 08:23
PROVIDERS: Visit Provider Nurse Practitioner
DX: J06.9 Acute upper respiratory infection, unspecified (principal); J02.9 Acute pharyngitis, unspecified
CPT/HCPCS: 87631